=== PATIENT | female | born 1940 | race African-American/Black ===

== ENCOUNTER 2020-06-03 16:26 | Outpatient (REF) | payer MEDICARE, MEDICAID, SELFPAY ==
[2020-06-03 18:09] LABS: Free T4 (Free Thyroxine) 0.94 ng/dL (0.71-1.85); Thyroid Stimulating Hormone 3.35 mIU/mL (0.32-4.0)
== END 2020-06-03 16:27 | disposition home or self-care (01) ==
LOC: HO.LAB 16:26
DX: R53.83 Other fatigue (principal)
CPT/HCPCS: 36415; 84439; 84443

== ENCOUNTER 2020-09-12 13:44 | Outpatient (REF) | payer MEDICARE, MEDICAID, SELFPAY ==
--- NOTE | 2020-09-12 13:49 | MM_ITS ---
EXAMINATION: MM SCREENING DIGITAL BREAST TOMOSYNTHESIS, BILATERAL CLINICAL INFORMATION: Screening. Asymptomatic. The lifetime risk of breast cancer based on the Tyrer-Cuzick Model is 1%. COMPARISON: Mammography: 09/07/2019, 08/08/2018, 06/29/2017 TECHNIQUE: Digital breast tomosynthesis is performed in both the craniocaudal and mediolateral oblique views along with computer-aided detection (CAD). Synthesized 2D images are generated from the tomosynthesis. FINDINGS: There are scattered areas of fibroglandular density (ACR BI-RADS breast composition Category b). There are no significant masses, abnormal calcifications, or other abnormalities. Parenchymal pattern is similar to prior studies. There is a small smooth nodule again seen anterior lateral left breast and also at central 6:00 left breast. There is no developing density. The axilla and skin contours are unremarkable. MM/MM tomosynthesis screening BI IMPRESSION: No significant changes from prior exams. ASSESSMENT: BI-RADS 2: Benign RECOMMENDATION: Routine annual mammography screening. This patient's information was entered into a reminder system with a target due date for their next mammogram.
== END 2020-09-12 13:45 | disposition home or self-care (01) ==
LOC: HO.MAMMO 13:44
PROVIDERS: PCP Internal Medicine; Visit Provider Internal Medicine
DX: Z12.31 Encounter for screening mammogram for malignant neoplasm of breast (principal)
CPT/HCPCS: 77063; 77067

== ENCOUNTER 2020-11-15 08:44 | Outpatient (REF) | payer MEDICARE, MEDICAID, SELFPAY ==
[2020-11-15 11:58] LABS: Hematocrit 44.4 % (37-47); Hemoglobin 14.4 g/dl (12.0-16.0); Mean Corpuscular HGB Conc 32.4 g/dl (31.0-35.0); Mean Corpuscular Hemoglobin 29.8 pg (27.0-33.0); Mean Corpuscular Volume 91.9 fL (80-98); Mean Platelet Volume 10.6 fL (9.4-12.3); Platelet Count 266 X10*3/uL (160-400); Red Blood Count 4.83 X10*6/uL (4.20-5.50); Red Cell Distribution Width 12.7 % (11.0-16.0); White Blood Count 10.3 X10*3/uL (4.8-10.8)
[2020-11-15 12:05] LABS: Estimated Average Glucose 123 mg/dL; Hemoglobin A1C 152.0888 umol/L; Hemoglobin A1c % 5.9 %
[2020-11-15 12:21] LABS: Alanine Aminotransferase 10 U/L (0-31); Albumin Level 4.4 g/dL (3.5-5.0); Alkaline Phosphatase 69 U/L (39-117); Anion Gap 11 (12-20); Aspartate Amino Transferase 14 U/L (5-31); Bilirubin Total 0.8 mg/dL (0.0-1.0); Blood Urea Nitrogen 24 mg/dL (9-16); Calcium 9.9 mg/dL (8.4-10.2); Carbon Dioxide 35 mmol/L (22-29); Chloride 100 mmol/L (96-108); Cholesterol 291 mg/dL; Estimated Glomerular Filt Rate > 60; Glucose Fasting 108 mg/dL (60-99); HDL Cholesterol 94 mg/dL; LDL Cholesterol Calculated 181 mg/dl; Potassium 4.1 mmol/L (3.3-5.1); Sodium 142 mmol/L (135-145); Total Protein 7.6 g/dL (6.5-8.0); Triglycerides 83 mg/dL
== END 2020-11-15 08:45 | disposition home or self-care (01) ==
LOC: HO.HMGCLDS 08:44
PROVIDERS: PCP Internal Medicine; Visit Provider Internal Medicine
DX: E78.00 Pure hypercholesterolemia, unspecified (principal); I10 Essential (primary) hypertension
CPT/HCPCS: 36415; 80053; 80061; 83036; 85027

== ENCOUNTER 2021-04-22 09:03 | Outpatient (REF) | payer MEDICARE, MEDICAID, SELFPAY ==
--- NOTE | ~2021-04-22 | XR_ITS ---
EXAMINATION: CR X-RAY RIGHT FOOT AND ANKLE CLINICAL INFORMATION: Right ankle and foot pain. COMPARISON: None TECHNIQUE: 3 views each of the right foot and ankle were obtained. FINDINGS: Mild to moderate soft tissue swelling surrounds the ankle and dorsum of the foot. The ankle joint mortise are intact. There is no acute fracture or dislocation. The tarsal bones are normally aligned. There is a small plantar calcaneal spur. Mild to moderate dorsal spurring is seen at the level of the metatarsophalangeal joints. Mild first and second tarsometatarsal degenerative joint changes are seen. The metatarsals and phalanges are intact. XR/XR ankle RT min 3V IMPRESSION: Mild to moderate soft tissue swelling surrounding the ankle without acute underlying osseous abnormality. Degenerative spurring and degenerative joint changes as detailed above.
--- NOTE | ~2021-04-22 | XR_ITS ---
EXAMINATION: CR X-RAY RIGHT FOOT AND ANKLE CLINICAL INFORMATION: Right ankle and foot pain. COMPARISON: None TECHNIQUE: 3 views each of the right foot and ankle were obtained. FINDINGS: Mild to moderate soft tissue swelling surrounds the ankle and dorsum of the foot. The ankle joint mortise are intact. There is no acute fracture or dislocation. The tarsal bones are normally aligned. There is a small plantar calcaneal spur. Mild to moderate dorsal spurring is seen at the level of the metatarsophalangeal joints. Mild first and second tarsometatarsal degenerative joint changes are seen. The metatarsals and phalanges are intact. XR/XR foot RT min 3V IMPRESSION: Mild to moderate soft tissue swelling surrounding the ankle without acute underlying osseous abnormality. Degenerative spurring and degenerative joint changes as detailed above.
== END 2021-04-22 09:04 | disposition home or self-care (01) ==
LOC: HO.HMGCX 09:03
PROVIDERS: PCP Internal Medicine; Visit Provider Hospitalist
DX: M25.571 Pain in right ankle and joints of right foot (principal)
CPT/HCPCS: 73610; 73630

== ENCOUNTER 2021-05-01 13:17 | Outpatient (REF) | payer MEDICARE, MEDICAID, SELFPAY ==
--- NOTE | ~2021-05-01 | MM_ITS ---
EXAMINATION: BONE DENSITOMETRY CLINICAL INDICATION: Postmenopausal. COMPARISON: Baseline BD dated 01/26/2008. TECHNIQUE: Using a [employer] DXA System (software version: 13.1) manufactured by [employer], dual-energy x-ray absorptiometry was performed of the lumbar spine and left hip. The images are of good technical quality. Summary results are attached. FINDINGS: AP SPINE L1-L4: Current: BMD 1.612 g/cm2, Z-score 4.3, T-score 3.6, normal, 14.7% increase from baseline (<5% change is not significant). Baseline: BMD 1.406 g/cm2. LEFT FEMUR, NECK: Current: BMD 0.826 g/cm2, Z-score -0.7, T-score -1.5, osteopenia. Baseline: BMD 1.161 g/cm2. LEFT FEMUR, TOTAL: Current: BMD 1.057 g/cm2, Z-score 1.0, T-score 0.4, normal, 17.4% decrease from baseline (<5% change is not significant). Baseline: BMD 1.279 g/cm2. IDENTIFIED RISK FACTORS: Rheumatoid arthritis, osteoporosis. Early menopause, secondary osteoporosis, hysterectomy. HISTORY OF FRACTURE: None listed. MEDICATIONS: Calcium supplements or multivitamin, vitamin D. MM/XR DEXA axial skeleton IMPRESSION: 1. DIAGNOSIS: Osteopenia based on the lowest T-score value of -1.5 in the femoral neck applying World Health Organization criteria. 2. 10-YEAR FRACTURE RISK PREDICTION, FRAX: Major osteoporotic fracture (clinical spine, forearm, hip or shoulder) 7.4%. Hip fracture 1.8%. 3. Treatment Recommendations: NOF guidelines recommend consideration for treatment in postmenopausal women and men age 50 and older presenting with the following: -A hip or vertebral (clinical or morphometric) fracture. -T-score less than or equal to -2.5 at the femoral neck or spine after appropriate evaluation to exclude secondary causes. -Low bone mass at the hip or spine and a 10-year fracture probability by FRAX of greater than or equal to 3% for hip fracture or greater than or equal to 20% for major osteoporotic fracture based on the [place] adapted WHO algorithm. 4. Other Recommendations: All treatment decisions require clinical judgment and consideration of individual patient factors, including patient preferences, comorbidities, previous drug use, risk factors not captured in the FRAX model (e.g. frailty, falls, vitamin D deficiency, increased bone turnover, interval significant decline in bone density) and possible under or overestimation of fracture risk by FRAX. Additional medical evaluation for secondary cause of low bone mineral density may be appropriate. FUTURE SCAN RECOMMENDATION: People with diagnosed cases of osteoporosis or at high risk for fracture should have regular bone mineral density tests. For patients eligible for Medicare, routine testing is allowed once every 2 years. The testing frequency can be increased to one year for patients who have rapidly progressing disease, those who are receiving or discontinuing medical therapy to restore bone mass, or have additional risk factors.
== END 2021-05-01 13:18 | disposition home or self-care (01) ==
LOC: HO.MAMMO 13:17
PROVIDERS: PCP Internal Medicine; Visit Provider Advanced Practice Midwife
DX: Z12.31 Encounter for screening mammogram for malignant neoplasm of breast (principal); Z13.820 Encounter for screening for osteoporosis; M85.80 Other specified disorders of bone density and structure, unspecified site; M06.9 Rheumatoid arthritis, unspecified; M81.0 Age-related osteoporosis without current pathological fracture; Z78.0 Asymptomatic menopausal state; Z98.890 Other specified postprocedural states; Z79.899 Other long term (current) drug therapy
CPT/HCPCS: 77080

== ENCOUNTER 2021-05-16 07:01 | Outpatient (REF) | payer MEDICARE, MEDICAID, SELFPAY ==
[2021-05-16 08:03] LABS: Alanine Aminotransferase 15 U/L (0-31); Albumin Level 4.3 g/dL (3.5-5.0); Alkaline Phosphatase 70 U/L (39-117); Anion Gap 11 (12-20); Aspartate Amino Transferase 20 U/L (5-31); Bilirubin Total 0.8 mg/dL (0.0-1.0); Blood Urea Nitrogen 20 mg/dL (9-16); Calcium 9.6 mg/dL (8.4-10.2); Carbon Dioxide 29 mmol/L (22-29); Chloride 105 mmol/L (96-108); Cholesterol 264 mg/dL; Estimated Glomerular Filt Rate 54; Glucose Fasting 108 mg/dL (60-99); HDL Cholesterol 72 mg/dL; Iron 75 mcg/dL (30-160); LDL Cholesterol Calculated 177 mg/dl; Percent Iron Saturation 22 % (15-50); Sodium 141 mmol/L (135-145); Total Iron Binding Capacity 342 mcg/dL (228-428); Total Protein 6.8 g/dL (6.5-8.0); Triglycerides 78 mg/dL; Unsaturated Iron Binding 267 ug/dL
[2021-05-16 08:26] LABS: TSH reflex Free T4 3.03 uIU/mL (0.32-4.0)
== END 2021-05-16 07:02 | disposition home or self-care (01) ==
LOC: HO.LAB 07:01
PROVIDERS: PCP Internal Medicine; Visit Provider Internal Medicine
DX: I01.1 Acute rheumatic endocarditis (principal); E78.5 Hyperlipidemia, unspecified; I10 Essential (primary) hypertension
CPT/HCPCS: 36415; 80053; 80061; 83540; 84443

== ENCOUNTER 2021-09-16 07:42 | Outpatient (REF) | payer MEDICARE, MEDICAID, SELFPAY ==
--- NOTE | ~2021-09-16 | MM_ITS ---
EXAMINATION: MM SCREENING DIGITAL BREAST TOMOSYNTHESIS, BILATERAL CLINICAL INFORMATION: Screening. Asymptomatic. The lifetime risk of breast cancer based on the Tyrer-Cuzick Model is 2%. COMPARISON: Mammography: 09/12/2020, 09/07/2019, 08/08/2018 TECHNIQUE: Digital breast tomosynthesis is performed in both the craniocaudal and mediolateral oblique views along with computer-aided detection (CAD). Synthesized 2D images are generated from the tomosynthesis. FINDINGS: There are scattered areas of fibroglandular density (ACR BI-RADS breast composition Category b). There are no significant masses, abnormal calcifications, or other abnormalities. Fine fibronodular changes are similar to prior studies. No interval dominant nodularity or developing density. No architectural abnormality. The axilla and skin contours are unremarkable. MM/MM tomosynthesis screening BI IMPRESSION: No mammographic evidence of malignancy. ASSESSMENT: BI-RADS 2: Benign RECOMMENDATION: Routine annual mammography screening. This patient's information was entered into a reminder system with a target due date for their next mammogram.
== END 2021-09-16 07:43 | disposition home or self-care (01) ==
LOC: HO.MAMMO 07:42
PROVIDERS: PCP Internal Medicine; Visit Provider Internal Medicine
DX: Z12.31 Encounter for screening mammogram for malignant neoplasm of breast (principal)
CPT/HCPCS: 77063; 77067

== ENCOUNTER → 2021-09-23 09:14 | Outpatient (BNVA) | payer MEDICARE, MEDICAID, SELFPAY | PROVIDERS: PCP Internal Medicine; Referring Provider Internal Medicine; Visit Provider Internal Medicine | DX: R00.2 Palpitations (principal); R07.2 Precordial pain; I10 Essential (primary) hypertension | CPT/HCPCS: 93005; 99202 ==

== ENCOUNTER → 2021-09-25 07:36 | Outpatient (REF) | payer MEDICARE, MEDICAID, SELFPAY ==
--- NOTE | 2021-09-25 07:29 | HM_ITS ---
Conclusion: 1. Patient was monitor for 6 days and 23 hours 2. Baseline rhythm is normal sinus rhythm with average heart rate of 74 beats per minute 3. No significant bradycardia or pauses noted 4. One episode of SVT at 109 beats per minute lasting 16 beats 5. Total of 10,167 PVCs accounting for 1.43% of total burden accounting for frequent PVCs 6. Total of 826 PACs, suggestive occasional PACs with total burden of 0.12% 7. No patient reported events MTDD
== END ==
LOC: HO.CARD 07:36
PROVIDERS: PCP Internal Medicine; Visit Provider Internal Medicine
DX: R00.2 Palpitations (principal)
CPT/HCPCS: 93242

== ENCOUNTER 2021-10-09 09:14 | Outpatient (REF) | payer MEDICARE, MEDICAID, SELFPAY ==
--- NOTE | ~2021-10-09 | XR_ITS ---
EXAMINATION: XR CHEST CLINICAL INFORMATION: Hypertension COMPARISON: August 27, 2018 TECHNIQUE: 2 views of the chest were obtained. FINDINGS: No significant abnormality is noted involving the heart, lungs, mediastinum, bony thorax or soft tissues. XR/XR chest 2V IMPRESSION: No acute disease.
[2021-10-09 11:19] LABS: Hematocrit 41.7 % (37.0-47.0); Hemoglobin 13.7 g/dl (12.0-16.0); Mean Corpuscular HGB Conc 32.9 g/dl (31.0-35.0); Mean Corpuscular Hemoglobin 29.9 pg (27.0-33.0); Mean Platelet Volume 9.6 fL (9.4-12.3); Platelet Count 271 X10*3/uL (160-400); Red Blood Count 4.58 X10*6/uL (4.20-5.50); Red Cell Distribution Width 12.5 % (11.0-16.0); White Blood Count 5.4 X10*3/uL (4.8-10.8)
[2021-10-09 11:33] LABS: Alanine Aminotransferase 11 U/L (0-31); Albumin Level 4.5 g/dL (3.5-5.0); Alkaline Phosphatase 74 U/L (39-117); Anion Gap 11 (12-20); Aspartate Amino Transferase 15 U/L (5-31); Bilirubin Total 0.9 mg/dL (0.0-1.0); Blood Urea Nitrogen 22 mg/dL (9-16); Calcium 10.1 mg/dL (8.4-10.2); Carbon Dioxide 31 mmol/L (22-29); Chloride 102 mmol/L (96-108); Cholesterol 311 mg/dL; Estimated Glomerular Filt Rate 52; Glucose Fasting 104 mg/dL (60-99); HDL Cholesterol 82 mg/dL; LDL Cholesterol Calculated 215 mg/dl; Potassium 4.5 mmol/L (3.3-5.1); Sodium 139 mmol/L (135-145); Total Protein 7.6 g/dL (6.5-8.0); Triglycerides 74 mg/dL
[2021-10-09 11:48] LABS: B Type Natriuretic Peptide 30 pg/mL (<100)
[2021-10-09 11:58] LABS: Erythrocyte Sedimentation Rate 44 MM/HR (0-20)
== END 2021-10-09 09:15 | disposition home or self-care (01) ==
LOC: HO.HMGCLDS 09:14
PROVIDERS: Visit Provider Internal Medicine
DX: R00.2 Palpitations (principal); I10 Essential (primary) hypertension; E78.5 Hyperlipidemia, unspecified
CPT/HCPCS: 36415; 71046; 80053; 80061; 83880; 85027; 85652

== ENCOUNTER → 2021-11-03 07:18 | Outpatient (REF) | payer MEDICARE, MEDICAID, SELFPAY ==
--- NOTE | ~2021-11-03 | NM_ITS ---
Exercise Myocardial perfusion study Indication: Precordial pain to evaluate for myocardial ischemia Technique: The patient was brought in for an exercise perfusion study on 11/03/2021. Patient performed exercise as per Mohan protocol and was injected 25 mCi of sestamibi was given intravenously one target HR was achieved. Images were obtained using the SPECT gamma camera interlaced with the gating device. Images were obtained in supine position. Resting perfusion study was performed on 11/05/2021. Patient was administered 25 mCi of sestamibi intravenously at rest. Images were then obtained in supine position. Images obtained with and without CT attenuation. Total DLP 169 mGy-cm. Images were processed with the software and compared side to side in short axis, horizontal long axis and vertical long axis views. Findings: The stress perfusion study showed non attenuated images show normal uptake of radiotracer in all segments of LV myocardium. Attenuated images show minimal thinning in the distal septum of the LV myocardium.. The gated study shows normal LV systolic function with calculated LVEF of 60%. LV cavity is normal in size. The gated study shows normal systolic wall thickening and contraction of all segments. There is no transient ischemic dilation. Resting study shows no change in perfusion pattern compared to stress perfusion study. Gating at rest reveals normal systolic wall motion with ejection fraction at 57%. The findings are consistent with normal myocardial perfusion. NM/NM cardiolite stress test Impression: 1. Normal myocardial perfusion 2. Gated LVEF is 60% 3. Transient ischemic dilatation not present Stress EKG is negative for ischemia
--- NOTE | 2021-11-03 07:22 | CA_ITS ---
Acquisition Time: 2021-11-03 08:37:39 Total Exercise Time: 00:05:00 Test Indications: CP, PALPITATIONS Medications: SEE CHART Protocol: JEREL Max HR: 148 BPM 104% of Pred: 141 BPM Max BP: 178/080 mmHG Max Work Load: 4.6 METS Exercise stress test with exercise 5 min of Jerel protocol stage 1 ( stage held due to heart rate 98% at end of normal stage 1), achieing 104% MPHR, with mild sob, no chest discomfort, without arrythmia, with normotensive response to exercise, without EKG changes meeting criteria for ischemia. Nuclear images pending. Test reviewed with Dr Paulino. Referred By: Rashawn Clark Overread By: TOYA HOPKINS
--- NOTE | 2021-11-03 07:22 | CA_ITS ---
Transthoracic Echocardiogram Patient (Last, First, Middle): Jo Ann Morrow, Gender: Female Date of : 1940 Age: 81 Procedure Date: 11/03/2021 Procedure Type: Transthoracic Echocardiogram Location: OP Height: 160.02 cm Weight: 77.11 kg BSA: 1.80 m2 Heart Rate: bpm BP: 140 / 80 mmHg Vascular Surgeon: VH/TO Referring MD: Rashawn Clark MD Mems Integration Engineer: Elfego Paulino MD Symptoms: R00.2 - Palpitations Study Quality: Fair ECG Rhythm: Sinus Conclusions: - 1. Normal LV systolic function with grade I diastolic dysfunction 2. Normal cardiac valvular Doppler 3. Normal RVSp 4. No pericardial effusion Findings Left Ventricle Normal left ventricular size, thickness, and systolic function. Spectral Doppler is indicative of an impaired relaxation filling pattern. E/E prime ratio is <8, consistent with normal filling pressures. Right Ventricle Normal right ventricular cavity size and systolic function. Atria Both atria are normal in size. There is no evidence of interatrial shunt. Aortic Valve The aortic valve structure and function is likely normal. There is no aortic valve stenosis. There is no aortic valve regurgitation. Mitral Valve Normal mitral valve structure and function. There is trace mitral valve regurgitation. There is no mitral valve stenosis. Pulmonic Valve The pulmonic valve is likely normal. There is trace pulmonic valve regurgitation. Tricuspid Valve Normal tricuspid valve structure. There is trace tricuspid valve regurgitation. The right ventricular systolic pressure is normal. The right ventricular systolic pressure is 17 mmHg. There is no evidence of pulmonary hypertension. Great Vessels All visible segments of the aorta are normal in size. The pulmonary artery was not well visualized. Venous The inferior vena cava is normal in size and collapses greater than 50% with inspiration. Pericardium/Pleural There is no evidence of pericardial effusion. Measurements 2D Linear Measurements IVSd: 0.82 0.6-0.9/0.6-1.0 cm LVIDd: 4.37 3.9-5.3/4.2-5.9 cm LVIDd Index: 2.43 2.4-3.2/2.2-3.1 cm/m2 LVIDs: 2.78 2.0-3.6 cm LVPWd: 0.94 0.7-1.1 cm LA Diam: 2.80 2.7-3.8/3.0-4.0 cm LAIDs Index: 1.56 1.5-2.3 cm/m2 LV Mass: 153.24 67-162/88-224 g LV Mass Index: 85.13 43-95/49-115 g/m2 LVOT Diam: 2.00 3.0+(-)1.3 cm Mitral Valve MV Pk E: 0.51 MV PK A: 1.03 MV Decel Time: 155.00 E/A: 0.50 E'Lateral: 6.64 E'Medial: 5.11 E/E' Med: 10.10 E/E' Lat: 7.70 PHT: 45.00 MVA PHT: 4.89 Decel [place]: 3.31 Aortic Valve AoV Pk Jagdish: 1.32 AoV Mn Jagdish: 0.77 AoV VTI: 0.31 AoV Pk Grad: 7.00 Aov Mn Grad: 3.00 FLACO Cont.VTI: 1.78 LVOT LVOT Pk Jagdish: 0.98 LVOT Mn Jagdish: 0.60 LVOT VTI: 0.18 LVOT Pk Grad: 4.00 LVOT Mn Grad: 2.00 LVOT Diam: 2.00 LVOT Area: 3.14 Diastolic Function MV Pk E: 0.51 MV Pk A: 1.03 E/A: 0.50 E'Medial: 5.11 E/E' Med: 10.10 E' Laterial: 6.64 E/E' Lat: 7.70 Right Ventricle TAPSE (mm): 22.00 TVS' Jagdish: 12.00 Tricuspid Valve TR Pk Jagdish: 1.89 TR Pk Grad: 14.00 RA Press: 3.00 RVSP: 17.00 Great Vessels Aorta Ao Asc: 3.50 2.1-3.4 cm Pulmonary Valve PV Pk Jagdish: 0.94 Peak PV Grad: 4.00 Updated in Other Vendor System with Status of Final Elfego Paulino MD electronically signed on 11/03/2021 8:57:53 PM with status of Final
== END ==
LOC: HO.CARD 07:18
PROVIDERS: Visit Provider Internal Medicine
DX: R00.2 Palpitations (principal); R07.2 Precordial pain
CPT/HCPCS: 78452; 93017; 93306; A9500

== ENCOUNTER 2021-11-10 07:58 | Outpatient (REF) | payer MEDICARE, MEDICAID, SELFPAY ==
--- NOTE | 2021-11-10 14:46 | PFT_ITS ---
INDICATION: Cough. SPIROMETRY: The FEV1 to FVC 82% with an FEV1 of 1.57 L, which is 122% predicted and an FVC of 1.88 L, which is 113% predicted. No significant response to bronchodilators noted. Maximum voluntary ventilation 65% predicted. LUNG VOLUMES: Total lung capacity 86% predicted with a residual volume of 98% predicted, and an expiratory reserve volume of 15% predicted. DIFFUSION CAPACITY: DLCO 69% predicted. COMPARISONS: None available. INTERPRETATION: No obstructive nor restrictive ventilatory defects identified. No significant response to bronchodilators noted. The patient does have a mild decrease in maximum voluntary ventilation, which could be due to deconditioning. Lung volumes are within normal limits except for decrease in the expiratory reserve volume secondary to an elevated BMI. The patient does have a mild isolated diffusion impairment, which should be corrected for hemoglobin. Otherwise, consider pulmonary vascular conditions and/or occult interstitial lung conditions. Clinical correlation warranted. MD OMI Ureña/PIYUSH / [id number]
== END 2021-11-10 07:59 | disposition home or self-care (01) ==
LOC: HO.RESP 07:58
PROVIDERS: PCP Internal Medicine; Visit Provider Internal Medicine
DX: R05.9 Cough, unspecified (principal); R06.2 Wheezing
CPT/HCPCS: 94060; 94727; 94729

== ENCOUNTER 2021-11-17 10:44 | Outpatient (REF) | payer MEDICARE, MEDICAID, SELFPAY ==
[2021-11-17 12:37] LABS: Alanine Aminotransferase 16 U/L (0-31); Albumin Level 4.3 g/dL (3.5-5.0); Alkaline Phosphatase 72 U/L (39-117); Anion Gap 15 (12-20); Aspartate Amino Transferase 21 U/L (5-31); Bilirubin Total 0.8 mg/dL (0.0-1.0); Blood Urea Nitrogen 25 mg/dL (9-16); Calcium 10.1 mg/dL (8.4-10.2); Carbon Dioxide 27 mmol/L (22-29); Chloride 99 mmol/L (96-108); Cholesterol 235 mg/dL; Estimated Glomerular Filt Rate 44; Glucose Fasting 106 mg/dL (60-99); HDL Cholesterol 83 mg/dL; LDL Cholesterol Calculated 138 mg/dl; Potassium 4.1 mmol/L (3.3-5.1); Sodium 137 mmol/L (135-145); Total Protein 7.3 g/dL (6.5-8.0); Triglycerides 73 mg/dL
== END 2021-11-17 10:45 | disposition home or self-care (01) ==
LOC: HO.HMGCLDS 10:44
PROVIDERS: Visit Provider Internal Medicine
DX: E78.5 Hyperlipidemia, unspecified (principal); I10 Essential (primary) hypertension
CPT/HCPCS: 36415; 80048; 80053; 80061

== ENCOUNTER → 2021-11-18 13:20 | Outpatient (BNVA) | payer MEDICARE, MEDICAID, SELFPAY | PROVIDERS: PCP Internal Medicine; Referring Provider Internal Medicine; Visit Provider Nurse Practitioner Family | DX: R00.2 Palpitations (principal); R07.2 Precordial pain; I10 Essential (primary) hypertension; Z79.899 Other long term (current) drug therapy | CPT/HCPCS: 99212 ==

== ENCOUNTER 2022-02-19 09:01 | Outpatient (REF) | payer MEDICARE, MEDICAID, SELFPAY ==
--- NOTE | ~2022-02-19 | XR_ITS ---
EXAMINATION: XR LUMBOSACRAL SPINE CLINICAL INFORMATION: Lower back pain. COMPARISON: None. TECHNIQUE: Three views of the lumbosacral spine. FINDINGS: There is mild straightening of lumbar lordosis. The vertebral heights and alignment are normal. There is mild loss of L2-L3, L3-L4 and L4-L5 disc heights. There is mild ventral spondylosis. No visible acute fracture or dislocation seen. No lytic process seen. The SI joints are symmetrical and normal. XR/XR lumbar spine 2-3V IMPRESSION: Degenerative disc changes L2-L3, L3-L4 and L4-L5 disc level.
== END 2022-02-19 09:02 | disposition home or self-care (01) ==
LOC: HO.HMGCX 09:01
PROVIDERS: PCP Internal Medicine; Visit Provider Internal Medicine
DX: M54.50 Low back pain, unspecified (principal); I10 Essential (primary) hypertension; E78.5 Hyperlipidemia, unspecified
CPT/HCPCS: 72100

== ENCOUNTER 2022-03-21 07:55 | Outpatient (REF) | payer MEDICARE, MEDICAID, SELFPAY ==
[2022-03-21 08:47] LABS: MANUAL DIFF FLAG NO
[2022-03-21 09:36] LABS: Basophils Percent Auto 0.8 % (0-2); Eosinophils Absolute Auto 0.1 X10*3/uL (0.0-0.4); Eosinophils Percent Auto 2.5 % (0-4); Hematocrit 37.2 % (37.0-47.0); Hemoglobin 12.1 g/dl (12.0-16.0); Imm Gran Abs Auto 0.01 X10*3/uL (0.00-0.03); Imm Gran Pct Auto 0.3 % (0.0-0.4); Lymphocytes Absolute Auto 1.7 X10*3/uL (1.2-4.9); Lymphocytes Percent Auto 47.4 % (20-40); Mean Corpuscular HGB Conc 32.5 g/dl (31.0-35.0); Mean Corpuscular Hemoglobin 29.6 pg (27.0-33.0); Mean Platelet Volume 9.4 fL (9.4-12.3); Monocytes Absolute Auto 0.3 X10*3/uL (0.1-1.2); Monocytes Percent Auto 7.4 % (2-11); Neutrophils Absolute Auto 1.5 x10*3/uL (2.0-8.3); Neutrophils Percent Auto 41.6 % (45-73); Platelet Count 225 X10*3/uL (160-400); Red Blood Count 4.09 X10*6/uL (4.20-5.50); White Blood Count 3.6 X10*3/uL (4.8-10.8)
[2022-03-21 10:09] LABS: Alanine Aminotransferase 15 U/L (0-31); Albumin Level 4.2 g/dL (3.5-5.0); Alkaline Phosphatase 69 U/L (39-117); Anion Gap 11 (12-20); Aspartate Amino Transferase 19 U/L (5-31); Bilirubin Total 0.5 mg/dL (0.0-1.0); Blood Urea Nitrogen 17 mg/dL (9-16); Calcium 9.2 mg/dL (8.4-10.2); Carbon Dioxide 27 mmol/L (22-29); Chloride 106 mmol/L (96-108); Cholesterol 189 mg/dL; Estimated Glomerular Filt Rate > 60; Glucose Fasting 102 mg/dL (60-99); HDL Cholesterol 65 mg/dL; LDL Cholesterol Calculated 110 mg/dl; Potassium 4.3 mmol/L (3.3-5.1); Sodium 140 mmol/L (135-145); Total Protein 6.8 g/dL (6.5-8.0); Triglycerides 73 mg/dL
== END 2022-03-21 07:56 | disposition home or self-care (01) ==
LOC: HO.LAB 07:55
PROVIDERS: PCP Internal Medicine; Visit Provider Internal Medicine
DX: I01.1 Acute rheumatic endocarditis (principal); I10 Essential (primary) hypertension; E78.5 Hyperlipidemia, unspecified
CPT/HCPCS: 36415; 80053; 80061; 85025

== ENCOUNTER → 2022-07-01 13:33 | Outpatient (BNVA) | payer OTHER, MEDICAID, SELFPAY | PROVIDERS: PCP Internal Medicine; Referring Provider Internal Medicine; Visit Provider Nurse Practitioner Family | DX: R00.2 Palpitations (principal); R07.2 Precordial pain; I10 Essential (primary) hypertension | CPT/HCPCS: 93005; 99212 ==

== ENCOUNTER 2022-08-18 08:00 | Outpatient (RCR) | payer OTHER, MEDICAID, SELFPAY | END 2022-09-16 09:03 | disposition home or self-care (01) | LOC: HO.PT 08:00 | PROVIDERS: PCP Internal Medicine; Visit Provider Internal Medicine Rheumatology | DX: M54.50 Low back pain, unspecified (principal) | CPT/HCPCS: 97014; 97110; 97112; 97162 ==

== ENCOUNTER 2022-09-11 09:32 | Outpatient (REF) | payer MEDICARE, MEDICAID, SELFPAY ==
[2022-09-11 11:28] LABS: Appearance Urine Turbid; Color Urine Yellow; Glucose Urine UA Negative (Negative); Leukocyte Esterase Urine Negative (Negative); Nitrite Urine Negative (Negative); PH 5.5 (5.0-9.0); Specific Gravity - Urine >= 1.030 (1.005-1.025); UMIC TRIGGER UACC YES; Urine Blood Negative (Negative); Urine Ketones Negative (Negative); Urine Protein 30 (1+) mg/dL (Neg-Trace)
[2022-09-11 11:33] LABS: Bacteria Urine None Seen (None Seen); Hyaline Casts Urine 0-2 /LPF (0-2); RBC Urine 0-2 /HPF (0-2); WBC Urine 0-5 /HPF (0-5)
[2022-09-11 11:38] LABS: MANUAL DIFF FLAG NO
[2022-09-11 11:46] LABS: Hematocrit 40.5 % (37.0-47.0); Hemoglobin 13.4 g/dl (12.0-16.0); Imm Gran Abs Auto 0.02 X10*3/uL (0.00-0.03); Imm Gran Pct Auto 0.2 % (0.0-0.4); Lymphocytes Percent Auto 11.7 % (20-40); Mean Corpuscular HGB Conc 33.1 g/dl (31.0-35.0); Mean Corpuscular Hemoglobin 29.4 pg (27.0-33.0); Mean Corpuscular Volume 88.8 fL (80.0-98.0); Monocytes Absolute Auto 0.1 X10*3/uL (0.1-1.2); Monocytes Percent Auto 1.6 % (2-11); Neutrophils Absolute Auto 7.3 x10*3/uL (2.0-8.3); Neutrophils Percent Auto 86.5 % (45-73); Platelet Count 259 X10*3/uL (160-400); Red Blood Count 4.56 X10*6/uL (4.20-5.50); Red Cell Distribution Width 12.1 % (11.0-16.0); White Blood Count 8.5 X10*3/uL (4.8-10.8)
[2022-09-11 12:14] LABS: Alanine Aminotransferase 14 U/L (0-31); Albumin Level 4.5 g/dL (3.5-5.0); Alkaline Phosphatase 77 U/L (39-117); Anion Gap 17 (12-20); Aspartate Amino Transferase 19 U/L (5-31); Bilirubin Total 0.6 mg/dL (0.0-1.0); Blood Urea Nitrogen 24 mg/dL (9-16); Calcium 9.9 mg/dL (8.4-10.2); Carbon Dioxide 23 mmol/L (22-29); Chloride 106 mmol/L (96-108); Cholesterol 219 mg/dL; Estimated Glomerular Filt Rate > 60; Glucose Fasting 165 mg/dL (60-99); HDL Cholesterol 84 mg/dL; LDL Cholesterol Calculated 126 mg/dl; Sodium 142 mmol/L (135-145); Total Protein 7.5 g/dL (6.5-8.0); Triglycerides 49 mg/dL
== END 2022-09-11 09:33 | disposition home or self-care (01) ==
LOC: HO.HMGCLDS 09:32
PROVIDERS: PCP Internal Medicine; Visit Provider Internal Medicine
DX: E78.5 Hyperlipidemia, unspecified (principal); I10 Essential (primary) hypertension; R10.2 Pelvic and perineal pain
CPT/HCPCS: 36415; 80053; 80061; 81001; 84443; 85025

== ENCOUNTER 2022-09-18 10:05 | Outpatient (REF) | payer MEDICARE, MEDICAID, SELFPAY ==
--- NOTE | ~2022-09-18 | US_ITS ---
EXAMINATION: US ABDOMEN COMPLETE CLINICAL INFORMATION: Unspecified abdominal pain. Rule out nephrolithiasis. COMPARISON: Abdominal ultrasound 11/10/2013. TECHNIQUE: Real-time imaging of the abdominal viscera. Technically difficult study secondary to body habitus. FINDINGS: PANCREAS: Normal. ABDOMINAL AORTA: Visualized aorta is normal in caliber however portions are obscured by bowel gas. INFERIOR VENA CAVA: Visualized portions are normal. LIVER: Normal. The liver is normal in size. The liver contour is normal. Parenchymal echogenicity is normal. No focal hepatic lesion. There is no intrahepatic biliary duct dilatation seen. GALLBLADDER: Gallbladder is contracted given patient was not a fasting state which somewhat limits evaluation. No evidence of stones, sludge, polyps, wall thickening or pericholecystic fluid. COMMON BILE DUCT: Normal in caliber measuring 0.5 cm in diameter. RIGHT KIDNEY: Normal. No hydronephrosis. No renal calculi or focal parenchymal lesions. The kidney measures 8.7 cm in maximum dimension. LEFT KIDNEY: Normal. No hydronephrosis. No renal calculi or focal parenchymal lesions. The kidney measures 8.9 cm in maximum dimension. SPLEEN: Normal. The spleen measures 9.0 cm in maximum dimension. FREE FLUID: None. US/US abdomen complete IMPRESSION: No hydronephrosis or nephrolithiasis.
== END 2022-09-18 10:06 | disposition home or self-care (01) ==
LOC: HO.US 10:05
PROVIDERS: PCP Internal Medicine; Visit Provider Internal Medicine
DX: R10.9 Unspecified abdominal pain (principal)
CPT/HCPCS: 76700

== ENCOUNTER 2022-09-22 13:34 | Outpatient (REF) | payer MEDICARE, MEDICAID, SELFPAY ==
[2022-09-22 14:55] LABS: Influenza A PCR NEGATIVE (Negative); Influenza B PCR NEGATIVE (Negative); Resp Syncy Virus RNA Qual PCR NEGATIVE (Negative); SARS COV2 PCR INHOUSE NEGATIVE (Negative)
[2022-09-22 16:27] LABS: MANUAL DIFF FLAG NO
[2022-09-22 16:30] LABS: Basophils Percent Auto 0.3 % (0-2); Eosinophils Percent Auto 0.6 % (0-4); Hematocrit 41.3 % (37.0-47.0); Hemoglobin 13.7 g/dl (12.0-16.0); Imm Gran Abs Auto 0.02 X10*3/uL (0.00-0.03); Imm Gran Pct Auto 0.3 % (0.0-0.4); Lymphocytes Absolute Auto 1.7 X10*3/uL (1.2-4.9); Lymphocytes Percent Auto 26.3 % (20-40); Mean Corpuscular HGB Conc 33.2 g/dl (31.0-35.0); Mean Corpuscular Hemoglobin 30.2 pg (27.0-33.0); Mean Platelet Volume 9.9 fL (9.4-12.3); Monocytes Absolute Auto 0.4 X10*3/uL (0.1-1.2); Monocytes Percent Auto 5.9 % (2-11); Neutrophils Absolute Auto 4.3 x10*3/uL (2.0-8.3); Neutrophils Percent Auto 66.6 % (45-73); Platelet Count 240 X10*3/uL (160-400); Red Blood Count 4.54 X10*6/uL (4.20-5.50); Red Cell Distribution Width 12.5 % (11.0-16.0); White Blood Count 6.4 X10*3/uL (4.8-10.8)
[2022-09-22 16:52] LABS: Anion Gap 16 (12-20); Blood Urea Nitrogen 22 mg/dL (9-16); Calcium 9.6 mg/dL (8.4-10.2); Carbon Dioxide 26 mmol/L (22-29); Chloride 104 mmol/L (96-108); Estimated Glomerular Filt Rate 49; Glucose Random 110 mg/dL (60-115); Sodium 142 mmol/L (135-145)
[2022-09-22 17:00] LABS: Appearance Urine Clear; Color Urine Yellow; Glucose Urine UA Negative (Negative); Leukocyte Esterase Urine Negative (Negative); Nitrite Urine Negative (Negative); PH 5.5 (5.0-9.0); Urine Blood Negative (Negative); Urine Ketones Negative (Negative); Urine Protein Negative (Neg-Trace)
== END 2022-09-22 13:35 | disposition home or self-care (01) ==
LOC: HO.HMGCLDS 13:34
PROVIDERS: PCP Internal Medicine; Visit Provider Nurse Practitioner Family
DX: Z20.822 Contact with and (suspected) exposure to COVID-19 (principal); R00.2 Palpitations; R09.89 Other specified symptoms and signs involving the circulatory and respiratory systems
CPT/HCPCS: 0241U; 36415; 80048; 81003; 85025

== ENCOUNTER 2022-10-09 10:12 | Outpatient (REF) | payer MEDICARE, MEDICAID, SELFPAY ==
--- NOTE | ~2022-10-09 | MM_ITS ---
EXAMINATION: MM SCREENING DIGITAL BREAST TOMOSYNTHESIS, BILATERAL CLINICAL INFORMATION: Screening. Asymptomatic. The lifetime risk of breast cancer based on the Tyrer-Cuzick Model is 2%. COMPARISON: Mammography: 09/16/2021, 09/12/2020, 09/07/2019; targeted left breast ultrasound 09/15/2019 TECHNIQUE: Digital breast tomosynthesis is performed in both the craniocaudal and mediolateral oblique views along with computer-aided detection (CAD). Synthesized 2D images are generated from the tomosynthesis. FINDINGS: There are scattered areas of fibroglandular density (ACR BI-RADS breast composition Category b). There are no significant masses, abnormal calcifications, or other abnormalities. Scattered fine fibronodular pattern is similar to prior studies. Small cyst mid central left breast is decreased since 2019. There is no developing density or architectural abnormality. The axilla and skin contours are unremarkable. MM/MM tomosynthesis screening BI IMPRESSION: No mammographic evidence of malignancy. ASSESSMENT: BI-RADS 2: Benign RECOMMENDATION: Routine annual mammography screening. This patient's information was entered into a reminder system with a target due date for their next mammogram.
== END 2022-10-09 10:13 | disposition home or self-care (01) ==
LOC: HO.MAMMO 10:12
PROVIDERS: PCP Internal Medicine; Visit Provider Internal Medicine
DX: Z12.31 Encounter for screening mammogram for malignant neoplasm of breast (principal)
CPT/HCPCS: 77063; 77067

== ENCOUNTER 2023-01-19 09:28 | Outpatient (REF) | payer MEDICARE, MEDICAID, SELFPAY ==
[2023-01-19 11:15] LABS: MANUAL DIFF FLAG NO
[2023-01-19 11:36] LABS: Basophils Percent Auto 0.8 % (0-2); Eosinophils Absolute Auto 0.1 X10*3/uL (0.0-0.4); Eosinophils Percent Auto 1.6 % (0-4); Hematocrit 38.8 % (37.0-47.0); Hemoglobin 12.8 g/dl (12.0-16.0); Imm Gran Abs Auto 0.01 X10*3/uL (0.00-0.03); Imm Gran Pct Auto 0.3 % (0.0-0.4); Lymphocytes Absolute Auto 1.9 X10*3/uL (1.2-4.9); Lymphocytes Percent Auto 52.9 % (20-40); Mean Corpuscular Hemoglobin 30.3 pg (27.0-33.0); Mean Corpuscular Volume 91.7 fL (80.0-98.0); Mean Platelet Volume 9.7 fL (9.4-12.3); Monocytes Absolute Auto 0.3 X10*3/uL (0.1-1.2); Monocytes Percent Auto 7.1 % (2-11); Neutrophils Absolute Auto 1.4 x10*3/uL (2.0-8.3); Neutrophils Percent Auto 37.3 % (45-73); Platelet Count 227 X10*3/uL (160-400); Red Blood Count 4.23 X10*6/uL (4.20-5.50); Red Cell Distribution Width 12.4 % (11.0-16.0); White Blood Count 3.7 X10*3/uL (4.8-10.8)
[2023-01-19 11:55] LABS: Alanine Aminotransferase 28 U/L (0-31); Albumin Level 4.2 g/dL (3.5-5.0); Alkaline Phosphatase 70 U/L (39-117); Anion Gap 12 (12-20); Aspartate Amino Transferase 27 U/L (5-31); Bilirubin Total 0.8 mg/dL (0.0-1.0); Blood Urea Nitrogen 13 mg/dL (9-16); Calcium 9.5 mg/dL (8.4-10.2); Carbon Dioxide 29 mmol/L (22-29); Chloride 105 mmol/L (96-108); Estimated Glomerular Filt Rate 57; Glucose Fasting 100 mg/dL (60-99); Potassium 3.9 mmol/L (3.3-5.1); Sodium 142 mmol/L (135-145); Total Protein 6.9 g/dL (6.5-8.0)
[2023-01-19 12:16] LABS: Estimated Average Glucose 114 mg/dL; Hemoglobin A1c % 5.6 %
[2023-01-19 12:18] LABS: Vitamin D 25-OH Total 67.6 ng/mL (>30)
== END 2023-01-19 09:29 | disposition home or self-care (01) ==
LOC: HO.HMGCLDS 09:28
PROVIDERS: PCP Internal Medicine; Visit Provider Internal Medicine
DX: I10 Essential (primary) hypertension (principal); R73.9 Hyperglycemia, unspecified
CPT/HCPCS: 36415; 80053; 82306; 83036; 85025

== ENCOUNTER 2023-05-05 14:03 | Outpatient (AMB) | payer MEDICARE, MEDICAID, SELFPAY ==
--- NOTE | 2023-05-05 14:27 | MHC.OFFVIS ---
Intake Vital Signs 05/05/23 14:28 Height 5 ft 3 in Weight 166 lb 3.657 oz BMI 29.4 BP 142/68 H Blood Pressure Location Lt brachial Position Sitting Pulse 77 Intake Visit Reasons: increasing palpitations Intake Note: follow up w/ EKG Explosive Ordnance Specialist Required: No Accompanied by: Self / Same As Patient Allergies triamterene Adverse Reaction (Verified 05/05/23 14:28) Abdominal Pain hydrolazine Adverse Reaction (Intermediate, Uncoded 05/05/23 14:28) Palpitations Medication List - Last Reconciled 05/05/23 by Rashawn Clark MD albuterol sulfate 90 mcg/actuation (ProAir HFA) 2 puffs inhalation Q6H PRN cholecalciferol (vitamin D3) (Vitamin D3) 25 mcg PO DAILY dicyclomine 10 mg PO BID PRN diltiazem HCl (Cardizem CD) 240 mg PO DAILY hydroxychloroquine 200 mg PO BID pantoprazole 40 mg PO DAILY rosuvastatin 20 mg PO DAILY sertraline (Zoloft) 25 mg PO DAILY HPI HPI Comments History of Present Illness Details Sofia returns for follow-up. In the past, she has been seen regarding palpitations. Then detected to have PVCs. She has been on diltiazem, which might be for rather hypertension. Overall, she states she was doing okay but then recently retired and after that time and she is feeling more palpitations. She is not sure if it is because of the fact that she has more time to just think about herself and hence gets anxious and feels the palpitations more. No other symptoms like angina or shortness of breath or anything else of concern. She would like to get the palpitations reassessed. [facility] Medical History Annual physical exam Cough GERD (gastroesophageal reflux disease) Hyperlipidemia Mammogram normal Palpitations Rheumatoid aortitis Wheezing Surgical History H/O colonoscopy Hx of cataract surgery Hx of tonsillectomy S/P partial hysterectomy Family History Father No problems noted. Mother Diabetes Social History Household Members Other:: lives with daughter Housing: House Alcohol intake: current Alcohol intake frequency: holidays/special occasions only Patient Tobacco Use Status: Never used Tobacco e-Cigarette/Vaping Use: Never Used service: No Current occupational status: retired Cognitive needs: No Hearing needs: No Vision needs: No Review of Systems Const Denies weakness ENT Denies dizziness Card Denies chest pain, Denies chest pain with activity, Denies syncope, Denies rapid heart rate, Denies pedal edema, Denies edema, Denies leg edema, Denies lightheadedness, Denies palpitations, Denies dyspnea, Denies dyspnea on exertion and Denies orthopnea Resp Denies cough, Denies dyspnea and Denies dyspnea on exertion GI Denies hematochezia and Denies change in stool character Musc Denies abnormal gait, Denies muscle cramps, Denies muscle weakness, Denies numbness, Denies radiating pain into limb and Denies tingling Neuro Denies abnormal gait, Denies dizziness, Denies syncope, Denies numbness, Denies tingling and Denies weakness Endo Denies palpitations Physical Exam Vital Signs: Last Vital Signs Pulse 77 05/05/23 14:28 BP 142/68 H 05/05/23 14:28 BMI result Body Mass Index 29.4 Const General: comfortable and no acute distress Orientation/consciousness: patient oriented x3 HEENT Other: Unremarkable Head: Yes normal to inspection Neck Neck: Yes normal visual inspection Chest Chest palpation & inspection: normal inspection of the chest Resp Auscultation: clear to auscultation bilaterally Cardio Palpation: normal PMI Heart sounds: S1 normal heart sound present, S2 normal heart sound present, no gallops, no murmurs and no rubs GI Palpation (GI): Soft to palpation Back/Spine/Pelvis Other: unremarkable Skin General skin exam: no rashes or lesions noted Neuro General: patient oriented x3 Extrem General: Yes normal to inspection Psych Mental Status: mental status grossly normal Office Procedures EKG Details: EKG with sinus rhythm at 77/Min; occasional PVCs; cannot exclude old septal infarct; could also be from body habitus/lead placement; normal OH/[place]. [id number], Complete Assessment & Plan Assessment & Plan (1) PVC (premature ventricular contraction): Code(s): I49.3 - Ventricular premature depolarization Plan Cardiac studies reviewed. EKG as above shows sinus rhythm/PVC. Echocardiogram reportedly with normal LVEF and nothing otherwise of concern. In the stress test, she was able to do up to 5 minutes on Mohan protocol, reached target heart rate but no angina. No EKG evidence of ischemia. Perfusion imaging was unremarkable. In the Holter, underlying rhythm is sinus. Frequent PVCs with a burden of 1.4%. Rare PACs. Overall, symptoms of palpitations possibly related to PVCs. She may be feeling it more after care home simply because she is no longer as busy. We discussed about these today. She remains on diltiazem at this time which might be also for hypertension. We could add a small dose of beta-blockers and see if that helps. She is willing to try. May reassess burden of PVCs while on medications, with another Holter. Orders: Orders ECG 3 day holter monitor 2 Months I49.3 - Ventricular premature depolarization, R00.2 - Palpitations Medications: New metoprolol succinate ER (Toprol XL) 25 mg PO DAILY 90 tabs 3RF I49.3 - Ventricular premature depolarization Coding Level of Care Code Est Pt Level 3 (40936) Diagnoses PVC (premature ventricular contraction) I49.3 CPT Codes EKG - CPT: 03986-[id number], Complete ([id number])
[2023-05-05 14:28] VITALS: BP 142/68; PULSE 77; BMI 29.4
== END 2023-05-05 15:07 | disposition home or self-care (01) ==
PROVIDERS: PCP Internal Medicine; Visit Provider Internal Medicine
DX: I49.3 Ventricular premature depolarization (principal)
CPT/HCPCS: 93010; 99213

== ENCOUNTER → 2023-05-05 14:03 | Outpatient (BNVA) | payer MEDICARE, MEDICAID, SELFPAY | PROVIDERS: PCP Internal Medicine; Visit Provider Internal Medicine | DX: I49.3 Ventricular premature depolarization (principal) | CPT/HCPCS: 93005; 99212 ==

== ENCOUNTER 2023-05-20 08:05 | Outpatient (REF) | payer MEDICARE, MEDICAID, SELFPAY ==
[2023-05-22 16:28] LABS: TS Negative Control Passed; TS Panel A 6; TS Panel B 3; TS Positive Control Passed; TSpotTB Borderline (Negative)
== END 2023-05-20 08:06 | disposition home or self-care (01) ==
LOC: HO.HMGCLDS 08:05
PROVIDERS: PCP Internal Medicine; Visit Provider Internal Medicine
DX: Z11.1 Encounter for screening for respiratory tuberculosis (principal)
CPT/HCPCS: 36415; 86481

== ENCOUNTER → 2023-06-21 06:57 | Outpatient (REF) | payer MEDICARE, MEDICAID, SELFPAY ==
--- NOTE | 2023-06-21 06:59 | HM_ITS ---
Conclusion: 1. Patient was monitored for total period of 3 days 2. Baseline was normal sinus with average heart of 73 beats per minute 3. No significant pauses noted 4. Frequent PVCs noted mostly isolated with total burden of 2.2% 5. Patient marked the counter 1 time with reported symptoms of heart racing correlating with sinus rhythm MTDD
== END ==
LOC: HO.CARD 06:57
PROVIDERS: PCP Internal Medicine; Visit Provider Internal Medicine
DX: R00.2 Palpitations (principal); I49.3 Ventricular premature depolarization
CPT/HCPCS: 93242

== ENCOUNTER → 2023-06-21 06:59 | Outpatient (BNV) | payer MEDICARE, MEDICAID, SELFPAY | PROVIDERS: PCP Internal Medicine; Visit Provider Internal Medicine Cardiovascular Disease | DX: I49.3 Ventricular premature depolarization (principal) | CPT/HCPCS: 93244 ==

== ENCOUNTER 2023-07-07 13:13 | Outpatient (AMB) | payer MEDICARE, MEDICAID, SELFPAY ==
[2023-07-07 13:22] VITALS: BP 138/60; PULSE 62; BMI 29.8
--- NOTE | 2023-07-07 13:22 | A.OFFVIS_ITS ---
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 Accompanied by: Self / Same As Patient Allergies triamterene Adverse Reaction (Verified 07/07/23 13:24) Abdominal Pain hydrolazine Adverse Reaction (Intermediate, Uncoded 07/07/23 13:24) Palpitations Medication List - Last Reconciled 07/07/23 by Kaylie Grant NP albuterol sulfate 90 mcg/actuation (ProAir HFA) 2 puffs inhalation Q6H PRN cholecalciferol (vitamin D3) (Vitamin D3) 25 mcg PO DAILY dicyclomine 10 mg PO BID PRN diltiazem HCl (Cardizem CD) 240 mg PO DAILY metoprolol succinate ER (Toprol XL) 25 mg PO DAILY rosuvastatin 20 mg PO DAILY sertraline (Zoloft) 25 mg PO DAILY HPI HPI Comments History of Present Illness Details 82-year-old female presents for her one year follow-up. She reports she has been doing well since her last appointment. She still gets occasional PVCs but they have decreased since she started on the metoprolol succinate 25mg QD. She has returned to work for 20 hours a week to keep busy and has tolerated it well. She denies chest pain, shortness of breath, or swelling. [facility] Medical History Wheezing Cough Palpitations Annual physical exam Mammogram normal Rheumatoid aortitis Hyperlipidemia GERD (gastroesophageal reflux disease) Surgical History Hx of tonsillectomy S/P partial hysterectomy H/O colonoscopy Hx of cataract surgery Family History Father No problems noted. Mother Diabetes Social History Household Members Other:: lives with daughter Housing: House Alcohol intake: current Alcohol intake frequency: holidays/special occasions only Patient Tobacco Use Status: Never used Tobacco e-Cigarette/Vaping Use: Never Used service: No Current occupational status: retired Cognitive needs: No Hearing needs: No Vision needs: No Review of Systems Const Denies chills, Denies fatigue, Denies fever(s), Denies frequent falls, Denies weakness, Denies weight gain and Denies weight loss ENT Denies dizziness Card Denies chest pain, Denies chest pain with activity, Denies syncope, Denies rapid heart rate, Denies pedal edema, Denies irregular heart rhythm, Denies leg edema, Denies lightheadedness, Denies palpitations, Denies dyspnea, Denies dyspnea on exertion, Denies orthopnea and Denies other (LOC) Resp Denies cough, Denies dyspnea and Denies dyspnea on exertion GI Denies hematochezia and Denies change in bowel habits Musc Denies abnormal gait, Denies arthralgias, Denies muscle weakness, Denies numbness, Denies radiating pain into limb and Denies tingling Neuro Denies abnormal gait, Denies dizziness, Denies syncope, Denies frequent falls, Denies numbness, Denies tingling and Denies weakness Endo Denies fatigue and Denies palpitations Physical Exam Vital Signs: Last Vital Signs Pulse 62 07/07/23 13:22 BP 138/60 07/07/23 13:22 BMI result Body Mass Index 29.8 Const General: healthy appearing and no acute distress Orientation/consciousness: patient oriented x3 HEENT Head: Yes normal to inspection Eyes General: appearance normal, both eyes and all related structures Neck Neck: Yes normal visual inspection Chest Chest palpation & inspection: normal inspection of the chest Resp Effort & Inspection: normal respiratory effort Auscultation: clear to auscultation bilaterally Cardio Jugular venous distension: no JVD Palpation: normal PMI Rate: regular rate Rhythm: regular rhythm Heart sounds: S1 normal heart sound present, S2 normal heart sound present, no click, no gallops, no murmurs and no rubs GI Inspection: Yes normal to inspection Palpation (GI): Soft to palpation Skin General skin exam: no rashes or lesions noted Neuro General: patient oriented x3 Extrem General: Yes normal to inspection Psych Appearance: grossly normal Results Reviewed Results Reviewed: Holter- 1. Patient was monitored for total period of 3 days 2. Baseline was normal sinus with average heart of 73 beats per minute 3. No significant pauses noted 4. Frequent PVCs noted mostly isolated with total burden of 2.2% 5. Patient marked the counter 1 time with reported symptoms of heart racing correlating with sinus rhythm Assessment & Plan Assessment & Plan (1) PVC (premature ventricular contraction): Code(s): I49.3 - Ventricular premature depolarization (2) HTN (hypertension): Comment: Intolerant to hydralazine, Olmesartan and Dyzide Code(s): I10 - Essential (primary) hypertension Plan Discussed the importance of tight blood pressure control. Avoid added salt. Discussed triggers for PVCs - patient reports understanding that alcohol, lack of sleep, caffeine, and stress can be a trigger. Report any new or worsening symptoms. Return in one year to see Dr. Clark or sooner if needed. Medications: Refilled metoprolol succinate ER (Toprol XL) 25 mg PO DAILY 90 tabs 3RF I49.3 - Ventricular premature depolarization Coding Level of Care Code Est Pt Level 3 (53115) Diagnoses PVC (premature ventricular contraction) I49.3 HTN (hypertension) I10
== END 2023-07-07 13:46 | disposition home or self-care (01) ==
PROVIDERS: Visit Provider Nurse Practitioner
DX: I49.3 Ventricular premature depolarization (principal); I10 Essential (primary) hypertension
CPT/HCPCS: 99213

== ENCOUNTER → 2023-07-07 13:13 | Outpatient (BNVA) | payer MEDICARE, MEDICAID, SELFPAY | PROVIDERS: Visit Provider Nurse Practitioner | DX: I49.3 Ventricular premature depolarization (principal); I10 Essential (primary) hypertension | CPT/HCPCS: 99212 ==

== ENCOUNTER 2023-08-10 07:13 | Outpatient (REF) | payer MEDICARE, MEDICAID, SELFPAY ==
[2023-08-10 07:45] LABS: MANUAL DIFF FLAG NO
[2023-08-10 08:04] LABS: Appearance Urine Clear; Color Urine Yellow; Glucose Urine UA Negative (Negative); Leukocyte Esterase Urine Trace (Negative); Nitrite Urine Negative (Negative); Specific Gravity - Urine 1.015 (1.005-1.025); UMIC TRIGGER UACC YES; Urine Blood Negative (Negative); Urine Ketones Negative (Negative); Urine Protein Negative (Neg-Trace)
[2023-08-10 08:04] LABS: Basophils Percent Auto 0.4 % (0-2); Eosinophils Absolute Auto 0.1 X10*3/uL (0.0-0.4); Eosinophils Percent Auto 1.9 % (0-4); Hematocrit 39.4 % (37.0-47.0); Hemoglobin 12.9 g/dl (12.0-16.0); Lymphocytes Absolute Auto 2.5 X10*3/uL (1.2-4.9); Lymphocytes Percent Auto 53.3 % (20-40); Mean Corpuscular HGB Conc 32.7 g/dl (31.0-35.0); Mean Corpuscular Volume 91.6 fL (80.0-98.0); Mean Platelet Volume 9.4 fL (9.4-12.3); Monocytes Absolute Auto 0.4 X10*3/uL (0.1-1.2); Monocytes Percent Auto 7.6 % (2-11); Neutrophils Absolute Auto 1.8 x10*3/uL (2.0-8.3); Neutrophils Percent Auto 36.8 % (45-73); Platelet Count 226 X10*3/uL (160-400); Red Cell Distribution Width 12.4 % (11.0-16.0); White Blood Count 4.8 X10*3/uL (4.8-10.8)
[2023-08-10 08:09] LABS: Bacteria Urine None Seen (None Seen); Hyaline Casts Urine 0-2 /LPF (0-2); RBC Urine 0-2 /HPF (0-2); WBC Urine 0-5 /HPF (0-5)
[2023-08-10 08:11] LABS: Estimated Average Glucose 120 mg/dL; Hemoglobin A1c % 5.8 % (<6.0)
[2023-08-10 08:28] LABS: Alanine Aminotransferase 16 U/L (0-31); Albumin Level 4.2 g/dL (3.5-5.0); Alkaline Phosphatase 76 U/L (39-117); Anion Gap 14 (12-20); Aspartate Amino Transferase 23 U/L (5-31); Bilirubin Total 0.5 mg/dL (0.0-1.0); Blood Urea Nitrogen 14 mg/dL (9-16); Calcium 9.8 mg/dL (8.4-10.2); Carbon Dioxide 28 mmol/L (22-29); Chloride 106 mmol/L (96-108); Cholesterol 205 mg/dL (<200); Estimated Glomerular Filt Rate > 60; Glucose Fasting 104 mg/dL (60-99); HDL Cholesterol 72 mg/dL (>40); LDL Cholesterol Calculated 122 mg/dL (<100); Potassium 4.2 mmol/L (3.3-5.1); Sodium 144 mmol/L (135-145); Total Protein 7.4 g/dL (6.5-8.0); Triglycerides 58 mg/dL (<150)
[2023-08-10 08:45] LABS: TSH reflex Free T4 3.39 uIU/mL (0.32-4.0)
== END 2023-08-10 07:14 | disposition home or self-care (01) ==
LOC: HO.LAB 07:13
PROVIDERS: PCP Internal Medicine; Visit Provider Internal Medicine
DX: R73.9 Hyperglycemia, unspecified (principal); I10 Essential (primary) hypertension; E78.5 Hyperlipidemia, unspecified; F41.9 Anxiety disorder, unspecified
CPT/HCPCS: 36415; 80053; 80061; 81001; 81003; 83036; 84443; 85025

== ENCOUNTER 2023-08-13 13:45 | Outpatient (REF) | payer MEDICARE, MEDICAID, SELFPAY ==
--- NOTE | ~2023-08-13 | MM_ITS ---
EXAMINATION: BONE DENSITOMETRY CLINICAL INDICATION: Estrogen deficiency. COMPARISON: Previous BD dated 05/01/2021 and baseline BD dated 01/26/2008. TECHNIQUE: Using a [employer] DXA System (software version: 13.1) manufactured by [employer], dual-energy x-ray absorptiometry was performed of the lumbar spine and left hip. The images are of good technical quality. Summary results are attached. FINDINGS: LEFT FEMUR, NECK: Current: BMD 0.786 g/cm2, Z-score -0.7, T-score -1.8, osteopenia. Prior: BMD 0.826 g/cm2. Baseline: BMD 1.161 g/cm2. LEFT FEMUR, TOTAL: Current: BMD 0.904 g/cm2, Z-score 0.0, T-score -0.8, normal, 14.5% decrease from previous, 29.3% decrease from baseline (<5% change is not significant). Prior: BMD 1.057 g/cm2. Baseline: BMD 1.279 g/cm2. AP SPINE L1-L4: Current: BMD 1.654 g/cm2, Z-score 4.8, T-score 4.0, normal, 2.6% increase from previous, 17.6% increase from baseline (<5% change is not significant). Prior: BMD 1.612 g/cm2. Baseline: BMD 1.406 g/cm2. IDENTIFIED RISK FACTORS: Early menopause, secondary osteoporosis hysterectomy, osteoporosis, rheumatoid arthritis. HISTORY OF FRACTURE: None listed. MEDICATIONS: Calcium supplements or multivitamin, vitamin D. MM/XR DEXA axial skeleton IMPRESSION: 1. DIAGNOSIS: Osteopenia based on the lowest T-score value of -1.8 in the femoral neck applying World Health Organization criteria. 2. 10-YEAR FRACTURE RISK PREDICTION, FRAX: Major osteoporotic fracture (clinical spine, forearm, hip or shoulder) 8.8%. Hip fracture 2.5%. 3. Treatment Recommendations: NOF guidelines recommend consideration for treatment in postmenopausal women and men age 50 and older presenting with the following: -A hip or vertebral (clinical or morphometric) fracture. -T-score less than or equal to -2.5 at the femoral neck or spine after appropriate evaluation to exclude secondary causes. -Low bone mass at the hip or spine and a 10-year fracture probability by FRAX of greater than or equal to 3% for hip fracture or greater than or equal to 20% for major osteoporotic fracture based on the [place] adapted WHO algorithm. 4. Other Recommendations: All treatment decisions require clinical judgment and consideration of individual patient factors, including patient preferences, comorbidities, previous drug use, risk factors not captured in the FRAX model (e.g. frailty, falls, vitamin D deficiency, increased bone turnover, interval significant decline in bone density) and possible under or overestimation of fracture risk by FRAX. Additional medical evaluation for secondary cause of low bone mineral density may be appropriate. FUTURE SCAN RECOMMENDATION: People with diagnosed cases of osteoporosis or at high risk for fracture should have regular bone mineral density tests. For patients eligible for Medicare, routine testing is allowed once every 2 years. The testing frequency can be increased to one year for patients who have rapidly progressing disease, those who are receiving or discontinuing medical therapy to restore bone mass, or have additional risk factors.
== END 2023-08-13 13:46 | disposition home or self-care (01) ==
LOC: HO.MAMMO 13:45
PROVIDERS: PCP Internal Medicine; Visit Provider Nurse Practitioner Women's Health
DX: Z13.820 Encounter for screening for osteoporosis (principal); Z78.0 Asymptomatic menopausal state; E28.39 Other primary ovarian failure
CPT/HCPCS: 77080

== ENCOUNTER 2023-08-17 08:14 | Outpatient (AMB) | payer MEDICARE, MEDICAID, SELFPAY ==
--- NOTE | 2023-08-17 08:38 | MHC.PC.OV ---
Vital Signs 08/17/23 08:39 Height 5 ft 3 in Weight 162 lb BMI 28.7 BP 136/76 Blood Pressure Location Lt brachial Position Sitting Pulse 74 Pulse Source Pulse Oximeter Pulse Oximetry (%) 97 Oxygen Delivery Method Room Air Intake Visit Reasons: Annual PE Intake Note: Pt is here today for PE. Allergies triamterene Adverse Reaction (Verified 08/17/23 08:40) Abdominal Pain hydrolazine Adverse Reaction (Intermediate, Uncoded 08/17/23 08:40) Palpitations Medication List - Last Reconciled 08/17/23 by Barbara Sanchez MD albuterol sulfate 90 mcg/actuation (ProAir HFA) 2 puffs inhalation Q6H PRN cholecalciferol (vitamin D3) (Vitamin D3) 25 mcg PO DAILY dicyclomine 10 mg PO BID PRN diltiazem HCl (Cardizem CD) 240 mg PO DAILY metoprolol succinate ER 50 mg PO DAILY rosuvastatin 20 mg PO DAILY sertraline (Zoloft) 25 mg PO DAILY Tobacco use date assessed: 08/17/23 Fall risk assessment: No Falls in past year Last assessed Fall Risk: 08/17/23 HPI Annual PE HPI Details Pt presents for PE. Patient is going to [place] for her birthday in July. PFSH Medical History Wheezing Cough Palpitations Annual physical exam Mammogram normal Rheumatoid aortitis Hyperlipidemia GERD (gastroesophageal reflux disease) Surgical History Hx of tonsillectomy S/P partial hysterectomy H/O colonoscopy Hx of cataract surgery Family History Father No problems noted. Mother Diabetes Social History Household Members Other:: lives with daughter Housing: House Alcohol intake: current Alcohol intake frequency: holidays/special occasions only Patient Tobacco Use Status: Never used Tobacco e-Cigarette/Vaping Use: Never Used service: No Current occupational status: retired Cognitive needs: No Hearing needs: No Vision needs: No Questionnaire Thrive Questionnaire Date Thrive assessed: 09/11/22 KAYLEN-7 AMB Questionnaire KAYLEN-7 Date KAYLEN - 7 assessed: 09/11/22 Source: Developed by Drs. Luis Angel Gary, Isa Ramirez, Jamil Cooper and colleagues, with an educational jeremias from [employer]. Review of Systems Const All systems reviewed & are unremarkable except as noted in HPI and below Reports no additional complaints Eyes Reports no additional complaints ENT Reports no additional complaints Card Reports no additional complaints Resp Reports no additional complaints GI Reports no additional complaints Reports no additional complaints Physical exam (Primary Care) Vital Signs: Last Vital Signs Pulse 74 08/17/23 08:39 BP 136/76 08/17/23 08:39 Pulse Ox 97 08/17/23 08:39 Oxygen Delivery Method Room Air 08/17/23 08:39 BMI result Body Mass Index 28.7 Tobacco/Smoking Status: Tobacco use Status Tobacco use date assessed 08/17/23 08/17/23 08:42 Patient Tobacco Use Status Never used Tobacco 08/17/23 08:42 e-Cigarette/Vaping Use Never Used 08/17/23 08:42 Thrive Assessment: Date of Thrive Assessment Date Thrive assessed 09/11/22 08/17/23 08:42 Const General: no acute distress HENMT Head: Yes normal to inspection Ears: hearing grossly normal bilaterally General nose exam: Normal external nose present Mouth: Normal oral and palatal mucosa present Neck Neck: Yes no lymphadenopathy and Yes supple Resp Effort & Inspection: normal respiratory effort Auscultation: clear to auscultation bilaterally Cardio Rhythm: regular rhythm Heart sounds: S1 normal heart sound present and S2 normal heart sound present GI Inspection: Yes normal to inspection Palpation (GI): Soft to palpation Percussion: Yes normal to percussion Auscultation: normal bowel sounds Assessment and Plan Assessment & Plan (1) PVC (premature ventricular contraction): Code(s): I49.3 - Ventricular premature depolarization Plan: For symptomatic frequent PVCs pt will increase metoprolol to 50 mg a day and continue diltiazem. Follow-up in 2 months for blood pressure (2) Anxiety: Code(s): F41.9 - Anxiety disorder, unspecified Plan: Continue Zoloft, stress management discussed with the patient (3) Essential hypertension: Code(s): I10 - Essential (primary) hypertension Plan: Continue diltiazem and metoprolol (4) Annual physical exam: Code(s): Z00.00 - Encounter for general adult medical examination without abnormal findings Plan: Well-balanced diet regular physical activity discussed with the patient. 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
[2023-08-17 08:39] VITALS: BP 136/76; PULSE 74; O2SAT 97; BMI 28.7
== END 2023-08-17 10:01 | disposition home or self-care (01) ==
PROVIDERS: PCP Internal Medicine; Visit Provider Internal Medicine
DX: Z00.00 Encounter for general adult medical examination without abnormal findings (principal); I49.3 Ventricular premature depolarization; F41.9 Anxiety disorder, unspecified; I10 Essential (primary) hypertension; E78.5 Hyperlipidemia, unspecified
CPT/HCPCS: 99397

== ENCOUNTER 2023-09-17 09:26 | Outpatient (REF) | payer MEDICARE, MEDICAID, SELFPAY ==
[2023-09-20 21:24] LABS: TS Negative Control Passed; TS Panel A 1; TS Panel B 3; TS Positive Control Passed; TSpotTB Negative (Negative)
== END 2023-09-17 09:27 | disposition home or self-care (01) ==
LOC: HO.HMGCLDS 09:26
PROVIDERS: PCP Internal Medicine; Visit Provider Internal Medicine
DX: Z00.00 Encounter for general adult medical examination without abnormal findings (principal); Z11.1 Encounter for screening for respiratory tuberculosis
CPT/HCPCS: 36415; 86481

== ENCOUNTER 2023-10-22 09:50 | Outpatient (AMB) | payer MEDICARE, MEDICAID, SELFPAY ==
[2023-10-22 10:03] VITALS: BP 136/66; PULSE 73; O2SAT 95; BMI 28.3
--- NOTE | 2023-10-22 10:03 | MHC.PC.OV ---
Vital Signs 10/22/23 10:03 Height 5 ft 3 in Weight 160 lb BMI 28.3 BP 136/66 Blood Pressure Location Lt brachial Position Sitting Pulse 73 Pulse Source Pulse Oximeter Pulse Oximetry (%) 95 Oxygen Delivery Method Room Air Intake Visit Reasons: 2 month fu HTN, PALP Allergies triamterene Adverse Reaction (Verified 10/22/23 10:04) Abdominal Pain hydrolazine Adverse Reaction (Intermediate, Uncoded 10/22/23 10:04) Palpitations Medication List - Last Reconciled 10/22/23 by Barbara Sanchez MD albuterol sulfate 90 mcg/actuation (ProAir HFA) 2 puffs inhalation Q6H PRN cholecalciferol (vitamin D3) (Vitamin D3) 25 mcg PO DAILY dicyclomine 10 mg PO BID PRN diltiazem HCl (Cardizem CD) 240 mg PO DAILY metoprolol succinate ER 50 mg PO DAILY rosuvastatin 20 mg PO DAILY sertraline (Zoloft) 25 mg PO DAILY Tobacco use date assessed: 10/22/23 Fall risk assessment: No Falls in past year Last assessed Fall Risk: 10/22/23 Dental Screening Dental Screen Date: 10/22/23 Did you have a dental visit in the last 12 months?: Yes Did you have a dental problem in the last 6 months where you did not have access to dental care?: No Was dental information given to patient?: Patient has dentist HPI 2 month fu HTN, PALP HPI Details Patient presents for the follow-up of hypertension hyperlipidemia palpitations secondary to frequent PVC's chronic anxiety, improved on current medications. Patient complains of episodes of coughing after drinking or eating and occasionally feeling of fullness in her upper chest after eating solid foods. She denies of food regurgitation, odynophagia vomiting. [facility] Medical History Wheezing Cough Palpitations Annual physical exam Mammogram normal Rheumatoid aortitis Hyperlipidemia GERD (gastroesophageal reflux disease) Surgical History Hx of tonsillectomy S/P partial hysterectomy H/O colonoscopy Hx of cataract surgery Family History Father No problems noted. Mother Diabetes Social History Household Members Other:: lives with daughter Housing: House Alcohol intake: current Alcohol intake frequency: holidays/special occasions only Patient Tobacco Use Status: Never used Tobacco e-Cigarette/Vaping Use: Never Used service: No Current occupational status: retired Cognitive needs: No Hearing needs: No Vision needs: No Questionnaire PHQ-9 Over the last 2 weeks, how often have you been bothered by any of the following problems? 1. Little interest or pleasure in doing things: not at all 2. Feeling down, depressed, or hopeless: not at all 3. Trouble falling or staying asleep, or sleeping too much: not at all 4. Feeling tired or having little energy: not at all 5. Poor appetite or overeating: not at all 6. Feeling bad about yourself - or that you are a failure or have let yourself or your family down: not at all 7. Trouble concentrating on things, such as reading the newspaper or watching television: not at all 8. Moving or speaking so slowly that other people could have noticed. Or the opposite - being so fidgety or restless that you have been moving around a lot more than usual: not at all 9. Thoughts that you would be better off or of hurting yourself in some way: not at all Total score: 0 Depression Screening Interpretation: Negative Depression Screening Done: Yes Source: Developed by Drs. Luis Angel Gary, Isa Ramirez, Jamil Cooper and colleagues, with an educational jeremias from [employer]. Thrive Questionnaire Date Thrive assessed: 10/22/23 I am a: Patient What is your living situation today?: I have a steady place to live Within the past 12 months, did the food you bought not last and you didn't have the money to get more?: Never true Within the past 12 months, did you worry whether your food would run out before you got money to buy more?: Never true Do you have trouble paying for medicines?: No Do you have trouble getting transportation to medical appointments?: No Do you have trouble paying your heating and electricity bill?: No Do you have trouble taking care of your child, family member or friend?: No Do you have trouble with day-to-day activities such as bathing, preparing meals, shopping, managing finances, etc.?: No Are you currently unemployed and looking for a job?: No Are you interested in more education?: No Please select the resources that you would like help with: None Currently or been in a relationship where the following occur: no concerns reported THRIVE Score: 0 AUDIT C Alcohol Use Questionnaire (AUDIT-C) 1. How often do you have a drink containing alcohol?: Monthly or less 2. How many drinks containing alcohol do you have on a typical day when you are drinking?: 1 or 2 3. How often do you have six or more drinks on one occasion?: Never Total Score: 1 KAYLEN-7 AMB Questionnaire KAYLEN-7 Date KAYLEN - 7 assessed: 10/22/23 Feeling nervous, anxious, or on edge: 0 = Not at all Not being able to stop or control worryin = Not at all Worrying too much about different things: 0 = Not at all Trouble relaxin = Not at all Being so restless that it is hard to sit still: 0 = Not at all Becoming easily annoyed or irritable: 0 = Not at all Feeling afraid as if something awful might happen: 0 = Not at all Total KAYLEN-7 score (0-4 normal; 5-9 mild; 10-14 moderate; 15-21 severe): 0 Source: Developed by Drs. Luis Angel Gary, Isa Ramirez, Jamil Cooper and colleagues, with an educational jeremias from [employer]. Review of Systems Const All systems reviewed & are unremarkable except as noted in HPI and below Reports no additional complaints Eyes Reports no additional complaints ENT Reports no additional complaints Card Reports no additional complaints Resp Reports no additional complaints GI Reports no additional complaints Reports no additional complaints Physical exam (Primary Care) Vital Signs: Last Vital Signs Pulse 73 10/22/23 10:03 BP 136/66 10/22/23 10:03 Pulse Ox 95 10/22/23 10:03 Oxygen Delivery Method Room Air 10/22/23 10:03 BMI result Body Mass Index 28.3 Tobacco/Smoking Status: Tobacco use Status Tobacco use date assessed 10/22/23 10/22/23 10:11 Patient Tobacco Use Status Never used Tobacco 10/22/23 10:11 e-Cigarette/Vaping Use Never Used 10/22/23 10:03 Depression Screening Interpretation: Negative Thrive Assessment: Date of Thrive Assessment Date Thrive assessed 10/22/23 10/22/23 10:13 Currently or been in a relationship where the following occur: no concerns reported Const General: no acute distress HENMT Face and sinus: Yes normal facial exam Mouth: Normal oral and palatal mucosa present Neck Neck: Yes supple Resp Effort & Inspection: normal respiratory effort Auscultation: clear to auscultation bilaterally Cardio Rhythm: regular rhythm Heart sounds: S1 normal heart sound present and S2 normal heart sound present GI Inspection: Yes normal to inspection Palpation (GI): Soft to palpation Assessment and Plan Assessment & Plan (1) Dysphagia: Code(s): R13.10 - Dysphagia, unspecified Plan: For dysphagia obtain upper GI series with swallow evaluation to rule out aspiration or esophageal stricture, patient was advised to eats more meals and chew well (2) Hyperlipidemia: Code(s): E78.5 - Hyperlipidemia, unspecified Plan: Continue statin (3) Essential hypertension: Code(s): I10 - Essential (primary) hypertension Plan: Continue current medications (4) Palpitations: Code(s): R00.2 - Palpitations Plan: Better on increased dose of metoprolol Orders: Orders Lipid Panel 3 Months E78.5 - Hyperlipidemia, unspecified, I10 - Essential (primary) hypertension [place] upper GI w Ba Swallow Today R13.10 - Dysphagia, unspecified Comprehensive [place]. Panel Fast 3 Months E78.5 - Hyperlipidemia, unspecified, I10 - Essential (primary) hypertension Hemoglobin A1c 3 Months E78.5 - Hyperlipidemia, unspecified, I10 - Essential (primary) hypertension Complete Blood Count Auto Diff 3 Months E78.5 - Hyperlipidemia, unspecified, I10 - Essential (primary) hypertension Coding Level of Care Code Est Pt Level 4 (71757) Diagnoses Dysphagia R13.10 Hyperlipidemia E78.5 Essential hypertension I10 Palpitations R00.2
== END 2023-10-22 12:16 | disposition home or self-care (01) ==
PROVIDERS: PCP Internal Medicine; Visit Provider Internal Medicine
DX: R13.10 Dysphagia, unspecified (principal); E78.5 Hyperlipidemia, unspecified; I10 Essential (primary) hypertension; R00.2 Palpitations
CPT/HCPCS: 99214

== ENCOUNTER 2023-11-12 09:46 | Outpatient (REF) | payer MEDICARE, MEDICAID, SELFPAY ==
--- NOTE | ~2023-11-12 | MM_ITS ---
EXAMINATION: MM SCREENING DIGITAL BREAST TOMOSYNTHESIS, BILATERAL CLINICAL INFORMATION: Screening. Asymptomatic. COMPARISON: Mammography: This study is compared with prior exams dating back to 2018. TECHNIQUE: Digital breast tomosynthesis is performed in both the craniocaudal and mediolateral oblique views along with computer-aided detection (CAD). Synthesized 2D images are generated from the tomosynthesis. FINDINGS: There are scattered areas of fibroglandular density (ACR BI-RADS breast composition Category b). There are no significant masses, abnormal calcifications, or other abnormalities. There is a 3 mm, oval, coarsely calcified left breast mass in the upper outer quadrant at a middle depth. This represents a small involuting fibroadenoma. MM/MM tomosynthesis screening BI IMPRESSION: No mammographic evidence of malignancy. ASSESSMENT: BI-RADS BI-RADS 2 - Benign Findings RECOMMENDATION: Routine annual mammography screening. 1 year F/U This examination should not preclude the clinical evaluation of a suspicious palpable abnormality. This patient's information was entered into a reminder system with a target due date for their next mammogram.
== END 2023-11-12 09:47 | disposition home or self-care (01) ==
LOC: HO.MAMMO 09:46
PROVIDERS: PCP Internal Medicine; Visit Provider Internal Medicine
DX: Z12.31 Encounter for screening mammogram for malignant neoplasm of breast (principal)
CPT/HCPCS: 77063; 77067

== ENCOUNTER → 2023-11-12 10:00 | Outpatient (BNV) | payer MEDICARE, MEDICAID, SELFPAY | PROVIDERS: PCP Internal Medicine; Visit Provider Radiology Diagnostic Radiology | DX: Z12.31 Encounter for screening mammogram for malignant neoplasm of breast (principal) | CPT/HCPCS: 77063; 77067 ==

== ENCOUNTER 2023-12-01 09:10 | Outpatient (REF) | payer MEDICARE, MEDICAID, SELFPAY ==
--- NOTE | ~2023-12-01 | FL_ITS ---
EXAMINATION: XR FLUOROSCOPY UPPER GI WITH AIR CLINICAL INFORMATION: Dysphagia, reflux COMPARISON: None TECHNIQUE: Fluoroscopic air contrast upper GI examination was performed utilizing standard techniques with thin and thick barium and effervescent granules. Numerous spot images were obtained. FINDINGS: Lateral cine images of the oropharynx and hypopharynx demonstrate normal swallow mechanism with normal epiglottic inversion and soft palate elevation. No tracheal penetration, glottic or subglottic aspiration identified. No nasopharyngeal reflux present. Hypopharyngeal structures are without evidence of mass. There is posterior lateral structure that fills and empties with barium that may represent a pharyngeal pouch or lateral movements of the piriform sinus. There was no significant cricopharyngeal achalasia. Dual and single contrast images of the esophagus demonstrate normal caliber, contour, and mucosal pattern. No evidence of stricture, mass, or ulcerations identified. Esophageal peristalsis is mildly disorganized. A small type I hiatal hernia is present. Significant gastroesophageal reflux is seen up to the thoracic inlet. Dual contrast and single contrast images of the stomach demonstrated a normal contour. The gastric rugal folds have a thickened appearance. There are multiple foci of contrast pooling and filling defect in the fundus and body the stomach that may represent a combination of small superficial aphthous ulcers and gastric polyps. No masses are present. Contrast freely passed into the gastric antrum and duodenal bulb without delay. Single and air-contrast images of the duodenal bulb demonstrate no abnormality. The duodenal sweep has a normal appearance, course, and mucosal fold appearance. The imaged proximal jejunum has a normal fold pattern and caliber. FLUOROSCOPY TIME: 4 minutes 20 seconds Number of Spot Images: 18 Number of Cine: 12 DOSE AREA PRODUCT: 2623 uGy-m2 (microgray-meter squared) FL/FL upper GI w Ba Swallow IMPRESSION: 1. There is a posteriolateral structure in the hypopharynx that fills and empties with barium that may represents a pharyngeal pouch or lateral movement of the pyriform sinus. Recommend direct visualization. 2. Mildly disorganized esophageal peristalsis 3. Thickened gastric rugal folds. In addition, there are small areas of contrast pooling in filling defect in the fundus of the stomach. These findings are suggestive of erosive gastritis and the presence of gastric polyps. Recommend correlation with EGD. This procedure was performed by Luis Thomas PA-C, and supervised by Dr. Grant
== END 2023-12-01 09:11 | disposition home or self-care (01) ==
LOC: HO.XRAY 09:10
PROVIDERS: PCP Internal Medicine; Visit Provider Internal Medicine
DX: R13.10 Dysphagia, unspecified (principal)
CPT/HCPCS: 74240

== ENCOUNTER → 2023-12-01 09:15 | Outpatient (BNV) | payer MEDICARE, MEDICAID, SELFPAY | PROVIDERS: PCP Internal Medicine; Visit Provider Physician Assistant Surgical | DX: R13.10 Dysphagia, unspecified (principal); K21.9 Gastro-esophageal reflux disease without esophagitis | CPT/HCPCS: 74246 ==

== ENCOUNTER 2023-12-15 14:51 | Outpatient (AMB) | payer MEDICARE, MEDICAID, SELFPAY ==
--- NOTE | 2023-12-15 14:52 | A.OFFVIS_ITS ---
Vital Signs 12/15/23 14:57 Height 5 ft 3 in Weight 160 lb 14.999 oz BMI 28.5 BP 176/67 H Blood Pressure Location Lt brachial Position Sitting Pulse 74 Intake Visit Reasons: Stomach Polyps Intake Note: Jo Ann presents in the office as a new patient regarding stomach polyps. CC: She states that she only gets GERD in her chest but she never has stomach pains. She states that she feels fine for the most part but it was more so acid reflux she complained of. [employer]rolley [employer] Required: No Allergies triamterene Adverse Reaction (Verified 12/25/23 11:18) Abdominal Pain hydrolazine Adverse Reaction (Intermediate, Uncoded 12/25/23 10:31) Palpitations HPI Comments Details: 83 y.o F with PMH of hypertension, GERD, anxiety who is here for abnormal barium swallow. Pt reports around Aug 2023 she was experiencing coughing with liquids and feeling food stuck in upper chest which prompted her visit to PCP. A barium swallow and UGIS was ordered that showed 1. There is a posteriolateral structure in the hypopharynx that fills and empties with barium that may represents a pharyngeal pouch or lateral movement of the pyriform sinus. Recommend direct visualization. 2. Mildly disorganized esophageal peristalsis 3. Thickened gastric rugal folds. In addition, there are small areas of contrast pooling in filling defect in the fundus of the stomach. These findings are suggestive of erosive gastritis and the presence of gastric polyps. Recommend correlation with EGD. Patient herself only reports reflux symptoms of and no swallowing difficulty. Does not report any abdominal pain, nausea, vomiting, regurgitation. Has never had any upper endoscopy. [facility] Medical History Wheezing Cough Palpitations Annual physical exam Mammogram normal Rheumatoid aortitis Hyperlipidemia GERD (gastroesophageal reflux disease) Surgical History History of esophagogastroduodenoscopy (EGD) Hx of tonsillectomy S/P partial hysterectomy H/O colonoscopy Hx of cataract surgery Family History Father No problems noted. Mother Diabetes Social History Household Members Other:: lives with daughter Housing: House Alcohol intake: current Alcohol intake frequency: holidays/special occasions only Patient Tobacco Use Status: Never used Tobacco e-Cigarette/Vaping Use: Never Used Advance Directives: No Advance Directives Information Provided: No Do you have a plan to hurt others: No Plan service: No Current occupational status: retired Cognitive needs: No Hearing needs: No Vision needs: No Review of Systems Const All systems reviewed & are unremarkable except as noted in HPI and below Physical Exam Vital Signs: Last Vital Signs Pulse 74 12/15/23 14:57 BP 176/67 H 12/15/23 14:57 BMI result Body Mass Index 28.5 No acute distress Nonicteric No overt respiratory distress Abdomen soft, nontender No lower extremity edema Assessment & Plan Assessment & Plan (1) Gastric polyps: Comment: on barium swallow 12/21 Code(s): K31.7 - Polyp of stomach and duodenum Category: Medical (2) Diverticulum of esophagus, acquired: Code(s): K22.5 - Diverticulum of esophagus, acquired Category: Medical (3) GERD (gastroesophageal reflux disease): Code(s): K21.9 - Gastro-esophageal reflux disease without esophagitis Category: Medical Plan Reviewed with the patient, that if clinically, she is asymptomatic from the diverticulum, will likely not need any intervention. Will proceed with upper endoscopy for luminal evaluation - this will also evaluate for gastritis and gastric polyps noted on upper GI series. Plan: -EGD to be booked -omeprazole 20 mg once daily Follow-up after endoscopy Coding Level of Care Code New Pt Level 4 (03342) Diagnoses Gastric polyps K31.7 Diverticulum of esophagus, acquired K22.5 GERD (gastroesophageal reflux disease) K21.9
[2023-12-15 14:57] VITALS: BP 176/67; PULSE 74; BMI 28.5
== END 2023-12-15 16:09 | disposition home or self-care (01) ==
PROVIDERS: PCP Internal Medicine; Visit Provider Internal Medicine
DX: K31.7 Polyp of stomach and duodenum (principal); K22.5 Diverticulum of esophagus, acquired; K21.9 Gastro-esophageal reflux disease without esophagitis
CPT/HCPCS: 99204

== ENCOUNTER → 2023-12-15 14:51 | Outpatient (BNVA) | payer MEDICARE, MEDICAID, SELFPAY | PROVIDERS: PCP Internal Medicine; Visit Provider Internal Medicine | DX: K31.7 Polyp of stomach and duodenum (principal); K22.5 Diverticulum of esophagus, acquired; K21.9 Gastro-esophageal reflux disease without esophagitis | CPT/HCPCS: 99202 ==

== ENCOUNTER 2023-12-25 10:30 | Outpatient (AMB) | payer MEDICARE, MEDICAID, SELFPAY ==
[2023-12-25 10:30] VITALS: BP 162/70; PULSE 91; TEMP 36.7; O2SAT 96; BMI 28.5
--- NOTE | 2023-12-25 10:30 | AM.OFFWIN_ITS ---
Intake Vital Signs 12/25/23 10:30 12/25/23 11:03 Height 5 ft 3 in Weight 161 lb BMI 28.5 BP 162/70 H 164/76 H Blood Pressure Location Lt brachial Lt brachial Position Sitting Sitting Pulse 91 Pulse Source Pulse Oximeter Temp 98.0 F Temp Source Oral Pulse Oximetry (%) 96 Oxygen Delivery Method Room Air Intake Visit Reasons: EP Headache Intake Note: Pt is here today c/o headaches Patient Tobacco Use Status: Never used Tobacco Allergies triamterene Adverse Reaction (Verified 12/25/23 10:40) Abdominal Pain hydrolazine Adverse Reaction (Intermediate, Uncoded 12/25/23 10:31) Palpitations Medication List - Last Reconciled 12/25/23 by RACHNA Garrison albuterol sulfate 90 mcg/actuation (ProAir HFA) 2 puffs inhalation Q6H PRN cholecalciferol (vitamin D3) (Vitamin D3) 25 mcg PO DAILY dicyclomine 10 mg PO BID PRN diltiazem HCl CD (Cardizem CD) 240 mg PO DAILY metoprolol succinate ER 50 mg PO DAILY rosuvastatin 20 mg PO DAILY sertraline (Zoloft) 25 mg PO DAILY HPI HPI Comments History of Present Illness Details 83-year-old female here today with compl aints of a headache. Reports that she feels his crawling sensation in her forehead, a pulsatile headache, she can hear her heartbeat in her ears and a feeling of coldness that comes over her face. This started last week. She states that she went to the eye doctor on Wednesday and was told that there could be something wrong. That perhaps he saw signs of a TIA. Did note some retinal damage. This is per her reports they have no records from this. She did take aleve last night and had some mild relief. She is past medical history of hypertension hyperlipidemia and is taki ng her medications as directed. She denies any chest pain. She denies any loss of function. Does report that she feels like something is really wrong. Did entertain going to the emergency room but did not want to get her family worried so she came here 1st. She denies fever, chills, head trauma. [facility] Medical History (Updated 12/25/23 @ 11:01 by Blanka L O'Jamil, FRUIT HAR[employer]STER-BC) Wheezing Cough Palpitations Annual physical exam Mammogram normal Rheumatoid aortitis Hyperlipidemia GERD (gastroesophageal reflux disease) Surgical History History of esophagogastroduodenoscopy (EGD) Hx of tonsillectomy S/P partial hysterectomy H/O colonoscopy Hx of cataract surgery Family History Father No problems noted. Mother Diabetes Social History Household Members Other:: lives with daughter Housing: House Alcohol intake: current Alcohol intake frequency: holidays/special occasions only Patient Tobacco Use Status: Never used Tobacco e-Cigarette/Vaping Use: Never Used service: No Current occupational status: retired Cognitive needs: No Hearing needs: No Vision needs: No Review of Systems Const All systems reviewed & are unremarkable except as noted in HPI and below Physical Exam Vital Signs: Last Vital Signs Temp 98.0 F 12/25/23 10:30 Pulse 91 12/25/23 10:30 BP 162/70 H 12/25/23 10:30 Pulse Ox 96 12/25/23 10:30 Oxygen Delivery Method Room Air 12/25/23 10:30 BMI result Body Mass Index 28.5 Const Other: Awake alert oriented Head atraumatic PERRLA, EOMI TM intact and clear bilat 3/6 systolic murmur regular rate and rhythm Lung sounds clear to auscultation bilat No focal neuro deficits noted on exam Assessment & Plan Assessment & Plan (1) Headache: Code(s): R51.9 - Headache, unspecified Qualifiers: Headache type: unspecified Headache chronicity pattern: unspecified pattern Plan Given the new onset of headache at the age of 82 associated with a sensation that something is very wrong, the decision was made to send her to the emergency room for evaluation and treatment. Report was called to [facility]. Spoke to Danielle. Patient in route via private vehicle per her choice. I do feel that she is stable to go via private car. She should follow up with the primary care after evaluation and treatment. This note is constructed using voice recognition software. While every effort has been made to ensure accuracy in coach professional athletes, still errors may have been included Sometimes, these errors may affect the content or meaning of the given sentence . Total time spent caring for the patient today was 45 minutes. This includes time spent before the visit reviewing the chart, time spent during the visit, and time spent after the visit on documentation Coding Level of Care Code Est Pt Level 5 (91803) Diagnoses Headache R51.9 Headache type: unspecified Headache chronicity pattern: unspecified pattern
[2023-12-25 11:03] VITALS: BP 164/76
== END 2023-12-25 11:05 | disposition home or self-care (01) ==
PROVIDERS: PCP Internal Medicine; Visit Provider Nurse Practitioner Family
DX: R51.9 Headache, unspecified (principal)
CPT/HCPCS: 99215

== ENCOUNTER 2023-12-25 11:14 | Emergency (ER) | payer MEDICARE, MEDICAID, SELFPAY ==
[2023-12-25 11:16] VITALS: BP 182/83; PULSE 76; RESP 18; TEMP 36.6; O2SAT 98; BMI 29.0
--- NOTE | 2023-12-25 11:51 | ECG_ITS ---
Test Reason : HYPERTENSION Blood Pressure : / mmHG Vent. Rate : 083 BPM Atrial Rate : 083 BPM P-R Int : 180 ms QRS Dur : 082 ms QT Int : 400 ms P-R-T Axes : 062 -05 018 degrees QTc Int : 470 ms Normal sinus rhythm Septal infarct (cited on or before 27-AUG-2018) Abnormal ECG When compared with ECG of 27-AUG-2018 16:51, No significant change was found Referred By: Sofia Stockton Electronically Signed By:KIMBERLY HOUSE MD
[2023-12-25] MEDS: Acetaminophen 325 MG TABLET 975 MG PO (12:05)
[2023-12-25 12:14] LABS: MANUAL DIFF FLAG NO
--- NOTE | 2023-12-25 12:17 | ED_ITS ---
HPI - General Adult General Chief complaint: Headache Stated complaint: headache sent in by [facility] Time Seen by Provider: 12/25/23 11:59 Source: patient Mode of arrival: ambulatory History of Present Illness HPI narrative: 83-year-old female with history of hypertension as well as arthritis presents with headaches since August and that on her ophthalmologic visit on Wednesday for evaluation of retina secondary to arthritis medication the eye doctor informed her that she may have had a mini stroke to the left eye. He had no further instructions or thoughts according to the patient, she states that she is felt a coolness over her entire face but otherwise denies any history of loss of vision/double vision/dizziness/speech changes/facial asymmetry and denies any history of unilateral numbness/tingling/weakness. Related Data Home Medications ?Medication ?Instructions ?Recorded ?Confirmed cholecalciferol (vitamin D3) 25 25 mcg PO DAILY 09/23/21 10/22/23 mcg (1,000 unit) capsule (Vitamin D3) dicyclomine 10 mg capsule 10 mg PO BID PRN 11/20/22 10/22/23 Previous Rx's ?Medication ?Instructions ?Recorded albuterol sulfate 90 mcg/actuation 2 puff inhalation Q6H PRN 11/27/21 aerosol inhaler (ProAir HFA) shortness of breath or wheezing #8.5 grams sertraline 25 mg tablet (Zoloft) 25 mg PO DAILY #90 tabs 02/21/23 diltiazem HCl 240 mg 240 mg PO DAILY #90 caps 03/05/23 capsule,extended release 24 hr (Cardizem CD) rosuvastatin 20 mg tablet 20 mg PO DAILY #90 tabs 07/02/23 metoprolol succinate 50 mg 50 mg PO DAILY #90 tabs 08/17/23 tablet,extended release 24 hr Allergies Allergy/AdvReac Type Severity Reaction Status Date / Time triamterene AdvReac Abdominal Verified 12/25/23 11:18 Pain hydrolazine AdvReac Intermediate Palpitation Uncoded 12/25/23 10:31 s Review of Systems 2 Review of Systems: Pertinent positives and negatives as stated in HPI [facility] Past Medical History Source: nursing notes reviewed Medical History Wheezing Cough Palpitations Annual physical exam Mammogram normal Rheumatoid aortitis Hyperlipidemia GERD (gastroesophageal reflux disease) Surgical History History of esophagogastroduodenoscopy (EGD) Hx of tonsillectomy S/P partial hysterectomy H/O colonoscopy Hx of cataract surgery Family History Family History Father No problems noted. Mother Diabetes Social History Social History Household Members Other:: lives with daughter Housing: House Alcohol intake: current Alcohol intake frequency: holidays/special occasions only Patient Tobacco Use Status: Never used Tobacco e-Cigarette/Vaping Use: Never Used Advance Directives: No Advance Directives Information Provided: No Do you have a plan to hurt others: No Plan service: No Current occupational status: retired Cognitive needs: No Hearing needs: No Vision needs: No Physical Exam ED Vital Signs: Vital Signs - 24 hr 12/25/23 11:16 Temperature 97.8 F Pulse Rate 76 Respiratory Rate 18 Blood Pressure 182/83 H Pulse Oximetry 98 Oxygen Delivery Method Room Air BMI result Body Mass Index 29.0 VITAL SIGNS: Reviewed. GENERAL: Well developed, well nourished, in no acute distress. HEAD: Normocephalic/atraumatic EYES: PERRLA, EOMI EARS: Ext canals without abnormality NOSE: Nares patent bilateral OROPHARYNX: no oral lesions noted, posterior pharynx clear NECK: Supple, no adenopathy LUNGS: Normal breath sounds. No adventitious sounds or accessory muscle use. SpO2<98> CARDIOVASCULAR: Regular rate and rhythm without noted murmurs, no JVD or lower extremity edema. ABDOMEN: Soft, non-tender, non-distended with bowel sounds. MUSCULOSKELETAL: No tenderness, deformities, or effusions noted on gross inspection. EXTREMITIES: No cyanosis, clubbing or edema. SKIN: Inspection of the skin reveals no rashes NEUROLOGIC: Alert and oriented x 4. Strength and sensation to light touch were grossly intact x 4, no facial asymmetry, no pronator drift, cranial nerves 2-12 are grossly intact. Medications Administered Discontinued Medications Generic Name Dose Route Start Last Admin Trade Name Freq PRN Reason Stop Dose Admin Acetaminophen 975 mg 12/25/23 11:51 12/25/23 12:05 Acetaminophen 325 Mg Tablet PO 12/25/23 11:52 975 mg ONCE ONE Administration Medical Decision Making Medical Decision Making [facility] Narrative: 83-year-old female with history and clinical presentation, DDX: Generalized headache, no concern for migraine or intracranial bleed, patient is otherwise noted be nonfocal. I reviewed all investigations and hematologic indices are negative for leukocytosis/left shift/anemia/thrombocytopenia. Chemistry indices negative for ROSARIO/electrolyte or liver enzyme derangements. Urinalysis negative for UTI or hematuria. I discussed all results and findings with the patient at bedside, she has no headache at this time denies any dizziness and I did make recommendation for her to initiate a daily baby aspirin and 2 follow-up with your primary care doctor. Differential Diagnosis Differential Diagnoses: The differential diagnosis associated with the presentation includes Please see the discussion above Admission/Observation Consideration of admission/observation: Escalation of care including admission/observation considered Please see the discussion above Lab Data [facility] Lab Attestation statement: I reviewed the patient's lab results. Please see the discussion above 12/25/23 12:08 12/25/23 12:08 Labs: Lab Results 12/25/23 12/25/23 Range/Units 12:08 12:16 WBC 4.0 L (4.8-10.8) X10*3/uL RBC 4.33 (4.20-5.50) X10*6/uL Hgb 13.1 (12.0-16.0) g/dl Hct 39.0 (37.0-47.0) % MCV 90.1 (80.0-98.0) fL MCH 30.3 (27.0-33.0) pg MCHC 33.6 (31.0-35.0) g/dl RDW 12.6 (11.0-16.0) % Plt Count 211 (160-400) X10*3/uL MPV 8.9 L (9.4-12.3) fL Immature Gran % (Auto) 0.3 (0.0-0.4) % Neut % (Auto) 51.8 (45-73) % Lymph % (Auto) 38.6 (20-40) % [place] % (Auto) 7.8 (2-11) % Eos % (Auto) 1.0 (0-4) % Baso % (Auto) 0.5 (0-2) % Lymph # (Auto) 1.5 (1.2-4.9) X10*3/uL [place] # (Auto) 0.3 (0.1-1.2) X10*3/uL Eos # (Auto) 0.0 (0.0-0.4) X10*3/uL Baso # (Auto) 0.0 (0.0-0.2) X10*3/uL Abs Immat Gran (auto) 0.01 (0.00-0.03) X10*3/uL Absolute Neuts (auto) 2.1 (2.0-8.3) x10*3/uL Absolute Nucleated RBC 0.000 (0.0-0.012) X10*3/uL Nucleated RBC % (auto) 0.0 (0.0-0.2) /100WBC Sodium 143 (135-145) mmol/L Potassium 4.2 (3.3-5.1) mmol/L Chloride 106 (96-108) mmol/L Carbon Dioxide 28 (22-29) mmol/L Anion Gap 13 (12-20) BUN 17 H (9-16) mg/dL Creatinine 0.85 (0.5-1.4) mg/dL Estim Creat Clear Calc 50.1 Estimated GFR > 60 Random Glucose 106 (60-115) mg/dL Calcium 9.6 (8.4-10.2) mg/dL Total Bilirubin 0.6 (0.0-1.0) mg/dL AST 20 (5-31) U/L ALT 15 (0-31) U/L Alkaline Phosphatase 74 (39-117) U/L Total Protein 7.5 (6.5-8.0) g/dL Albumin 4.2 (3.5-5.0) g/dL Urine Color Yellow Urine Appearance Clear Urine pH 6.5 (5.0-9.0) Ur Specific [place] 1.010 (1.005-1.025) Urine Protein Negative (Neg-Trace) mg/dL Urine Glucose (UA) Negative (Negative) mg/dL Urine Ketones Negative (Negative) mg/dL Urine Blood Negative (Negative) Urine Nitrite Negative (Negative) Ur Leukocyte Esterase Negative (Negative) Independent Interpretation I performed an independent interpretation of an: EKG Interpretation: Normal sinus rhythm, HR-83, no STEMI, OR/QRS/QTC is within normal limits. External Record Review External record reviewed: Outpatient record, Prior outpatient labs and Prior outpatient radiology Critical Care Time Critical Care Time Critical Care Time: Yes Total Critical Care Time: 45 Attestation: I personally attest to this time spent taking care of the patient. Discharge Plan Discharge Clinical Impression: Hypertension, Facial paresthesia Patient Disposition: Home, Self-Care Instructions: Paresthesia (ED), Hypertension (ED) Additional Instructions: 1. Resume all home medications as prescribed. 2. I recommend starting a daily baby aspirin (enteric coated 81 mg). 3. Follow-up with your primary care doctor at your earliest convenience. Do not hesitate to return should you experience any visual changes/dizziness/speech changes. Prescriptions: No Action albuterol sulfate [ProAir HFA] 90 mcg/actuation HFA aerosol inhaler 2 puff inhalation Q6H PRN (Reason: shortness of breath or wheezing) Qty: 8.5 1RF sertraline [Zoloft] 25 mg tablet 25 mg PO DAILY Qty: 90 3RF diltiazem HCl [Cardizem CD] 240 mg capsule,extended release 24hr 240 mg PO DAILY Qty: 90 3RF rosuvastatin 20 mg tablet 20 mg PO DAILY Qty: 90 3RF dicyclomine 10 mg capsule 10 mg PO BID PRN metoprolol succinate 50 mg tablet extended release 24 hr 50 mg PO DAILY Qty: 90 1RF cholecalciferol (vitamin D3) [Vitamin D3] 25 mcg (1,000 unit) capsule 25 mcg PO DAILY Referrals: Barbara Sanchez MD [Primary Care Provider] - Print Language: [place] Citizen
[2023-12-25 12:18] LABS: Basophils Percent Auto 0.5 % (0-2); Hemoglobin 13.1 g/dl (12.0-16.0); Imm Gran Abs Auto 0.01 X10*3/uL (0.00-0.03); Imm Gran Pct Auto 0.3 % (0.0-0.4); Lymphocytes Absolute Auto 1.5 X10*3/uL (1.2-4.9); Lymphocytes Percent Auto 38.6 % (20-40); Mean Corpuscular HGB Conc 33.6 g/dl (31.0-35.0); Mean Corpuscular Hemoglobin 30.3 pg (27.0-33.0); Mean Corpuscular Volume 90.1 fL (80.0-98.0); Mean Platelet Volume 8.9 fL (9.4-12.3); Monocytes Absolute Auto 0.3 X10*3/uL (0.1-1.2); Monocytes Percent Auto 7.8 % (2-11); Neutrophils Absolute Auto 2.1 x10*3/uL (2.0-8.3); Neutrophils Percent Auto 51.8 % (45-73); Platelet Count 211 X10*3/uL (160-400); Red Blood Count 4.33 X10*6/uL (4.20-5.50); Red Cell Distribution Width 12.6 % (11.0-16.0)
[2023-12-25 12:21] LABS: Appearance Urine Clear; Color Urine Yellow; Glucose Urine UA Negative (Negative); Leukocyte Esterase Urine Negative (Negative); Nitrite Urine Negative (Negative); PH 6.5 (5.0-9.0); Urine Blood Negative (Negative); Urine Ketones Negative (Negative); Urine Protein Negative (Neg-Trace)
[2023-12-25 12:31] LABS: Alanine Aminotransferase 15 U/L (0-31); Albumin Level 4.2 g/dL (3.5-5.0); Alkaline Phosphatase 74 U/L (39-117); Anion Gap 13 (12-20); Aspartate Amino Transferase 20 U/L (5-31); Bilirubin Total 0.6 mg/dL (0.0-1.0); Blood Urea Nitrogen 17 mg/dL (9-16); Calcium 9.6 mg/dL (8.4-10.2); Carbon Dioxide 28 mmol/L (22-29); Chloride 106 mmol/L (96-108); Creatinine Clr Calc Pharmacy 50.1; Estimated Glomerular Filt Rate > 60; Glucose Random 106 mg/dL (60-115); Potassium 4.2 mmol/L (3.3-5.1); Sodium 143 mmol/L (135-145); Total Protein 7.5 g/dL (6.5-8.0)
--- NOTE | 2023-12-25 13:39 | PC.NURSE ---
patient medicted per [facility] for pain, patient reassessment done, patient states her pain is a 0
[2023-12-25 14:02] VITALS: BP 164/75; PULSE 70; RESP 18; TEMP 36.8; O2SAT 97
== END 2023-12-25 14:08 | disposition home or self-care (01) ==
PROVIDERS: Emergency Provider Student in an Organized Health Care Education/Training Program; PCP Internal Medicine
DX: I10 Essential (primary) hypertension (principal); R20.2 Paresthesia of skin
CPT/HCPCS: 36415; 80053; 81003; 85025; 93005; 99283; 99284

== ENCOUNTER → 2023-12-25 11:51 | Outpatient (BNV) | payer MEDICARE, MEDICAID, SELFPAY | PROVIDERS: Emergency Provider Student in an Organized Health Care Education/Training Program; PCP Internal Medicine; Visit Provider Internal Medicine Cardiovascular Disease | DX: R94.31 Abnormal electrocardiogram [ECG] [EKG] (principal) | CPT/HCPCS: 93010 ==

== ENCOUNTER 2024-01-05 15:24 | Inpatient (IN) | payer MEDICARE, MEDICAID, SELFPAY ==
--- NOTE | ~2024-01-05 | CT_ITS ---
EXAMINATION: CT ABDOMEN AND PELVIS WITH CONTRAST CLINICAL INFORMATION: Diarrhea and hematochezia COMPARISON: Ultrasound abdomen 09/18/2022 TECHNIQUE: Multidetector volumetric images were obtained from the superior aspect of the liver through the pubic symphysis following administration 85 mL of Omnipaque 350 intravenous contrast. Sagittal and coronal reformatted images were obtained on the technologist's workstation. Oral contrast: No This CT examination was performed using dose optimization techniques as appropriate, variously including the following: *Automated exposure control *Adjustment of mA and/or kV according to patient size (this includes techniques or standardized protocols for targeted exams where dose is matched to indication/reason for exam; i.e. extremities or head) *Use of iterative reconstruction technique DLP: 624 mGy-cm FINDINGS: LUNG BASES: Some mild traction bronchiectasis present at the lung bases. LIVER, GALLBLADDER, AND BILIARY TREE: The liver is normal in size, shape, and attenuation. No focal hepatic lesion or biliary ductal dilatation is present. The gallbladder is unremarkable with no evidence of radiopaque gallstones, gallbladder wall thickening, or obvious pericholecystic inflammatory changes. PANCREAS: Unremarkable. SPLEEN: Unremarkable. ADRENAL GLANDS: Unremarkable. KIDNEYS AND URETERS: The kidneys are normal in size, shape, and attenuation. No hydronephrosis, hydroureter, or calculi seen. No perinephric stranding. BLADDER: Unremarkable. GASTROINTESTINAL TRACT: There is extensive colonic diverticulosis without diverticulitis. The small and large bowel are unremarkable. The appendix is not seen but there is no evidence of appendicitis evidence of appendicitis. ABDOMINAL WALL: No significant hernia is appreciated. LYMPH NODES: Normal. VASCULAR: Calcific atherosclerotic changes are present in the aorta and iliofemoral vessels. There is no evidence of an abdominal aortic aneurysm. PELVIC VISCERA: The uterus is not seen. An abnormal adnexal mass is not detected. No free intraperitoneal fluid is present. OSSEOUS STRUCTURES: Degenerative changes are seen in the spine most marked at L3-L4. No bony destructive lesions CT/CT abdomen pelvis w IV con IMPRESSION: Cause for the patient's diarrhea and hematochezia has not been found. Incidental note made of colonic diverticulosis without diverticulitis and other findings described above. Fleischner guidelines were followed.
--- NOTE | ~2024-01-05 | CT_ITS ---
EXAMINATION: CT ANGIOGRAM ABDOMEN AND PELVIS CLINICAL INFORMATION: Lower GI bleeding COMPARISON: CT abdomen pelvis on 01/05/2024 TECHNIQUE: Multiple axial images were obtained through the abdomen and pelvis before and following the administration of 80 mL of Omnipaque 350 intravenous contrast. Images were reviewed on a dedicated 3-D workstation. This CT examination was performed using dose optimization techniques as appropriate, variously including the following: *Automated exposure control *Adjustment of mA and/or kV according to patient size (this includes techniques or standardized protocols for targeted exams where dose is matched to indication/reason for exam; i.e. extremities or head) *Use of iterative reconstruction technique DLP: 1252 mGy-cm FINDINGS: VASCULAR: ABDOMINAL AORTA: Normal in caliber. Moderate mixed calcific and noncalcific atherosclerotic disease.. RIGHT ILIAC ARTERY: Atherosclerotic disease, mild stenosis of the common iliac artery. Moderate atherosclerotic disease of the internal iliac artery. The external iliac artery and common femoral arteries are patent. LEFT ILIAC ARTERY: Atherosclerotic disease, mild stenosis of the common iliac artery. Moderate atherosclerotic disease of the internal iliac artery. The external iliac artery and common femoral arteries are patent. CELIOMESENTERIC ARTERIES: The celiac artery, SMA, and MARIN are patent.. RENAL ARTERIES: Single bilateral renal arteries are patent.. NONVASCULAR: Lung Bases: The visualized lung bases are unremarkable. Liver, Gallbladder and Biliary Tree: The liver is normal in size, shape, and attenuation. No focal hepatic lesion or biliary ductal dilatation is present. The gallbladder is unremarkable with no evidence of radiopaque gallstones, gallbladder wall thickening, or obvious pericholecystic inflammatory changes. Pancreas: Unremarkable. Spleen: Unremarkable. Adrenal Glands: Unremarkable. Kidneys and Ureters: The kidneys are normal in size, shape, and attenuation. No hydronephrosis, hydroureter, or calculi seen. No perinephric stranding. Bladder: Unremarkable. Gastrointestinal Tract: The small and large bowel are normal in caliber without bowel wall thickening. Numerous diverticula throughout the colon. No evidence of contrast extravasation. Abdominal Wall: No significant hernia is appreciated. Lymph Nodes: Normal. Pelvic Viscera: Prior hysterectomy. Osseous Structures: Degenerative disease of lumbar spine. CT/CT angio abdomen pelvis IMPRESSION: 1. No evidence of contrast extravasation to suggest active GI bleed. 2. Significant colonic diverticulosis without evidence of diverticulitis. Fleischner guidelines were followed.
[2024-01-05 15:49] VITALS: BP 187/77; PULSE 83; RESP 18; TEMP 36.6; O2SAT 98; BMI 27.5
--- NOTE | 2024-01-05 15:51 | ED_ITS ---
HPI - General Adult General Chief complaint: GI Bleed Stated complaint: diarrhea and bloody stool Time Seen by Provider: 01/05/24 19:56 Source: patient Mode of arrival: ambulatory Limitations: no limitations History of Present Illness HPI narrative: Patient is an 83-year-old female who presents emergency department for evaluation. She reports 4 episodes today of diarrhea described as loose but not watery stools. She has noticed bright red blood from her rectum with each bowel movement. She denies straining to have bowel movements. She denies any prior history of rectal bleeding. She does admit to diffuse lower abdominal cramping since this morning that has been occurring intermittently. She denies the use of anticoagulants or known coagulation disorders. She denies any hematuria, or unexplained bruising. Related Data Home Medications ?Medication ?Instructions ?Recorded ?Confirmed cholecalciferol (vitamin D3) 25 25 mcg PO DAILY 09/23/21 10/22/23 mcg (1,000 unit) capsule (Vitamin D3) dicyclomine 10 mg capsule 10 mg PO BID PRN 11/20/22 10/22/23 Previous Rx's ?Medication ?Instructions ?Recorded albuterol sulfate 90 mcg/actuation 2 puff inhalation Q6H PRN 11/27/21 aerosol inhaler (ProAir HFA) shortness of breath or wheezing #8.5 grams sertraline 25 mg tablet (Zoloft) 25 mg PO DAILY #90 tabs 02/21/23 diltiazem HCl 240 mg 240 mg PO DAILY #90 caps 03/05/23 capsule,extended release 24 hr (Cardizem CD) rosuvastatin 20 mg tablet 20 mg PO DAILY #90 tabs 07/02/23 metoprolol succinate 50 mg 50 mg PO DAILY #90 tabs 08/17/23 tablet,extended release 24 hr omeprazole 20 mg capsule,delayed 20 mg PO DAILY #90 caps 01/04/24 release pantoprazole 40 mg tablet,delayed 40 mg PO DAILY #90 tabs 01/05/24 release Allergies Allergy/AdvReac Type Severity Reaction Status Date / Time triamterene AdvReac Abdominal Verified 01/05/24 15:52 Pain hydrolazine AdvReac Intermediate Palpitation Uncoded 12/25/23 10:31 s Review of Systems 2 Review of Systems: Yes all other systems are reviewed and are negative PMFSH Past Medical History Attestation statement: The following information was validated with the patient. Source: old records reviewed Medical History Wheezing Cough Palpitations Annual physical exam Mammogram normal Rheumatoid aortitis Hyperlipidemia GERD (gastroesophageal reflux disease) Surgical History History of esophagogastroduodenoscopy (EGD) Hx of tonsillectomy S/P partial hysterectomy H/O colonoscopy Hx of cataract surgery Family History Family History Father No problems noted. Mother Diabetes Social History Social History Household Members Other:: lives with daughter Housing: House Alcohol intake: current Alcohol intake frequency: holidays/special occasions only Patient Tobacco Use Status: Never used Tobacco Smoked in Last 30 Days: No e-Cigarette/Vaping Use: Never Used Use of substances other than those prescribed or required for medical reasons: No Advance Directives: No Advance Directives Information Provided: No Do you have a plan to hurt others: No Plan Nutrition Risks: No Nutritional Risk service: No Current occupational status: retired Cognitive needs: No Hearing needs: No Vision needs: No Physical Exam ED Vital Signs: Vital Signs - 24 hr 01/05/24 15:49 01/05/24 20:10 01/05/24 21:42 Temperature 98 F 98.0 F 97.8 F Pulse Rate 83 82 71 Respiratory Rate 18 18 18 Blood Pressure 187/77 H 155/80 H 168/72 H Pulse Oximetry 98 97 97 Oxygen Delivery Method Room Air Room Air Room Air BMI result Body Mass Index 27.5 Appearance: Alert.?Oriented to person, place and time. No acute distress.?Normal affect. Eyes: Pupils equal, round and reactive to light.? ENT: Pharynx normal.?? Neck: Normal inspection.? Neck supple.?? CVS: Heart sounds normal. Normal heart rate and rhythm.? Pulses normal.?? Respiratory: No respiratory distress.? Lung sounds clear to auscultation bilaterally?? Abdomen: Soft and non-tender. Normoactive bowel sounds. Rectal: Performed with solaris administrator, ED warehouse technician Chaya. No evidence of external hemorrhoids or fissures, small amount of active bright red blood noted at the rectum Skin: Skin warm and dry.? Normal skin color.? ? Extremities: No lower extremity edema.? Neuro: Moves all extremities spontaneously. Sensation intact bilaterally. Ambulates with normal steady gait. Course Course Course Narrative: This is a Rapid Medical Examination (RME) performed by Allison Craig PA-C in triage. Full HPI, ROS, assessment and treatment plan per primary provider in the Main ED. 83 yo female here for eval of multiple episodes of bloody diarrrhea which began this morning. admits to seeing blood in the toilet bowel mixed with stool. endorses minimal abdominal cramping prior to onset of diarrhea that has since resolved. no recent red foods recently. Not on AC. no recent abx. abd soft, ND/NT. well appearing. Plan: labs ordered. will need rectal exam Reevaluation(s) Reevaluation #1: CT reveals no acute pathology to suggest cause for diarrhea/hematochezia. Given her age, concerned about sending home with current bleeding. Discussed case with hospitalist Dr. Tavarez. Admission to medicine service Medications Administered Generic Name Dose Route Start Last Admin Trade Name Freq PRN Reason Stop Dose Admin Sodium Chloride 3 ml 01/06/24 00:00 01/05/24 23:38 0.9 % Sodium Chloride Flush 3 Ml Syringe IVFLUSH 3 ml QSHIFT LUCRECIA Administration Discontinued Medications Generic Name Dose Route Start Last Admin Trade Name Freq PRN Reason Stop Dose Admin Sodium Chloride 1,000 mls @ 999 mls/hr 01/05/24 20:15 01/05/24 23:20 Ns IV 01/05/24 21:15 Infused .Q1H1M LUCRECIA Infusion Iohexol 100 ml 01/05/24 20:41 01/05/24 20:41 Iohexol 350 Mg/Ml 100 Ml Infus..Btl IV 01/05/24 20:42 85 ml ONCE ONE Administration Medical Decision Making Medical Decision Making [facility] Narrative: Patient is an 83-year-old female with past medical history of rheumatoid arthritis, hyperlipidemia, GERD, prior colonoscopy in 2019 presented to emergency department for evaluation of loose stools with bright red blood per rectum as per HPI. At the time my examination she appears overall well, nontoxic, afebrile. She is without tachycardia tachypnea or hypoxia. Will obtain CBC to evaluate for leukocytosis/ anemia, CMP and lipase to evaluate for abnormal electrolytes /abnormal renal function/ abnormal hepatic/biliary function, CT of the abdomen and pelvis and Urinalysis. Differential Diagnosis Differential Diagnoses: The differential diagnosis associated with the presentation includes (Lower GI be, hemorrhoids, fissure, diverticulitis, colitis) Admission/Observation Consideration of admission/observation: Escalation of care including admission/observation considered (See narrative above and course narrative for further detail) Consult Healthcare Provider Management of the patient was discussed with: Hospitalist Lab Data MDM Lab Attestation statement: I reviewed the patient's lab results. CBC is without leukocytosis, normocytic anemia that does not meet transfusion criteria although hemoglobin has dropped when compared to labs 12 days ago with hemoglobin 13.1 and hematocrit 39, no thrombocytopenia. No electrolyte derangement. No ROSARIO. LFTs within normal range. Urinalysis with microscopic hematuria no evidence of infection. Occult stool positive. 01/05/24 16:34 01/05/24 16:34 Labs: Lab Results 01/05/24 01/05/24 01/05/24 Range/Units 16:34 20:16 20:51 WBC 5.7 (4.8-10.8) X10*3/uL RBC 3.72 L (4.20-5.50) X10*6/uL Hgb 11.5 L (12.0-16.0) g/dl Hct 33.0 L (37.0-47.0) % MCV 88.7 (80.0-98.0) fL MCH 30.9 (27.0-33.0) pg MCHC 34.8 (31.0-35.0) g/dl RDW 12.6 (11.0-16.0) % Plt Count 203 (160-400) X10*3/uL MPV 8.9 L (9.4-12.3) fL Immature Gran % (Auto) 0.2 (0.0-0.4) % Neut % (Auto) 57.7 (45-73) % Lymph % (Auto) 34.3 (20-40) % [place] % (Auto) 6.7 (2-11) % Eos % (Auto) 0.7 (0-4) % Baso % (Auto) 0.4 (0-2) % Lymph # (Auto) 2.0 (1.2-4.9) X10*3/uL [place] # (Auto) 0.4 (0.1-1.2) X10*3/uL Eos # (Auto) 0.0 (0.0-0.4) X10*3/uL Baso # (Auto) 0.0 (0.0-0.2) X10*3/uL Abs Immat Gran (auto) 0.01 (0.00-0.03) X10*3/uL Absolute Neuts (auto) 3.3 (2.0-8.3) x10*3/uL Absolute Nucleated RBC 0.000 (0.0-0.012) X10*3/uL Nucleated RBC % (auto) 0.0 (0.0-0.2) /100WBC Sodium 143 (135-145) mmol/L Potassium 3.9 (3.3-5.1) mmol/L Chloride 108 (96-108) mmol/L Carbon Dioxide 23 (22-29) mmol/L Anion Gap 16 (12-20) BUN 20 H (9-16) mg/dL Creatinine 0.76 (0.5-1.4) mg/dL Estim Creat Clear Calc 56.6 Estimated GFR > 60 Random Glucose 93 (60-115) mg/dL Calcium 9.8 (8.4-10.2) mg/dL Magnesium 1.9 (1.6-2.6) mg/dL Total Bilirubin 0.6 (0.0-1.0) mg/dL AST 20 (5-31) U/L ALT 14 (0-31) U/L Alkaline Phosphatase 66 (39-117) U/L Total Protein 7.1 (6.5-8.0) g/dL Albumin 4.0 (3.5-5.0) g/dL Urine Color Yellow Urine Appearance Clear Urine pH 6.5 (5.0-9.0) Ur Specific [place] 1.020 (1.005-1.025) Urine Protein Negative (Neg-Trace) mg/dL Urine Glucose (UA) Negative (Negative) mg/dL Urine Ketones Trace (Negative) mg/dL Urine Blood Large (3+) H (Negative) Urine Nitrite Negative (Negative) Ur Leukocyte Esterase Trace H (Negative) Urine RBC 0-2 (0-2) /HPF Urine WBC 0-5 (0-5) /HPF Ur Squamous Epith Cells 0-2 (0-2) /HPF Urine Bacteria None Seen (None Seen) Hyaline Casts 0-2 (0-2) /LPF Stool Occult Blood POSITIVE (NEGATIVE) Radiology Impression Discussion of test interpretation with radiology: I have reviewed the radiologist's reading. Radiologist Impression: CT/CT abdomen pelvis w IV con IMPRESSION: Cause for the patient's diarrhea and hematochezia has not been found. Incidental note made of colonic diverticulosis without diverticulitis and other findings described above. Independent Historian Clinical information obtained from an independent historian. History obtained from or confirmed by: Other (Daughter present who confirms history) External Record Review External record reviewed: Outpatient record Discharge Plan Discharge Clinical Impression: Hematochezia Patient Disposition: Admitted As Inpatient
[2024-01-05 16:41] LABS: Basophils Percent Auto 0.4 % (0-2); Eosinophils Percent Auto 0.7 % (0-4); Hemoglobin 11.5 g/dl (12.0-16.0); Imm Gran Abs Auto 0.01 X10*3/uL (0.00-0.03); Imm Gran Pct Auto 0.2 % (0.0-0.4); Lymphocytes Percent Auto 34.3 % (20-40); MANUAL DIFF FLAG NO; Mean Corpuscular HGB Conc 34.8 g/dl (31.0-35.0); Mean Corpuscular Hemoglobin 30.9 pg (27.0-33.0); Mean Corpuscular Volume 88.7 fL (80.0-98.0); Mean Platelet Volume 8.9 fL (9.4-12.3); Monocytes Absolute Auto 0.4 X10*3/uL (0.1-1.2); Monocytes Percent Auto 6.7 % (2-11); Neutrophils Absolute Auto 3.3 x10*3/uL (2.0-8.3); Neutrophils Percent Auto 57.7 % (45-73); Platelet Count 203 X10*3/uL (160-400); Red Blood Count 3.72 X10*6/uL (4.20-5.50); Red Cell Distribution Width 12.6 % (11.0-16.0); White Blood Count 5.7 X10*3/uL (4.8-10.8)
[2024-01-05 17:02] LABS: Alanine Aminotransferase 14 U/L (0-31); Alkaline Phosphatase 66 U/L (39-117); Anion Gap 16 (12-20); Aspartate Amino Transferase 20 U/L (5-31); Bilirubin Total 0.6 mg/dL (0.0-1.0); Blood Urea Nitrogen 20 mg/dL (9-16); Calcium 9.8 mg/dL (8.4-10.2); Carbon Dioxide 23 mmol/L (22-29); Chloride 108 mmol/L (96-108); Creatinine Clr Calc Pharmacy 56.6; Estimated Glomerular Filt Rate > 60; Glucose Random 93 mg/dL (60-115); Magnesium 1.9 mg/dL (1.6-2.6); Potassium 3.9 mmol/L (3.3-5.1); Sodium 143 mmol/L (135-145); Total Protein 7.1 g/dL (6.5-8.0)
[2024-01-05 20:10] VITALS: BP 155/80; PULSE 82; RESP 18; TEMP 36.7; O2SAT 97
[2024-01-05 20:22] LABS: OBS Int Ctl Valid YES; OBS1 POSITIVE (NEGATIVE)
[2024-01-05] MEDS: iohexoL 350 MG/ML 100 ML INFUS..BTL IV (20:41)
[2024-01-05] MEDS: 0.9 % Sodium Chloride 1,000 ML 999 ML IV (20:50)
[2024-01-05 20:59] LABS: Appearance Urine Clear; Color Urine Yellow; Glucose Urine UA Negative (Negative); Leukocyte Esterase Urine Trace (Negative); Nitrite Urine Negative (Negative); PH 6.5 (5.0-9.0); UMIC TRIGGER UACC YES; Urine Blood Large (3+) (Negative); Urine Ketones Trace mg/dL (Negative); Urine Protein Negative (Neg-Trace)
[2024-01-05 21:06] LABS: Bacteria Urine None Seen (None Seen); Hyaline Casts Urine 0-2 /LPF (0-2); RBC Urine 0-2 /HPF (0-2); Squamous Epithelial Cell Urine 0-2 /HPF (0-2); WBC Urine 0-5 /HPF (0-5)
[2024-01-05 21:42] VITALS: BP 168/72; PULSE 71; RESP 18; TEMP 36.6; O2SAT 97
--- NOTE | 2024-01-05 21:43 | MHC.EDTECH ---
Hourly rounds and vitals completed,call justice in reach
[2024-01-05 23:28] VITALS: BP 140/67; PULSE 73; RESP 18; TEMP 36.5; O2SAT 98
--- NOTE | 2024-01-05 23:28 | PM.IMHP ---
History of Present Illness Date of Service: 01/05/24 Chief Complaint: Bright red blood per rectum This is a 83-year-old female with pertinent history of hypertension, gastroesophageal reflux disease, hyperlipidemia, mood disorder who presents to the emergency department for evaluation of bright red blood per rectum. Patient states she had 4 episodes of painless bright red blood per rectum on the day of presentation. No abdominal discomfort. No nausea, vomiting. This has never happened before. Patient denies use of [id number] pain medications. Is not on blood thinner. States had a colonoscopy in 2019, unclear results. No fever, chills, chest discomfort, palpitations, shortness of breath, changes in urinary habits. In the emergency department, stool occult blood noted to be positive. Review of Systems Constitutional: Constitutional: Reports no additional constitutional complaints Cardiovascular: Cardiovascular: Reports no additional cardiovascular complaints Respiratory: Respiratory: Reports no additional respiratory complaints Gastrointestinal: Gastrointestinal: Reports hematochezia Genitourinary: Genitourinary: Reports no additional female genitourinary complaints [facility] Medical History Wheezing Cough Palpitations Annual physical exam Mammogram normal Rheumatoid aortitis Hyperlipidemia GERD (gastroesophageal reflux disease) Family History Father No problems noted. Mother Diabetes Surgical History History of esophagogastroduodenoscopy (EGD) Hx of tonsillectomy S/P partial hysterectomy H/O colonoscopy Hx of cataract surgery Social History Household Members Other:: lives with daughter Housing: House Alcohol intake: current Alcohol intake frequency: holidays/special occasions only Patient Tobacco Use Status: Never used Tobacco e-Cigarette/Vaping Use: Never Used Advance Directives: No Advance Directives Information Provided: No Do you have a plan to hurt others: No Plan service: No Current occupational status: retired Cognitive needs: No Hearing needs: No Vision needs: No Meds Allergies Allergy/AdvReac Type Severity Reaction Status Date / Time triamterene AdvReac Abdominal Verified 01/05/24 15:52 Pain hydrolazine AdvReac Intermediate Palpitation Uncoded 12/25/23 10:31 s Home Medications ?Medication ?Instructions ?Recorded ?Confirmed ?Last Taken ?Type cholecalciferol (vitamin D3) 25 25 mcg PO DAILY 09/23/21 10/22/23 Unknown History mcg (1,000 unit) capsule (Vitamin D3) dicyclomine 10 mg capsule 10 mg PO BID PRN 11/20/22 10/22/23 Unknown History Physical Exam Vital Signs and Narrative: Vital Signs: Last Vital Signs Temp 97.8 F 01/05/24 21:42 Pulse 71 01/05/24 21:42 Resp 18 01/05/24 21:42 BP 168/72 H 01/05/24 21:42 Pulse Ox 97 01/05/24 21:42 O2 Del Method Room Air 01/05/24 21:42 BMI result Body Mass Index 27.5 Elderly female lying in bed in no distress Neck supple, no JVD Regular rate and rhythm, S1-S2 heard Regular breath sounds bilaterally, no wheezing or crackles appreciated Abdomen soft nontender, no guarding, no rigidity Patient is awake, alert and oriented to self, place, time and person ; no focal motor deficit Psych: Normal mood No pedal edema Results Labs 01/05/24 16:34 01/05/24 16:34 Labs: Laboratory Results - last 24 hr 01/05/24 01/05/24 01/05/24 16:34 20:16 20:51 MCV 88.7 MCH 30.9 MCHC 34.8 RDW 12.6 Plt Count 203 MPV 8.9 L Immature Gran % (Auto) 0.2 Neut % (Auto) 57.7 Lymph % (Auto) 34.3 [place] % (Auto) 6.7 Eos % (Auto) 0.7 Baso % (Auto) 0.4 Lymph # (Auto) 2.0 [place] # (Auto) 0.4 Eos # (Auto) 0.0 Baso # (Auto) 0.0 Abs Immat Gran (auto) 0.01 Absolute Neuts (auto) 3.3 Absolute Nucleated RBC 0.000 Nucleated RBC % (auto) 0.0 Anion Gap 16 Estim Creat Clear Calc 56.6 Estimated GFR > 60 Random Glucose 93 Calcium 9.8 Magnesium 1.9 Total Bilirubin 0.6 AST 20 ALT 14 Alkaline Phosphatase 66 Total Protein 7.1 Albumin 4.0 Urine Color Yellow Urine Appearance Clear Urine pH 6.5 Ur Specific [place] 1.020 Urine Protein Negative Urine Glucose (UA) Negative Urine Ketones Trace Urine Blood Large (3+) H Urine Nitrite Negative Ur Leukocyte Esterase Trace H Urine RBC 0-2 Urine WBC 0-5 Ur Squamous Epith Cells 0-2 Urine Bacteria None Seen Hyaline Casts 0-2 Stool Occult Blood POSITIVE Imaging Radiologist's Impressions: Impressions Abdomen/Pelvis CT 01/05/24 20:46 IMPRESSION: Cause for the patient's diarrhea and hematochezia has not been found. Incidental note made of colonic diverticulosis without diverticulitis and other findings described above. Fleischner guidelines were followed. Assessment and Plan (1) Hematochezia: Status: Acute Plan This is a 83-year-old female with pertinent history of hypertension, gastroesophageal reflux disease, hyperlipidemia, mood disorder who presents to the emergency department for evaluation of bright red blood per rectum. #. Painless bright red blood per rectum: Noted drop in hemoglobin. Will admit patient with cardiac monitoring. Closely monitor H&H. Consulting Gastroenterology. Resuscitated with IV crystalloids #. Hypertension: Continue home antihypertensives #. Gastroesophageal reflux disease: On PPI #. Mixed hyperlipidemia: On statin #. Mood disorder: Continue home mood stabilizers Med rec pending DVT prophylaxis: Mechanical Full code Admit as inpatient and will require two night minimum hospital stay for hemodynamic monitoring, monitoring of H&H (as above), which is not possible in a lesser acute setting. Specialist consult pending Quality Stroke Does the patient have a stroke diagnosis?: No VTE Prior VTE?: No VTE Risk Level:: Medical - moderate - high VTE Device Contraindication: N/A - Device Ordered VTE Drug Contraindication: Treatment Not Indicated
[2024-01-05] MEDS: 0.9 % Sodium Chloride Flush 3 ML SYRINGE IVFLUSH (23:38)
--- NOTE | 2024-01-05 23:52 | MHC.EDTECH ---
Hourly rounds and vitals completed,patient placed on the cardiac rehabilitation specialist per order and belongings list completed and copy placed in chart.
[2024-01-06] VITALS (8 sets, daily range): BP systolic 118–148; BP diastolic 56–73; PULSE 64–88; RESP 13–20; TEMP 36.1–36.7; O2SAT 96–98
--- NOTE | 2024-01-06 01:38 | MHC.EDTECH ---
Hourly rounds and vitals completed,patient is resting at this time call justice in reach
--- NOTE | 2024-01-06 04:05 | MHC.EDTECH ---
Hourly rounds and vitals completed,warm blanket given and call justice in reach
[2024-01-06 05:42] LABS: MANUAL DIFF FLAG NO
[2024-01-06 05:46] LABS: Basophils Percent Auto 0.5 % (0-2); Eosinophils Absolute Auto 0.1 X10*3/uL (0.0-0.4); Eosinophils Percent Auto 1.2 % (0-4); Hematocrit 29.3 % (37.0-47.0); Hemoglobin 9.8 g/dl (12.0-16.0); Imm Gran Abs Auto 0.01 X10*3/uL (0.00-0.03); Imm Gran Pct Auto 0.2 % (0.0-0.4); Lymphocytes Absolute Auto 1.1 X10*3/uL (1.2-4.9); Lymphocytes Percent Auto 27.2 % (20-40); Mean Corpuscular HGB Conc 33.4 g/dl (31.0-35.0); Mean Corpuscular Hemoglobin 30.5 pg (27.0-33.0); Mean Corpuscular Volume 91.3 fL (80.0-98.0); Mean Platelet Volume 9.8 fL (9.4-12.3); Monocytes Absolute Auto 0.3 X10*3/uL (0.1-1.2); Monocytes Percent Auto 8.5 % (2-11); Neutrophils Absolute Auto 2.5 x10*3/uL (2.0-8.3); Neutrophils Percent Auto 62.4 % (45-73); Platelet Count 178 X10*3/uL (160-400); Red Blood Count 3.21 X10*6/uL (4.20-5.50); Red Cell Distribution Width 12.7 % (11.0-16.0)
--- NOTE | 2024-01-06 06:01 | MHC.EDTECH ---
Hourly rounds and vitals completed,Patient stated she got up during the night and had 3 loose bowel movements stated they were bloody but not as bad. RN aware
[2024-01-06 06:07] LABS: Anion Gap 15 (12-20); Blood Urea Nitrogen 19 mg/dL (9-16); Carbon Dioxide 23 mmol/L (22-29); Chloride 110 mmol/L (96-108); Creatinine Clr Calc Pharmacy 56.6; Estimated Glomerular Filt Rate > 60; Glucose Random 92 mg/dL (60-115); Potassium 3.9 mmol/L (3.3-5.1); Sodium 144 mmol/L (135-145)
[2024-01-06] MEDS: 0.9 % Sodium Chloride Flush 3 ML SYRINGE IVFLUSH ×2 (08:18→15:27)
--- NOTE | 2024-01-06 08:19 | PHA.MEDREC ---
Pharmacy Consult ? Medication Reconciliation Pharmacy has completed the medication reconciliation. Spoke with patient. Patient stated she picked up her metoprolol but never started taking it. She also states she only takes her hydroxychloroquine once daily instead of the prescribed twice daily. Patient prefers to take everything together in the morning and be done with it , hence why she prefers daily dosing as opposed to the twice daily dosing.
--- NOTE | 2024-01-06 08:38 | PC.NURSE ---
pt a&ox4, vss, resting quietly in bed - family at bedside, pt denies any pain at this time. pt pending GI consult/bed assignment. no new orders at this time.
--- NOTE | 2024-01-06 08:45 | MHC.CM.PN ---
CM met with Patient and her Sister and Daughter at bedside, in the ED and addressed IMM with Patient (original given to Patient and a copy will be placed on the chart). Patient lives in a house with her Daughter and she is still working at 83. Home/self care is the goal and CM has initiated and will follow for dc planning.PCP is Dr. Barbara Sanchez and Patient's 2 Sons (Raheem & Lance) are the HCP.
--- NOTE | 2024-01-06 09:47 | HO.PM.IMPN ---
Subjective Subjective Date of Service: 01/06/24 Interval History: f/u on hematochezia still reporting mild blood in his stool there is moderate drop in hemoglobin Physical Exam Vital Signs: Vital Signs: Last Vital Signs Temp 98.1 F 01/06/24 06:01 Pulse 88 01/06/24 08:19 Resp 13 01/06/24 08:19 BP 143/73 H 01/06/24 08:19 Pulse Ox 97 01/06/24 08:19 O2 Del Method Room Air 01/06/24 08:19 BMI result Body Mass Index 27.5 General: AO X 3, no acute distress Resp: CTA bilateral CVS: S1,S2,RRR GI: +BS, NT, no distention, rectal exam defered Skin: No rash Neuro: motor grossly intact Psych: appropriate affect Objective Data Active Medications Acetaminophen (Acetaminophen 325 Mg Tablet) 650 mg PO Q6H PRN PRN Reason: Pain, Mild (Pain Scale 1-3) Diltiazem HCl (Diltiazem Hcl Cd 240 Mg Cap.Er.Deg) 240 mg PO DAILY [facility]; Protocol Hydroxychloroquine Sulfate (Hydroxychloroquine Sulfate 200 Mg Tablet) 200 mg PO DAILY [facility] Melatonin (Melatonin 3 Mg Tablet) 6 mg PO BEDTIME PRN PRN Reason: Insomnia Non-Formulary Medication (Rosuvastatin) 20 mg PO DAILY [facility] Omeprazole (Omeprazole 20 Mg Capsule.Dr) 20 mg PO DAILY [facility] Ondansetron HCl (Ondansetron Hcl 4 Mg/2 Ml Vial) 4 mg IVPUSH Q8H PRN PRN Reason: Nausea and Vomiting Sodium Chloride (0.9 % Sodium Chloride Flush 3 Ml Syringe) 3 ml IVFLUSH QSHIFT [facility] Last Admin: 01/06/24 08:18 Dose: 3 ml Documented By: SARY Vitamin D (Cholecalciferol (Vitamin D3) 25 Mcg Tablet) 25 mcg PO DAILY [facility] Labs 01/06/24 04:39 01/06/24 04:39 Labs: Laboratory Results - last 24 hr 01/05/24 01/05/24 01/05/24 16:34 20:16 20:51 MCV 88.7 MCH 30.9 MCHC 34.8 RDW 12.6 Plt Count 203 MPV 8.9 L Immature Gran % (Auto) 0.2 Neut % (Auto) 57.7 Lymph % (Auto) 34.3 [place] % (Auto) 6.7 Eos % (Auto) 0.7 Baso % (Auto) 0.4 Lymph # (Auto) 2.0 [place] # (Auto) 0.4 Eos # (Auto) 0.0 Baso # (Auto) 0.0 Abs Immat Gran (auto) 0.01 Absolute Neuts (auto) 3.3 Absolute Nucleated RBC 0.000 Nucleated RBC % (auto) 0.0 Anion Gap 16 Estim Creat Clear Calc 56.6 Estimated GFR > 60 Random Glucose 93 Calcium 9.8 Magnesium 1.9 Total Bilirubin 0.6 AST 20 ALT 14 Alkaline Phosphatase 66 Total Protein 7.1 Albumin 4.0 Urine Color Yellow Urine Appearance Clear Urine pH 6.5 Ur Specific [place] 1.020 Urine Protein Negative Urine Glucose (UA) Negative Urine Ketones Trace Urine Blood Large (3+) H Urine Nitrite Negative Ur Leukocyte Esterase Trace H Urine RBC 0-2 Urine WBC 0-5 Ur Squamous Epith Cells 0-2 Urine Bacteria None Seen Hyaline Casts 0-2 Stool Occult Blood POSITIVE 01/06/24 04:39 MCV 91.3 MCH 30.5 MCHC 33.4 RDW 12.7 Plt Count 178 MPV 9.8 Immature Gran % (Auto) 0.2 Neut % (Auto) 62.4 Lymph % (Auto) 27.2 [place] % (Auto) 8.5 Eos % (Auto) 1.2 Baso % (Auto) 0.5 Lymph # (Auto) 1.1 L [place] # (Auto) 0.3 Eos # (Auto) 0.1 Baso # (Auto) 0.0 Abs Immat Gran (auto) 0.01 Absolute Neuts (auto) 2.5 Absolute Nucleated RBC 0.000 Nucleated RBC % (auto) 0.0 Anion Gap 15 Estim Creat Clear Calc 56.6 Estimated GFR > 60 Random Glucose 92 Calcium 9.0 D Magnesium Total Bilirubin AST ALT Alkaline Phosphatase Total Protein Albumin Urine Color Urine Appearance Urine pH Ur Specific [place] Urine Protein Urine Glucose (UA) Urine Ketones Urine Blood Urine Nitrite Ur Leukocyte Esterase Urine RBC Urine WBC Ur Squamous Epith Cells Urine Bacteria Hyaline Casts Stool Occult Blood Assessment and Plan (1) Hematochezia: Status: Acute (2) Hematochezia: Status: Acute Plan 83-year-old female with pertinent history of hypertension, gastroesophageal reflux disease, hyperlipidemia, mood disorder who presents to the emergency department for evaluation of bright red blood per rectum. Painless bright red blood per rectum with acute blood loss anemia, has history of polyps, and diverticulosis on last colnoscopy of 2020 -follow h/h, for EGD/colonoscopy tomorrow, no ASA or heparin Hypertension: Continue Diltiazem Gastroesophageal reflux disease PPI Mixed hyperlipidemia: On statin Mood disorder: Continue home mood stabilizers DVT prophylaxis: Mechanical d/t gib, out of bed, ambulate Full code inpt: gi bleed work up for egd and colonoscopy tomorrow Quality Stroke Does the patient have a stroke diagnosis?: No VTE Prior VTE?: No VTE Risk Level:: Medical - moderate - high VTE Device Contraindication: N/A - Device Ordered VTE Drug Contraindication: Treatment Not Indicated
[2024-01-06] MEDS: Hydroxychloroquine Sulfate 200 MG TABLET PO (10:40)
[2024-01-06] MEDS: Omeprazole 20 MG CAPSULE.DR PO (10:40)
[2024-01-06] MEDS: dilTIAZem HCL CD 240 MG CAP.ER.DEG PO (10:40)
[2024-01-06] MEDS: Atorvastatin Calcium 80 MG TABLET PO (10:40)
[2024-01-06] MEDS: Cholecalciferol (Vitamin D3) 25 MCG TABLET PO (10:40)
--- NOTE | 2024-01-06 12:00 | PC.NURSE ---
assumed care of pt at 1100, pt is a&o x4, repositioned pt in bed offloaded left hip for comfort. pt advanced to clear liquid diet, provided pt with gingerale. plan is to be NPO at midnight for colonoscopy/endoscopy in the morning. pt verbalizes understanding, all questions were answered, call justice within reach, safety maintained.
--- NOTE | 2024-01-06 12:29 | PM.GICN ---
History of Present Illness Data of Consult Service Date: 01/06/24 Requesting physician: Fer Russell Primary Care Provider: Barbara Sanchez MD HPI Reason for consult: Lower GI bleeding. This is an 83-year-old female with no significant past medical history who presented to the hospital for multiple episodes of frankly bloody diarrhea. Patient reports that her symptoms started yesterday morning when she was on her way to work. She noticed her first large bloody bowel movement. She then proceeded to have 2 more the same day. When she presented to the emergency room, she was noted to be vitally stable. Labs were significant for hemoglobin of 11.5 which had dropped from previous hemoglobin of 13 and then further dropped to 9.8 this morning. Chem 7 with normal renal function. She underwent a CT abdomen pelvis with contrast that shows diverticulosis of the colon. At bedside assessment today, she reports that abdominal cramping has resolved. Bloody bowel movements appear to be clearing up. Otherwise feels well, no lightheadedness, chest pain, abdominal pain. Review of Systems Review of Systems: Yes all other systems are reviewed and are negative [facility] Past Medical History Medical History Wheezing Cough Palpitations Annual physical exam Mammogram normal Rheumatoid aortitis Hyperlipidemia GERD (gastroesophageal reflux disease) Family History Family History Father No problems noted. Mother Diabetes Surgical History Surgical History History of esophagogastroduodenoscopy (EGD) Hx of tonsillectomy S/P partial hysterectomy H/O colonoscopy Hx of cataract surgery Social History Social History Household Members Other:: lives with daughter Housing: House Alcohol intake: current Alcohol intake frequency: holidays/special occasions only Patient Tobacco Use Status: Never used Tobacco Smoked in Last 30 Days: No e-Cigarette/Vaping Use: Never Used Use of substances other than those prescribed or required for medical reasons: No Advance Directives: No Advance Directives Information Provided: No Do you have a plan to hurt others: No Plan Nutrition Risks: No Nutritional Risk service: No Current occupational status: retired Cognitive needs: No Hearing needs: No Vision needs: No Meds Allergies Allergy/AdvReac Type Severity Reaction Status Date / Time triamterene AdvReac Abdominal Verified 01/05/24 15:52 Pain hydrolazine AdvReac Intermediate Palpitation Uncoded 12/25/23 10:31 s Active Medications: Current Medications Acetaminophen (Acetaminophen 325 Mg Tablet) 650 mg PO Q6H PRN PRN Reason: Pain, Mild (Pain Scale 1-3) Atorvastatin Calcium (Atorvastatin Calcium 80 Mg Tablet) 80 mg PO DAILY [facility] Last Admin: 01/06/24 10:40 Dose: 80 mg Diltiazem HCl (Diltiazem Hcl Cd 240 Mg Cap.Er.Deg) 240 mg PO DAILY [facility]; Protocol Last Admin: 01/06/24 10:40 Dose: 240 mg Hydroxychloroquine Sulfate (Hydroxychloroquine Sulfate 200 Mg Tablet) 200 mg PO DAILY [facility] Last Admin: 01/06/24 10:40 Dose: 200 mg Melatonin (Melatonin 3 Mg Tablet) 6 mg PO BEDTIME PRN PRN Reason: Insomnia Omeprazole (Omeprazole 20 Mg Capsule.Dr) 20 mg PO DAILY@0630 [facility] Last Admin: 01/06/24 10:40 Dose: 20 mg Ondansetron HCl (Ondansetron Hcl 4 Mg/2 Ml Vial) 4 mg IVPUSH Q8H PRN PRN Reason: Nausea and Vomiting Sodium Chloride (0.9 % Sodium Chloride Flush 3 Ml Syringe) 3 ml IVFLUSH QSHIFT [facility] Last Admin: 01/06/24 08:18 Dose: 3 ml Vitamin D (Cholecalciferol (Vitamin D3) 25 Mcg Tablet) 25 mcg PO DAILY [facility] Last Admin: 01/06/24 10:40 Dose: 25 mcg Home Medications ?Medication ?Instructions ?Recorded ?Confirmed ?Last Taken ?Type cholecalciferol (vitamin D3) 25 25 mcg PO DAILY 09/23/21 01/06/24 01/05/24 History mcg (1,000 unit) capsule (Vitamin D3) hydroxychloroquine 200 mg tablet 200 mg PO DAILY 01/06/24 01/06/24 01/05/24 History Physical Exam Vital Signs: Vital Signs: Last Vital Signs Temp 98.1 F 01/06/24 06:01 Pulse 87 01/06/24 10:40 Resp 13 01/06/24 08:19 BP 143/73 H 01/06/24 10:40 Pulse Ox 97 01/06/24 08:19 O2 Del Method Room Air 01/06/24 08:19 BMI result Body Mass Index 27.5 Healthy-appearing 83-year-old No icterus Chest clear to auscultation Abdomen soft nontender No lower extremity edema Results Labs 01/06/24 04:39 01/06/24 04:39 Labs: Short CBC 01/05/24 01/06/24 Range/Units 16:34 04:39 WBC 5.7 4.0 L (4.8-10.8) X10*3/uL Hgb 11.5 L 9.8 L (12.0-16.0) g/dl Hct 33.0 L 29.3 L (37.0-47.0) % Plt Count 203 178 (160-400) X10*3/uL BMP 01/05/24 01/06/24 16:34 04:39 Sodium 143 144 Potassium 3.9 3.9 Chloride 108 110 H Carbon Dioxide 23 23 BUN 20 H 19 H Creatinine 0.76 0.76 Calcium 9.8 9.0 D Liver Function 01/05/24 Range/Units 16:34 Total Bilirubin 0.6 (0.0-1.0) mg/dL AST 20 (5-31) U/L ALT 14 (0-31) U/L Alkaline Phosphatase 66 (39-117) U/L Albumin 4.0 (3.5-5.0) g/dL Urine 01/05/24 Range/Units 20:51 Urine Color Yellow Urine Appearance Clear Urine pH 6.5 (5.0-9.0) Ur Specific [place] 1.020 (1.005-1.025) Urine Protein Negative (Neg-Trace) mg/dL Urine Glucose (UA) Negative (Negative) mg/dL Assessment and Plan (1) Lower GI bleeding: Status: Acute (2) Diverticulosis: Status: Acute (3) Acute blood loss anemia: Status: Acute Plan Presented with acute onset of lower GI bleeding that appears to have self-resolved by this morning. Overall most consistent with diverticular bleeding. Other differentials for large volume painless hematochezia include hemorrhoidal bleeding, large friable polyp, malignancy. Plan: -maintain at least 2 peripheral IV access at all time -monitor CBC twice a day -transfuse PRBC for hemoglobin less than 7 -will schedule her for a diagnostic colonoscopy to rule out other etiology -PEG prep ordered. Please keep her on clear liquids today, NPO after midnight. -since patient was already scheduled for an outpatient upper endoscopy to evaluate for gastric polyps and esophageal diverticulum, we will do this at the same time as the colonoscopy Thank you for allowing me to participate in her care. Please do not hesitate to reach out for any questions or concerns. Procedures Date of Service Date of Service: 01/06/24
[2024-01-06] MEDS: Acetaminophen 325 MG TABLET 650 MG PO (13:32)
[2024-01-06] MEDS: PEG 3350/Na Sulf,Bicarb,Cl/KCL 4,000 ML SOLN.RECON 4000 ML PO (15:27)
[2024-01-07] VITALS (11 sets, daily range): BP systolic 107–142; BP diastolic 47–66; PULSE 73–89; RESP 12–18; TEMP 36.1–36.8; O2SAT 96–98
[2024-01-07 07:09] LABS: Hematocrit 24.4 % (37.0-47.0); Hemoglobin 8.4 g/dl (12.0-16.0); Mean Corpuscular HGB Conc 34.4 g/dl (31.0-35.0); Mean Platelet Volume 9.5 fL (9.4-12.3); Platelet Count 181 X10*3/uL (160-400); Red Blood Count 2.71 X10*6/uL (4.20-5.50); Red Cell Distribution Width 12.9 % (11.0-16.0); White Blood Count 5.8 X10*3/uL (4.8-10.8)
--- NOTE | 2024-01-07 08:55 | HO.PM.IMPN ---
Subjective Subjective Date of Service: 01/07/24 Interval History: f/u on hematochezia Still with blood bowel movement as of this morning, and H/H trending down, she reports no abdominal pain and feels fine otherwise Physical Exam Vital Signs: Vital Signs: Last Vital Signs Temp 98.3 F 01/07/24 07:25 Pulse 73 01/07/24 07:25 Resp 18 01/07/24 07:25 BP 142/65 H 01/07/24 07:25 Pulse Ox 98 01/07/24 07:25 O2 Del Method Room Air 01/07/24 07:25 BMI result Body Mass Index 27.5 General: AO X 3, no acute distress Resp: CTA bilateral CVS: S1,S2,RRR GI: +BS, NT, no distention Skin: No rash Neuro: motor grossly intact Psych: appropriate affect Objective Data Active Medications Acetaminophen (Acetaminophen 325 Mg Tablet) 650 mg PO Q6H PRN PRN Reason: Pain, Mild (Pain Scale 1-3) Last Admin: 01/06/24 13:32 Dose: 650 mg Documented By: AVIVA Atorvastatin Calcium (Atorvastatin Calcium 80 Mg Tablet) 80 mg PO DAILY [facility] Last Admin: 01/06/24 10:40 Dose: 80 mg Documented By: SARY Diltiazem HCl (Diltiazem Hcl Cd 240 Mg Cap.Er.Deg) 240 mg PO DAILY [facility]; Protocol Last Admin: 01/06/24 10:40 Dose: 240 mg Documented By: SARY Hydroxychloroquine Sulfate (Hydroxychloroquine Sulfate 200 Mg Tablet) 200 mg PO DAILY [facility] Last Admin: 01/06/24 10:40 Dose: 200 mg Documented By: SARY Melatonin (Melatonin 3 Mg Tablet) 6 mg PO BEDTIME PRN PRN Reason: Insomnia Omeprazole (Omeprazole 20 Mg Capsule.Dr) 20 mg PO DAILY@0630 [facility] Last Admin: 01/06/24 10:40 Dose: 20 mg Documented By: SARY Ondansetron HCl (Ondansetron Hcl 4 Mg/2 Ml Vial) 4 mg IVPUSH Q8H PRN PRN Reason: Nausea and Vomiting Sodium Chloride (0.9 % Sodium Chloride Flush 3 Ml Syringe) 3 ml IVFLUSH QSHIFT [facility] Last Admin: 01/07/24 01:04 Dose: Not Given Documented By: ZEYAD Non-Admin Reason: Patient Asleep Vitamin D (Cholecalciferol (Vitamin D3) 25 Mcg Tablet) 25 mcg PO DAILY [facility] Last Admin: 01/06/24 10:40 Dose: 25 mcg Documented By: SARY Labs 01/07/24 06:52 01/06/24 04:39 Labs: Laboratory Results - last 24 hr 01/07/24 06:52 MCV 90.0 MCH 31.0 MCHC 34.4 RDW 12.9 Plt Count 181 MPV 9.5 Absolute Nucleated RBC 0.000 Nucleated RBC % (auto) 0.0 Assessment and Plan (1) Hematochezia: Status: Acute (2) Hematochezia: Status: Acute Plan 83-year-old female with pertinent history of hypertension, gastroesophageal reflux disease, hyperlipidemia, mood disorder who presents to the emergency department for evaluation of bright red blood per rectum. Painless bright red blood per rectum with acute blood loss anemia, has history of polyps, and diverticulosis on last colnoscopy of 2020 at [facility], H/H trending down -follow h/h, for EGD/colonoscopy today, no ASA or heparin. hold transfusion at this time Hypertension: Continue Diltiazem Gastroesophageal reflux disease PPI Mixed hyperlipidemia: On statin Mood disorder: Continue home mood stabilizers DVT prophylaxis: Mechanical d/t gib, out of bed, ambulate Full code inpt: gi bleed work up for egd and colonoscopy today daughter and sister at bedside and updated Quality Stroke Does the patient have a stroke diagnosis?: No VTE Prior VTE?: No VTE Risk Level:: Medical - moderate - high VTE Device Contraindication: N/A - Device Ordered VTE Drug Contraindication: Treatment Not Indicated
[2024-01-07] MEDS: Hydroxychloroquine Sulfate 200 MG TABLET PO (09:46)
[2024-01-07] MEDS: Omeprazole 20 MG CAPSULE.DR PO (09:47)
[2024-01-07] MEDS: Cholecalciferol (Vitamin D3) 25 MCG TABLET PO (09:47)
[2024-01-07] MEDS: dilTIAZem HCL CD 240 MG CAP.ER.DEG PO (09:48)
[2024-01-07] MEDS: Atorvastatin Calcium 80 MG TABLET PO (09:48)
[2024-01-07] MEDS: 0.9 % Sodium Chloride Flush 3 ML SYRINGE IVFLUSH ×3 (09:49→21:23)
--- NOTE | 2024-01-07 14:05 | HO.ANESPROP2 ---
HPI - Anesthesia Eval Consult details Narrative: for endo and colon for bleed [facility] Active Problems Active Problems: All Active Problems Acute blood loss anemia (Acute) Diverticulosis (Acute) Lower GI bleeding (Acute) Hematochezia (Acute) Hematochezia (Acute) Gastritis (Acute) Headache (Acute) GERD (gastroesophageal reflux disease) (Acute) Diverticulum of esophagus, acquired (Acute) Gastric polyps (Acute) Dysphagia (Acute) PVC (premature ventricular contraction) (Acute) Anxiety (Acute) Hyperglycemia (Acute) DJD (degenerative joint disease), lumbar (Acute) HTN (hypertension) (Acute) Flank pain (Acute) Pelvic pain (Acute) Annual physical exam (Acute) Sciatica (Acute) Wheezing (Acute) Cough (Acute) Essential hypertension (Acute) Precordial chest pain (Acute) Palpitations (Acute) Annual physical exam (Acute) Pain in right ankle and joints of right foot (Acute) Otitis media (Acute) Mammogram normal (Acute) Rheumatoid aortitis (Acute) Hyperlipidemia (Acute) Somatic dysfunction of left sacroiliac joint (Acute) Past Medical History Medical History Wheezing Cough Palpitations Annual physical exam Mammogram normal Rheumatoid aortitis Hyperlipidemia GERD (gastroesophageal reflux disease) Family History Family History Father No problems noted. Mother Diabetes Family history of problems with anesthesia: No Surgical History Surgical History History of esophagogastroduodenoscopy (EGD) Hx of tonsillectomy S/P partial hysterectomy H/O colonoscopy Hx of cataract surgery History of Problems with Anesthesia: No Social History Social History Household Members: Children Household Members Other:: lives with daughter Housing: House Do you presently have visiting nurse or other home services: No Alcohol intake: current Alcohol intake frequency: a few times a week Patient Tobacco Use Status: Never used Tobacco e-Cigarette/Vaping Use: Never Used service: No Current occupational status: retired Cognitive needs: No Hearing needs: No Vision needs: No Meds Allergies Allergy/AdvReac Type Severity Reaction Status Date / [facility] Adv[facility] Abdominal Verified 01/05/24 15:52 Pain hydrolazine AdvReac Intermediate Palpitation Uncoded 12/25/23 10:31 s Active Medications: Current Medications Acetaminophen (Acetaminophen 325 Mg Tablet) 650 mg PO Q6H PRN PRN Reason: Pain, Mild (Pain Scale 1-3) Last Admin: 01/06/24 13:32 Dose: 650 mg Atorvastatin Calcium (Atorvastatin Calcium 80 Mg Tablet) 80 mg PO DAILY [facility] Last Admin: 01/07/24 09:48 Dose: 80 mg Diltiazem HCl (Diltiazem Hcl Cd 240 Mg Cap.Er.Deg) 240 mg PO DAILY [facility]; Protocol Last Admin: 01/07/24 09:48 Dose: 240 mg Hydroxychloroquine Sulfate (Hydroxychloroquine Sulfate 200 Mg Tablet) 200 mg PO DAILY [facility] Last Admin: 01/07/24 09:46 Dose: 200 mg Melatonin (Melatonin 3 Mg Tablet) 6 mg PO BEDTIME PRN PRN Reason: Insomnia Omeprazole (Omeprazole 20 Mg Capsule.Dr) 20 mg PO DAILY@0630 [facility] Last Admin: 01/07/24 09:47 Dose: 20 mg Ondansetron HCl (Ondansetron Hcl 4 Mg/2 Ml Vial) 4 mg IVPUSH Q8H PRN PRN Reason: Nausea and Vomiting Sodium Chloride (0.9 % Sodium Chloride Flush 3 Ml Syringe) 3 ml IVFLUSH QSHIFT [facility] Last Admin: 01/07/24 09:49 Dose: 3 ml Vitamin D (Cholecalciferol (Vitamin D3) 25 Mcg Tablet) 25 mcg PO DAILY [facility] Last Admin: 01/07/24 09:47 Dose: 25 mcg Home Medications ?Medication ?Instructions ?Recorded ?Confirmed ?Last Taken ?Type cholecalciferol (vitamin D3) 25 25 mcg PO DAILY 09/23/21 01/06/24 01/05/24 History mcg (1,000 unit) capsule (Vitamin D3) hydroxychloroquine 200 mg tablet 200 mg PO DAILY 01/06/24 01/06/24 01/05/24 History Exam Height,Weight and Vital Signs: Height 5 ft 4 in Weight 72.575 kg Last Vital Signs Temp 98.2 F 01/07/24 13:01 Pulse 89 01/07/24 13:01 Resp 18 01/07/24 13:01 BP 124/66 01/07/24 13:01 Pulse Ox 96 01/07/24 13:01 O2 Del Method Room Air 01/07/24 13:01 Pertinent Lab Results Pertinent Lab Results: Laboratory Tests 01/05/24 01/05/24 01/05/24 16:34 20:16 20:51 WBC 5.7 RBC 3.72 L Hgb 11.5 L Hct 33.0 L MCV 88.7 MCH 30.9 MCHC 34.8 RDW 12.6 Plt Count 203 MPV 8.9 L Immature Gran % (Auto) 0.2 Neut % (Auto) 57.7 Lymph % (Auto) 34.3 [place] % (Auto) 6.7 Eos % (Auto) 0.7 Baso % (Auto) 0.4 Lymph # (Auto) 2.0 [place] # (Auto) 0.4 Eos # (Auto) 0.0 Baso # (Auto) 0.0 Abs Immat Gran (auto) 0.01 Absolute Neuts (auto) 3.3 Absolute Nucleated RBC 0.000 Nucleated RBC % (auto) 0.0 Sodium 143 Potassium 3.9 Chloride 108 Carbon Dioxide 23 Anion Gap 16 BUN 20 H Creatinine 0.76 Estim Creat Clear Calc 56.6 Estimated GFR > 60 Random Glucose 93 Calcium 9.8 Magnesium 1.9 Total Bilirubin 0.6 AST 20 ALT 14 Alkaline Phosphatase 66 Total Protein 7.1 Albumin 4.0 Urine Color Yellow Urine Appearance Clear Urine pH 6.5 Ur Specific [place] 1.020 Urine Protein Negative Urine Glucose (UA) Negative Urine Ketones Trace Urine Blood Large (3+) H Urine Nitrite Negative Ur Leukocyte Esterase Trace H Urine RBC 0-2 Urine WBC 0-5 Ur Squamous Epith Cells 0-2 Urine Bacteria None Seen Hyaline Casts 0-2 Stool Occult Blood POSITIVE 01/06/24 01/07/24 04:39 06:52 WBC 4.0 L 5.8 RBC 3.21 L 2.71 L Hgb 9.8 L 8.4 L Hct 29.3 L 24.4 L MCV 91.3 90.0 MCH 30.5 31.0 MCHC 33.4 34.4 RDW 12.7 12.9 Plt Count 178 181 MPV 9.8 9.5 Immature Gran % (Auto) 0.2 Neut % (Auto) 62.4 Lymph % (Auto) 27.2 [place] % (Auto) 8.5 Eos % (Auto) 1.2 Baso % (Auto) 0.5 Lymph # (Auto) 1.1 L [place] # (Auto) 0.3 Eos # (Auto) 0.1 Baso # (Auto) 0.0 Abs Immat Gran (auto) 0.01 Absolute Neuts (auto) 2.5 Absolute Nucleated RBC 0.000 0.000 Nucleated RBC % (auto) 0.0 0.0 Sodium 144 Potassium 3.9 Chloride 110 H Carbon Dioxide 23 Anion Gap 15 BUN 19 H Creatinine 0.76 Estim Creat Clear Calc 56.6 Estimated GFR > 60 Random Glucose 92 Calcium 9.0 D Magnesium Total Bilirubin AST ALT Alkaline Phosphatase Total Protein Albumin Urine Color Urine Appearance Urine pH Ur Specific [place] Urine Protein Urine Glucose (UA) Urine Ketones Urine Blood Urine Nitrite Ur Leukocyte Esterase Urine RBC Urine WBC Ur Squamous Epith Cells Urine Bacteria Hyaline Casts Stool Occult Blood Airway Mallampati Class: II TM Dist: >3cm Neck ROM: Full Heart: rrr Lungs: cta Assessment and Plan Assessment Anesthesia Assessment: Anesthesia Plan Discussed and Chart Reviewed Final Anesthetic Review Family History of Problems with Anesthesia: No History of Problems with Anesthesia: No NPO: Yes ASA Class: III Final Preanesthetic Review: No Changes in Pt Med Stat, Meds/Allgs Chart Reviewed, Consent Obtained/Reviewed and Anes Risks/Benef Reviewed Patient Risk: Intermediate Procedure Risk: Low Anesthetic Plan Anesthetic Plan: MAC: Disposition: Standard PACU
--- NOTE | 2024-01-07 14:09 | MHC.SHP ---
Pre-Procedural Eval Section A - 24 Hr Update-Section A only Date of Service: 01/07/24 The patient is an INPATIENT: Yes The patient has been examined within 24 hours of the surgical procedure. The History & Physical has been completed within 30 days and I have reviewed it.: Yes Section B - Complete if H&P > 30 days Chief Complaint: Blood in stool Allergies: Allergies Allergy/AdvReac Type Severity Reaction Status Date / Time triamterene AdvReac Abdominal Verified 01/05/24 15:52 Pain hydrolazine AdvReac Intermediate Palpitation Uncoded 12/25/23 10:31 s Plan Diagnosis/Plan: Unchanged I have reviewed the history and physical and performed a pertinent physical examination on my patient. No changes have occurred unless specified. Time Spent With Patient Time: Total time managing care of this patient today ____ minutes.
--- NOTE | 2024-01-07 14:11 | P.OPN-COLO_ITS ---
Colonoscopy Operative Note Operative Note Date of Service: 01/07/24 Narrative: Procedure: Upper endoscopy and colonoscopy Indication: LGIB Endoscopist: Елена Olson MD Anesthesia Provider: Alexis Murphy CRNA Anesthesia type: MAC Instrument: [id number]-H190, [id number]-[id number], [id number] EGD Procedure:?? The procedure, indications, preparation and potential complications were reviewed with the patient, who indicated understanding and gave written informed consent to proceed. Physical exam was performed. The endoscope was introduced through the mouth, and advanced to the 2nd part of the duodenum. The mucosa was carefully examined on slow withdrawal of the endoscope. The patient tolerated the procedure well. There were no immediate complications.? EGD Findings:? * Esophagus:? Normal esophageal mucosa was noted. No obvious diverticulum was noted. The Z-line was at 35 cm. There was a moderate size hiatal hernia with the diaphragmatic pinch at 38 cm. * Stomach:? Multiple large polyps were noted in cardia and fundus. Retroflexion was performed in the cardia that showed Hill grade III hiatal hernia. Cold forceps biopsies were taken from some of the large polyps. * Duodenum:? Normal duodenal mucosa to the extent examined. Colonoscopy Procedure:? The patient was then turned for the colonoscopy. A digital rectal exam was performed which was normal.? A distal attachment cap was affixed to the tip of the scope and the colonoscope was then inserted through the anus and advanced through the colon and advanced to the cecum at 75 cm and terminal ileum.? Appendiceal orifice and ileocecal valve were identified. Mucosa was carefully examined under high definition white light as the instrument was slowly withdrawn in a retrograde panoramic fashion. Retroflexion was performed in rectum. The procedure was not difficult. The quality of the prep was BBPS: 2+2+2 = adequate Withdrawal time 22 minutes Limitations: No limitations Findings: Mucosa: Blood and clots filled in colon which was extensively flushed and suc tioned out. Underlying mucosa was normal. No blood in TI. Protruding lesions: * Medium internal hemorrhoids without stigmata of recent bleeding. Excavated lesions: * Severe diverticulosis of the whole colon, L>R. No actively bleeding diverticulum was noted despite relooking anal verge to cecum x 2. Impression: 1. Normal esophageal mucosa 2. Hiatal hernia 3. Gastric polyps (biopsy) 4. Normal duodenal mucosa 5. Normal colon and terminal ileum mucosa 6. Severe diverticulosis without active bleeding 7. Internal hemorrhoids Recommendations:?? * Check CBC BID and transfuse PRBC for Hb<7 * Venofer 200mg IV x 1 * Please keep on clears for now * If has recurrence of bleeding, recommend stat CTA bleed protocol and IR consult for embolization * If no rebleeding x 48h pt may be discharged
--- NOTE | 2024-01-07 15:25 | MHC.CM.PN ---
EMR reviewed and per MD rounds, pt is not medically cleared for discharge today due to workup for GI bleed, pt getting an EDG and colonoscopy today.
[2024-01-08] VITALS (10 sets, daily range): BP systolic 109–157; BP diastolic 54–64; PULSE 59–75; RESP 16–20; TEMP 36.1–36.8; O2SAT 94–97
[2024-01-08] MEDS: Omeprazole 20 MG CAPSULE.DR PO (06:13)
[2024-01-08 06:40] LABS: Mean Corpuscular HGB Conc 34.2 g/dl (31.0-35.0); Mean Corpuscular Hemoglobin 31.1 pg (27.0-33.0); Mean Corpuscular Volume 90.9 fL (80.0-98.0); Platelet Count 151 X10*3/uL (160-400); Red Blood Count 2.19 X10*6/uL (4.20-5.50); Red Cell Distribution Width 12.8 % (11.0-16.0); White Blood Count 5.1 X10*3/uL (4.8-10.8)
[2024-01-08 07:14] LABS: Hematocrit 19.9 % (37.0-47.0); Hemoglobin 6.8 g/dl (12.0-16.0)
--- NOTE | 2024-01-08 09:17 | HO.POSTANES ---
Post Anesthesia Evaluation Post Anesthesia Evaluation Date of Service: 01/08/24 Vital Signs: Vital Signs Temp Pulse Resp BP Pulse Ox O2 Del Method 01/08/24 07:49 96.9 F 73 17 134/60 97 Room Air 01/08/24 04:00 98.3 F 75 20 109/54 L 97 Room Air 01/07/24 23:54 98.2 F 76 18 137/58 L 97 Room Air Anesthesia: TIVA Mental Status: Awake Pain Control: Satisfactory Nausea/Vomiting: None Hydration: Adequate Anesthesia-Related Issues: No Anes. Related Issues
[2024-01-08] MEDS: Hydroxychloroquine Sulfate 200 MG TABLET PO (10:07)
[2024-01-08] MEDS: dilTIAZem HCL CD 240 MG CAP.ER.DEG PO (10:07)
[2024-01-08] MEDS: Cholecalciferol (Vitamin D3) 25 MCG TABLET PO (10:07)
[2024-01-08] MEDS: Atorvastatin Calcium 80 MG TABLET PO (10:07)
[2024-01-08] MEDS: 0.9 % Sodium Chloride Flush 3 ML SYRINGE IVFLUSH ×3 (10:08→19:40)
--- NOTE | 2024-01-08 11:24 | P.PNIM_ITS ---
Subjective Subjective Date of Service: 01/08/24 Interval History: f/u on hematochezia she has not had any further blood in stool since yesterday morning, H/H is lower and is being transfused, she is hemodynamicall stable Physical Exam 2 Vital Signs: Vital Signs: Last Vital Signs Temp 98.3 F 01/08/24 10:54 Pulse 75 01/08/24 10:54 Resp 16 01/08/24 10:54 BP 127/54 L 01/08/24 10:54 Pulse Ox 97 01/08/24 07:49 O2 Del Method Room Air 01/08/24 07:49 O2 Flow Rate 4 01/07/24 15:05 BMI result Body Mass Index 27.5 General: AO X 3, no acute distress Resp: CTA bilateral CVS: S1,S2,RRR GI: +BS, NT, no distention Skin: No rash Neuro: motor grossly intact Psych: appropriate affect Objective Data Active Medications Acetaminophen (Acetaminophen 325 Mg Tablet) 650 mg PO Q6H PRN PRN Reason: Pain, Mild (Pain Scale 1-3) Last Admin: 01/06/24 13:32 Dose: 650 mg Documented By: AVIVA Atorvastatin Calcium (Atorvastatin Calcium 80 Mg Tablet) 80 mg PO DAILY [facility] Last Admin: 01/08/24 10:07 Dose: 80 mg Documented By: WILTON Diltiazem HCl (Diltiazem Hcl Cd 240 Mg Cap.Er.Deg) 240 mg PO DAILY [facility]; Protocol Last Admin: 01/08/24 10:07 Dose: 240 mg Documented By: WILTON Hydroxychloroquine Sulfate (Hydroxychloroquine Sulfate 200 Mg Tablet) 200 mg PO DAILY [facility] Last Admin: 01/08/24 10:07 Dose: 200 mg Documented By: WILTON Melatonin (Melatonin 3 Mg Tablet) 6 mg PO BEDTIME PRN PRN Reason: Insomnia Omeprazole (Omeprazole 20 Mg Capsule.) 20 mg PO DAILY@0630 [facility] Last Admin: 01/08/24 06:13 Dose: 20 mg Documented By: SALOME Ondansetron HCl (Ondansetron Hcl 4 Mg/2 Ml Vial) 4 mg IVPUSH Q8H PRN PRN Reason: Nausea and Vomiting Sodium Chloride (0.9 % Sodium Chloride Flush 3 Ml Syringe) 3 ml IVFLUSH QSHIFT [facility] Last Admin: 01/08/24 10:08 Dose: 3 ml Documented By: WILTON Vitamin D (Cholecalciferol (Vitamin D3) 25 Mcg Tablet) 25 mcg PO DAILY [facility] Last Admin: 01/08/24 10:07 Dose: 25 mcg Documented By: WILTON Labs 01/08/24 06:21 01/06/24 04:39 Labs: Laboratory Results - last 24 hr 01/08/24 01/08/24 06:21 08:07 MCV 90.9 MCH 31.1 MCHC 34.2 RDW 12.8 Plt Count 151 L MPV 9.0 L Absolute Nucleated RBC 0.000 Nucleated RBC % (auto) 0.0 Blood Type O Positive Antibody Screen NEGATIVE Crossmatch See Detail Assessment and Plan (1) Hematochezia: Status: Acute (2) Hematochezia: Status: Acute Plan 83-year-old female with pertinent history of hypertension, gastroesophageal reflux disease, hyperlipidemia, mood disorder who presents to the emergency department for evaluation of bright red blood per rectum. Painless bright red blood per rectum with acute blood loss anemia, has history of polyps, and diverticulosis on last colnoscopy of 2020 at [facility], H/H trending down -EGD/Colonoscoy on 01/[address] Olson with the following remarks 1. Normal esophageal mucosa 2. Hiatal hernia 3. Gastric polyps (biopsy) 4. Normal duodenal mucosa 5. Normal colon and terminal ileum mucosa 6. Severe diverticulosis without active bleeding 7. Internal hemorrhoids Recommendations:?? * Check CBC BID and transfuse PRBC for Hb<7 * Venofer 200mg IV x 1 * Please keep on clears for now * If has recurrence of bleeding, recommend stat CTA bleed protocol and IR consult for embolization * If no rebleeding x 48h pt may be discharged Transfusion for Hgb of 6.8 if active bleed will request CTA keep on clear today repeat CBC post transfusion Hypertension: Continue Diltiazem Gastroesophageal reflux disease PPI Mixed hyperlipidemia: On statin Mood disorder: Continue home mood stabilizers DVT prophylaxis: Mechanical d/t gib, out of bed, ambulate Full code inpt: been monitored for gib bleed, acute blood loss anemia, need for transfusion and concern for recurrent bleeding daughter and sister at bedside and updated Quality Stroke Does the patient have a stroke diagnosis?: No VTE Prior VTE?: No VTE Risk Level:: Medical - moderate - high VTE Device Contraindication: N/A - Device Ordered VTE Drug Contraindication: Treatment Not Indicated
[2024-01-08] MEDS: Iron Sucrose Complex 200 MG in 0.9 % Sodium Chloride 100 ML 440 MG IV (15:24)
[2024-01-08] MEDS: Acetaminophen 325 MG TABLET 650 MG PO (15:24)
[2024-01-08 17:23] LABS: Hematocrit 24.6 % (37.0-47.0); Hemoglobin 8.6 g/dl (12.0-16.0); Mean Corpuscular Hemoglobin 31.3 pg (27.0-33.0); Mean Corpuscular Volume 89.5 fL (80.0-98.0); Mean Platelet Volume 9.1 fL (9.4-12.3); Platelet Count 158 X10*3/uL (160-400); Red Blood Count 2.75 X10*6/uL (4.20-5.50); White Blood Count 6.1 X10*3/uL (4.8-10.8)
[2024-01-09] VITALS (11 sets, daily range): BP systolic 133–166; BP diastolic 59–73; PULSE 61–73; RESP 16–20; TEMP 36.1–36.9; O2SAT 96–99
[2024-01-09] MEDS: Omeprazole 20 MG CAPSULE.DR PO (05:46)
[2024-01-09 06:42] LABS: Hematocrit 22.6 % (37.0-47.0); Hemoglobin 7.8 g/dl (12.0-16.0); Mean Corpuscular HGB Conc 34.5 g/dl (31.0-35.0); Mean Corpuscular Hemoglobin 31.1 pg (27.0-33.0); Mean Platelet Volume 9.7 fL (9.4-12.3); Platelet Count 151 X10*3/uL (160-400); Red Blood Count 2.51 X10*6/uL (4.20-5.50); Red Cell Distribution Width 13.2 % (11.0-16.0); White Blood Count 4.7 X10*3/uL (4.8-10.8)
[2024-01-09] MEDS: dilTIAZem HCL CD 240 MG CAP.ER.DEG PO (09:12)
[2024-01-09] MEDS: Atorvastatin Calcium 80 MG TABLET PO (09:13)
[2024-01-09] MEDS: Cholecalciferol (Vitamin D3) 25 MCG TABLET PO (09:13)
[2024-01-09] MEDS: Hydroxychloroquine Sulfate 200 MG TABLET PO (09:13)
[2024-01-09] MEDS: 0.9 % Sodium Chloride Flush 3 ML SYRINGE IVFLUSH ×3 (09:13→20:20)
--- NOTE | 2024-01-09 12:57 | HO.PM.IMPN ---
Subjective Subjective Date of Service: 01/09/24 Interval History: f/u on hematochezia she feels good but had small blood inthe stool today h/h is slightly lower following 1 rbc transfusion yesterday, Physical Exam Vital Signs: Vital Signs: Last Vital Signs Temp 98.0 F 01/09/24 12:00 Pulse 70 01/09/24 12:00 Resp 18 01/09/24 12:00 BP 146/67 H 01/09/24 12:00 Pulse Ox 96 01/09/24 11:07 O2 Del Method Room Air 01/09/24 11:07 O2 Flow Rate 4 01/07/24 15:05 BMI result Body Mass Index 27.5 Const: Other: General: AO X 3, no acute distress Resp: CTA bilateral CVS: S1,S2,RRR GI: +BS, NT, no distention Skin: No rash Neuro: motor grossly intact Psych: appropriate affect Objective Data Active Medications Acetaminophen (Acetaminophen 325 Mg Tablet) 650 mg PO Q6H PRN PRN Reason: Pain, Mild (Pain Scale 1-3) Last Admin: 01/08/24 15:24 Dose: 650 mg Documented By: WILTON Atorvastatin Calcium (Atorvastatin Calcium 80 Mg Tablet) 80 mg PO DAILY [facility] Last Admin: 01/09/24 09:13 Dose: 80 mg Documented By: WILTON Diltiazem HCl (Diltiazem Hcl Cd 240 Mg Cap.Er.Deg) 240 mg PO DAILY [facility]; Protocol Last Admin: 01/09/24 09:12 Dose: 240 mg Documented By: WILTON Hydroxychloroquine Sulfate (Hydroxychloroquine Sulfate 200 Mg Tablet) 200 mg PO DAILY [facility] Last Admin: 01/09/24 09:13 Dose: 200 mg Documented By: WILTON Melatonin (Melatonin 3 Mg Tablet) 6 mg PO BEDTIME PRN PRN Reason: Insomnia Omeprazole (Omeprazole 20 Mg Capsule.Dr) 20 mg PO DAILY@0630 [facility] Last Admin: 01/09/24 05:46 Dose: 20 mg Documented By: SALOME Ondansetron HCl (Ondansetron Hcl 4 Mg/2 Ml Vial) 4 mg IVPUSH Q8H PRN PRN Reason: Nausea and Vomiting Sodium Chloride (0.9 % Sodium Chloride Flush 3 Ml Syringe) 3 ml IVFLUSH QSHIFT [facility] Last Admin: 01/09/24 09:13 Dose: 3 ml Documented By: WILTON Vitamin D (Cholecalciferol (Vitamin D3) 25 Mcg Tablet) 25 mcg PO DAILY [facility] Last Admin: 01/09/24 09:13 Dose: 25 mcg Documented By: WILTON Labs 01/09/24 05:39 01/06/24 04:39 Labs: Laboratory Results - last 24 hr 01/08/24 01/08/24 01/09/24 08:07 17:07 05:39 MCV 89.5 90.0 MCH 31.3 31.1 MCHC 35.0 34.5 RDW 13.0 13.2 Plt Count 158 L 151 L MPV 9.1 L 9.7 Absolute Nucleated RBC 0.000 0.000 Nucleated RBC % (auto) 0.0 0.0 Blood Type O Positive Antibody Screen NEGATIVE Crossmatch See Detail Assessment and Plan (1) Hematochezia: Status: Acute (2) Hematochezia: Status: Acute Plan 83-year-old female with pertinent history of hypertension, gastroesophageal reflux disease, hyperlipidemia, mood disorder who presents to the emergency department for evaluation of bright red blood per rectum. Painless bright red blood per rectum with acute blood loss anemia, has history of polyps, and diverticulosis on last colnoscopy of 2020 at [facility], H/H trending down -EGD/Colonoscoy on 01/[address] Olson with the following remarks 1. Normal esophageal mucosa 2. Hiatal hernia 3. Gastric polyps (biopsy) 4. Normal duodenal mucosa 5. Normal colon and terminal ileum mucosa 6. Severe diverticulosis without active bleeding 7. Internal hemorrhoids Recommendations:?? Check CBC BID and transfuse PRBC for Hb<7 Venofer 200mg IV x 1 Please keep on clears for now If has recurrence of bleeding, recommend stat CTA bleed protocol and IR consult for embolization If no rebleeding x 48h pt may be discharged Transfuse 1 more unit CTA of abdomen and pelvis today keep on liquid today repeat CBC post transfusion Hypertension: Continue Diltiazem Gastroesophageal reflux disease PPI Mixed hyperlipidemia: On statin Mood disorder: Continue home mood stabilizers DVT prophylaxis: Mechanical d/t gib, out of bed, ambulate Full code inpt: been monitored for gib bleed, acute blood loss anemia, need for transfusion and concern for recurrent bleeding daughter and sister at bedside and updated Quality Stroke Does the patient have a stroke diagnosis?: No VTE Prior VTE?: No VTE Risk Level:: Medical - moderate - high VTE Device Contraindication: N/A - Device Ordered VTE Drug Contraindication: Treatment Not Indicated
[2024-01-09] MEDS: iohexoL 350 MG/ML 100 ML INFUS..BTL IV (18:07)
[2024-01-09 20:25] LABS: Hematocrit 27.9 % (37.0-47.0); Hemoglobin 9.8 g/dl (12.0-16.0); Mean Corpuscular HGB Conc 35.1 g/dl (31.0-35.0); Mean Corpuscular Hemoglobin 31.6 pg (27.0-33.0); Mean Platelet Volume 8.8 fL (9.4-12.3); Platelet Count 155 X10*3/uL (160-400); Red Cell Distribution Width 13.3 % (11.0-16.0); White Blood Count 8.8 X10*3/uL (4.8-10.8)
[2024-01-10] VITALS: BP 140/55; PULSE 59; RESP 15; TEMP 36.5; O2SAT 99
[2024-01-10 03:42] VITALS: BP 150/62; PULSE 76; RESP 16; TEMP 36.3; O2SAT 97
[2024-01-10] MEDS: Omeprazole 20 MG CAPSULE.DR PO (05:35)
[2024-01-10 07:11] LABS: Hematocrit 27.6 % (37.0-47.0); Hemoglobin 9.5 g/dl (12.0-16.0); Mean Corpuscular HGB Conc 34.4 g/dl (31.0-35.0); Mean Corpuscular Volume 90.2 fL (80.0-98.0); Mean Platelet Volume 9.4 fL (9.4-12.3); Platelet Count 163 X10*3/uL (160-400); Red Blood Count 3.06 X10*6/uL (4.20-5.50); Red Cell Distribution Width 13.5 % (11.0-16.0); White Blood Count 6.3 X10*3/uL (4.8-10.8)
[2024-01-10 07:36] VITALS: BP 147/69; PULSE 69; RESP 20; TEMP 36.2; O2SAT 97
--- NOTE | 2024-01-10 08:22 | HO.POSTANES ---
Post Anesthesia Evaluation Post Anesthesia Evaluation Date of Service: 01/10/24 Vital Signs: Vital Signs Temp Pulse Resp BP Pulse Ox O2 Del Method 01/10/24 07:36 97.1 F 69 20 147/69 H 97 Room Air 01/10/24 03:42 97.3 F 76 16 150/62 H 97 Room Air 01/10/24 00:00 97.7 F 59 15 140/55 H 99 Room Air Anesthesia: TIVA Mental Status: Awake Pain Control: Satisfactory Nausea/Vomiting: None Hydration: Adequate Anesthesia-Related Issues: No Anes. Related Issues
[2024-01-10 08:36] VITALS: BP 147/69; PULSE 69
[2024-01-10] MEDS: dilTIAZem HCL CD 240 MG CAP.ER.DEG PO (08:36)
[2024-01-10] MEDS: 0.9 % Sodium Chloride Flush 3 ML SYRINGE IVFLUSH (08:37)
[2024-01-10] MEDS: Hydroxychloroquine Sulfate 200 MG TABLET PO (08:37)
[2024-01-10] MEDS: Cholecalciferol (Vitamin D3) 25 MCG TABLET PO (08:37)
[2024-01-10] MEDS: Atorvastatin Calcium 80 MG TABLET PO (08:37)
[2024-01-10 10:58] VITALS: BP 147/66; PULSE 74; RESP 20; TEMP 36.1; O2SAT 98
--- NOTE | 2024-01-10 12:57 | P.DS_ITS ---
DS: Providers Provider Date of Service: 01/10/24 Date of admission: 01/05/24 23:28 Primary care physician: Barbara Sanchez MD Consults: 01/06/24 00:27 Consult to Gastroenterology Routine Consulting Provider: Canelo Lyons Reason for consultation: hematochezia DS: Diagnosis Discharge Diagnosis (1) Hematochezia: Status: Acute DS: Summary Hospital Course Hospital Course: Chief Complaint: Bright red blood per rectum This is a 83-year-old female with pertinent history of hypertension, gastroesophageal reflux disease, hyperlipidemia, mood disorder who presents to the emergency department for evaluation of bright red blood per rectum. Patient states she had 4 episodes of painless bright red blood per rectum on the day of presentation. No abdominal discomfort. No nausea, vomiting. This has never happened before. Patient denies use of [id number] pain medications. Is not on blood thinner. States had a colonoscopy in 2019, unclear results. No fever, chills, chest discomfort, palpitations, shortness of breath, changes in urinary habits. In the emergency department, stool occult blood noted to be positive. Hospital course: Patient presented with painless bright red blood per rectum with acute blood loss anemia; she has history of polyps, and diverticulosis on last colnoscopy of 2020 at [facility]. Her initial hemoglobin was 11.5 on 01/06, and dropped to 9.8 and 8.4 the next 2 days. She did have bloody bowel movment in the hospital as well She had EGD/Colonoscoy on 01/[address] Olson with the following remarks 1. Normal esophageal mucosa 2. Hiatal hernia 3. Gastric polyps (biopsy) 4. Normal duodenal mucosa 5. Normal colon and terminal ileum mucosa 6. Severe diverticulosis without active bleeding 7. Internal hemorrhoids Recommendations:?? * Check CBC BID and transfuse PRBC for Hb<7 * Venofer 200mg IV x 1--given on 01/07 * Please keep on clears for now * If has recurrence of bleeding, recommend stat CTA bleed protocol and IR consult for embolization * If no rebleeding x 48h pt may be discharged On 01/07 hemoglobin dropped further to 6.8 and she was transfused 1 units and it went up to 8.6 the same day but by the nex morning on 01/08 dropped 7.8 and she was transfused 1 more units and post transufusion hemoglobin went up to 9.8 and 9.5 the next day 01/09. She had a CTA of abdomen and pelvis on 01/08 and revealed no active bleed. She has not had any further bleed. Her diet has been advanced to regluar diet which she's tolerating and she will be discharged home. She instruction to eat high fiber diet, avoid aspirin and Motrin and continue all other prior medications. Time Attestation Total time managing care of this patient today: 40 mintues. Discharge Coordination Time (in mins): 40 Quality: Safe Use of Opioids Does Pt have an Active Cancer Diagnosis on the Problem List?: No Quality: Stroke Does the patient have a stroke diagnosis?: No Physical Exam Vital Signs: Vital Signs: Last Vital Signs Temp 96.9 F 01/10/24 10:58 Pulse 74 01/10/24 10:58 Resp 20 01/10/24 10:58 BP 147/66 H 01/10/24 10:58 Pulse Ox 98 01/10/24 10:58 O2 Del Method Room Air 01/10/24 10:58 O2 Flow Rate 4 01/07/24 15:05 BMI result Body Mass Index 27.5 General: AO X 3, no acute distress Resp: CTA bilateral CVS: S1,S2,RRR GI: +BS, NT, no distention Skin: No rash Neuro: motor grossly intact Psych: appropriate affect DS: Data Data Completed and Pending Pending studies at discharge: Pending at discharge 01/07/24 14:22 Surgical [PTH] Routine Labs on day of discharge: Laboratory Results - last 24 hr 01/08/24 01/09/24 01/10/24 08:07 20:18 06:42 WBC 8.8 6.3 RBC 3.10 L D 3.06 L Hgb 9.8 L D 9.5 L Hct 27.9 L D 27.6 L MCV 90.0 90.2 MCH 31.6 31.0 MCHC 35.1 H 34.4 RDW 13.3 13.5 Plt Count 155 L 163 MPV 8.8 L 9.4 Absolute Nucleated RBC 0.000 0.000 Nucleated RBC % (auto) 0.0 0.0 Crossmatch See Detail Discharge Plan Discharge Anticipated Discharge Date/Time: 01/10/24 13:16 Patient Disposition: Home, Self-Care Discharge Diagnosis: Lower gi bleeding, acute blood loss anemia Referrals: Barbara Sanchez MD [Primary Care Provider] - 1 Week Discharge Medications: Continued diltiazem HCl [Cardizem CD] 240 mg capsule,extended release 24hr 240 mg PO DAILY Qty: 90 3RF rosuvastatin 20 mg tablet 20 mg PO DAILY Qty: 90 3RF hydroxychloroquine 200 mg tablet 200 mg PO DAILY cholecalciferol (vitamin D3) [Vitamin D3] 25 mcg (1,000 unit) capsule 25 mcg PO DAILY omeprazole 20 mg capsule,delayed release(DR/EC) 20 mg PO DAILY Qty: 90 0RF Discharge Orders: Discharge Order (Routine); Ordered 01/10/24 Ordered By: Fer Russell Diet: Advance to usual diet Activity on Discharge: As tolerated Stand Alone Forms: Patient Portal Discharge page Print Language: Canadian Care Plan Goals: To stablize bleeding, localize source of bleed, control anemia and prevent complications of anemia Health Concerns: acute blood loss anemia, diverticulosis Plan of Treatment: avoid aspirin and motrin and over the counter medications called NSAID, check with your pharmacist, if you experience any more significant bleeding come to emergency or call 911 Follow up with your primary care doctor, call for a follow up appointment Assessment: see above Discharge Date/Time: 01/10/24 16:15
--- NOTE | 2024-01-10 15:25 | MHC.CM.PN ---
Pt was discharged home self-care, with self arranged transportation home. Pt discharged prior to this CM giving second IMM, copy placed in pts chart.
== END 2024-01-10 16:15 | disposition home or self-care (01) | DRG 378 ==
LOC: HO.ED 22:03 → HO.EDOVER 23:34 → HO.IMC 01-06 11:45
PROVIDERS: Internal Medicine; Nurse Practitioner Family; Physician Assistant Medical; Admitting Provider Student in an Organized Health Care Education/Training Program; Emergency Provider Emergency Medicine; PCP Internal Medicine; Visit Provider Internal Medicine
PROC: 0DB78ZX Excision of Stomach, Pylorus, Via Natural or Artificial Opening Endoscopic, Diagnostic (ICD-10-PCS; principal; 2024-01-07 13:50)
DX: K57.31 Diverticulosis of large intestine without perforation or abscess with bleeding (principal); D62 Acute posthemorrhagic anemia; K31.7 Polyp of stomach and duodenum; K44.9 Diaphragmatic hernia without obstruction or gangrene; K64.8 Other hemorrhoids; M06.9 Rheumatoid arthritis, unspecified; E78.2 Mixed hyperlipidemia; I10 Essential (primary) hypertension; K21.9 Gastro-esophageal reflux disease without esophagitis; F39 Unspecified mood [affective] disorder; Z79.899 Other long term (current) drug therapy
CPT/HCPCS: 36415; 74174; 74177; 80048; 80053; 81001; 81003; 82272; 83735; 85025; 85027; 86850; 86900; 86901; 86920; 88305; 88313; 88342; 99285; J1756; J2704; P9016; Q9967

== ENCOUNTER → 2024-01-05 23:28 | Outpatient (BNV) | payer MEDICARE, SELFPAY | PROVIDERS: Admitting Provider Student in an Organized Health Care Education/Training Program; Emergency Provider Emergency Medicine; PCP Internal Medicine; Visit Provider Student in an Organized Health Care Education/Training Program | DX: K62.5 Hemorrhage of anus and rectum (principal) | CPT/HCPCS: 99222; 99232; 99239 ==

== ENCOUNTER → 2024-01-05 23:28 | Outpatient (BNV) | payer MEDICARE, SELFPAY | PROVIDERS: Admitting Provider Student in an Organized Health Care Education/Training Program; Emergency Provider Emergency Medicine; PCP Internal Medicine; Visit Provider Internal Medicine | DX: K92.2 Gastrointestinal hemorrhage, unspecified (principal); K31.7 Polyp of stomach and duodenum; K64.8 Other hemorrhoids; K57.30 Diverticulosis of large intestine without perforation or abscess without bleeding | CPT/HCPCS: 43239; 45378; 99223 ==

== ENCOUNTER 2024-01-17 10:47 | Outpatient (AMB) | payer MEDICARE, SELFPAY ==
[2024-01-17 10:51] VITALS: BP 135/66; PULSE 81; O2SAT 98; BMI 27.5
--- NOTE | 2024-01-17 10:51 | MHC.PC.OV ---
Vital Signs 01/17/24 10:51 Height 5 ft 4 in Weight 160 lb BMI 27.5 BP 135/66 Blood Pressure Location Lt brachial Position Sitting Pulse 81 Pulse Source Pulse Oximeter Pulse Oximetry (%) 98 Oxygen Delivery Method Room Air Intake Visit Reasons: 1 week hospital follow up Intake Note: Pt is here today for Hospital follow up visit. Allergies triamterene Adverse Reaction (Verified 01/17/24 10:52) Abdominal Pain hydrolazine Adverse Reaction (Intermediate, Uncoded 01/17/24 10:59) Palpitations Medication List - Last Reconciled 01/17/24 by Barbara Sanchez MD cholecalciferol (vitamin D3) (Vitamin D3) 25 mcg PO DAILY diltiazem HCl CD (Cardizem CD) 240 mg PO DAILY hydroxychloroquine 200 mg PO DAILY omeprazole 20 mg PO DAILY rosuvastatin 20 mg PO DAILY Tobacco use date assessed: 01/17/24 Dental Screening Dental Screen Date: 10/22/23 HPI 1 week hospital follow up HPI Details Patient presents for the follow-up of hospitalization for acute lower GI bleed with unknown source. Patient had negative endoscopy, colonoscopy, abdominal CT angiogram and was transfused 2 units of PRBC's. Patient denies any recurrent hematochezia since discharged home. Hypertension hyperlipidemia are controlled on current medications. [facility] Medical History Wheezing Cough Palpitations Annual physical exam Mammogram normal Rheumatoid aortitis Hyperlipidemia GERD (gastroesophageal reflux disease) Surgical History History of esophagogastroduodenoscopy (EGD) Hx of tonsillectomy S/P partial hysterectomy H/O colonoscopy Hx of cataract surgery Family History Father No problems noted. Mother Diabetes Social History Household Members: Children Household Members Other:: lives with daughter Housing: House Do you presently have visiting nurse or other home services: No Alcohol intake: current Alcohol intake frequency: a few times a week Patient Tobacco Use Status: Never used Tobacco e-Cigarette/Vaping Use: Never Used service: No Current occupational status: retired Cognitive needs: No Hearing needs: No Vision needs: No Questionnaire Thrive Questionnaire Date Thrive assessed: 01/06/24 KAYLEN-7 AMB Questionnaire KAYLEN-7 Date KAYLEN - 7 assessed: 10/22/23 Source: Developed by Drs. Luis Angel Gary, Isa Ramirez, Jamil Cooper and colleagues, with an educational jeremias from [employer] Review of Systems Const All systems reviewed & are unremarkable except as noted in HPI and below Reports no additional complaints Eyes Reports no additional complaints ENT Reports no additional complaints Card Reports no additional complaints Resp Reports no additional complaints GI Reports no additional complaints Reports no additional complaints Physical exam (Primary Care) Vital Signs: Last Vital Signs Pulse 81 01/17/24 10:51 BP 140/66 H 01/17/24 10:51 Pulse Ox 98 01/17/24 10:51 Oxygen Delivery Method Room Air 01/17/24 10:51 BMI result Body Mass Index 27.5 Tobacco/Smoking Status: Tobacco use Status Tobacco use date assessed 01/17/24 01/17/24 10:53 Patient Tobacco Use Status Never used Tobacco 01/17/24 10:53 e-Cigarette/Vaping Use Never Used 01/17/24 10:51 Thrive Assessment: Date of Thrive Assessment Date Thrive assessed 01/06/24 01/17/24 10:51 Const General: no acute distress HENMT Head: Yes normal to inspection Face and sinus: Yes normal facial exam Eyes General: appearance normal, both eyes and all related structures Neck Neck: Yes supple Cardio Rhythm: regular rhythm Heart sounds: S1 normal heart sound present GI Inspection: Yes normal to inspection Palpation (GI): Soft to palpation Percussion: Yes normal to percussion Auscultation: normal bowel sounds Assessment and Plan Assessment & Plan (1) Acute blood loss anemia: Comment: 12/2023, hospitalized at [facility], NEGATIVE EGD COLONOSCOPY AND ABDOMINAL CT ANGIOGRAM Code(s): D62 - Acute posthemorrhagic anemia Plan: Check CBC and iron count. 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 Panel 2 Months D62 - Acute posthemorrhagic anemia, E78.5 - Hyperlipidemia, unspecified, I10 - Essential (primary) hypertension IRON PROFILE Today D62 - Acute posthemorrhagic anemia Comprehensive Met. Panel Today D62 - Acute posthemorrhagic anemia Lipid Panel 2 Months D62 - Acute posthemorrhagic anemia, E78.5 - Hyperlipidemia, unspecified, I10 - Essential (primary) hypertension TSH reflex Free T4 2 Months D62 - Acute posthemorrhagic anemia, E78.5 - Hyperlipidemia, unspecified, I10 - Essential (primary) hypertension IRON PROFILE 2 Months D62 - Acute posthemorrhagic anemia, E78.5 - Hyperlipidemia, unspecified, I10 - Essential (primary) hypertension Coding Level of Care Code Est Pt Level 4 (54785) Diagnoses Acute blood loss anemia D62 HTN (hypertension) I10 Hyperlipidemia E78.5 Rheumatoid aortitis I01.1
== END 2024-01-17 11:33 | disposition home or self-care (01) ==
PROVIDERS: PCP Internal Medicine; Visit Provider Internal Medicine
DX: D62 Acute posthemorrhagic anemia (principal); I10 Essential (primary) hypertension; E78.5 Hyperlipidemia, unspecified; I01.1 Acute rheumatic endocarditis
CPT/HCPCS: 99214

== ENCOUNTER 2024-01-17 11:34 | Outpatient (REF) | payer MEDICARE, SELFPAY ==
[2024-01-17 13:19] LABS: MANUAL DIFF FLAG NO
[2024-01-17 13:38] LABS: Basophils Percent Auto 0.2 % (0-2); Eosinophils Absolute Auto 0.1 X10*3/uL (0.0-0.4); Eosinophils Percent Auto 1.1 % (0-4); Hematocrit 30.4 % (37.0-47.0); Hemoglobin 9.9 g/dl (12.0-16.0); Imm Gran Abs Auto 0.01 X10*3/uL (0.00-0.03); Imm Gran Pct Auto 0.2 % (0.0-0.4); Lymphocytes Absolute Auto 1.6 X10*3/uL (1.2-4.9); Lymphocytes Percent Auto 28.3 % (20-40); Mean Corpuscular HGB Conc 32.6 g/dl (31.0-35.0); Mean Corpuscular Hemoglobin 31.3 pg (27.0-33.0); Mean Corpuscular Volume 96.2 fL (80.0-98.0); Mean Platelet Volume 9.2 fL (9.4-12.3); Monocytes Absolute Auto 0.3 X10*3/uL (0.1-1.2); Monocytes Percent Auto 5.8 % (2-11); Neutrophils Absolute Auto 3.7 x10*3/uL (2.0-8.3); Neutrophils Percent Auto 64.4 % (45-73); Platelet Count 277 X10*3/uL (160-400); Red Blood Count 3.16 X10*6/uL (4.20-5.50); Red Cell Distribution Width 14.1 % (11.0-16.0); White Blood Count 5.7 X10*3/uL (4.8-10.8)
[2024-01-17 14:34] LABS: Alanine Aminotransferase 21 U/L (0-31); Albumin Level 3.9 g/dL (3.5-5.0); Alkaline Phosphatase 67 U/L (39-117); Anion Gap 14 (12-20); Aspartate Amino Transferase 21 U/L (5-31); Bilirubin Total 0.5 mg/dL (0.0-1.0); Blood Urea Nitrogen 19 mg/dL (9-16); Calcium 9.4 mg/dL (8.4-10.2); Carbon Dioxide 24 mmol/L (22-29); Chloride 106 mmol/L (96-108); Estimated Glomerular Filt Rate 56; Glucose Random 94 mg/dL (60-115); Iron 58 mcg/dL (30-160); Percent Iron Saturation 20 % (15-50); Potassium 3.8 mmol/L (3.3-5.1); Sodium 140 mmol/L (135-145); Total Iron Binding Capacity 294 mcg/dL (228-428); Total Protein 6.8 g/dL (6.5-8.0); Unsaturated Iron Binding 236 ug/dL
== END 2024-01-17 11:35 | disposition home or self-care (01) ==
LOC: HO.HMGCLDS 11:34
PROVIDERS: PCP Internal Medicine; Visit Provider Internal Medicine
DX: D62 Acute posthemorrhagic anemia (principal)
CPT/HCPCS: 36415; 80053; 83540; 85025

== ENCOUNTER 2024-03-10 11:38 | Outpatient (AMB) | payer MEDICARE, SELFPAY ==
[2024-03-10 11:52] VITALS: BP 120/76; PULSE 71; O2SAT 97; BMI 27.3
--- NOTE | 2024-03-10 11:52 | A.OFFPC_ITS ---
Vital Signs 03/10/24 11:52 Height 5 ft 4 in Weight 159 lb BMI 27.3 BP 120/76 Blood Pressure Location Rt brachial Position Sitting Pulse 71 Pulse Source Pulse Oximeter Pulse Oximetry (%) 97 Oxygen Delivery Method Room Air Intake Visit Reasons: Follow up Allergies triamterene Adverse Reaction (Verified 03/10/24 11:57) Abdominal Pain hydrolazine Adverse Reaction (Intermediate, Uncoded 03/10/24 11:57) Palpitations Medication List - Last Reconciled 03/10/24 by Barbara Sanchez MD cholecalciferol (vitamin D3) (Vitamin D3) 25 mcg PO DAILY diltiazem HCl CD (Cardizem CD) 240 mg PO DAILY hydroxychloroquine 200 mg PO DAILY omeprazole 20 mg PO DAILY rosuvastatin 20 mg PO DAILY Tobacco use date assessed: 01/17/24 Dental Screening Dental Screen Date: 10/22/23 HPI Follow up HPI Details Patient presents for the follow-up on hypertension hyperlipidemia, stable on current medications. [facility] Medical History Diverticulosis Wheezing Cough Palpitations Annual physical exam Mammogram normal Rheumatoid aortitis Hyperlipidemia GERD (gastroesophageal reflux disease) Surgical History History of esophagogastroduodenoscopy (EGD) Hx of tonsillectomy S/P partial hysterectomy H/O colonoscopy Hx of cataract surgery Family History Father No problems noted. Mother Diabetes Social History Household Members: Children Household Members Other:: lives with daughter Housing: House Do you presently have visiting nurse or other home services: No Alcohol intake: current Alcohol intake frequency: a few times a week Patient Tobacco Use Status: Never used Tobacco e-Cigarette/Vaping Use: Never Used service: No Current occupational status: retired Cognitive needs: No Hearing needs: No Vision needs: No Questionnaire Thrive Questionnaire Date Thrive assessed: 01/06/24 KAYLEN-7 AMB Questionnaire KAYLEN-7 Date KAYLEN - 7 assessed: 10/22/23 Source: Developed by Drs. Luis Angel Gary, Isa B.W. Jamil Ramirez and colleagues, with an educational jeremias from [employer]. Review of Systems Const All systems reviewed & are unremarkable except as noted in HPI and below Eyes Reports no additional complaints ENT Reports no additional complaints Card Reports no additional complaints Resp Reports no additional complaints GI Reports no additional complaints Reports no additional complaints Physical exam (Primary Care) Vital Signs: Last Vital Signs Pulse 71 03/10/24 11:52 BP 120/76 03/10/24 11:52 Pulse Ox 97 03/10/24 11:52 Oxygen Delivery Method Room Air 03/10/24 11:52 BMI result Body Mass Index 27.3 Tobacco/Smoking Status: Tobacco use Status Tobacco use date assessed 01/17/24 03/10/24 11:52 Patient Tobacco Use Status Never used Tobacco 03/10/24 11:52 e-Cigarette/Vaping Use Never Used 03/10/24 11:52 Thrive Assessment: Date of Thrive Assessment Date Thrive assessed 01/06/24 03/10/24 11:52 Const General: no acute distress HENMT Head: Yes normal to inspection Eyes General: appearance normal, both eyes and all related structures Neck Neck: Yes supple Resp Effort & Inspection: normal respiratory effort Auscultation: clear to auscultation bilaterally Cardio Rhythm: regular rhythm Heart sounds: S1 normal heart sound present and S2 normal heart sound present GI Inspection: Yes normal to inspection Palpation (GI): Soft to palpation Percussion: Yes normal to percussion Assessment and Plan Assessment & Plan (1) Essential hypertension: Code(s): I10 - Essential (primary) hypertension Plan: Continue diltiazem (2) Rheumatoid aortitis: Comment: F/U Code(s): I01.1 - Acute rheumatic endocarditis Plan: Follow-up with rheumatology continue Plaquenil (3) Acute blood loss anemia: Comment: 12/2023, hospitalized at [facility] [place] NEGATIVE EGD COLONOSCOPY AND ABDOMINAL CT ANGIOGRAM Code(s): D62 - Acute posthemorrhagic anemia Plan: Check CBC and iron studies today follow-up with GI (4) Hyperlipidemia: Code(s): E78.5 - Hyperlipidemia, unspecified Plan: Continue statin return in 6 months (5) Annual physical exam: Code(s): Z00.00 - Encounter for general adult medical examination without abnormal findings Orders: Orders Complete Blood Count Auto Diff 6 Months D62 - Acute posthemorrhagic anemia, E78.5 - Hyperlipidemia, unspecified, Z00.00 - Encounter for general adult medical examination without abnormal findings Lipid Panel 6 Months D62 - Acute posthemorrhagic anemia, E78.5 - Hyperlipidemia, unspecified, Z00.00 - Encounter for general adult medical examination without abnormal findings IRON PROFILE 6 Months D62 - Acute posthemorrhagic anemia, E78.5 - Hyperlipidemia, unspecified, Z00.00 - Encounter for general adult medical examination without abnormal findings TSH reflex Free T4 6 Months D62 - Acute posthemorrhagic anemia, E78.5 - Hyperlipidemia, unspecified, Z00.00 - Encounter for general adult medical examination without abnormal findings Complete Blood Count Auto Diff Today D62 - Acute posthemorrhagic anemia, I10 - Essential (primary) hypertension IRON PROFILE Today D62 - Acute posthemorrhagic anemia, I10 - Essential (p rimary) hypertension Comprehensive Met. Panel Today D62 - Acute posthemorrhagic anemia, I10 - Essential (primary) hypertension Comprehensive Jackson. Panel Fast 6 Months D62 - Acute posthemorrhagic anemia, E78.5 - Hyperlipidemia, unspecified, Z00.00 - Encounter for general adult medical examination without abnormal findings Coding Level of Care Code Est Pt Level 4 (88236) Diagnoses Essential hypertension I10 Rheumatoid aortitis I01.1 Acute blood loss anemia D62 Hyperlipidemia E78.5 Annual physical exam Z00.00
== END 2024-03-10 12:20 | disposition home or self-care (01) ==
PROVIDERS: PCP Internal Medicine; Visit Provider Internal Medicine
DX: I10 Essential (primary) hypertension (principal); I01.1 Acute rheumatic endocarditis; D62 Acute posthemorrhagic anemia; E78.5 Hyperlipidemia, unspecified; Z00.00 Encounter for general adult medical examination without abnormal findings
CPT/HCPCS: 99214

== ENCOUNTER 2024-03-11 08:03 | Outpatient (REF) | payer MEDICARE, SELFPAY ==
[2024-03-11 11:10] LABS: MANUAL DIFF FLAG NO
[2024-03-11 11:13] LABS: Basophils Percent Auto 0.7 % (0-2); Eosinophils Absolute Auto 0.1 X10*3/uL (0.0-0.4); Eosinophils Percent Auto 2.2 % (0-4); Hematocrit 37.7 % (37.0-47.0); Hemoglobin 12.3 g/dl (12.0-16.0); Lymphocytes Percent Auto 44.1 % (20-40); Mean Corpuscular HGB Conc 32.6 g/dl (31.0-35.0); Mean Corpuscular Hemoglobin 30.5 pg (27.0-33.0); Mean Corpuscular Volume 93.5 fL (80.0-98.0); Mean Platelet Volume 9.6 fL (9.4-12.3); Monocytes Absolute Auto 0.3 X10*3/uL (0.1-1.2); Monocytes Percent Auto 6.9 % (2-11); Neutrophils Absolute Auto 2.1 x10*3/uL (2.0-8.3); Neutrophils Percent Auto 46.1 % (45-73); Platelet Count 211 X10*3/uL (160-400); Red Blood Count 4.03 X10*6/uL (4.20-5.50); Red Cell Distribution Width 12.2 % (11.0-16.0); White Blood Count 4.5 X10*3/uL (4.8-10.8)
[2024-03-11 11:27] LABS: Alanine Aminotransferase 12 U/L (0-31); Albumin Level 4.1 g/dL (3.5-5.0); Alkaline Phosphatase 68 U/L (39-117); Anion Gap 12 (12-20); Aspartate Amino Transferase 17 U/L (5-31); Bilirubin Total 0.4 mg/dL (0.0-1.0); Blood Urea Nitrogen 19 mg/dL (9-16); Calcium 9.6 mg/dL (8.4-10.2); Carbon Dioxide 27 mmol/L (22-29); Chloride 107 mmol/L (96-108); Estimated Glomerular Filt Rate > 60; Glucose Random 99 mg/dL (60-115); Iron 59 mcg/dL (30-160); Percent Iron Saturation 19 % (15-50); Sodium 142 mmol/L (135-145); Total Iron Binding Capacity 309 mcg/dL (228-428); Unsaturated Iron Binding 250 ug/dL
== END 2024-03-11 08:04 | disposition home or self-care (01) ==
LOC: HO.HMGCLDS 08:03
PROVIDERS: PCP Internal Medicine; Visit Provider Internal Medicine
DX: D62 Acute posthemorrhagic anemia (principal); I10 Essential (primary) hypertension
CPT/HCPCS: 36415; 80053; 83540; 85025

== ENCOUNTER 2024-05-12 15:59 | Outpatient (AMB) | payer MEDICARE, SELFPAY ==
--- NOTE | 2024-05-12 16:03 | MHC.OFFVIS ---
Vital Signs 05/12/24 16:04 Height 5 ft 4 in Weight 160 lb 14.999 oz BMI 27.6 BP 170/70 H Blood Pressure Location Lt brachial Position Sitting Pulse 84 Intake Visit Reasons: f/u egd Intake Note: Jo Ann presents in the office as a follow up EGD. CC: she states that everything so far has been good and no concerns. Automobile Designer Required: No Allergies hydralazine Allergy (Intermediate, Verified 05/12/24 16:04) Palpitations triamterene Adverse Reaction (Verified 05/12/24 16:04) Abdominal Pain HPI Comments Details: 83 y.o F who is following up from her hospitalization earlier this year for diverticular bleeding. Reports feeling well. No recurrence since then. H/H reviewed and back to baseline. Pt does not report any gastrointestinal complaints to include abd pain, N,V. PFSH Medical History (Updated 05/13/24 @ 09:27 by Елена Olson MD) Diverticulosis Wheezing Cough Palpitations Annual physical exam Mammogram normal Rheumatoid aortitis Hyperlipidemia GERD (gastroesophageal reflux disease) Surgical History History of esophagogastroduodenoscopy (EGD) Hx of tonsillectomy S/P partial hysterectomy H/O colonoscopy Hx of cataract surgery Family History Father No problems noted. Mother Diabetes Social History Household Members: Children Household Members Other:: lives with daughter Housing: House Do you presently have visiting nurse or other home services: No Alcohol intake: current Alcohol intake frequency: a few times a week Patient Tobacco Use Status: Never used Tobacco e-Cigarette/Vaping Use: Never Used service: No Current occupational status: retired Cognitive needs: No Hearing needs: No Vision needs: No Review of Systems Const All systems reviewed & are unremarkable except as noted in HPI and below Physical Exam Vital Signs: Last Vital Signs Pulse 84 05/12/24 16:04 BP 170/70 H 05/12/24 16:04 BMI result Body Mass Index 27.6 No apparent distress Nonicteric Abdomen soft, nondistended Alert and oriented x3, normal gait Assessment & Plan Assessment & Plan (1) Acute blood loss anemia: Code(s): D62 - Acute posthemorrhagic anemia Category: Medical (2) Diverticulosis: Code(s): K57.90 - Diverticulosis of intestine, part unspecified, without perforation or abscess without bleeding Category: Medical Plan Hospitalised December 2023 for diverticular bleeding leading to acute blood loss anemia. Now recovered. No recurrence of diverticular or other GI bleeding since then. Anemia resolved. Pt educated that pts who have had an index diverticular bleeding then carry a small risk of recurrence but unable to predict timing and if will truly happen. Pt aware of s/sx to seek medical attention. Follow up PRN. Coding Level of Care Code Est Pt Level 3 (12673) Diagnoses Acute blood loss anemia D62 Diverticulosis K57.90
[2024-05-12 16:04] VITALS: BP 170/70; PULSE 84; BMI 27.6
== END 2024-05-12 16:33 | disposition home or self-care (01) ==
PROVIDERS: PCP Internal Medicine; Visit Provider Internal Medicine
DX: D62 Acute posthemorrhagic anemia (principal); K57.90 Diverticulosis of intestine, part unspecified, without perforation or abscess without bleeding
CPT/HCPCS: 99213

== ENCOUNTER → 2024-05-12 15:59 | Outpatient (BNVA) | payer MEDICARE, SELFPAY | PROVIDERS: PCP Internal Medicine; Visit Provider Internal Medicine | DX: D62 Acute posthemorrhagic anemia (principal); K57.90 Diverticulosis of intestine, part unspecified, without perforation or abscess without bleeding | CPT/HCPCS: 99212 ==

== ENCOUNTER 2024-06-07 08:54 | Outpatient (AMB) | payer MEDICARE, SELFPAY ==
[2024-06-07 08:57] VITALS: BP 156/60; PULSE 70; BMI 27.9
--- NOTE | 2024-06-07 08:57 | MHC.OFFVIS ---
Vital Signs 06/07/24 08:57 Height 5 ft 4 in Weight 162 lb 11.218 oz BMI 27.9 BP 156/60 H Blood Pressure Location Lt brachial Position Sitting Pulse 70 Pulse Source Pulse Oximeter Intake Visit Reasons: Follow up-Concerns w/ EKG Six Sigma Black Belt Engineer Required: No Accompanied by: Self / Same As Patient Allergies hydralazine Allergy (Intermediate, Verified 05/12/24 16:04) Palpitations triamterene Adverse Reaction (Verified 05/12/24 16:04) Abdominal Pain Medication List - Last Reconciled 06/07/24 by Rashawn Clark MD cholecalciferol (vitamin D3) (Vitamin D3) 25 mcg PO DAILY diltiazem HCl CD (Cardizem CD) 240 mg PO DAILY hydroxychloroquine 200 mg PO DAILY pantoprazole 40 mg PO DAILY rosuvastatin 20 mg PO DAILY HPI Comments Details: Sofia returns for follow-up. In the past, she has been seen regarding palpitations. Then detected to have PVCs. She has been on Diltiazem, which might be for rather hypertension. She had stated that after she retired last year she felt more palpitations. After some time it come down but she states that it is again bothering her. Hence she is concerned. Blood pressure is on the higher side but she is not doing much of home blood pressures. No other complaints like angina. [facility] Medical History (Updated 05/13/24 @ 09:27 by Елена Olson MD) Diverticulosis Wheezing Cough Palpitations Annual physical exam Mammogram normal Rheumatoid aortitis Hyperlipidemia GERD (gastroesophageal reflux disease) Surgical History History of esophagogastroduodenoscopy (EGD) Hx of tonsillectomy S/P partial hysterectomy H/O colonoscopy Hx of cataract surgery Family History Father No problems noted. Mother Diabetes Social History Household Members: Children Household Members Other:: lives with daughter Housing: House Do you presently have visiting nurse or other home services: No Alcohol intake: current Alcohol intake frequency: a few times a week Patient Tobacco Use Status: Never used Tobacco e-Cigarette/Vaping Use: Never Used service: No Current occupational status: retired Cognitive needs: No Hearing needs: No Vision needs: No Review of Systems Const Denies chills, Denies fatigue, Denies fever(s), Denies weight gain and Denies weight loss ENT Denies dizziness Card Denies chest pain, Denies leg edema, Denies lightheadedness, Reports palpitations, Denies dyspnea on exertion, Denies orthopnea and Denies other Resp Denies cough and Denies dyspnea on exertion GI Denies hematochezia and Denies change in stool character Musc Denies abnormal gait, Denies muscle weakness, Denies numbness, Denies radiating pain into limb and Denies tingling Neuro Denies abnormal gait, Denies dizziness, Denies numbness and Denies tingling Endo Denies fatigue and Reports palpitations Physical Exam Vital Signs: Last Vital Signs Pulse 70 06/07/24 08:57 BP 156/60 H 06/07/24 08:57 BMI result Body Mass Index 27.9 Const General: comfortable and no acute distress Orientation/consciousness: patient oriented x3 HEENT Other: Unremarkable Head: Yes normal to inspection Neck Neck: Yes normal visual inspection Chest Chest palpation & inspection: normal inspection of the chest Resp Auscultation: clear to auscultation bilaterally Cardio Palpation: normal PMI Heart sounds: S1 normal heart sound present, S2 normal heart sound present, no gallops, Murmur heart sound present systolic I/ and at the right sternal border and no rubs GI Palpation (GI): Soft to palpation Back/Spine/Pelvis Other: unremarkable Skin General skin exam: no rashes or lesions noted Neuro General: patient oriented x3 Extrem General: Yes normal to inspection Psych Mental Status: mental status grossly normal Assessment & Plan Assessment & Plan (1) PVC (premature ventricular contraction): Code(s): I49.3 - Ventricular premature depolarization Category: Medical (2) Essential hypertension: Code(s): I10 - Essential (primary) hypertension Category: Medical Plan Prior cardiac studies reviewed. In the most recent EKG, underlying rhythm is sinus at 83/Min; cannot exclude old septal infarct versus related to body habitus. EKG as above shows sinus rhythm/PVC. Echocardiogram 2021 with normal LVEF and nothing otherwise of concern. In the stress test from 2021, she was able to do up to 5 minutes on Mohan protocol, reached target heart rate but no angina. No EKG evidence of ischemia. Perfusion imaging was unremarkable. In the Holter 2022, underlying rhythm is sinus. Frequent PVCs with a burden of 2.2%. Overall, history of PVCs and more frequent palpitations. We will repeat her echocardiogram and get another Holter monitor. With regard to blood pressure, seems to be on the higher side and not clear if she is feeling this has palpitations that she also feels pulsations in the head. Hence we can started on losartan 50 mg and check labs in a week or so. We discussed about this today and she agrees. Also do home blood pressures. Total time spent including review of data, counseling, documentation, coordination of care-32 minutes. Orders: Orders ECG 7 day holter monitor Today I49.3 - Ventricular premature depolarization, R00.2 - Palpitations Basic Metabolic Panel Today I10 - Essential (primary) hypertension CA echo transthoracic complete Today I49.3 - Ventricular premature depolarization, R00.2 - Palpitations Medications: New losartan 50 mg PO DAILY 90 tabs 1RF R00.2 - Palpitations Coding Level of Care Code Est Pt Level 4 (14454) Diagnoses PVC (premature ventricular contraction) I49.3 Essential hypertension I10
== END 2024-06-07 09:18 | disposition home or self-care (01) ==
PROVIDERS: PCP Internal Medicine; Visit Provider Internal Medicine
DX: I49.3 Ventricular premature depolarization (principal); I10 Essential (primary) hypertension
CPT/HCPCS: 99214

== ENCOUNTER → 2024-06-07 08:54 | Outpatient (BNVA) | payer MEDICARE, SELFPAY | PROVIDERS: PCP Internal Medicine; Visit Provider Internal Medicine | DX: I49.3 Ventricular premature depolarization (principal); R00.2 Palpitations; I10 Essential (primary) hypertension | CPT/HCPCS: 99212 ==

== ENCOUNTER 2024-06-19 14:31 | Outpatient (REF) | payer MEDICARE, SELFPAY ==
[2024-06-19 15:52] LABS: Anion Gap 13 (12-20); Blood Urea Nitrogen 21 mg/dL (9-16); Calcium 10.3 mg/dL (8.4-10.2); Carbon Dioxide 27 mmol/L (22-29); Chloride 103 mmol/L (96-108); Estimated Glomerular Filt Rate > 60; Glucose Random 107 mg/dL (60-115); Potassium 3.9 mmol/L (3.3-5.1); Sodium 139 mmol/L (135-145)
== END 2024-06-19 14:32 | disposition home or self-care (01) ==
LOC: HO.LAB 14:31
PROVIDERS: PCP Internal Medicine; Visit Provider Internal Medicine
DX: I10 Essential (primary) hypertension (principal)
CPT/HCPCS: 36415; 80048

== ENCOUNTER 2024-06-20 14:48 | Outpatient (AMB) | payer MEDICARE, SELFPAY ==
--- NOTE | 2024-06-20 14:57 | AM.OFFWIN_ITS ---
Intake Vital Signs 06/20/24 14:59 Height 5 ft 4 in Weight 161 lb BMI 27.6 BP 150/90 H Blood Pressure Location Lt brachial Position Sitting Pulse 88 Pulse Source Pulse Oximeter Pulse Oximetry (%) 98 Oxygen Delivery Method Room Air Intake Visit Reasons: EP-rt ear ache Intake Note: Patient here for right ear pain that has been present for about 4 days. Patient Tobacco Use Status: Never used Tobacco Allergies hydralazine Allergy (Intermediate, Verified 06/20/24 14:59) Palpitations triamterene Adverse Reaction (Verified 06/20/24 14:59) Abdominal Pain Do you need a note to return to daycare/school/sports/work: No HPI HPI Comments History of Present Illness Details This is an 83-year-old female presenting for evaluation of a sharp and intermittent pain in her right ear that has been ongoing for the past 5 days. Patient has been taking ibuprofen and Tylenol intermittently for her discomfort. Patient denies having any fevers, chills, sore throat, dental pain or left ear pain. Additionally, patient denies any overt hearing loss. [facility] Medical History (Updated 06/20/24 @ 15:23 by Ana Rosa Carlos PA-C) Diverticulosis Wheezing Cough Palpitations Annual physical exam Mammogram normal Rheumatoid aortitis Hyperlipidemia GERD (gastroesophageal reflux disease) Surgical History History of esophagogastroduodenoscopy (EGD) Hx of tonsillectomy S/P partial hysterectomy H/O colonoscopy Hx of cataract surgery Family History Father No problems noted. Mother Diabetes Social History Household Members: Children Household Members Other:: lives with daughter Housing: House Do you presently have visiting nurse or other home services: No Alcohol intake: current Alcohol intake frequency: a few times a week Patient Tobacco Use Status: Never used Tobacco e-Cigarette/Vaping Use: Never Used service: No Current occupational status: retired Cognitive needs: No Hearing needs: No Vision needs: No Review of Systems Const Denies chills and Denies fever(s) Eyes Reports no additional complaints ENT Denies dental pain, Reports otalgia (right ear pain, intermittent) and Denies sore throat Card Reports no additional complaints Resp Reports no additional complaints GI Reports no additional complaints Reports no additional complaints Musc Reports no additional complaints Skin/Breast Reports system reviewed and no additional complaints, except as documented Neuro Reports no additional complaints Psych Reports no additional complaints Endo Reports no additional complaints Physical Exam Vital Signs: Last Vital Signs Pulse 88 06/20/24 14:59 BP 150/90 H 06/20/24 14:59 Pulse Ox 98 06/20/24 14:59 Oxygen Delivery Method Room Air 06/20/24 14:59 BMI result Body Mass Index 27.6 Const General: cooperative, healthy appearing, comfortable, no acute distress, alert and awake Nutritional Appearance: average body habitus Orientation/consciousness: patient oriented x3 Limitations: no limitations HEENT Head: Yes normal to inspection Ears: hearing grossly normal bilaterally, external ears normal, TM's normal bilaterally, EAC's not normal (right canal with papules, pustules that are tender to examination) and other (no right ear canal stenosis) General nose exam: Normal external nose present Mouth: Normal oral and palatal mucosa present and moist mucous membranes Throat: Yes posterior oropharynx normal Eyes General: appearance normal, both eyes and all related structures Visual Flores: normal visual flores by confrontation Alignment and Position: alignment normal Periorbital: periorbital findings normal Eyelids: Yes eyelids normal Conjunctivae: conjunctivae normal Sclerae: sclerae normal Corneas: corneas normal EOM: EOMs intact bilaterally Neck Lymphatic: no lymphadenopathy noted Neuro General: patient oriented x3 Psych Appearance: grossly normal Mental Status: mental status grossly normal Insight: Good insight present (Psych) Judgement: Good judgement present (Psych) Assessment & Plan Assessment & Plan (1) Right otitis externa: Comment: There is no evidence of an otitis media or external cellulitis. Patient will be discharged home with antibiotic otic drops. Code(s): H60.91 - Unspecified otitis externa, right ear Qualifiers: Otitis externa type: unspecified type Chronicity: acute Qualified Code(s): H60.501 - Unspecified acute noninfective otitis externa, right ear Plan: Cortisporin drops t.i.d. x7 days. Patient will continue to use ibuprofen or Tylenol as needed for discomfort. Medications: New hfhqjmur-ibsvouckm-MR 3.5-10,000-1 mg/mL-unit/mL-% 4 drps otic (ear) right TID 10 mL 0RF Coding Level of Care Code Est Pt Level 3 (78043) Diagnoses Acute otitis externa of right ear, unspecified type H60.501 Otitis externa type: unspecified type Chronicity: acute Time Spent (min) 20
[2024-06-20 14:59] VITALS: BP 150/90; PULSE 88; O2SAT 98; BMI 27.6
== END 2024-06-20 15:40 | disposition home or self-care (01) ==
PROVIDERS: PCP Internal Medicine; Visit Provider Physician Assistant
DX: H60.501 Unspecified acute noninfective otitis externa, right ear (principal)

== ENCOUNTER → 2024-06-20 14:48 | Outpatient (BNVA) | payer MEDICARE, SELFPAY | PROVIDERS: PCP Internal Medicine; Visit Provider Physician Assistant | DX: H60.501 Unspecified acute noninfective otitis externa, right ear (principal) | CPT/HCPCS: 99212 ==

== ENCOUNTER 2024-06-26 09:55 | Outpatient (AMB) | payer MEDICARE, SELFPAY ==
--- NOTE | 2024-06-26 10:41 | AM.OFFWIN_ITS ---
Intake Vital Signs 06/26/24 10:45 Height 5 ft 4 in Weight 164 lb BMI 28.1 BP 120/78 Blood Pressure Location Rt brachial Position Sitting Pulse 75 Pulse Source Pulse Oximeter Pulse Oximetry (%) 98 Oxygen Delivery Method Room Air Intake Visit Reasons: EP Low back pain, difficulty walking Intake Note: Patient here for left sided back/hip pain, difficulty walking that has been present for about 1 week. Patient Tobacco Use Status: Never used Tobacco Allergies hydralazine Allergy (Intermediate, Verified 06/26/24 10:46) Palpitations triamterene Adverse Reaction (Verified 06/26/24 10:46) Abdominal Pain Do you need a note to return to daycare/school/sports/work: No HPI EP Low back pain, difficulty walking HPI Details This note is constructed using voice recognition software. While every effort has been made to ensure accuracy, engineering supervisor errors may have been included. The patient is a 83 year old female who presents to the clinic today with left lower back pain radiating into buttocks for the past week. She has been taking Tylenol with little to no effect . She notes that she has not had any falls, or other injuries. She has had sciatica in the same side in the past that it does feel similar. She denies loss of control of her bladder or bowel or saddle anesthesia. She has been unable to take any NSAIDs as they create GI upset. [facility] Medical History (Updated 06/20/24 @ 15:23 by Ana Rosa Carlos PA-C) Diverticulosis Wheezing Cough Palpitations Annual physical exam Mammogram normal Rheumatoid aortitis Hyperlipidemia GERD (gastroesophageal reflux disease) Surgical History History of esophagogastroduodenoscopy (EGD) Hx of tonsillectomy S/P partial hysterectomy H/O colonoscopy Hx of cataract surgery Family History Father No problems noted. Mother Diabetes Social History Household Members: Children Household Members Other:: lives with daughter Housing: House Do you presently have visiting nurse or other home services: No Alcohol intake: current Alcohol intake frequency: a few times a week Patient Tobacco Use Status: Never used Tobacco e-Cigarette/Vaping Use: Never Used service: No Current occupational status: retired Cognitive needs: No Hearing needs: No Vision needs: No Review of Systems Const All systems reviewed & are unremarkable except as noted in HPI and below Physical Exam Vital Signs: Last Vital Signs Pulse 75 06/26/24 10:45 BP 120/78 06/26/24 10:45 Pulse Ox 98 06/26/24 10:45 Oxygen Delivery Method Room Air 06/26/24 10:45 BMI result Body Mass Index 28.1 Const General: cooperative, healthy appearing, comfortable, no acute distress and well developed Orientation/consciousness: patient oriented x3 Limitations: no limitations Resp Effort & Inspection: normal respiratory effort and able to speak in complete sentences Auscultation: clear to auscultation bilaterally Cardio Rate: regular rate Rhythm: regular rhythm Heart sounds: normal S1 and S2 Back/Spine/Pelvis Other: left sciatic notch tenderness with +SLR, Negative Wells SLR. Spine with normal lateral rotation, flexion and extension. Left hip full range of motion. Skin General skin exam: no rashes or lesions noted Neuro General: patient oriented x3 Extrem General: Yes normal to inspection Assessment & Plan Assessment & Plan (1) Piriformis syndrome of left side: Code(s): G57.02 - Lesion of sciatic nerve, left lower limb Plan: History and physical examination consistent with piriformis syndrome on the left side. Discussed potential treatment plan, and elected to try a prednisone burst for symptomatic management and anti-inflammatory effects. Patient may continue with Tylenol and heat versus ice. Advised follow up with worsening or failure to resolve. Plan See above for full details and plan. Medications: New prednisone 40 mg (2 x 20 mg) PO DAILY 3 days 6 tabs 0RF Coding Level of Care Code Est Pt Level 3 (37938) Diagnoses Piriformis syndrome of left side G57.02
[2024-06-26 10:45] VITALS: BP 120/78; PULSE 75; O2SAT 98; BMI 28.1
== END 2024-06-26 11:04 | disposition home or self-care (01) ==
PROVIDERS: PCP Internal Medicine; Visit Provider Registered Nurse
DX: G57.02 Lesion of sciatic nerve, left lower limb (principal)

== ENCOUNTER → 2024-06-26 09:55 | Outpatient (BNVA) | payer MEDICARE, SELFPAY | PROVIDERS: PCP Internal Medicine; Visit Provider Registered Nurse | DX: G57.02 Lesion of sciatic nerve, left lower limb (principal) | CPT/HCPCS: 99212 ==

== ENCOUNTER → 2024-07-05 08:46 | Outpatient (REF) | payer MEDICARE, SELFPAY ==
--- NOTE | 2024-07-05 08:53 | HM_ITS ---
Conclusion: 1. Patient was monitored for total period of 6 days and 20 hours 2. Baseline was normal sinus rhythm with average heart of 71 beats per minute 3. No significant pauses or arrhythmias noted 4. Patient did not report any events MTDD
--- NOTE | 2024-07-05 08:53 | CA_ITS ---
Transthoracic Echocardiogram Patient (Last, First, Middle): Jo Ann Morrow, Gender: Female Date of : 1940 Age: 83 Procedure Date: 07/05/2024 Procedure Type: Transthoracic Echocardiogram Location: OP Height: 162.56 cm Weight: 74.39 kg BSA: 1.80 m2 Heart Rate: 79 bpm BP: 122 / 74 mmHg Senior It Specialist: ROXY Referring MD: Rashawn Clark MD Tow Mate: Elfego Paulino MD Symptoms: R00.2 - Palpitations Study Quality: Adequate ECG Rhythm: Sinus Conclusions: - 1. Normal LV ejection fraction with impaired relaxation filling pattern 2. Normal cardiac valvular Doppler 3. Normal RV systolic pressure 4. No gross pericardial effusion Findings Left Ventricle Normal left ventricular size, thickness, and systolic function. The visually estimated ejection fraction is between 60-65%. Spectral Doppler is indicative of an impaired relaxation filling pattern. E/E prime ratio is between 8 and 15 consistent with indeterminate filling pressures. Right Ventricle Normal right ventricular cavity size and systolic function. Atria Both atria are normal in size. There is no evidence of interatrial shunt. Aortic Valve The aortic valve structure and function is likely normal. There is no aortic valve stenosis. There is no aortic valve regurgitation. Mitral Valve Normal mitral valve structure and function. There is trace mitral valve regurgitation. There is no mitral valve stenosis. Pulmonic Valve The pulmonic valve is likely normal. Tricuspid Valve Normal tricuspid valve structure. There is trace tricuspid valve regurgitation. The right ventricular systolic pressure is normal. The right ventricular systolic pressure is 23 mmHg. Normal right atrial pressure. There is no evidence of pulmonary hypertension. Great Vessels All visible segments of the aorta are normal in size. The pulmonary artery was not well visualized. There is no dilatation of the ascending aorta measuring 3.40 cm. Venous The inferior vena cava is normal in size and collapses greater than 50% with inspiration. Pericardium/Pleural There is no evidence of pericardial effusion. Prior Study Comparison No significant change compared to prior study dated: 11/03/2021. Measurements 2D Linear Measurements IVSd: 0.82 0.6-0.9/0.6-1.0 cm LVIDd: 4.86 3.9-5.3/4.2-5.9 cm LVIDd Index: 2.70 2.4-3.2/2.2-3.1 cm/m2 LVIDs: 3.23 2.0-3.6 cm LVPWd: 0.82 0.7-1.1 cm LA Diam: 2.80 2.7-3.8/3.0-4.0 cm LAIDs Index: 1.56 1.5-2.3 cm/m2 LV Mass: 166.75 67-162/88-224 g LV Mass Index: 92.64 43-95/49-115 g/m2 LVOT Diam: 1.90 3.0+(-)1.3 cm 2D Systolic Function EF 4C: 65.70 >55% EF 2C: 67.30 >55% EF BiP: 65.40 >55% Mitral Valve MV Pk E: 0.88 MV PK A: 1.05 MV Decel Time: 199.00 E/A: 0.80 E'Lateral: 7.07 E'Medial: 6.85 E/E' Med: 12.80 E/E' Lat: 12.40 PHT: 58.00 MVA PHT: 3.79 Decel [place]: 4.41 Aortic Valve AoV Pk Jagdish: 1.20 AoV Pk Grad: 6.00 FLACO: 2.59 LVOT LVOT Pk Jagdish: 1.06 LVOT Mn Jagdish: 0.79 LVOT VTI: 0.23 LVOT Pk Grad: 4.00 LVOT Mn Grad: 3.00 LVOT Diam: 1.90 LVOT Area: 2.84 Diastolic Function MV Pk E: 0.88 MV Pk A: 1.05 E/A: 0.80 E'Medial: 6.85 E/E' Med: 12.80 E' Laterial: 7.07 E/E' Lat: 12.40 Right Ventricle TAPSE (mm): 26.90 TVS' Jagdish: 13.10 Tricuspid Valve TR Pk Jagdish: 2.25 TR Pk Grad: 20.00 RA Press: 3.00 RVSP: 23.00 Great Vessels Aorta Sinus of Valsalva: 2.70 2.0-3.5 cm Ao Asc: 3.40 2.1-3.4 cm Pulmonary Veins Pulm Vein S/D 1.50 Pulmonary Valve PV Pk Jagdish: 1.01 Peak PV Grad: 4.00 Updated in Other Vendor System with Status of Final Elfego Paulino MD electronically signed on 07/06/2024 12:47:38 PM with status of Final
== END ==
LOC: HO.CARD 08:46
PROVIDERS: PCP Internal Medicine; Visit Provider Internal Medicine
DX: R00.2 Palpitations (principal); I49.3 Ventricular premature depolarization
CPT/HCPCS: 93242; 93306

== ENCOUNTER → 2024-07-05 08:53 | Outpatient (BNV) | payer MEDICARE, SELFPAY | PROVIDERS: PCP Internal Medicine; Visit Provider Internal Medicine Cardiovascular Disease | DX: R00.1 Bradycardia, unspecified (principal) | CPT/HCPCS: 93244; 93306 ==

== ENCOUNTER 2024-07-13 09:04 | Outpatient (AMB) | payer MEDICARE, SELFPAY ==
--- NOTE | 2024-07-13 09:10 | AM.OFFWIN_ITS ---
Intake Vital Signs 07/13/24 09:11 Height 5 ft 4 in Weight 164 lb BMI 28.1 BP 138/62 Blood Pressure Location Rt brachial Position Sitting Pulse 76 Pulse Source Pulse Oximeter Temp 97.9 F Temp Source Oral Pulse Oximetry (%) 97 Intake Visit Reasons: EP pain on left hip Intake Note: pt is here for left hip, denies injury. Patient Tobacco Use Status: Never used Tobacco Allergies hydralazine Allergy (Intermediate, Verified 07/13/24 09:10) Palpitations triamterene Adverse Reaction (Verified 07/13/24 09:10) Abdominal Pain Do you need a note to return to daycare/school/sports/work: No HPI HPI Comments History of Present Illness Details Patient is an 83-year-old female complaining of left hip pain that starts in her low back radiates through her buttocks and down her left leg. She states she was here on June 26 for a similar problem and given a 3 day burst of prednisone which helped for a day or 2 and then did not seem to help anymore. She denies any loss of control of her bladder or bowels or saddle anesthesias. She denies any injury. [facility] Medical History (Updated 07/13/24 @ 09:49 by Zahida Carrillo PA-C) Diverticulosis Wheezing Cough Palpitations Annual physical exam Mammogram normal Rheumatoid aortitis Hyperlipidemia GERD (gastroesophageal reflux disease) Surgical History History of esophagogastroduodenoscopy (EGD) Hx of tonsillectomy S/P partial hysterectomy H/O colonoscopy Hx of cataract surgery Family History Father No problems noted. Mother Diabetes Social History Household Members: Children Household Members Other:: lives with daughter Housing: House Do you presently have visiting nurse or other home services: No Alcohol intake: current Alcohol intake frequency: a few times a week Patient Tobacco Use Status: Never used Tobacco e-Cigarette/Vaping Use: Never Used service: No Current occupational status: retired Cognitive needs: No Hearing needs: No Vision needs: No Review of Systems Const All systems reviewed & are unremarkable except as noted in HPI and below Physical Exam Vital Signs: Last Vital Signs Temp 97.9 F 07/13/24 09:11 Pulse 76 07/13/24 09:11 BP 138/62 07/13/24 09:11 Pulse Ox 97 07/13/24 09:11 BMI result Body Mass Index 28.1 Const General: cooperative, healthy appearing and comfortable Orientation/consciousness: patient oriented x3 HEENT Head: Yes normal to inspection and Yes normocephalic General nose exam: Normal external nose present Face and sinus: Yes normal facial exam Eyes General: appearance normal, both eyes and all related structures Resp Effort & Inspection: normal respiratory effort and able to speak in complete sentences Back/Spine/Pelvis Cervical Spine: cervical ROM normal and No Cervical spine tenderness Thoracic/Lumbar Spine: thoracic and lumbar spine normal to inspection, No thor acic spinal tenderness and No lumbar spinal tenderness Pelvis: no pain with lateral compression Neuro General: patient oriented x3 Extrem Other: Straight leg raise test positive on right; Straight leg raise test negative on left; motor strength normal bilaterally Assessment & Plan Assessment & Plan (1) Sciatica, left side: Code(s): M54.32 - Sciatica, left side Plan: Patient was treated with what is likely too short of a course of prednisone so her symptoms came back, we will give her a 5 day burst of 40 mg and recommended she also use Aleve around the clock for the next 5 days as well as ice and rest. Advised if she had any loss of control of her bladder or bowels that she should go to the emergency department immediately. Plan See above Medications: New prednisone 40 mg (2 x 20 mg) PO DAILY 10 tabs 0RF Coding Level of Care Code Est Pt Level 3 (55243) Diagnoses Sciatica, left side M54.32
[2024-07-13 09:11] VITALS: BP 138/62; PULSE 76; TEMP 36.6; O2SAT 97; BMI 28.1
== END 2024-07-13 11:38 | disposition home or self-care (01) ==
PROVIDERS: PCP Internal Medicine; Visit Provider Physician Assistant
DX: M54.32 Sciatica, left side (principal)

== ENCOUNTER → 2024-07-13 09:04 | Outpatient (BNVA) | payer MEDICARE, SELFPAY | PROVIDERS: PCP Internal Medicine; Visit Provider Physician Assistant | DX: M54.32 Sciatica, left side (principal) | CPT/HCPCS: 99212 ==

== ENCOUNTER 2024-07-30 21:47 | Emergency (ER) | payer MEDICARE, SELFPAY ==
--- NOTE | ~2024-07-30 | XR_ITS ---
EXAMINATION: XR LUMBOSACRAL SPINE CLINICAL INFORMATION: ? Compression fracture COMPARISON: February 19, 2022 TECHNIQUE: Three views of the lumbosacral spine. FINDINGS: There is mild curvature of the lumbar spine convex to the right on the AP image. The sagittal alignment is normal. There is moderate to severe L3-4 disc degenerative change and mild to moderate degenerative changes throughout the remaining thoracolumbar spine with loss of disc space, endplate change and osteophyte formation. There is also mild to moderate thoracolumbar facet degenerative change most pronounced in the lower lumbar spine. The bone mineralization is within normal limits. The vertebral body heights are maintained. The soft tissues are unremarkable. There is atherosclerotic plaque of the abdominal aorta and iliac vessels. The soft tissues are grossly unremarkable. XR/XR lumbar spine 2-3V IMPRESSION: 1. No compression fracture. 2. Moderate degenerative changes of the lumbar spine. 3. Atherosclerosis. Electronically signed by: Michael Woods MD 07/31/2024 01:41 AM JEREMI
[2024-07-30 21:54] VITALS: BP 187/87; PULSE 77; RESP 18; TEMP 36.8; O2SAT 98; BMI 29.9
[2024-07-31 00:31] LABS: Appearance Urine Clear; Color Urine Yellow; Glucose Urine UA Negative (Negative); Leukocyte Esterase Urine Trace (Negative); Nitrite Urine Negative (Negative); PH 5.5 (5.0-9.0); Specific Gravity - Urine 1.025 (1.005-1.025); UMIC TRIGGER UACC YES; Urine Blood Negative (Negative); Urine Ketones Trace mg/dL (Negative); Urine Protein Trace mg/dL (Neg-Trace)
[2024-07-31 00:36] LABS: Bacteria Urine None Seen (None Seen); Hyaline Casts Urine 0-2 /LPF (0-2); RBC Urine 0-2 /HPF (0-2); Squamous Epithelial Cell Urine 0-2 /HPF (0-2); WBC Urine 0-5 /HPF (0-5)
--- NOTE | 2024-07-31 01:11 | ED_ITS ---
HPI - Back Pain/Injury General Chief Complaint: Back Pain/Injury Stated Complaint: low back pain Time Seen by Provider: 07/31/24 00:58 Source: patient Mode of arrival: ambulatory Limitations: no limitations History of Present Illness ED Provider: HPI Narrative: Patient's history of chronic back pain noticed increased pain in the left sciatic area for last several weeks getting worse radiating to the left leg no recent fall patient has been to PCP 3 times was given prednisone without much relief no paresthesia no bladder or bowel involvement Related Data Home Medications ?Medication ?Instructions ?Recorded ?Confirmed cholecalciferol (vitamin D3) 25 25 mcg PO DAILY 09/23/21 06/07/24 mcg (1,000 unit) capsule (Vitamin D3) hydroxychloroquine 200 mg tablet 200 mg PO DAILY 01/06/24 06/07/24 Previous Rx's ?Medication ?Instructions ?Recorded diltiazem HCl 240 mg 240 mg PO DAILY #90 caps 03/08/24 capsule,extended release 24 hr (Cardizem CD) losartan 50 mg tablet 50 mg PO DAILY #90 tabs 06/07/24 prednisone 20 mg tablet 40 mg (2 x 20 mg) PO DAILY #10 tabs 07/13/24 pantoprazole 40 mg tablet,delayed 40 mg PO DAILY #90 tabs 07/26/24 release rosuvastatin 20 mg tablet 20 mg PO DAILY #90 tabs 07/26/24 cyclobenzaprine 5 mg tablet 5 mg PO BEDTIME PRN muscle spasm 07/31/24 #10 tabs lidocaine 4 % topical patch 1 patch topical DAILY PRN pain #30 07/31/24 (Salonpas (lidocaine)) ea tramadol 50 mg tablet 50 mg PO Q8-10H PRN pain #20 tabs 07/31/24 Allergies Allergy/AdvReac Type Severity Reaction Status Date / Time hydralazine Allergy Intermediate Palpitation Verified 07/30/24 21:58 s triamterene AdvReac Abdominal Verified 07/30/24 21:58 Pain Review of Systems Review of Systems: Yes all other systems are reviewed and are negative PMFSH Past Medical History Medical History Diverticulosis Wheezing Cough Palpitations Annual physical exam Mammogram normal Rheumatoid aortitis Hyperlipidemia GERD (gastroesophageal reflux disease) Surgical History History of esophagogastroduodenoscopy (EGD) Hx of tonsillectomy S/P partial hysterectomy H/O colonoscopy Hx of cataract surgery Family History Family History Father No problems noted. Mother Diabetes Social History Social History Household Members: Children Household Members Other:: lives with daughter Housing: House Do you presently have visiting nurse or other home services: No Alcohol intake: current Alcohol intake frequency: a few times a week Patient Tobacco Use Status: Never used Tobacco e-Cigarette/Vaping Use: Never Used Advance Directives: No Advance Directives Information Provided: Yes service: No Current occupational status: retired Cognitive needs: No Hearing needs: No Vision needs: No Physical Exam Vital Signs: Vital Signs: Last Vital Signs Temp 98.2 F 07/30/24 21:54 Pulse 77 07/30/24 21:54 Resp 18 07/30/24 21:54 BP 187/87 H 07/30/24 21:54 Pulse Ox 98 07/30/24 21:54 O2 Del Method Room Air 07/30/24 21:54 BMI result Body Mass Index 29.9 Appearance: Alert. Oriented X3. No acute distress. Eyes: PERRLA, No Nystagmus ENT: Pharynx normal. Oral Mucosa moist Neck: Normal inspection. Neck supple. CVS: Normal heart rate and rhythm. Pulses normal. Respiratory: No respiratory distress. Equal air entry bilateral, no wheezing/rales/rhonchi Abdomen: Soft and nontender. Bowel sounds are present, no mass palpable, no CVA tenderness Skin: Skin warm and dry. Normal skin color. Normal skin turgor. Extremities: No lower extremity edema. No calf tenderness tenderness left sciatic notch area SLR negative bilateral Neuro: Oriented X 3. No motor deficit. No sensory deficit.No cerebellar signs , cranial nerves II-XII intact Medications Administered Discontinued Medications Generic Name Dose Route Start Last Admin Trade Name Freq PRN Reason Stop Dose Admin Cyclobenzaprine HCl 5 mg 07/31/24 01:04 07/31/24 01:26 Cyclobenzaprine Hcl 5 Mg Tablet PO 07/31/24 01:05 5 mg ONCE ONE Administration Lidocaine 1 patch 07/31/24 01:04 07/31/24 01:26 Lidocaine 4 % Patch Adh..Patch TRANSDERMA 07/31/24 01:05 1 patch ONCE ONE Administration Protocol Tramadol HCl 50 mg 07/31/24 01:04 07/31/24 01:26 Tramadol Hcl 50 Mg Tablet PO 07/31/24 01:05 50 mg ONCE ONE Administration Medical Decision Making Medical Decision Making [facility] Narrative: Patient with chronic arthritis with left sciatic pain likely piriformis muscle syndrome pace sign positive patient is ambulatory in his steady gait no signs of spinal cord involvement discharge patient home x-ray negative for compression fracture Differential Diagnosis Differential Diagnoses: The differential diagnosis associated with the presentation includes Lumbar stenosis/sciatica/piriformis syndrome Lab Data [facility] Lab Attestation statement: I reviewed the patient's lab results. Labs: Lab Results 07/31/24 Range/Units 00:25 Urine Color Yellow Urine Appearance Clear Urine pH 5.5 (5.0-9.0) Ur Specific [place] 1.025 (1.005-1.025) Urine Protein Trace (Neg-Trace) mg/dL Urine Glucose (UA) Negative (Negative) mg/dL Urine Ketones Trace (Negative) mg/dL Urine Blood Negative (Negative) Urine Nitrite Negative (Negative) Ur Leukocyte Esterase Trace H (Negative) Urine RBC 0-2 (0-2) /HPF Urine WBC 0-5 (0-5) /HPF Ur Squamous Epith Cells 0-2 (0-2) /HPF Urine Bacteria None Seen (None Seen) Hyaline Casts 0-2 (0-2) /LPF Discharge Plan Discharge Clinical Impression: Piriformis syndrome of left side, Sciatica of left side Patient Disposition: Home, Self-Care Instructions: Piriformis Syndrome (ED), Lower Back Exercises (ED) Additional Instructions: Rest at home Take pain medication muscle relaxant as prescribed Apply Lidoderm patch daily for the pain Do piriformis exercises as advised Prescriptions: New tramadol 50 mg tablet 50 mg PO Q8-10H PRN (Reason: pain) Qty: 20 0RF cyclobenzaprine 5 mg tablet 5 mg PO BEDTIME PRN (Reason: muscle spasm) Qty: 10 0RF lidocaine [Salonpas (lidocaine)] 4 % adhesive patch,medicated 1 patch topical DAILY PRN (Reason: pain) Qty: 30 0RF No Action diltiazem HCl [Cardizem CD] 240 mg capsule,extended release 24hr 240 mg PO DAILY Qty: 90 3RF rosuvastatin 20 mg tablet 20 mg PO DAILY Qty: 90 3RF pantoprazole 40 mg tablet,delayed release (DR/EC) 40 mg PO DAILY Qty: 90 3RF hydroxychloroquine 200 mg tablet 200 mg PO DAILY cholecalciferol (vitamin D3) [Vitamin D3] 25 mcg (1,000 unit) capsule 25 mcg PO DAILY losartan 50 mg tablet 50 mg PO DAILY Qty: 90 1RF prednisone 20 mg tablet 40 mg PO DAILY Qty: 10 0RF Print Language: [place]
[2024-07-31] MEDS: Cyclobenzaprine HCl 5 MG TABLET PO (01:26)
[2024-07-31] MEDS: traMADoL HCL 50 MG TABLET PO (01:26)
[2024-07-31] MEDS: Lidocaine 4 % Patch ADH..PATCH 1 PATCH TRANSDERMA (01:26)
[2024-07-31 01:39] VITALS: BP 167/72; PULSE 69; RESP 18; TEMP 36.8; O2SAT 98
== END 2024-07-31 01:40 | disposition home or self-care (01) ==
PROVIDERS: Emergency Provider Internal Medicine; PCP Internal Medicine
DX: G57.02 Lesion of sciatic nerve, left lower limb (principal); M54.42 Lumbago with sciatica, left side
CPT/HCPCS: 72100; 81001; 99283

== ENCOUNTER 2024-09-26 10:08 | Outpatient (AMB) | payer MEDICARE, SELFPAY ==
--- NOTE | 2024-09-26 10:31 | MHC.PC.OV ---
Vital Signs 09/26/24 10:52 Height 5 ft 3 in Weight 166 lb BMI 29.4 BP 128/66 Blood Pressure Location Rt brachial Position Sitting Pulse 71 Pulse Source Pulse Oximeter Temp 98.1 F Temp Source Oral Pulse Oximetry (%) 95 Oxygen Delivery Method Room Air Intake Visit Reasons: Annual PE Intake Note: PT is here today for PE. Allergies hydralazine Allergy (Intermediate, Verified 09/26/24 10:32) Palpitations triamterene Adverse Reaction (Verified 09/26/24 10:32) Abdominal Pain Medication List - Last Reconciled 09/26/24 by Barbara Sanchez MD cholecalciferol (vitamin D3) (Vitamin D3) 25 mcg PO DAILY diltiazem HCl CD (Cardizem CD) 240 mg PO DAILY hydroxychloroquine 200 mg PO DAILY lidocaine 4% (Salonpas (lidocaine)) 1 patch topical DAILY PRN losartan 50 mg PO DAILY pantoprazole 40 mg PO DAILY rosuvastatin 20 mg PO DAILY Tobacco use date assessed: 09/26/24 Fall risk assessment: No Falls in past year Last assessed Fall Risk: 09/26/24 Dental Screening Dental Screen Date: 09/26/24 Did you have a dental visit in the last 12 months?: Yes Did you have a dental problem in the last 6 months where you did not have access to dental care?: No Was dental information given to patient?: Patient has dentist HPI Annual PE HPI Details Pt presents for PE. Patient complains of daily headaches getting worse occasionally waking up with a headache. Patient denies weakness or numbness in extremities , change in balance or vision, nausea vomiting. Patient complains of chronic sciatica and had physical therapy in the past with good improvement. [facility] Medical History (Updated 09/26/24 @ 11:42 by Barbara Sanchez MD) Diverticulosis Wheezing Cough Palpitations Mammogram normal Rheumatoid aortitis Hyperlipidemia GERD (gastroesophageal reflux disease) Surgical History History of esophagogastroduodenoscopy (EGD) Hx of tonsillectomy S/P partial hysterectomy H/O colonoscopy Hx of cataract surgery Family History Father No problems noted. Mother Diabetes Social History Household Members: Children Household Members Other:: lives with daughter Housing: House Do you presently have visiting nurse or other home services: No Alcohol intake: current Alcohol intake frequency: a few times a week Patient Tobacco Use Status: Never used Tobacco e-Cigarette/Vaping Use: Never Used service: No Current occupational status: retired Cognitive needs: No Hearing needs: No Vision needs: No Questionnaire PHQ-9 Over the last 2 weeks, how often have you been bothered by any of the following problems? 1. Little interest or pleasure in doing things: not at all 2. Feeling down, depressed, or hopeless: not at all 3. Trouble falling or staying asleep, or sleeping too much: not at all 4. Feeling tired or having little energy: not at all 5. Poor appetite or overeating: not at all 6. Feeling bad about yourself - or that you are a failure or have let yourself or your family down: not at all 7. Trouble concentrating on things, such as reading the newspaper or watching television: not at all 8. Moving or speaking so slowly that other people could have noticed. Or the opposite - being so fidgety or restless that you have been moving around a lot more than usual: not at all 9. Thoughts that you would be better off or of hurting yourself in some way: not at all Total score: 0 Depression Screening Interpretation: Negative Depression Screening Done: Yes 70521 - PHQ-9 Billing: Yes Source: Developed by Drs. Luis Angel Gary, Isa Ramirez, Jaiml Cooper and colleagues, with an educational jeremias from [employer]. Thrive Questionnaire Date Thrive assessed: 09/26/24 I am a: Patient What is your living situation today?: I have a steady place to live Within the past 12 months, did the food you bought not last and you didn't have the money to get more?: Often true Within the past 12 months, did you worry whether your food would run out before you got money to buy more?: I choose not to answer this question Do you have trouble paying for medicines?: No Do you have trouble getting transportation to medical appointments?: No Do you have trouble paying your heating and electricity bill?: No Do you have trouble taking care of your child, family member or friend?: No Do you have trouble with day-to-day activities such as bathing, preparing meals, shopping, managing finances, etc.?: No Are you currently unemployed and looking for a job?: Yes Are you interested in more education?: No Please select the resources that you would like help with: Paying for medicine Currently or been in a relationship where the following occur: No concerns reported THRIVE Score: 1 AUDIT C Alcohol Use Questionnaire (AUDIT-C) 1. How often do you have a drink containing alcohol?: Monthly or less 2. How many drinks containing alcohol do you have on a typical day when you are drinking?: 1 or 2 3. How often do you have six or more drinks on one occasion?: Monthly Total Score: 3 KAYLEN-7 AMB Questionnaire KAYLEN-7 Date KAYLEN - 7 assessed: 09/26/24 Feeling nervous, anxious, or on edge: 0 = Not at all Not being able to stop or control worryin = Not at all Worrying too much about different things: 0 = Not at all Trouble relaxin = Not at all Being so restless that it is hard to sit still: 0 = Not at all Becoming easily annoyed or irritable: 0 = Not at all Feeling afraid as if something awful might happen: 0 = Not at all Total KAYLEN-7 score (0-4 normal; 5-9 mild; 10-14 moderate; 15-21 severe): 0 Source: Developed by Drs. Luis Angel Gary, Isa Ramirez, Jamil Cooper and colleagues, with an educational jeremias from [employer]. KAYLEN-7 Assessment Billing KAYLEN-7 Assessment Tool: KAYLEN-7 Assessment 38913 Review of Systems Const All systems reviewed & are unremarkable except as noted in HPI and below Reports no additional complaints Eyes Reports no additional complaints ENT Reports no additional complaints Card Reports no additional complaints Resp Reports no additional complaints GI Reports no additional complaints Reports no additional complaints Physical exam (Primary Care) Vital Signs: Last Vital Signs Temp 98.1 F 09/26/24 10:52 Pulse 71 09/26/24 10:52 BP 128/66 09/26/24 10:52 Pulse Ox 95 09/26/24 10:52 Oxygen Delivery Method Room Air 09/26/24 10:52 BMI result Body Mass Index 29.4 Tobacco/Smoking Status: Tobacco use Status Tobacco use date assessed 09/26/24 09/26/24 10:33 Patient Tobacco Use Status Never used Tobacco 09/26/24 10:33 e-Cigarette/Vaping Use Never Used 09/26/24 10:33 PHQ-9: PHQ-9 Score PHQ-9: Total score 0 09/26/24 10:33 Depression Screening Interpretation: Negative Thrive Assessment: Date of Thrive Assessment Date Thrive assessed 09/26/24 09/26/24 10:33 Currently or been in a relationship where the following occur: No concerns reported Const General: no acute distress HENMT Head: Yes normal to inspection Ears: hearing grossly normal bilaterally Face and sinus: Yes normal facial exam Eyes General: appearance normal, both eyes and all related structures Neck Neck: Yes no lymphadenopathy and Yes supple Resp Effort & Inspection: normal respiratory effort Auscultation: clear to auscultation bilaterally Cardio Rhythm: regular rhythm Heart sounds: S1 normal heart sound present and S2 normal heart sound present GI Inspection: Yes normal to inspection Palpation (GI): Soft to palpation Percussion: Yes normal to percussion Auscultation: normal bowel sounds Neuro General: gait normal Cranial nerves: Yes CN's II-XII intact bilaterally Motor exam (neuro): 5/5 motor strength present throughout Coordination: [id number] test normal Romberg Test: Negative Coding Level of Care Code Est Pt Prev Care >65y(46557) Diagnoses Hyperlipidemia E78.5 Sciatica, left side M54.32 Sleep apnea G47.30 Annual physical exam Z00.00 New onset headache R51.9 Acute blood loss anemia D62 Additional Codes KAYLEN-7 Assessment Billing - KAYLEN-7 Assessment Tool: KAYLEN-7 Assessment 66203 ([id number]) PHQ-9 - 34514 - PHQ-9 Billing: Yes ([id number]) Assessment & Plan Assessment & Plan (1) Hyperlipidemia: Code(s): E78.5 - Hyperlipidemia, unspecified Category: Medical Plan: We will continue statin return for fasting blood work (2) Sciatica, left side: Code(s): M54.32 - Sciatica, left side Category: Medical Plan: Referred to physical therapy (3) Sleep apnea: Code(s): G47.30 - Sleep apnea, unspecified Category: Medical Plan: Obtain sleep study (4) Annual physical exam: Code(s): Z00.00 - Encounter for general adult medical examination without abnormal findings Category: Medical Plan: Well-balanced diet regular physical activity discussed with the patient (5) New onset headache: Code(s): R51.9 - Headache, unspecified Category: Medical Plan: Obtain CT of the brain and check CRP (6) Acute blood loss anemia: Comment: Monitor CBC and iron Code(s): D62 - Acute posthemorrhagic anemia Category: Medical Plan: Monitor CBC Orders: Orders RT home sleep study Today G47.30 - Sleep apnea, unspecified Lipid Panel Today Z00.00 - Encounter for general adult medical examination without abnormal findings IRON PROFILE Today Z00.00 - Encounter for general adult medical examination without abnormal findings C Reactive Protein Today R51.9 - Headache, unspecified PT Evaluation and Treatment Today M54.32 - Sciatica, left side Complete Blood Count Auto Diff Today Z00.00 - Encounter for general adult medical examination without abnormal findings Comprehensive [place]. Panel Fast Today Z00.00 - Encounter for general adult medical examination without abnormal findings Vitamin B12 and Folate Today Z00.00 - Encounter for general adult medical examination without abnormal findings CT head/brain wo IV con Today R51.9 - Headache, unspecified Medications: Refilled rosuvastatin 20 mg PO DAILY 90 tabs 3RF losartan 50 mg PO DAILY 90 tabs 4RF R00.2 - Palpitations diltiazem HCl CD (Cardizem CD) 240 mg PO DAILY 90 caps 3RF
[2024-09-26 10:52] VITALS: BP 128/66; PULSE 71; TEMP 36.7; O2SAT 95; BMI 29.4
== END 2024-09-26 11:36 | disposition home or self-care (01) ==
PROVIDERS: PCP Internal Medicine; Visit Provider Internal Medicine
DX: E78.5 Hyperlipidemia, unspecified (principal); M54.32 Sciatica, left side; G47.30 Sleep apnea, unspecified; Z00.00 Encounter for general adult medical examination without abnormal findings; R51.9 Headache, unspecified; D62 Acute posthemorrhagic anemia

== ENCOUNTER → 2024-09-26 10:08 | Outpatient (BNVA) | payer MEDICARE, SELFPAY | PROVIDERS: PCP Internal Medicine; Visit Provider Internal Medicine | DX: Z00.00 Encounter for general adult medical examination without abnormal findings (principal); E78.5 Hyperlipidemia, unspecified; M54.32 Sciatica, left side; G47.30 Sleep apnea, unspecified; R51.9 Headache, unspecified; D62 Acute posthemorrhagic anemia | CPT/HCPCS: 96127; 99397 ==

== ENCOUNTER 2024-09-29 07:05 | Outpatient (REF) | payer MEDICARE, SELFPAY ==
[2024-09-29 07:18] LABS: MANUAL DIFF FLAG NO
[2024-09-29 07:49] LABS: Basophils Percent Auto 0.7 % (0-2); Eosinophils Absolute Auto 0.1 X10*3/uL (0.0-0.4); Eosinophils Percent Auto 1.7 % (0-4); Hematocrit 39.3 % (37.0-47.0); Hemoglobin 13.1 g/dl (12.0-16.0); Imm Gran Abs Auto 0.01 X10*3/uL (0.00-0.03); Imm Gran Pct Auto 0.2 % (0.0-0.4); Lymphocytes Absolute Auto 2.3 X10*3/uL (1.2-4.9); Lymphocytes Percent Auto 57.4 % (20-40); Mean Corpuscular HGB Conc 33.3 g/dl (31.0-35.0); Mean Corpuscular Hemoglobin 30.4 pg (27.0-33.0); Mean Corpuscular Volume 91.2 fL (80.0-98.0); Monocytes Absolute Auto 0.3 X10*3/uL (0.1-1.2); Monocytes Percent Auto 7.4 % (2-11); Neutrophils Absolute Auto 1.3 x10*3/uL (2.0-8.3); Neutrophils Percent Auto 32.6 % (45-73); Platelet Count 208 X10*3/uL (160-400); Red Blood Count 4.31 X10*6/uL (4.20-5.50)
[2024-09-29 08:16] LABS: Alanine Aminotransferase 17 U/L (0-31); Albumin Level 4.2 g/dL (3.5-5.0); Alkaline Phosphatase 73 U/L (39-117); Anion Gap 12 (12-20); Aspartate Amino Transferase 26 U/L (5-31); Bilirubin Total 0.6 mg/dL (0.0-1.0); Blood Urea Nitrogen 17 mg/dL (9-16); C Reactive Protein 0.17 mg/dL (< or = 0.50); Calcium 10.2 mg/dL (8.4-10.2); Carbon Dioxide 28 mmol/L (22-29); Chloride 107 mmol/L (96-108); Cholesterol 186 mg/dL (<200); Estimated Glomerular Filt Rate > 60; Glucose Fasting 100 mg/dL (60-99); HDL Cholesterol 76 mg/dL (>40); Iron 71 mcg/dL (30-160); LDL Cholesterol Calculated 98 mg/dL (<100); Percent Iron Saturation 22 % (15-50); Potassium 3.9 mmol/L (3.3-5.1); Sodium 143 mmol/L (135-145); Total Iron Binding Capacity 317 mcg/dL (228-428); Total Protein 7.5 g/dL (6.5-8.0); Triglycerides 60 mg/dL (<150); Unsaturated Iron Binding 246 ug/dL
[2024-09-29 08:31] LABS: Ferritin 55 ng/mL (10-250)
[2024-09-29 08:34] LABS: TSH reflex Free T4 2.63 uIU/mL (0.32-4.0)
[2024-09-29 08:47] LABS: Folate 15.6 ng/mL (> or = 4.0); Vitamin B12 1212 pg/mL (200-900)
== END 2024-09-29 07:06 | disposition home or self-care (01) ==
LOC: HO.LAB 07:05
PROVIDERS: Internal Medicine; PCP Internal Medicine; Visit Provider Internal Medicine
DX: Z00.00 Encounter for general adult medical examination without abnormal findings (principal); R51.9 Headache, unspecified; E78.5 Hyperlipidemia, unspecified; D62 Acute posthemorrhagic anemia
CPT/HCPCS: 36415; 80053; 80061; 82607; 82728; 82746; 83540; 84443; 85025; 86140

== ENCOUNTER 2024-10-18 14:38 | Outpatient (AMB) | payer MEDICARE, SELFPAY ==
--- NOTE | 2024-10-18 15:27 | MHC.OFFWIV ---
Intake Vital Signs 10/18/24 15:28 Weight 169 lb BP 150/90 H Blood Pressure Location Rt brachial Position Sitting Pulse 85 Pulse Source Pulse Oximeter Temp 98.1 F Temp Source Oral Pulse Oximetry (%) 98 Oxygen Delivery Method Room Air Intake Visit Reasons: EP Ear ache in rt ear Intake Note: Patient here for right ear pain that has been present since Wednesday. Patient Tobacco Use Status: Never used Tobacco Allergies hydralazine Allergy (Intermediate, Verified 10/18/24 15:31) Palpitations triamterene Adverse Reaction (Verified 10/18/24 15:31) Abdominal Pain Do you need a note to return to daycare/school/sports/work: No HPI HPI Comments History of Present Illness Details History of Present Illness - The patient is an 84-year-old female presenting with right ear pain and potential infection. - Symptoms initiated three days ago and are localized to the right ear, with a previous instance of otitis externa. - Prior treatment involved topical abx drops from May OE , insufficient in current relief, prompting reuse with minor benefit. - Ear discomfort extends to the head and throat - The condition lacked cough or cold symptoms, with minimal prior medication response. Physical Exam General: Cooperative, healthy appearing, comfortable, no acute distress and well developed Orientation: Patient oriented x3 Limitations: No limitations Head: Normal to inspection Ears: External ears normal, left TM normal, right TM with erythema, purulence and fluid, loss of bony landmarks Nose: Normal external nose present Face and sinus: Normal facial exam Eyes: Appearance normal, both eyes and all related structures Neck: Normal visual inspection and Yes full ROM, tenderness on the right side Respiratory: Normal respiratory effort and able to speak in complete sentences. Skin: No rashes or lesions noted Neuro: Patient oriented x3 Extremities: Normal to inspection [facility] Medical History (Updated 10/18/24 @ 15:45 by Zahida Carrillo PA-C) Diverticulosis Wheezing Cough Palpitations Mammogram normal Rheumatoid aortitis Hyperlipidemia GERD (gastroesophageal reflux disease) Surgical History History of esophagogastroduodenoscopy (EGD) Hx of tonsillectomy S/P partial hysterectomy H/O colonoscopy Hx of cataract surgery Family History Father No problems noted. Mother Diabetes Social History Household Members: Children Household Members Other:: lives with daughter Housing: House Do you presently have visiting nurse or other home services: No Alcohol intake: current Alcohol intake frequency: a few times a week Patient Tobacco Use Status: Never used Tobacco e-Cigarette/Vaping Use: Never Used service: No Current occupational status: retired Cognitive needs: No Hearing needs: No Vision needs: No Review of Systems Const All systems reviewed & are unremarkable except as noted in HPI and below Physical Exam Vital Signs: Last Vital Signs Temp 98.1 F 10/18/24 15:28 Pulse 85 10/18/24 15:28 BP 150/90 H 10/18/24 15:28 Pulse Ox 98 10/18/24 15:28 Oxygen Delivery Method Room Air 10/18/24 15:28 Assessment & Plan Assessment & Plan (1) Otitis media of right ear: Code(s): H66.91 - Otitis media, unspecified, right ear Qualifiers: Otitis media type: suppurative Chronicity: acute Recurrence: non-recurrent Spontaneous tympanic membrane rupture: without spontaneous rupture Qualified Code(s): H66.001 - Acute suppurative otitis media without spontaneous rupture of ear drum, right ear Plan: The patient is experiencing an acute episode of otitis externa with potential secondary otitis media. After insufficient response to previous topical therapy, oral Amoxicillin therapy has been initiated. The chosen regimen is Amoxicillin 875 mg twice daily for five days, considering the suspected infection's progression into the middle ear. She was advised of potential gastrointestinal side effects, instructed to take the antibiotic with food, and informed that the prescription will be accessible at her designated pharmacy. Patient was informed and verbally consented to the use of an ambient scribe for clinic note documentation during this visit. Medications: New amoxicillin 875 mg PO Q12H 10 tabs 0RF Coding Level of Care Code Est Pt Level 3 (94528) Diagnoses Non-recurrent acute suppurative otitis media of right ear without spontaneous rupture of tympanic membrane H66.001 Otitis media type: suppurative Chronicity: acute Recurrence: non-recurrent Spontaneous tympanic membrane rupture: without spontaneous rupture
[2024-10-18 15:28] VITALS: BP 150/90; PULSE 85; TEMP 36.7; O2SAT 98
== END 2024-10-18 15:48 | disposition home or self-care (01) ==
PROVIDERS: PCP Internal Medicine; Visit Provider Physician Assistant
DX: H66.001 Acute suppurative otitis media without spontaneous rupture of ear drum, right ear (principal)

== ENCOUNTER → 2024-10-18 14:38 | Outpatient (BNVA) | payer MEDICARE, SELFPAY | PROVIDERS: PCP Internal Medicine | DX: H66.001 Acute suppurative otitis media without spontaneous rupture of ear drum, right ear (principal) | CPT/HCPCS: 99212 ==

== ENCOUNTER 2024-11-17 09:30 | Outpatient (REF) | payer MEDICARE, SELFPAY | END 2024-11-17 09:31 | disposition home or self-care (01) | LOC: HO.MAMMO 09:30 | PROVIDERS: PCP Internal Medicine; Visit Provider Internal Medicine | DX: Z12.31 Encounter for screening mammogram for malignant neoplasm of breast (principal) | CPT/HCPCS: 77063; 77067 ==

== ENCOUNTER → 2024-11-17 09:45 | Outpatient (BNV) | payer MEDICARE, SELFPAY | PROVIDERS: PCP Internal Medicine; Visit Provider Internal Medicine | DX: Z12.31 Encounter for screening mammogram for malignant neoplasm of breast (principal) | CPT/HCPCS: 77063; 77067 ==

== ENCOUNTER → 2024-11-20 08:35 | Outpatient (REF) | payer MEDICARE, SELFPAY | LOC: HO.SL 08:35 | PROVIDERS: PCP Internal Medicine; Visit Provider Internal Medicine | DX: G47.30 Sleep apnea, unspecified (principal) | CPT/HCPCS: 95806 ==

== ENCOUNTER → 2024-11-21 09:07 | Outpatient (BNV) | payer MEDICARE, SELFPAY | PROVIDERS: PCP Internal Medicine; Visit Provider Internal Medicine | DX: G47.33 Obstructive sleep apnea (adult) (pediatric) (principal) | CPT/HCPCS: 95806 ==

== ENCOUNTER 2024-11-21 09:29 | Outpatient (REF) | payer MEDICARE, SELFPAY ==
--- NOTE | ~2024-11-21 | CT_ITS ---
EXAMINATION: CT HEAD WITHOUT IV CONTRAST HISTORY: R51.9 - Headache, unspecified. TECHNIQUE: Unenhanced helical CT of the head was performed per standard departmental protocol. Coronal and sagittal reformats of the head were also evaluated. One or more of the following techniques was used for dose reduction: Automated exposure control, adjustment of the mA and/or kV according to patient size, use of iterative reconstruction technique. DLP: 751 mGy-cm COMPARISON: There are no prior studies for comparison. FINDINGS: BRAIN: The brain parenchyma is unremarkable. There is normal mendez/white differentiation. The ventricular system is normal in size and configuration. There is no mass effect or midline shift. No intra- or extra-axial fluid collections are identified. SINUSES: The visualized paranasal sinuses are clear. The mastoid air cells and middle ear cavities are well pneumatized. ORBITS: The visualized orbits are unremarkable. BONES/SOFT TISSUES: The extracranial soft tissues are unremarkable. The calvarium is intact. No suspicious lytic or sclerotic lesions. CT/CT head/brain wo IV con IMPRESSION: Unremarkable unenhanced head CT. Electronically signed by: Luis Angel Woodson MD 11/21/2024 12:01 PM EDT
== END 2024-11-21 09:30 | disposition home or self-care (01) ==
LOC: HO.CT 09:29
PROVIDERS: PCP Internal Medicine; Visit Provider Internal Medicine
DX: R51.9 Headache, unspecified (principal)
CPT/HCPCS: 70450

== ENCOUNTER → 2024-11-21 09:30 | Outpatient (BNV) | payer MEDICARE, SELFPAY | PROVIDERS: PCP Internal Medicine; Visit Provider Radiology Diagnostic Radiology | DX: R51.9 Headache, unspecified (principal) | CPT/HCPCS: 70450 ==

== ENCOUNTER 2024-11-22 08:49 | Outpatient (AMB) | payer MEDICARE, SELFPAY ==
[2024-11-22 09:05] VITALS: BP 152/58; PULSE 74; BMI 29.6
--- NOTE | 2024-11-22 09:05 | MHC.OFFVIS ---
Vital Signs 11/22/24 09:05 Height 5 ft 3 in Weight 167 lb 1.766 oz BMI 29.6 BP 152/58 H Blood Pressure Location Lt brachial Position Sitting Pulse 74 Intake Visit Reasons: r/s 10/09/24 4 mos s/p labs/echo/holter Ammonia Box Tender Required: No Accompanied by: Self / Same As Patient Allergies hydralazine Allergy (Intermediate, Verified 10/18/24 15:31) Palpitations triamterene Adverse Reaction (Verified 10/18/24 15:31) Abdominal Pain Medication List - Last Reconciled 11/22/24 by Rashawn Clark MD cholecalciferol (vitamin D3) (Vitamin D3) 25 mcg PO DAILY diltiazem HCl CD (Cardizem CD) 240 mg PO DAILY hydroxychloroquine 200 mg PO DAILY lidocaine 4% (Salonpas (lidocaine)) 1 patch topical DAILY PRN losartan 50 mg PO DAILY pantoprazole 40 mg PO DAILY rosuvastatin 20 mg PO DAILY HPI Comments Details: Sofia returns for follow-up. In the past, she has been seen regarding palpitations. Then detected to have PVCs. She has been on Diltiazem, which might be for rather hypertension. She had stated that after she retired, she felt more palpitations. She feels palpitations more so on some days but not on the others. Blood pressure is on the higher side. We did start losartan last time when she is taking it. However, she states her diet is very poor and she does eat a lot of salty and unhealthy foods. Also she states that she is under lot of stress because some of family members have been hospitalized for medical issues. [facility] Medical History (Updated 10/18/24 @ 15:45 by Zahida Carrillo PA-C) Diverticulosis Wheezing Cough Palpitations Mammogram normal Rheumatoid aortitis Hyperlipidemia GERD (gastroesophageal reflux disease) Surgical History History of esophagogastroduodenoscopy (EGD) Hx of tonsillectomy S/P partial hysterectomy H/O colonoscopy Hx of cataract surgery Family History Father No problems noted. Mother Diabetes Social History Household Members: Children Household Members Other:: lives with daughter Housing: House Do you presently have visiting nurse or other home services: No Alcohol intake: current Alcohol intake frequency: a few times a week Patient Tobacco Use Status: Never used Tobacco e-Cigarette/Vaping Use: Never Used service: No Current occupational status: retired Cognitive needs: No Hearing needs: No Vision needs: No Review of Systems Const Denies chills, Denies fatigue, Denies fever(s), Denies weight gain and Denies weight loss ENT Denies dizziness Card Denies chest pain, Reports irregular heart rhythm, Denies leg edema, Denies lightheadedness, Denies palpitations, Denies dyspnea on exertion, Denies orthopnea and Denies other Resp Denies cough and Denies dyspnea on exertion GI Denies hematochezia and Denies change in stool character Musc Denies abnormal gait, Denies muscle weakness, Denies numbness, Denies radiating pain into limb and Denies tingling Neuro Denies abnormal gait, Denies dizziness, Denies numbness and Denies tingling Endo Denies fatigue and Denies palpitations Physical Exam Vital Signs: Last Vital Signs Pulse 74 11/22/24 09:05 BP 152/58 H 11/22/24 09:05 BMI result Body Mass Index 29.6 Const General: comfortable and no acute distress Orientation/consciousness: patient oriented x3 HEENT Other: Unremarkable Head: Yes normal to inspection Neck Neck: Yes normal visual inspection Chest Chest palpation & inspection: normal inspection of the chest Resp Auscultation: clear to auscultation bilaterally Cardio Palpation: normal PMI Heart sounds: S1 normal heart sound present, S2 normal heart sound present, no gallops, no murmurs and no rubs GI Palpation (GI): Soft to palpation Back/Spine/Pelvis Other: unremarkable Skin General skin exam: no rashes or lesions noted Neuro General: patient oriented x3 Extrem General: Yes normal to inspection Psych Mental Status: mental status grossly normal Assessment & Plan Assessment & Plan (1) PVC (premature ventricular contraction): Code(s): I49.3 - Ventricular premature depolarization Category: Medical (2) Essential hypertension: Code(s): I10 - Essential (primary) hypertension Category: Medical Plan Prior cardiac studies reviewed. Echocardiogram 2021 with normal LVEF and nothing otherwise of concern. In the stress test from 2021, she was able to do up to 5 minutes on Mohan protocol, reached target heart rate but no angina. No EKG evidence of ischemia. Perfusion imaging was unremarkable. In the Holter 2022, underlying rhythm is sinus. Frequent PVCs with a burden of 2.2%. With regard to PVCs, no specific management. Overall burden is relatively low and hence no clear implications at this time. If indeed they are more frequent, then consider increasing the diltiazem dose or add beta-blockers. For hypertension, she states this is because of dietary indiscretion as well as stress. If it stays this way, may need to increase Losartan dose but she would like to leave it unchanged for now. Total time spent including review of data, counseling, documentation, coordination of care-31 minutes. Coding Level of Care Code Est Pt Level 4 (59346) Diagnoses PVC (premature ventricular contraction) I49.3 Essential hypertension I10
== END 2024-11-22 09:28 | disposition home or self-care (01) ==
PROVIDERS: PCP Internal Medicine; Visit Provider Internal Medicine
DX: I49.3 Ventricular premature depolarization (principal); I10 Essential (primary) hypertension
CPT/HCPCS: 93010; 99214

== ENCOUNTER → 2024-11-22 08:49 | Outpatient (BNVA) | payer SELFPAY | PROVIDERS: PCP Internal Medicine; Visit Provider Internal Medicine | DX: R00.2 Palpitations (principal); I10 Essential (primary) hypertension; I49.3 Ventricular premature depolarization | CPT/HCPCS: 93005; 99212 ==

== ENCOUNTER 2024-12-12 11:41 | Outpatient (AMB) | payer MEDICARE, SELFPAY ==
--- NOTE | 2024-12-12 11:42 | AM.OFFWIN_ITS ---
Intake Vital Signs 12/12/24 11:46 Weight 169 lb BP 126/68 Blood Pressure Location Rt brachial Position Sitting Pulse 94 Pulse Source Pulse Oximeter Pulse Oximetry (%) 96 Oxygen Delivery Method Room Air Intake Visit Reasons: EP RT knee swelling/leg & toe pain Intake Note: Patient here for right knee pain that started about 1 week ago but now it radiates down the leg. Patient Tobacco Use Status: Never used Tobacco Allergies hydralazine Allergy (Intermediate, Verified 12/12/24 11:47) Palpitations triamterene Adverse Reaction (Verified 12/12/24 11:47) Abdominal Pain Do you need a note to return to daycare/school/sports/work: No HPI HPI Comments History of Present Illness Details This is an 84-year-old female with a past medical history of arthritis and hypertension presenting for evaluation of right knee pain that she first experienced 3 weeks ago and over the past 2 weeks she has pain in her right medial thigh and right calf. Patient states that her pain is worse when sitting. Patient has taken Tylenol only without relief of her symptoms. Patient denies any chest pain, cough, dyspnea. [facility] Medical History (Updated 12/12/24 @ 12:14 by Ana Rosa Carlos PA-C) Diverticulosis Wheezing Cough Palpitations Mammogram normal Rheumatoid aortitis Hyperlipidemia GERD (gastroesophageal reflux disease) Surgical History History of esophagogastroduodenoscopy (EGD) Hx of tonsillectomy S/P partial hysterectomy H/O colonoscopy Hx of cataract surgery Family History Father No problems noted. Mother Diabetes Social History Household Members: Children Household Members Other:: lives with daughter Housing: House Do you presently have visiting nurse or other home services: No Alcohol intake: current Alcohol intake frequency: a few times a week Patient Tobacco Use Status: Never used Tobacco e-Cigarette/Vaping Use: Never Used service: No Current occupational status: retired Cognitive needs: No Hearing needs: No Vision needs: No Review of Systems Const All systems reviewed & are unremarkable except as noted in HPI and below Eyes Reports no additional complaints ENT Reports no additional complaints Resp Reports no additional complaints GI Reports no additional complaints Reports no additional complaints Musc Reports arthralgias (right knee) and Reports muscle cramps (right calf, right medial thigh) Skin/Breast Reports system reviewed and no additional complaints, except as documented Neuro Reports no additional complaints Endo Reports no additional complaints Mack/Lymph Reports no additional complaints Aller/Immun Reports no additional complaints Physical Exam Vital Signs: Last Vital Signs Pulse 94 12/12/24 11:46 BP 126/68 12/12/24 11:46 Pulse Ox 96 12/12/24 11:46 Oxygen Delivery Method Room Air 12/12/24 11:46 Const General: cooperative, healthy appearing, comfortable, no acute distress, well developed, alert, awake and Physically active Nutritional Appearance: well nourished Orientation/consciousness: patient oriented x3 Limitations: no limitations Skin Other: no warmth to touch upon examination of the right knee or RLE; no edema, erythema or ecchymosis noted RLE. General skin exam: no rashes or lesions noted Neuro General: patient oriented x3 Extrem General: Yes normal to inspection, Yes full ROM (right knee), No no calf tenderness (+right calf tenderness) and No edema Right lower extremity: normal to inspection, full ROM, no joint enlargement and hip/thigh (Tenderness to palp R medial thigh, no lesions palpated; + right calf pain); no edema Psych Appearance: grossly normal Mental Status: mental status grossly normal Insight: Good insight present (Psych) Judgement: Good judgement present (Psych) Assessment & Plan Assessment & Plan (1) Right leg pain: Comment: Doppler ultrasound scheduled at 1:30 p.m. today to rule out acute DVT. Code(s): M79.604 - Pain in right leg Plan: Doppler ultrasound right lower extremity. We will follow up with the patient regarding results of this study if available later today. Copy of results will be sent to PCP. Plan There were no acute findings noted on ultrasound imaging of the right lower extremity. Patient will be instructed to take Naprosyn twice daily for the next 7-10 days and follow up with her primary care provider as an outpatient. Orders: Orders US venous duplex LE RT Today M79.661 - Pain in right lower leg Medications: New naproxen (Naprosyn) 500 mg PO BID 20 tabs 0RF Coding Level of Care Code Est Pt Level 4 (86011) Diagnoses Right leg pain M79.604 Time Spent (min) 30
[2024-12-12 11:46] VITALS: BP 126/68; PULSE 94; O2SAT 96
== END 2024-12-12 13:51 | disposition home or self-care (01) ==
PROVIDERS: PCP Internal Medicine; Visit Provider Physician Assistant
DX: M79.604 Pain in right leg (principal)

== ENCOUNTER → 2024-12-12 11:41 | Outpatient (BNVA) | payer MEDICARE, SELFPAY | PROVIDERS: PCP Internal Medicine; Visit Provider Physician Assistant | DX: Z13.89 Encounter for screening for other disorder (principal) ==

== ENCOUNTER 2024-12-12 12:24 | Outpatient (REF) | payer MEDICARE, SELFPAY ==
--- NOTE | ~2024-12-12 | US_ITS ---
EXAMINATION: US TRIPLEX LOWER EXTREMITY, RIGHT CLINICAL INFORMATION: Pain, right lower extremity. COMPARISON: None available. TECHNIQUE: Color-flow triplex imaging with spectral analysis and compression Doppler were performed on the right lower extremity. FINDINGS: Respiratory variation, normal compression and augmented flow are noted throughout the interrogated common femoral vein, superficial femoral vein, profunda femoral vein, popliteal vein and midcalf peroneal and posterior tibial venous segments . There is no Soto's cyst. US/US venous duplex LE RT IMPRESSION: No acute deep venous thrombosis involving the right lower extremity. Negative for DVT. Electronically signed by: Bon Kelsey MD 12/12/2024 12:54 PM EDT
== END 2024-12-12 12:25 | disposition home or self-care (01) ==
LOC: HO.HMGCX 12:24
PROVIDERS: PCP Internal Medicine; Visit Provider Physician Assistant
DX: M79.661 Pain in right lower leg (principal)
CPT/HCPCS: 93971; 99212

== ENCOUNTER → 2024-12-12 12:27 | Outpatient (BNV) | payer MEDICARE, SELFPAY | PROVIDERS: PCP Internal Medicine; Visit Provider Radiology Diagnostic Radiology | DX: M79.661 Pain in right lower leg (principal) | CPT/HCPCS: 93971 ==

== ENCOUNTER 2024-12-18 08:42 | Observation (INO) | payer MEDICARE, SELFPAY ==
[2024-12-18] VITALS (9 sets, daily range): BP systolic 158–185; BP diastolic 70–96; PULSE 68–89; RESP 16–20; TEMP 36.1–37.1; O2SAT 95–98; BMI 29.6; BMI 29.4
--- NOTE | ~2024-12-18 | CT_ITS ---
CLINICAL HISTORY: gi bleeding CT angiography abdomen and pelvis with contrast. 3-D post processing. Comparison: 01/09/2024 Findings: Vascular: There is moderate and moderately severe atherosclerotic disease of the aorta and branch vessels. The renal arteries are patent. The mesenteric arteries are patent. No evidence of active arterial extravasation. Delayed imaging demonstrates no pooling of contrast within bowel to suggest active GI bleed by CT. No retroperitoneal or intraperitoneal hematoma. Nonvascular: Lung bases are clear. The liver, gallbladder, spleen, adrenal glands and pancreas are unremarkable. Small hiatal hernia. Extensive diverticulosis. Questionable very faint stranding about the distal descending colon. No pneumatosis, free air, free fluid, abscess or adenopathy. No acute osseous finding. Moderately severe degenerative changes within the spine. Impression: No evidence of active GI bleed by CT angiogram. Mild diverticulitis suggested. Several chronic and/or incidental findings. This document has been electronically signed by: Eric Winston MD on 12/18/2024 11:34:17
[2024-12-18 08:59] LABS: MANUAL DIFF FLAG NO
[2024-12-18 09:02] LABS: Basophils Percent Auto 0.5 % (0-2); Eosinophils Percent Auto 0.1 % (0-4); Hematocrit 37.1 % (37.0-47.0); Hemoglobin 12.5 g/dl (12.0-16.0); Imm Gran Abs Auto 0.01 X10*3/uL (0.00-0.03); Imm Gran Pct Auto 0.1 % (0.0-0.4); Lymphocytes Absolute Auto 3.9 X10*3/uL (1.2-4.9); Lymphocytes Percent Auto 50.7 % (20-40); Mean Corpuscular HGB Conc 33.7 g/dl (31.0-35.0); Mean Corpuscular Hemoglobin 30.6 pg (27.0-33.0); Mean Corpuscular Volume 90.7 fL (80.0-98.0); Monocytes Absolute Auto 0.6 X10*3/uL (0.1-1.2); Neutrophils Absolute Auto 3.1 x10*3/uL (2.0-8.3); Neutrophils Percent Auto 40.6 % (45-73); Platelet Count 231 X10*3/uL (160-400); Red Blood Count 4.09 X10*6/uL (4.20-5.50); Red Cell Distribution Width 12.2 % (11.0-16.0); White Blood Count 7.6 X10*3/uL (4.8-10.8)
[2024-12-18 09:14] LABS: Alanine Aminotransferase 14 U/L (0-31); Albumin Level 4.1 g/dL (3.5-5.0); Alkaline Phosphatase 68 U/L (39-117); Anion Gap 13 (12-20); Aspartate Amino Transferase 18 U/L (5-31); Bilirubin Total 0.4 mg/dL (0.0-1.0); Blood Urea Nitrogen 28 mg/dL (9-16); Calcium 9.5 mg/dL (8.4-10.2); Carbon Dioxide 27 mmol/L (22-29); Chloride 108 mmol/L (96-108); Creatinine Clr Calc Pharmacy 44.9; Estimated Glomerular Filt Rate 57; Glucose Random 94 mg/dL (60-115); Potassium 3.8 mmol/L (3.3-5.1); Sodium 144 mmol/L (135-145); Total Protein 7.1 g/dL (6.5-8.0)
--- NOTE | 2024-12-18 09:22 | ED_ITS ---
HPI - GI Bleed General Chief complaint: GI Bleed Stated complaint: breathing issues Time Seen by Provider: 12/18/24 09:16 Source: patient Mode of arrival: ambulatory Limitations: no limitations History of Present Illness HPI Narrative: This is 84 years old female patient presented to the emergency department complaining of rectal bleeding bleeding started this morning. She has a history of GI bleeding in in the past she was told that she had the diverticular bleeding. MD complaint: blood streaked stool and gross hematochezia Onset (ago): hour(s) (4) Pain Consistency: constant Severity: moderate Relieving factors: none Exacerbating factors: none Context: history of GI bleed Associated symptoms: denies other symptoms Related Data Home Medications ?Medication ?Instructions ?Recorded ?Confirmed cholecalciferol (vitamin D3) 25 25 mcg PO DAILY 09/23/21 12/18/24 mcg (1,000 unit) capsule (Vitamin D3) hydroxychloroquine 200 mg tablet 200 mg PO BID 01/06/24 12/18/24 pantoprazole 40 mg tablet,delayed 40 mg PO DAILY@0630 12/18/24 12/18/24 release Previous Rx's ?Medication ?Instructions ?Recorded diltiazem HCl 240 mg 240 mg PO DAILY #90 caps 09/26/24 capsule,extended release 24 hr (Cardizem CD) rosuvastatin 20 mg tablet 20 mg PO DAILY #90 tabs 09/26/24 Allergies Allergy/AdvReac Type Severity Reaction Status Date / Time hydralazine Allergy Intermediate Palpitation Verified 12/18/24 08:48 s triamterene AdvReac Abdominal Verified 12/18/24 08:48 Pain Review of Systems 2 Constitutional: Constitutional: Reports no additional constitutional complaints ENT: Reports system reviewed and no additional complaints, except as documented Gastrointestinal: Gastrointestinal: Reports hematochezia [facility] Past Medical History [facility] Narrative: Diverticulosis Medical History Diverticulosis Wheezing Cough Palpitations Mammogram normal Rheumatoid aortitis Hyperlipidemia GERD (gastroesophageal reflux disease) Surgical History History of esophagogastroduodenoscopy (EGD) Hx of tonsillectomy S/P partial hysterectomy H/O colonoscopy Hx of cataract surgery Family History Family History Father No problems noted. Mother Diabetes Social History Social History Household Members: Children Household Members Other:: lives with daughter Housing: House Do you presently have visiting nurse or other home services: No Alcohol intake: current Alcohol intake frequency: a few times a week Patient Tobacco Use Status: Never used Tobacco Smoked in Last 30 Days: No e-Cigarette/Vaping Use: Never Used Use of substances other than those prescribed or required for medical reasons: No Advance Directives: No Advance Directives Information Provided: Yes Nutrition Risks: No Nutritional Risk service: No Current occupational status: retired Cognitive needs: No Hearing needs: No Vision needs: No Physical Exam 2 Vital Signs: Vital Signs: Last Vital Signs Temp 97.8 F 12/18/24 15:39 Pulse 73 12/18/24 15:39 Resp 16 12/18/24 15:39 BP 173/78 H 12/18/24 15:39 Pulse Ox 97 12/18/24 15:39 O2 Del Method Room Air 12/18/24 15:39 BMI result Body Mass Index 29.6 No acute distress Const: General: cooperative Nutritional Appearance: average body habitus Orientation/consciousness: patient oriented x3 HEENT: Head: Yes normal to inspection General nose exam: Normal external nose present Face and sinus: Yes normal facial exam Mouth: Normal oral and palatal mucosa present Throat: Yes posterior oropharynx normal Neck: Neck: Yes normal visual inspection Chest: Chest palpation & inspection: normal inspection of the chest Resp: Effort & Inspection: normal respiratory effort Auscultation: clear to auscultation bilaterally Cardio: Jugular venous distension: no JVD Rate: regular rate Rhythm: r egular rhythm GI: Inspection: Yes normal to inspection Palpation (GI): Soft to palpation, not firm and nontender Rectal Exam - Female: other (Rectal performed by ar bloody stool noted) Neuro: General: patient oriented x3 Course Reevaluation(s) Reevaluation #1: Case was discussed with GI Dr. Lyons he recommend admission Medications Administered Generic Name Dose Route Start Last Admin Trade Name Freq PRN Reason Stop Dose Admin Ceftriaxone Sodium 1 gm 12/18/24 13:00 12/18/24 13:06 Ceftriaxone Sodium 1 Gm Vial IVPUSH 1 gm Q24H LUCRECIA Administration Metronidazole 500 mg in 100 mls @ 100 mls/hr 12/18/24 14:00 12/18/24 15:34 Flagyl IV Infused Q8H LUCRECIA Infusion Discontinued Medications Generic Name Dose Route Start Last Admin Trade Name Freq PRN Reason Stop Dose Admin Iohexol 100 ml 12/18/24 10:59 12/18/24 10:59 Iohexol 350 Mg/Ml 100 Ml Infus..Btl IV 12/18/24 11:00 85 ml ONCE ONE Administration Medical Decision Making Medical Decision Making [facility] Narrative: Patient presented with rectal bleeding we will obtain CBC Differential Diagnosis Differential Diagnoses: The differential diagnosis associated with the presentation includes Diverticular bleeding, internal hemorrhoids Admission/Observation Consideration of admission/observation: Escalation of care including admission/observation considered Consult Healthcare Provider Management of the patient was discussed with: Publication Manager Dr Lyons Lab Data MDM Lab Attestation statement: I reviewed the patient's lab results. 12/18/24 08:53 12/18/24 08:53 Labs: Lab Results 12/18/24 12/18/24 Range/Units 08:53 09:25 WBC 7.6 (4.8-10.8) X10*3/uL RBC 4.09 L (4.20-5.50) X10*6/uL Hgb 12.5 (12.0-16.0) g/dl Hct 37.1 (37.0-47.0) % MCV 90.7 (80.0-98.0) fL MCH 30.6 (27.0-33.0) pg MCHC 33.7 (31.0-35.0) g/dl RDW 12.2 (11.0-16.0) % Plt Count 231 (160-400) X10*3/uL MPV 9.0 L (9.4-12.3) fL Immature Gran % (Auto) 0.1 (0.0-0.4) % Neut % (Auto) 40.6 L (45-73) % Lymph % (Auto) 50.7 H (20-40) % [place] % (Auto) 8.0 (2-11) % Eos % (Auto) 0.1 (0-4) % Baso % (Auto) 0.5 (0-2) % Lymph # (Auto) 3.9 (1.2-4.9) X10*3/uL [place] # (Auto) 0.6 (0.1-1.2) X10*3/uL Eos # (Auto) 0.0 (0.0-0.4) X10*3/uL Baso # (Auto) 0.0 (0.0-0.2) X10*3/uL Abs Immat Gran (auto) 0.01 (0.00-0.03) X10*3/uL Absolute Neuts (auto) 3.1 (2.0-8.3) x10*3/uL Absolute Nucleated RBC 0.000 (0.0-0.012) X10*3/uL Nucleated RBC % (auto) 0.0 (0.0-0.2) /100WBC Sodium 144 (135-145) mmol/L Potassium 3.8 (3.3-5.1) mmol/L Chloride 108 (96-108) mmol/L Carbon Dioxide 27 (22-29) mmol/L Anion Gap 13 (12-20) BUN 28 H (9-16) mg/dL Creatinine 0.94 (0.5-1.4) mg/dL Estim Creat Clear Calc 44.9 Estimated GFR 57 Random Glucose 94 (60-115) mg/dL Calcium 9.5 D (8.4-10.2) mg/dL Total Bilirubin 0.4 (0.0-1.0) mg/dL AST 18 (5-31) U/L ALT 14 (0-31) U/L Alkaline Phosphatase 68 (39-117) U/L Total Protein 7.1 (6.5-8.0) g/dL Albumin 4.1 (3.5-5.0) g/dL Stool Occult Blood POSITIVE (NEGATIVE) Discharge Plan Discharge Clinical Impression: Rectal bleeding Patient Disposition: Admitted As Inpatient
[2024-12-18 09:32] LABS: OBS1 POSITIVE (NEGATIVE)
[2024-12-18 09:33] LABS: OBS Int Ctl Valid YES
[2024-12-18] MEDS: iohexoL 350 MG/ML 100 ML INFUS..BTL IV (10:59)
--- NOTE | 2024-12-18 12:20 | P.HPHOSP_ITS ---
History of Present Illness Date of Service: 12/18/24 Attending physician on admission: [facility] Chief Complaint: rectal bleeding 84-year-old female with pertinent history of hypertension, gastroesophageal reflux disease, hyperlipidemia, mood disorder and hx diverticular bleed presented to the ED earlier todau for evaluation of a rectal bleed that occurred this morning. Reports an episode of stool with blood on the stool as well as in the toilet and when she wiped. No pain or straining with BM. Last normal BM yesterday. Is taking both naproxen and prednisone. No fevers, chills, n/v, urinary symptoms, constipation, diarrhea, melena. No bad foods. No one at home with similar symptoms. She is not on any blood thinners. Last colonoscopy 01/07/2024 which was negative for malignancy but did show fundic gland polyps with background mild inactive inflammation, negative H pylori. There was also severe diverticulosis and hemorrhoids. No active bleeding. Patient hemodynamically stable. H/H 12.5 7.1%. Renal function electrolyte levels normal. Stool occult blood positive. CTA of the abdomen/pelvis negative for active GI bleed though mild diverticulitis is suggested. There also severe chronic findings. Review of Systems 2 Review of Systems: Yes all other systems are reviewed and are negative [facility] Medical History Diverticulosis Wheezing Cough Palpitations Mammogram normal Rheumatoid aortitis Hyperlipidemia GERD (gastroesophageal reflux disease) Family History Father No problems noted. Mother Diabetes Surgical History History of esophagogastroduodenoscopy (EGD) Hx of tonsillectomy S/P partial hysterectomy H/O colonoscopy Hx of cataract surgery Social History Household Members: Children Household Members Other:: lives with daughter Housing: House Do you presently have visiting nurse or other home services: No Alcohol intake: current Alcohol intake frequency: a few times a week Patient Tobacco Use Status: Never used Tobacco Smoked in Last 30 Days: No e-Cigarette/Vaping Use: Never Used Use of substances other than those prescribed or required for medical reasons: No Currently Displaying Signs/Symptoms of Drug Intoxication Withdrawal: No Advance Directives: No Advance Directives Information Provided: Yes Nutrition Risks: No Nutritional Risk service: No Current occupational status: retired Cognitive needs: No Hearing needs: No Vision needs: No Meds Allergies Allergy/AdvReac Type Severity Reaction Status Date / Time hydralazine Allergy Intermediate Palpitation Verified 12/18/24 08:48 s triamterene AdvReac Abdominal Verified 12/18/24 08:48 Pain Active Medications: Current Medications Acetaminophen (Acetaminophen 325 Mg Tablet) 650 mg PO Q6H PRN PRN Reason: Pain, Mild 1-3,fever,headache Calcium Carbonate (Calcium Carbonate 750 Mg Tab.Chew) 750 mg PO Q4H PRN PRN Reason: Heartburn Melatonin (Melatonin 3 Mg Tablet) 6 mg PO BEDTIME PRN PRN Reason: Insomnia Sodium Chloride (0.9 % Sodium Chloride Flush 3 Ml Syringe) 3 ml IVFLUSH QSHIFT [facility] Home Medications ?Medication ?Instructions ?Recorded ?Confirmed ?Last Taken ?Type cholecalciferol (vitamin D3) 25 25 mcg PO DAILY 09/23/21 12/18/24 12/17/24 History mcg (1,000 unit) capsule (Vitamin D3) hydroxychloroquine 200 mg tablet 200 mg PO BID 01/06/24 12/18/24 12/17/24 History pantoprazole 40 mg tablet,delayed 40 mg PO DAILY@0630 12/18/24 12/18/24 12/17/24 History release Physical Exam 2 Vital Signs and Narrative: Vital Signs: Last Vital Signs Temp 98.2 F 12/18/24 09:10 Pulse 80 12/18/24 09:10 Resp 16 12/18/24 09:10 BP 159/78 H 12/18/24 09:10 Pulse Ox 97 12/18/24 09:10 O2 Del Method Room Air 12/18/24 09:10 BMI result Body Mass Index 29.6 Constitutional - Awake and Alert, No apparent distress Eyes - PERRLA, EOMI Cardiovascular - S1S2, RRR, No edema Respiratory - Normal lung expansion, Normal respiratory effort, No respiratory distress, CTA bilaterally Gastrointestinal - NT / ND; +BS; No rebound or guarding Extremities - no calf tenderness bilaterally, no swelling Skin - Warm/Dry Neurological - Alert & oriented x3 Psychological - Appropriate affect Results Labs 12/19/24 05:54 12/19/24 08:45 Labs: Laboratory Results - last 24 hr 12/18/24 12/18/24 08:53 09:25 MCV 90.7 MCH 30.6 MCHC 33.7 RDW 12.2 Plt Count 231 MPV 9.0 L Immature Gran % (Auto) 0.1 Neut % (Auto) 40.6 L Lymph % (Auto) 50.7 H [place] % (Auto) 8.0 Eos % (Auto) 0.1 Baso % (Auto) 0.5 Lymph # (Auto) 3.9 [place] # (Auto) 0.6 Eos # (Auto) 0.0 Baso # (Auto) 0.0 Abs Immat Gran (auto) 0.01 Absolute Neuts (auto) 3.1 Absolute Nucleated RBC 0.000 Nucleated RBC % (auto) 0.0 Anion Gap 13 Estim Creat Clear Calc 44.9 Estimated GFR 57 Random Glucose 94 Calcium 9.5 D Total Bilirubin 0.4 AST 18 ALT 14 Alkaline Phosphatase 68 Total Protein 7.1 Albumin 4.1 Stool Occult Blood POSITIVE Assessment and Plan (1) Rectal bleeding: Status: Acute Plan 84-year-old female with pertinent history of hypertension, gastroesophageal reflux disease, hyperlipidemia, RA, mood disorder and hx diverticular bleed to be observed for gi bleed Acute lower GI bleed No anemia. H/H 12.5/37.1%. Stool occult blood positive Last colonoscopy 01/20- fundic olyps no malignancy, severe diverticulosis, hemorrhoids CTA abd/pelvis wiht mild diverticulitis, no bleeding Hold prednisone, naproxen GI consult Regular diet for now Monitor on telemetry Acute mild diverticulitis No sepsis. Uncomplicated IV ctx, flagyl (12/18) HTN continue losartan, diltiazem RA Continue hydroxychloroquine GERD PPI Hyperlipidemia Statin DVT prophylaxis- SCPs Full code Quality Stroke Does the patient have a stroke diagnosis?: No VTE Prior VTE?: No VTE Risk Level:: Medical - moderate - high VTE Device Contraindication: N/A - Device Ordered VTE Drug Contraindication: Treatment Not Indicated
[2024-12-18] MEDS: cefTRIAXone sodium 1 GM VIAL IVPUSH (13:06)
--- NOTE | 2024-12-18 13:55 | PHA.MEDREC ---
Pharmacy Consult ? Medication Reconciliation Pharmacy has completed the medication reconciliation. Spoke to patient at bedside, she was able to confirm medication when read off a list to her. She did state that she no longer takes losartan, does not use a lidocaine patch, and was unfamiliar with the naproxen RX so I left it off her list. When asked about her prednisone taper she noted she started it Wednesday but thinks that is part of the reason she was here so asked me not to have it continued.
[2024-12-18] MEDS: metroNIDAZOLE/NS 500 MG/100 ML PIGGYBACK 100 MG IV ×2 (14:21→21:27)
--- NOTE | 2024-12-18 14:50 | CONS_ITS ---
DATE OF SERVICE: 12/18/2024 REFERRING PHYSICIAN: Dr. Gonzales REASON FOR CONSULTATION: GI bleeding. HISTORY OF PRESENT ILLNESS: Patient is a pleasant 84-year-old woman who presented to the emergency room complaining of bright red blood and clots, which began this morning. She has a history of diverticular bleeding and was hospitalized in December of last year with a diverticular bleed, requiring blood transfusion, 2 units. She subsequently underwent colonoscopy on January 06 and had upper endoscopy at the same time. Those records are reviewed. She had severe diverticulosis with no active bleeding. In the emergency department, she was evaluated with laboratory studies showing a hematocrit of 37.7 rectal examination disclosed red blood. Abdomen and pelvis imaging showed no evidence of active GI bleeding by CT angiography. PAST MEDICAL HISTORY: 1. GI bleeding as above. 2. Sciatica for which she has been taking prednisone recently. 3. Hypertension. 4. Gastroesophageal reflux disease. 5. Hyperlipidemia. 6. Mood disorder. 7. Arthritis. CURRENT MEDICATIONS: Her current medication list is reviewed in the chart. ALLERGIES: HYDRALAZINE AND TRIAMTERENE. FAMILY HISTORY: This is negative for GI malignancy. SOCIAL HISTORY: She does occasionally drink alcohol. There is no substance abuse. REVIEW OF SYSTEMS: SKIN: No pruritus. HEENT: Negative. CARDIOPULMONARY: No shortness of breath or chest pain. GASTROINTESTINAL: As above. GENITOURINARY: Negative. NEUROPSYCHIATRIC: Negative. PHYSICAL EXAMINATION: GENERAL: Shows a pleasant female, lying comfortably in bed. VITAL SIGNS: Reviewed in the electronic medical record and are stable. SKIN: Anicteric. HEENT: Shows no scleral icterus. NECK: Without lymphadenopathy or thyromegaly. LUNGS: Clear. HEART: Shows a regular rate and rhythm. S1, S2. No murmur. ABDOMEN: Soft without focal masses or tenderness. Bowel sounds are present. No organomegaly is noted. EXTREMITIES: Without edema. LABORATORY DATA AND IMAGING STUDIES: Reviewed. IMPRESSION: Gastrointestinal bleeding. The differential diagnosis for this includes diverticular bleeding, hemorrhoids, arteriovenous malformations, and mass lesions, which seem very unlikely given her previous evaluation. Because of her prior history of requiring 2 units of packed red blood cells, I would recommend observation in the hospital overnight and monitoring of her hematocrit. I discussed this with her. She can follow up with Dr. Olson as an outpatient. Thanks for asking me to see her. I will follow her in the hospital with you. MD MARK Johns/PIYUSH / [phone]
[2024-12-18] MEDS: amLODIPine Besylate 5 MG TABLET PO ×2 (16:48→21:48)
[2024-12-18] MEDS: 0.9 % Sodium Chloride Flush 3 ML SYRINGE IVFLUSH ×2 (16:49→21:27)
[2024-12-18] MEDS: Hydroxychloroquine Sulfate 200 MG TABLET PO (21:26)
[2024-12-19 03:15] VITALS: BP 141/63; PULSE 70; RESP 20; TEMP 36.4; O2SAT 98
[2024-12-19] MEDS: Omeprazole 20 MG CAPSULE.DR PO (05:22)
[2024-12-19] MEDS: metroNIDAZOLE/NS 500 MG/100 ML PIGGYBACK 100 MG IV (05:22)
[2024-12-19 06:36] LABS: MANUAL DIFF FLAG NO
[2024-12-19 06:48] LABS: Basophils Percent Auto 0.5 % (0-2); Eosinophils Absolute Auto 0.1 X10*3/uL (0.0-0.4); Eosinophils Percent Auto 1.8 % (0-4); Hematocrit 37.3 % (37.0-47.0); Hemoglobin 12.2 g/dl (12.0-16.0); Imm Gran Abs Auto 0.02 X10*3/uL (0.00-0.03); Imm Gran Pct Auto 0.3 % (0.0-0.4); Lymphocytes Absolute Auto 2.7 X10*3/uL (1.2-4.9); Lymphocytes Percent Auto 45.2 % (20-40); Mean Corpuscular HGB Conc 32.7 g/dl (31.0-35.0); Mean Corpuscular Volume 91.6 fL (80.0-98.0); Mean Platelet Volume 9.4 fL (9.4-12.3); Monocytes Absolute Auto 0.5 X10*3/uL (0.1-1.2); Monocytes Percent Auto 8.2 % (2-11); Neutrophils Absolute Auto 2.6 x10*3/uL (2.0-8.3); Platelet Count 215 X10*3/uL (160-400); Red Blood Count 4.07 X10*6/uL (4.20-5.50); Red Cell Distribution Width 12.3 % (11.0-16.0)
[2024-12-19 07:34] VITALS: BP 156/84; PULSE 76; RESP 18; TEMP 36.1; O2SAT 98
[2024-12-19] MEDS: Hydroxychloroquine Sulfate 200 MG TABLET PO (09:00)
[2024-12-19] MEDS: Atorvastatin Calcium 80 MG TABLET PO (09:00)
[2024-12-19] MEDS: Cholecalciferol (Vitamin D3) 25 MCG TABLET PO (09:00)
[2024-12-19] MEDS: dilTIAZem HCL CD 240 MG CAP.ER.DEG PO (09:00)
[2024-12-19] MEDS: 0.9 % Sodium Chloride Flush 3 ML SYRINGE IVFLUSH (09:03)
--- NOTE | 2024-12-19 09:19 | MHC.CM.PN ---
CM met with Patient, her Daughter, and her Sister at bedside and addressed PEREZ with her; original was given to Patient and a copy has been placed on the chart. Patient lives with her Daughter/Maria Elena on the second floor of a 2 family house and her other Daughter lives in the same 2 family, on the first floor. Patient is independent and still working. Home/self care is Patient's goal and CM has initiated and will follow for dc planning. PCP is Dr. Barbara Sanchez and Patient's Daughter will transport to home at dc.
[2024-12-19 09:36] LABS: Anion Gap 15 (12-20); Blood Urea Nitrogen 21 mg/dL (9-16); Calcium 9.3 mg/dL (8.4-10.2); Carbon Dioxide 24 mmol/L (22-29); Chloride 104 mmol/L (96-108); Estimated Glomerular Filt Rate > 60; Glucose Random 98 mg/dL (60-115); Potassium 3.9 mmol/L (3.3-5.1); Sodium 139 mmol/L (135-145)
--- NOTE | 2024-12-19 10:16 | P.DS_ITS ---
DS: Providers Provider Date of Service: 12/19/24 Date of admission: 12/18/24 12:14 Date of discharge: 12/19/24 Primary care physician: Barbara Sanchez MD DS: Diagnosis Discharge Diagnosis (1) Rectal bleeding: Status: Acute DS: Summary Hospital Course Hospital Course: admission hpi 84-year-old female with pertinent history of hypertension, gastroesophageal reflux disease, hyperlipidemia, mood disorder and hx diverticular bleed presented to the ED earlier todau for evaluation of a rectal bleed that occurred this morning. Reports an episode of stool with blood on the stool as well as in the toilet and when she wiped. No pain or straining with BM. Last normal BM yesterday. Is taking both naproxen and prednisone. No fevers, chills, n/v, urinary symptoms, constipation, diarrhea, melena. No bad foods. No one at home with similar symptoms. She is not on any blood thinners. Last colonoscopy 01/07/2024 which was negative for malignancy but did show fundic gland polyps with background mild inactive inflammation, negative H pylori. There was also severe diverticulosis and hemorrhoids. No active bleeding. Patient hemodynamically stable. H/H 12.5/30 7.1%. Renal function electrolyte levels normal. Stool occult blood positive. CTA of the abdomen/pelvis negative for active GI bleed though mild diverticulitis is suggested. There also severe chronic findings. hospital course: The patient was admitted overnight with no further evidence of bleeding. A repeat hemoglobin/hematocrit showed stable values, with hemoglobin at 12.2. She was evaluated by GI, who found no indication for endoscopic intervention at this time. A CT of the abdomen and pelvis suggested possible mild diverticulitis. She was started on Ceftriaxone and Metronidazole and will be treated for 5 days. Given the mild presentation?no fever, no leukocytosis, and no abdominal pain?no further interventions are planned at this time. Time Attestation Discharge Coordination Time (in mins): 45 Quality: Safe Use of Opioids Does Pt have an Active Cancer Diagnosis on the Problem List?: No Quality: Stroke Does the patient have a stroke diagnosis?: No Physical Exam Vital Signs: Vital Signs: Last Vital Signs Temp 97.0 F 12/19/24 07:34 Pulse 76 12/19/24 07:34 Resp 18 12/19/24 07:34 BP 156/84 H 12/19/24 07:34 Pulse Ox 98 12/19/24 07:34 O2 Del Method Room Air 12/19/24 07:34 BMI result Body Mass Index 29.4 DS: Data Data Completed and Pending Completed studies during hospitalization [Text1]: Procedures Excision of Stomach, Pylorus, Via Natural or Artificial Opening Endoscopic, Diagnostic (01/05/24) Inspection of Lower Intestinal Tract, Via Natural or Artificial Opening Endoscopic (01/05/24) Transfusion of Nonautologous Red Blood Cells into Peripheral Vein, Percutaneous Approach (01/05/24) Labs on day of discharge: Laboratory Results - last 24 hr 12/19/24 12/19/24 05:54 08:45 WBC 6.0 RBC 4.07 L Hgb 12.2 Hct 37.3 MCV 91.6 MCH 30.0 MCHC 32.7 RDW 12.3 Plt Count 215 MPV 9.4 Immature Gran % (Auto) 0.3 Neut % (Auto) 44.0 L Lymph % (Auto) 45.2 H Rutherford % (Auto) 8.2 Eos % (Auto) 1.8 Baso % (Auto) 0.5 Lymph # (Auto) 2.7 Rutherford # (Auto) 0.5 Eos # (Auto) 0.1 Baso # (Auto) 0.0 Abs Immat Gran (auto) 0.02 Absolute Neuts (auto) 2.6 Absolute Nucleated RBC 0.000 Nucleated RBC % (auto) 0.0 Sodium 139 Potassium 3.9 Chloride 104 Carbon Dioxide 24 Anion Gap 15 BUN 21 H Creatinine 0.78 Estim Creat Clear Calc 54.0 Estimated GFR > 60 Random Glucose 98 Calcium 9.3 Discharge Plan Discharge Anticipated Discharge Date/Time: 12/19/24 10:27 Patient Disposition: Home, Self-Care Discharge Diagnosis: Gi bleeding, acute diverticulitis Referrals: Barbara Sanchez MD [Primary Care Provider] - 1 Week Discharge Medications: New metronidazole 500 mg tablet 500 mg PO BID Qty: 12 0RF cefuroxime axetil 500 mg tablet 500 mg PO BID 4 Days Qty: 8 0RF Continued pantoprazole 40 mg tablet,delayed release (DR/EC) 40 mg PO DAILY@0630 hydroxychloroquine 200 mg tablet 200 mg PO BID cholecalciferol (vitamin D3) [Vitamin D3] 25 mcg (1,000 unit) capsule 25 mcg PO DAILY rosuvastatin 20 mg tablet 20 mg PO DAILY Qty: 90 3RF diltiazem HCl [Cardizem CD] 240 mg capsule,extended release 24hr 240 mg PO DAILY Qty: 90 3RF Discharge Orders: Discharge Order (Routine); Ordered 12/19/24 Ordered By: Fer Russell Diet: Advance to usual diet Activity on Discharge: As tolerated Stand Alone Forms: Patient Portal Discharge page Print Language: Serbian Care Plan Goals: Monitor for recurrent bleeding, treat mild diverticulitis with antibiotics, m aintain stable hemoglobin, and prevent complications. Health Concerns: Recent gastrointestinal bleeding (now resolved), possible mild diverticulitis, risk of recurrence or infection progression, and need for monitoring of hemoglobin stabilit Plan of Treatment: Finish your 5-day course of antibiotics as prescribed. Eat a low-fiber diet while your gut heals. Watch for fever, worsening belly pain, or bleeding?go to the ER if these occur. Follow up with your doctor in a week, call for appointment Assessment: see above
--- NOTE | 2024-12-19 10:57 | MHC.CM.PN ---
Patient has been medically cleared for dc to home today, self care.
[2024-12-19 11:11] VITALS: BP 140/70; PULSE 83; RESP 16; TEMP 36.3; O2SAT 95
== END 2024-12-19 12:29 | disposition home or self-care (01) ==
LOC: HO.ED 12:05 → HO.EDOVER 12:25 → HO.IMC 16:12
PROVIDERS: Admitting Provider Physician Assistant; Emergency Provider Emergency Medicine; PCP Internal Medicine; Visit Provider Internal Medicine
DX: K57.91 Diverticulosis of intestine, part unspecified, without perforation or abscess with bleeding (principal); K62.5 Hemorrhage of anus and rectum; I10 Essential (primary) hypertension; K21.9 Gastro-esophageal reflux disease without esophagitis; E78.5 Hyperlipidemia, unspecified; F39 Unspecified mood [affective] disorder; M06.9 Rheumatoid arthritis, unspecified; Z79.899 Other long term (current) drug therapy
CPT/HCPCS: 36415; 74174; 80048; 80053; 82272; 85025; 96365; 96366; 96375; 99222; 99285; J0696; J1836; Q9967

== ENCOUNTER → 2024-12-18 09:57 | Outpatient (BNV) | payer MEDICARE, SELFPAY | PROVIDERS: Emergency Provider Emergency Medicine; PCP Internal Medicine; Visit Provider Radiology Vascular & Interventional Radiology | DX: K92.2 Gastrointestinal hemorrhage, unspecified (principal) | CPT/HCPCS: 74174 ==

== ENCOUNTER → 2024-12-18 12:14 | Outpatient (BNV) | payer MEDICARE, SELFPAY | PROVIDERS: Admitting Provider Physician Assistant; Emergency Provider Emergency Medicine; PCP Internal Medicine; Visit Provider Physician Assistant | DX: K62.5 Hemorrhage of anus and rectum (principal) | CPT/HCPCS: 99223 ==

== ENCOUNTER 2024-12-22 14:58 | Outpatient (AMB) | payer MEDICARE, SELFPAY ==
--- NOTE | 2024-12-22 14:59 | MHC.OFFVIS ---
Vital Signs 12/22/24 15:04 Height 5 ft 2 in Weight 160 lb BMI 29.3 BP 154/70 H Blood Pressure Location Lt brachial Position Sitting Pulse 90 Pulse Source Pulse Oximeter Pulse Oximetry (%) 99 Oxygen Delivery Method Room Air Intake Visit Reasons: Sciatica, Unspecified Site Intake Note: Pain today 02/06 [employer] Manager Required: No Accompanied by: Self / Same As Patient Allergies hydralazine Allergy (Intermediate, Verified 12/22/24 15:05) Palpitations triamterene Adverse Reaction (Verified 12/22/24 15:05) Abdominal Pain HPI Comments Details: The patient is an 84-year-old female presenting with pain radiating from the lower back down the right leg. She has suffered with this pain for around 15 years, with worsening pain on sitting, increasing age, and job changes. Pain exacerbates while sitting but improves with movement. She has osteoarthritis managed with hydroxychloroquine and recently suffered gastrointestinal bleeding after NSAID use. The patient is currently not using effective pain relief consistently and emphasizes her desire to remain active and working despite her symptoms. Endorses burning, numbness, tingling and electrical/zapping pain shooting down the right leg to the toes, intermittently. Denies recent injury, fall, trauma Multiple visits over last several months to pcp/walk-in/ER for this pain. Completed several courses of NSAIDS and prednisone but pain persists. Denies red flag symptoms including new loss of bowel, bladder or saddle anesthesia - Onset: Approximately 15 years ago; worsening recently. - Quality: Electric, shooting pain down the right leg. - Primary location: Lower back with pain radiating down the right leg to toes. - Exacerbating factors: Prolonged sitting, inactivity. - Relieving factors: Movement, walking, and heat application. - Interference: Limits mobility, especially after sitting; impacts work capability. - Affect: No significant mood issues; keen on staying active. - Analgesia: Primarily uses heat packs and Tylenol; prefers avoiding prednisone and NSAIDs due to past bleeding episodes. - Adverse Effects: Prior gastrointestinal bleeding from NSAID use. - Activities of Daily Living: Pain impacts her ability to sit and stand easily, but not significantly affecting walking. - Aberrant Drug Related Behaviors: None reported. [facility] Medical History Diverticulosis Wheezing Cough Palpitations Mammogram normal Rheumatoid aortitis Hyperlipidemia GERD (gastroesophageal reflux disease) Surgical History History of esophagogastroduodenoscopy (EGD) Hx of tonsillectomy S/P partial hysterectomy H/O colonoscopy Hx of cataract surgery Family History Father No problems noted. Mother Diabetes Social History Household Members: Children Household Members Other:: lives with daughter Housing: House Do you presently have visiting nurse or other home services: No Alcohol intake: current Alcohol intake frequency: a few times a week Patient Tobacco Use Status: Never used Tobacco e-Cigarette/Vaping Use: Never Used service: No Current occupational status: retired Cognitive needs: No Hearing needs: No Vision needs: No Review of Systems Const Details: - Musculoskeletal: Reports pain in lower back and right leg; denies pain in the left leg. - Neurological: Reports electric, shooting sensation down the right leg. - Gastrointestinal: Reports past gastrointestinal bleeding. - General: Denies lethargy or fatigue. - Integumentary: Denies rashes or lesions. Physical Exam Vital Signs: Last Vital Signs Pulse 90 12/22/24 15:04 BP 154/70 H 12/22/24 15:04 Pulse Ox 99 12/22/24 15:04 Oxygen Delivery Method Room Air 12/22/24 15:04 BMI result Body Mass Index 29.3 General: awake, alert, oriented. Answers questions appropriately. Fully engaged in examination. Skin: warm, dry, intact HEENT: Normocephalic. Hearing intact. Cardiac: External chest normal in appearance. Respiratory: No cough, audible wheezing or stridor. Abdomen: without gross distension. MS: No obvious swelling or deformities. Able to stand on bilateral tiptoes and bilateral heels.? Able to transition from sit to stand unassisted. Ambulates with bilaterally normal heel strike and toe off Bilateral lower extremity strength 5/5 Full lumbar range of motion SLR positive on the right Nontender over bilateral PSIS Tenderness over midline lumbar vertebrae and lumbar paraspinal muscles Neurological: Oriented to person, place, time and situation. Thought process intact. No gait abnormalities appreciated. Psychiatric: Appropriate mood and affect. Good judgment and insight. Results Reviewed Results Reviewed: 07/31/24 XR LUMBOSACRAL SPINE TECHNIQUE: Three views of the lumbosacral spine. FINDINGS: There is mild curvature of the lumbar spine convex to the right on the AP image. The sagittal alignment is normal. There is moderate to severe L3-4 disc degenerative change and mild to moderate degenerative changes throughout the remaining thoracolumbar spine with loss of disc space, endplate change and osteophyte formation. There is also mild to moderate thoracolumbar facet degenerative change most pronounced in the lower lumbar spine. The bone mineralization is within normal limits. The vertebral body heights are maintained. The soft tissues are unremarkable. There is atherosclerotic plaque of the abdominal aorta and iliac vessels. The soft tissues are grossly unremarkable. XR/XR lumbar spine 2-3V IMPRESSION: 1. No compression fracture. 2. Moderate degenerative changes of the lumbar spine. 3. Atherosclerosis. Assessment & Plan Assessment & Plan (1) Lumbar radiculopathy: Code(s): M54.16 - Radiculopathy, lumbar region Category: Medical (2) Chronic back pain: Code(s): M54.9 - Dorsalgia, unspecified; G89.29 - Other chronic pain Category: Medical (3) Lumbar spondylosis: Code(s): M47.816 - Spondylosis without myelopathy or radiculopathy, lumbar region Category: Medical Plan The plan involves obtaining an MRI to evaluate potential nerve compression. The patient will attempt lidocaine patches for local pain management and consider physical therapy based on insurance approval to maintain mobility. Further interventions like nerve block injections will be considered depending on MRI results. Education on activity modification and ongoing osteoarthritis management will be emphasized to support long-term pain management plans. I explained the need for an MRI to clarify the source of her pain, suspecting nerve impingement as a contributor to the radicular pain. We discussed avoiding NSAIDs due to her history of gastrointestinal bleeding and considered alternative methods such as lidocaine patches for local pain control. I recommended starting physical therapy if financially viable to aid mobility and enhance her activity levels. I outlined potential future interventions, including nerve block injections if indicated by further diagnostic results. The patient acknowledges the need for continued working to remain active and engaged. Patient was informed and verbally consented to the use of an ambient scribe for clinic note documentation during this visit. Orders: Orders MR lumbar spine wo con Today G89.29 - Other chronic pain, M47.816 - Spondylosis without myelopathy or radiculopathy, lumbar region, M54.16 - Radiculopathy, lumbar region, M54.9 - Dorsalgia, unspecified PT Evaluation and Treatment Today G89.29 - Other chronic pain, M47.816 - Spondylosis without myelopathy or radiculopathy, lumbar region, M54.16 - Radiculopathy, lumbar region, M54.9 - Dorsalgia, unspecified Medications: New lidocaine 5% leave on most painful area for up to 12 hrs 1 patch topical DAILY 30 ea 3RF Patient Instructions: - Arrange MRI as soon as possible. - Use lidocaine patch for local pain relief once available. - Explore physical therapy depending on insurance coverage. - Avoid NSAIDs due to risk of gastrointestinal bleeding. - Engage in regular, moderate activity to maintain mobility and reduce pain. - Follow up with medical provider for further management based on MRI results. - Report any new symptoms or worsening pain immediately. Coding Level of Care Code New Pt Level 4 (69266) Complex EM visit Add On G2211 Diagnoses Lumbar radiculopathy M54.16 Chronic back pain M54.9; G89.29 Lumbar spondylosis M47.816
[2024-12-22 15:04] VITALS: BP 154/70; PULSE 90; O2SAT 99; BMI 29.3
== END 2024-12-22 15:27 | disposition home or self-care (01) ==
LOC: HO.PMC 14:58
PROVIDERS: PCP Internal Medicine; Referring Provider Internal Medicine; Visit Provider Registered Nurse Emergency
DX: M54.16 Radiculopathy, lumbar region (principal); M54.9 Dorsalgia, unspecified; G89.29 Other chronic pain; M47.816 Spondylosis without myelopathy or radiculopathy, lumbar region
CPT/HCPCS: 99204; G2211

== ENCOUNTER → 2024-12-22 14:58 | Outpatient (BNVA) | payer MEDICARE, SELFPAY | PROVIDERS: PCP Internal Medicine; Referring Provider Internal Medicine; Visit Provider Registered Nurse Emergency | DX: M54.16 Radiculopathy, lumbar region (principal); M54.9 Dorsalgia, unspecified; M47.816 Spondylosis without myelopathy or radiculopathy, lumbar region; G89.29 Other chronic pain | CPT/HCPCS: 99202 ==

== ENCOUNTER → 2024-12-28 07:53 | Outpatient (BNV) | payer MEDICARE, SELFPAY | PROVIDERS: PCP Internal Medicine; Referring Provider Internal Medicine; Visit Provider Radiology Diagnostic Radiology | DX: M47.895 Other spondylosis, thoracolumbar region (principal); M48.00 Spinal stenosis, site unspecified; M99.53 Intervertebral disc stenosis of neural canal of lumbar region; G96.191 Perineural cyst; M25.461 Effusion, right knee; M76.51 Patellar tendinitis, right knee | CPT/HCPCS: 72148; 73560 ==

== ENCOUNTER 2024-12-28 07:54 | Outpatient (REF) | payer MEDICARE, SELFPAY ==
--- NOTE | ~2024-12-28 | MR_ITS ---
EXAMINATION: MR LUMBAR SPINE WITHOUT CONTRAST CLINICAL INFORMATION: Radiculopathy, lumbar region. COMPARISON: None available. TECHNIQUE: MRI of the lumbar spine was obtained using routine sequences without contrast. FINDINGS: Last rib-bearing vertebra labeled T12. Bone marrow STIR signal within the endplates of L2-3, L3-4 and to a lesser extent T12-L1 and T9-10. Bone marrow inhomogeneity. Multilevel marginal osteophyte formation and disc desiccation from T11-10 to L5-S1. Grade 1 retrolisthesis, T12-L1, L1 to and L3-4 levels. S-shaped curvature of the lumbar spine which could be positional. Small bilateral perineural cysts at T12-L1 and T10-11 and larger perineural cysts at S1 to. 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 T10-11: No disc herniation. No neuroforamina stenosis. T11-12: Facet joint and ligamentum flavum hypertrophy. Bilateral neuroforamina narrowing on a degenerative basis. T12-L1: Bilateral facet joint and ligamentum flavum hypertrophy. Broad-based disc bulging. Bilateral neuroforamina stenosis. Reduced AP diameter of the thecal sac. L1-2: Broad-based disc bulging. Facet joint and ligamentum flavum hypertrophy. Reduced AP diameter of the thecal sac and neuroforamina. L2-3: Broad-based disc bulging. Facet joint and ligamentum flavum hypertrophy. Reduced AP diameter of the thecal sac and the left neural foramen. L3-4: Broad-based disc bulging. Facet joint and ligamentum flavum hypertrophy. Reduced AP diameter of the thecal sac and the neural foramina encroaching the neural elements. L4-5: Facet joint and ligamentum flavum hypertrophy. Broad-based disc bulging. Central spinal canal and bilateral neuroforamina stenosis encroaching the neural elements. L5-S1: Bilateral perineural cysts, left greater than the right side. Broad-based disc bulging. Facet joint and ligamentum flavum hypertrophy. Central spinal canal and bilateral neuroforamina stenosis encroaching the neural elements. No prevertebral compartment hematoma, mass or fluid collection. Volume loss of the right psoas muscle. Fatty atrophy of the lower lumbar muscles. MR/MR lumbar spine wo con IMPRESSION: Multilevel thoracolumbar spondylosis resulting in central spinal canal and bilateral neuroforamina stenosis from L2-3 to L5-S1. Multilevel bilateral perineural cysts. Electronically signed by: Bon Kelsey MD 12/28/2024 03:28 PM EDT
--- NOTE | ~2024-12-28 | XR_ITS ---
EXAMINATION: XR KNEE, RIGHT CLINICAL INFORMATION: M25.561 - Pain in right knee COMPARISON: November 19, 2012 is not available on PACS system. TECHNIQUE: Two views of the right knee. FINDINGS: Space narrowing involving the lateral and to a lesser extent medial compartment. Exostosis in the anterior superior patella and to a lesser extent anterior inferior patella. Suprapatellar bursa joint effusion, moderate to large volume. No acute cortical disruption or malalignment. Calcifications likely vascular. No lytic or blastic lesions. XR/XR knee RT 2V IMPRESSION: Mild bicompartmental osteoarthrosis. Suprapatellar bursa joint effusion, moderate to large volume. Enthesopathy, quadriceps tendon and patellar tendon. Electronically signed by: Bon Kelsey MD 12/28/2024 03:30 PM EDT
== END 2024-12-28 07:55 | disposition home or self-care (01) ==
LOC: HO.MRI 07:54
PROVIDERS: PCP Internal Medicine; Referring Provider Internal Medicine; Visit Provider Registered Nurse Emergency
DX: M54.16 Radiculopathy, lumbar region (principal); M54.9 Dorsalgia, unspecified; G89.29 Other chronic pain; M47.816 Spondylosis without myelopathy or radiculopathy, lumbar region; M25.561 Pain in right knee; K57.92 Diverticulitis of intestine, part unspecified, without perforation or abscess without bleeding; I10 Essential (primary) hypertension
CPT/HCPCS: 72148; 73560; 96127; 99212

== ENCOUNTER 2024-12-28 12:48 | Outpatient (AMB) | payer MEDICARE, SELFPAY ==
[2024-12-28 13:05] VITALS: BP 122/68; PULSE 70; RESP 18; TEMP 36.8; O2SAT 97
--- NOTE | 2024-12-28 13:05 | A.OFFPC_ITS ---
Vital Signs 12/28/24 13:05 Height 5 ft 2 in Weight 164 lb BMI 30.0 BP 122/68 Blood Pressure Location Lt brachial Position Sitting Respiration 18 Pulse 70 Pulse Source Pulse Oximeter Temp 98.3 F Temp Source Oral Pulse Oximetry (%) 97 Oxygen Delivery Method Room Air Intake Visit Reasons: Hospital follow up Intake Note: Pt is here today for Hospital follow up visit. Allergies hydralazine Allergy (Intermediate, Verified 12/28/24 13:06) Palpitations triamterene Adverse Reaction (Verified 12/28/24 13:06) Abdominal Pain Tobacco use date assessed: 12/28/24 Fall risk assessment: No Falls in past year Last assessed Fall Risk: 12/28/24 Dental Screening Dental Screen Date: 09/26/24 [facility] Hospital follow up HPI Details Patient presents for the follow-up of [facility] admission for self-limited rectal bleed. Patient had a CT of the abdomen consistent with mild diverticulitis she was treated with cefuroxime and metronidazole. Patient is a H/H was stable and he denies any recurrent bleeding. Patient had a colonoscopy in December 2023 consistent with severe diverticular disease and hemorrhoids. Patient denies diarrhea constipation fever chills nausea vomiting. She complains of chronic right knee pain and swelling worse when walking. [facility] Medical History (Updated 12/28/24 @ 13:52 by Barbara Sanchez MD) Knee pain, right Diverticulitis Diverticulosis Wheezing Cough Palpitations Mammogram normal Rheumatoid aortitis Hyperlipidemia GERD (gastroesophageal reflux disease) Surgical History History of esophagogastroduodenoscopy (EGD) Hx of tonsillectomy S/P partial hysterectomy H/O colonoscopy (~01/14/23) Hx of cataract surgery Family History Father No problems noted. Mother Diabetes Social History Household Members: Children Household Members Other:: lives with daughter Housing: House Do you presently have visiting nurse or other home services: No Alcohol intake: current Alcohol intake frequency: a few times a week Patient Tobacco Use Status: Never used Tobacco e-Cigarette/Vaping Use: Never Used service: No Current occupational status: retired Cognitive needs: No Hearing needs: No Vision needs: No Questionnaire PHQ-9 Over the last 2 weeks, how often have you been bothered by any of the following problems? 1. Little interest or pleasure in doing things: nearly every day 2. Feeling down, depressed, or hopeless: not at all 3. Trouble falling or staying asleep, or sleeping too much: not at all 4. Feeling tired or having little energy: not at all 5. Poor appetite or overeating: not at all 6. Feeling bad about yourself - or that you are a failure or have let yourself or your family down: not at all 7. Trouble concentrating on things, such as reading the newspaper or watching television: not at all 8. Moving or speaking so slowly that other people could have noticed. Or the opposite - being so fidgety or restless that you have been moving around a lot more than usual: not at all 9. Thoughts that you would be better off or of hurting yourself in some way: not at all Total score: 3 Depression Screening Interpretation: Negative Depression Screening Done: Yes [id number] - PHQ-9 Billing: Yes Source: Developed by Drs. Luis Angel Gary, Isa Ramirez, Jamil Cooper and colleagues, with an educational jeremias from [employer]. Thrive Questionnaire Date Thrive assessed: 09/26/24 I am a: Patient What is your living situation today?: I have a steady place to live Within the past 12 months, did the food you bought not last and you didn't have the money to get more?: Often true Within the past 12 months, did you worry whether your food would run out before you got money to buy more?: I choose not to answer this question Do you have trouble paying for medicines?: No Do you have trouble getting transportation to medical appointments?: No Do you have trouble paying your heating and electricity bill?: No Do you have trouble taking care of your child, family member or friend?: No Do you have trouble with day-to-day activities such as bathing, preparing meals, shopping, managing finances, etc.?: No Are you currently unemployed and looking for a job?: Yes Are you interested in more education?: No Please select the resources that you would like help with: Paying for medicine Currently or been in a relationship where the following occur: No concerns reported THRIVE Score: 1 KAYLEN-7 AMB Questionnaire KAYLEN-7 Date KAYLEN - 7 assessed: 09/26/24 Source: Developed by Drs. Luis Angel Gary, Isa Ramirez, Jamil Cooper and colleagues, with an educational jeremias from [employer]. Review of Systems Const All systems reviewed & are unremarkable except as noted in HPI and below Eyes Reports no additional complaints ENT Reports no additional complaints Card Reports no additional complaints Resp Reports no additional complaints GI Reports no additional complaints Reports no additional complaints Physical exam (Primary Care) Vital Signs: Last Vital Signs Temp 98.3 F 12/28/24 13:05 Pulse 70 12/28/24 13:05 Resp 18 12/28/24 13:05 BP 122/68 12/28/24 13:05 Pulse Ox 97 12/28/24 13:05 Oxygen Delivery Method Room Air 12/28/24 13:05 BMI result Body Mass Index 30.0 Tobacco/Smoking Status: Tobacco use Status Tobacco use date assessed 12/28/24 12/28/24 13:10 Patient Tobacco Use Status Never used Tobacco 12/28/24 13:10 e-Cigarette/Vaping Use Never Used 12/28/24 13:10 PHQ-9: PHQ-9 Score PHQ-9: Total score 3 12/28/24 13:10 Depression Screening Interpretation: Negative Thrive Assessment: Date of Thrive Assessment Date Thrive assessed 09/26/24 12/28/24 13:10 Currently or been in a relationship where the following occur: No concerns reported Const General: no acute distress HENMT Mouth: Normal oral and palatal mucosa present Resp Effort & Inspection: normal respiratory effort Auscultation: clear to auscultation bilaterally Cardio Rhythm: regular rhythm Heart sounds: S1 normal heart sound present and S2 normal heart sound present GI Inspection: Yes normal to inspection Palpation (GI): Soft to palpation Percussion: Yes normal to percussion Auscultation: normal bowel sounds Extrem Other: There is decreased range of motion and crepitus in soft tissue swelling but no erythema or warmth of the right knee Coding Level of Care Code Est Pt Level 4 (46849) Diagnoses Knee pain, right M25.561 Diverticulitis K57.92 HTN (hypertension) I10 Additional Codes PHQ-9 - 76000 - PHQ-9 Billing: Yes ([id number]) Assessment & Plan Assessment & Plan (1) Knee pain, right: Code(s): M25.561 - Pain in right knee Category: Medical Plan: Obtain knee x-ray referred to ortho depending on the results (2) Diverticulitis: Comment: Colonoscopy consistent with severe diverticulosis and hemorrhoids December 2023 Code(s): K57.92 - Diverticulitis of intestine, part unspecified, without perforation or abscess without bleeding Category: Medical Plan: Resolved after a course of antibiotics. High-fiber diet discussed with the patient (3) HTN (hypertension): Comment: Intolerant to hydralazine, Olmesartan and Dyzide Code(s): I10 - Essential (primary) hypertension Category: Medical Plan: Continue diltiazem Orders: Orders XR knee RT 2V Today M25.561 - Pain in right knee
== END 2024-12-28 13:54 | disposition home or self-care (01) ==
LOC: HO.HMCC 12:49
PROVIDERS: PCP Internal Medicine; Visit Provider Internal Medicine
DX: M25.561 Pain in right knee (principal); K57.92 Diverticulitis of intestine, part unspecified, without perforation or abscess without bleeding; I10 Essential (primary) hypertension

== ENCOUNTER 2025-01-10 13:50 | Outpatient (AMB) | payer MEDICARE, SELFPAY ==
--- NOTE | 2025-01-10 14:00 | A.OFFVIS_ITS ---
Vital Signs 01/10/25 14:01 Height 5 ft 2 in Weight 166 lb BMI 30.4 BP 174/82 H Blood Pressure Location Lt brachial Position Sitting Pulse 82 Pulse Oximetry (%) 96 Intake Visit Reasons: MRI FOLLOW UP Allergies hydralazine Allergy (Intermediate, Verified 12/28/24 13:06) Palpitations triamterene Adverse Reaction (Verified 12/28/24 13:06) Abdominal Pain Medication List - Last Reconciled 01/10/25 by Carrol Maldonado LPN cefuroxime axetil 500 mg PO BID 4 days cholecalciferol (vitamin D3) (Vitamin D3) 25 mcg PO DAILY diltiazem HCl CD (Cardizem CD) 240 mg PO DAILY hydroxychloroquine 200 mg PO BID lidocaine 5% 1 patch topical DAILY metronidazole 500 mg PO BID naproxen 500 mg PO BID pantoprazole 40 mg PO DAILY@0630 rosuvastatin 20 mg PO DAILY HPI Comments Details: The patient is an 84-year-old female presenting with chronic low back pain with right lower limb radiculopathy. Recent MRI findings also indicate narrowing at L4-5 and L5-S1 levels, with pressure on the nerves, potentially leading to the described symptoms. The pain reportedly begins in the lower back, radiating down her right side to the foot, accompanied by swelling in the right knee. The patient's pain experience dates back years, but has worsened, predominantly affecting her right side. She describes the exacerbation of symptoms with prolonged sitting and notes her current limitation due to pain, affecting her ability to engage in previous levels of activity. Despite prescription medications, she experiences inadequate relief and expresses readiness for alternative interventions, such as steroid injections, to manage inflammation and nerve irritation. - Onset: Chronic, with worsening over the past few years - Quality: Described as severe pain in the lower back, radiating down the right leg to the foot - Location: Lower back, primarily affecting the right side - Radiation: Pain extends from the lower back to the right foot - Exacerbating factors: Prolonged sitting - Interference with activity: Limits ability to engage in daily activities, prefers to avoid sitting due to pain - Affect: Frustration over the impact on daily life and limited activity due to pain - Analgesia: Prior medications have provided limited relief - Adverse Effects: Not explicitly stated, but dissatisfaction with current medication effectiveness - Activities of Daily Living: Significant restriction due to pain intensity and location; ongoing challenges with basic mobility - Aberrant Drug Related Behaviors: None reported Prior: The patient is an 84-year-old female presenting with pain radiating from the lower back down the right leg. She has suffered with this pain for around 15 years, with worsening pain on sitting, increasing age, and job changes. Pain exacerbates while sitting but improves with movement. She has osteoarthritis managed with hydroxychloroquine and recently suffered gastrointestinal bleeding after NSAID use. The patient is currently not using effective pain relief consistently and emphasizes her desire to remain active and working despite her symptoms. Endorses burning, numbness, tingling and electrical/zapping pain shooting down the right leg to the toes, intermittently. Denies recent injury, fall, trauma Multiple visits over last several months to pcp/walk-in/ER for this pain. Completed several courses of NSAIDS and prednisone but pain persists. Denies red flag symptoms including new loss of bowel, bladder or saddle anesthesia - Onset: Approximately 15 years ago; worsening recently. - Quality: Electric, shooting pain down the right leg. - Primary location: Lower back with pain radiating down the right leg to toes. - Exacerbating factors: Prolonged sitting, inactivity. - Relieving factors: Movement, walking, and heat application. - Interference: Limits mobility, especially after sitting; impacts work capability. - Affect: No significant mood issues; keen on staying active. - Analgesia: Primarily uses heat packs and Tylenol; prefers avoiding prednisone and NSAIDs due to past bleeding episodes. - Adverse Effects: Prior gastrointestinal bleeding from NSAID use. - Activities of Daily Living: Pain impacts her ability to sit and stand easily, but not significantly affecting walking. - Aberrant Drug Related Behaviors: None reported. [facility] Medical History (Updated 12/29/24 @ 08:22 by Barbara Sanchez MD) Knee pain, right Diverticulitis Diverticulosis Wheezing Cough Palpitations Mammogram normal Rheumatoid aortitis Hyperlipidemia GERD (gastroesophageal reflux disease) Surgical History History of esophagogastroduodenoscopy (EGD) Hx of tonsillectomy S/P partial hysterectomy H/O colonoscopy (~01/14/23) Hx of cataract surgery Family History Father No problems noted. Mother Diabetes Social History Household Members: Children Household Members Other:: lives with daughter Housing: House Do you presently have visiting nurse or other home services: No Alcohol intake: current Alcohol intake frequency: a few times a week Patient Tobacco Use Status: Never used Tobacco e-Cigarette/Vaping Use: Never Used service: No Current occupational status: retired Cognitive needs: No Hearing needs: No Vision needs: No Review of Systems Const Details: - Musculoskeletal: Reports chronic low back pain, right knee swelling - Neurological: Denies bladder or bowel incontinence - General: Reports difficulty with pain management, impacting daily function Physical Exam Vital Signs: Last Vital Signs Pulse 82 01/10/25 14:01 BP 174/82 H 01/10/25 14:01 Pulse Ox 96 01/10/25 14:01 BMI result Body Mass Index 30.4 Results Reviewed Results Reviewed: 12/28/24 MR LS FINDINGS: Last rib-bearing vertebra labeled T12. Bone marrow STIR signal within the endplates of L2-3, L3-4 and to a lesser extent T12-L1 and T9-10. Bone marrow inhomogeneity. Multilevel marginal osteophyte formation and disc desiccation from T11-10 to L5-S1. Grade 1 retrolisthesis, T12-L1, L1 to and L3-4 levels. S-shaped curvature of the lumbar spine which could be positional. Small bilateral perineural cysts at T12-L1 and T10-11 and larger perineural cysts at S1 to. 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 T10-11: No disc herniation. No neuroforamina stenosis. T11-12: Facet joint and ligamentum flavum hypertrophy. Bilateral neuroforamina narrowing on a degenerative basis. T12-L1: Bilateral facet joint and ligamentum flavum hypertrophy. Broad-based disc bulging. Bilateral neuroforamina stenosis. Reduced AP diameter of the thecal sac. L1-2: Broad-based disc bulging. Facet joint and ligamentum flavum hypertrophy. Reduced AP diameter of the thecal sac and neuroforamina. L2-3: Broad-based disc bulging. Facet joint and ligamentum flavum hypertrophy. Reduced AP diameter of the thecal sac and the left neural foramen. L3-4: Broad-based disc bulging. Facet joint and ligamentum flavum hypertrophy. Reduced AP diameter of the thecal sac and the neural foramina encroaching the neural elements. L4-5: Facet joint and ligamentum flavum hypertrophy. Broad-based disc bulging. Central spinal canal and bilateral neuroforamina stenosis encroaching the neural elements. L5-S1: Bilateral perineural cysts, left greater than the right side. Broad-based disc bulging. Facet joint and ligamentum flavum hypertrophy. Central spinal canal and bilateral neuroforamina stenosis encroaching the neural elements. No prevertebral compartment hematoma, mass or fluid collection. Volume loss of the right psoas muscle. Fatty atrophy of the lower lumbar muscles. IMPRESSION: Multilevel thoracolumbar spondylosis resulting in central spinal canal and bilateral neuroforamina stenosis from L2-3 to L5-S1. Multilevel bilateral perineural cysts. 07/31/24 XR LUMBOSACRAL SPINE TECHNIQUE: Three views of the lumbosacral spine. FINDINGS: There is mild curvature of the lumbar spine convex to the right on the AP image. The sagittal alignment is normal. There is moderate to severe L3-4 disc degenerative change and mild to moderate degenerative changes throughout the remaining thoracolumbar spine with loss of disc space, endplate change and osteophyte formation. There is also mild to moderate thoracolumbar facet degenerative change most pronounced in the lower lumbar spine. The bone mineralization is within normal limits. The vertebral body heights are maintained. The soft tissues are unremarkable. There is atherosclerotic plaque of the abdominal aorta and iliac vessels. The soft tissues are grossly unremarkable. XR/XR lumbar spine 2-3V IMPRESSION: 1. No compression fracture. 2. Moderate degenerative changes of the lumbar spine. 3. Atherosclerosis. Assessment & Plan Assessment & Plan (1) Lumbar radiculopathy: Code(s): M54.16 - Radiculopathy, lumbar region Category: Medical (2) Chronic back pain: Code(s): M54.9 - Dorsalgia, unspecified; G89.29 - Other chronic pain Category: Medical (3) Lumbar spondylosis: Code(s): M47.816 - Spondylosis without myelopathy or radiculopathy, lumbar region Category: Medical Plan I plan to submit a request to the insurance for steroid injections targeting L4- 5 and L5-S1 levels to address the patient's lumbar foraminal stenosis and associated radiculopathy. The patient has been advised about the potential benefits and risks of this intervention, seeking relief from pain and improvement in daily activity limitations. Current medication patches were discussed regarding their cost and effectiveness, guiding the decision towards injections as a more fruitful option. The exploration of further management strategies will be undertaken post-response evaluation to injections. During the consultation, I discussed the patient's diagnosis of lumbar spinal stenosis, lumbar spondylosis, scoliosis, foraminal stenosis and the implications for her ongoing pain management. We considered the use of steroid injections at the L4-5 and L5-S1 levels on the right, outlining the potential benefits for nerve irritation relief. We also evaluated the current treatment regimen and its adequacy, highlighting the economic burden posed by medication patches. The benefits of the proposed intervention, including potentially enhanced mobility and reduced pain, were deliberated upon, emphasizing informed consent. Follow-up arrangements to assess intervention success and likelihood of further treatment were made. Will schedule for fluoroscopy guided right L4-5, L5-S1 transforaminal epidural steroid injection with local anesthetic. Patient was informed and verbally consented to the use of an ambient scribe for clinic note documentation during this visit. Patient Instructions: - Await insurance approval for steroid injections and proceed with scheduling upon confirmation - Monitor pain levels and alert if symptoms worsen or new symptoms arise - Engage in activities as tolerated, avoiding prolonged sitting when possible - Discuss any medication changes with your healthcare provider - Return to care promptly if experiencing bladder or bowel changes Coding Level of Care Code Est Pt Level 3 (25335) Complex EM visit Add On G2211 Diagnoses Lumbar radiculopathy M54.16 Chronic back pain M54.9; G89.29 Lumbar spondylosis M47.816
[2025-01-10 14:01] VITALS: BP 174/82; PULSE 82; O2SAT 96; BMI 30.4
== END 2025-01-10 14:25 | disposition home or self-care (01) ==
LOC: HO.PMC 13:51
PROVIDERS: PCP Internal Medicine; Visit Provider Registered Nurse Emergency
DX: M54.16 Radiculopathy, lumbar region (principal); M54.9 Dorsalgia, unspecified; G89.29 Other chronic pain; M47.816 Spondylosis without myelopathy or radiculopathy, lumbar region
CPT/HCPCS: 99213; G2211

== ENCOUNTER → 2025-01-10 13:50 | Outpatient (BNVA) | payer MEDICARE, SELFPAY | PROVIDERS: PCP Internal Medicine; Visit Provider Registered Nurse Emergency | DX: M54.16 Radiculopathy, lumbar region (principal); M54.9 Dorsalgia, unspecified; M47.816 Spondylosis without myelopathy or radiculopathy, lumbar region; G89.29 Other chronic pain | CPT/HCPCS: 99212 ==

== ENCOUNTER 2025-02-03 09:13 | Outpatient (AMB) | payer MEDICARE, SELFPAY ==
[2025-02-03 09:38] VITALS: BP 138/70; PULSE 74; RESP 16; TEMP 36.7; O2SAT 95; BMI 30.4
--- NOTE | 2025-02-03 09:38 | AM.OFFWIN_ITS ---
Intake Vital Signs 02/03/25 09:38 Height 5 ft 2 in Weight 166 lb BMI 30.4 BP 138/70 Blood Pressure Location Lt brachial Position Sitting Respiration 16 Pulse 74 Pulse Source Pulse Oximeter Temp 98.0 F Temp Source Oral Pulse Oximetry (%) 95 Oxygen Delivery Method Room Air Intake Visit Reasons: EP-Rt leg pain & swollen Intake Note: Pt is here today c/o Rt leg pain and swollen x1week Patient Tobacco Use Status: Never used Tobacco Allergies hydralazine Allergy (Intermediate, Verified 02/20/25 10:34) Palpitations triamterene Adverse Reaction (Verified 02/20/25 10:34) Abdominal Pain HPI EP-Rt leg pain & swollen HPI Details Patient is an 84-year-old female comes to the walk-in clinic complaining of a week of right leg pain and swelling. Symptoms have been ongoing for more than 2 months now, however have acutely worsened over the last week. She had a duplex venous ultrasound to rule out DVT almost 2 months ago, which was negative. No fever or chills, myalgias malaise, nausea vomiting or diarrhea, weakness or dizziness, or other infectious symptoms. No rash, other joint swelling, or acute or chronic injury noted. [facility] Medical History Hyperglycemia Knee pain, right Diverticulitis Diverticulosis Wheezing Cough Palpitations Mammogram normal Rheumatoid aortitis Hyperlipidemia GERD (gastroesophageal reflux disease) Surgical History History of esophagogastroduodenoscopy (EGD) Hx of tonsillectomy S/P partial hysterectomy H/O colonoscopy (~01/14/23) Hx of cataract surgery Family History Father No problems noted. Mother Diabetes Social History Household Members: Children Household Members Other:: lives with daughter Housing: House Do you presently have visiting nurse or other home services: No Alcohol intake: current Alcohol intake frequency: a few times a week Patient Tobacco Use Status: Never used Tobacco e-Cigarette/Vaping Use: Never Used service: No Current occupational status: retired Cognitive needs: No Hearing needs: No Vision needs: No Review of Systems Const All systems reviewed & are unremarkable except as noted in HPI and below Physical Exam Vital Signs: Last Vital Signs Temp 98.0 F 02/03/25 09:38 Pulse 74 02/03/25 09:38 Resp 16 02/03/25 09:38 BP 138/70 02/03/25 09:38 Pulse Ox 95 02/03/25 09:38 Oxygen Delivery Method Room Air 02/03/25 09:38 BMI result Body Mass Index 30.4 Extrem Other: Her right leg does have in more apparent edema than the left, with no pitting however. There is no cyanosis or clubbing to the foot. Skin is good color, warm and dry. No lesions, no weeping or hyperpigmentation. There is no area of erythema edema or warmth. Her knee range of motion is limited due to the pain and likely stiffness, but she is able to bear weight and ambulate. She does have an antalgic gait however. There is no apparent laxity, and negative anterior and posterior drawer tests. She is tender pretty diffusely throughout the lower quads, knee and upper calf and purcell areas. Full range of motion and strength to the ankle and neurovascularly intact distally. Assessment & Plan Assessment & Plan (1) Right leg pain: Code(s): M79.604 - Pain in right leg Plan: Patient is an 84-year-old female with advanced arthritis to the right knee, who has a scheduled cortisone injection coming up soon. However her chronic knee pain and leg edema which has been especially symptomatic for her over the last 2 months, seems to have worsened over the last few days. She relates that her edema is more obvious, and the pain is to a point where she wanted to come to the walk-in to see if there was anything else she could do. She had duplex venous ultrasound to rule out a clot when symptoms had started, and that was negative. Her x-ray shows bicompartmental osteoarthritis along with the supra patellar bursa joint effusion, moderate to large and enthesopathy to the quads tendon as well as the patellar tendon. I told her how she did have a large amount of edema to the knee area due to bursitis, and this is likely gotten worse for her. There was no warmth, erythema or fever or chills or other in fection symptoms suggestive of a septic joint, however I did discuss this with her as possibly occurring. She does not have a palpable cord, and rather complains of pain diffusely throughout the thigh and knee and calf area however. I do think that her pain is likely due to bursitis of the knee, and probably caused by arthritis, however we also discussed that it is possible that she does have a clot, which could be worsening, and now visible on imaging. As it is Wednesday and I am not able to order an ultrasound at the walk-in, I told her that the safest option was the emergency department. As she does not want to go to the ED due to a likely long wait, she declined that and plans to come back in on Wednesday to see if she can get an ultrasound scheduled at that point. She is aware how a DVT could be life-threatening if it were to travel to her lungs. She requests medication for her knee, however she can not tolerate anti- inflammatories and so an oral steroid or NSAID is not an option. We discussed a topical diclofenac, which she was interested in trying. In the meantime, she will continue to elevate her leg as much as able, and will call on Wednesday in regards to her cortisone injection to see if she can have it moved up. She knows to go to the emergency department with worrisome symptoms. Medications: New diclofenac sodium 3% 1 appl topical BID 100 grams 0RF Coding Level of Care Code Est Pt Level 4 (44801) Diagnoses Right leg pain M79.604
== END 2025-02-03 11:05 | disposition home or self-care (01) ==
LOC: HO.HMCWIC 09:13
PROVIDERS: PCP Internal Medicine; Visit Provider Physician Assistant Medical
DX: M79.604 Pain in right leg (principal)

== ENCOUNTER → 2025-02-03 09:13 | Outpatient (BNVA) | payer MEDICARE, SELFPAY | PROVIDERS: PCP Internal Medicine; Visit Provider Physician Assistant Medical | DX: M79.604 Pain in right leg (principal) | CPT/HCPCS: 99212 ==

== ENCOUNTER 2025-02-05 08:08 | Outpatient (AMB) | payer MEDICARE, SELFPAY ==
--- NOTE | 2025-02-05 08:16 | MHC.OFFWIV ---
Intake Vital Signs 02/05/25 08:20 Height 5 ft 2 in Weight 166 lb BMI 30.4 BP 118/70 Blood Pressure Location Lt brachial Position Sitting Respiration 16 Pulse 72 Pulse Source Pulse Oximeter Pulse Oximetry (%) 98 Oxygen Delivery Method Room Air Intake Visit Reasons: EP Swelling in RT leg Intake Note: Pt is here today swelling in Rt leg: Pt came in on Wednesday as well Patient Tobacco Use Status: Never used Tobacco Allergies hydralazine Allergy (Intermediate, Verified 02/05/25 08:16) Palpitations triamterene Adverse Reaction (Verified 02/05/25 08:16) Abdominal Pain HPI HPI Comments History of Present Illness Details 84 y/o Female patient who presents to the walk in clinic with c/o Right Lower leg pain and swelling for 2 months now. Reports lately the swelling and pain has been getting worse Unbearable . Describes the pain has sharp, starting at the knee radiating down to her foot. Reports pain with walking and standing for prolonged period of time. Pt was seen and evaluated here at the walk in clinic this past Wednesday (02/03) for similar concern. Per the Wednesday Note; Patient was to have Duplex LE US that Wednesday at 1330. Pt mis-understood the provider, and thought she was suppose to return today (Wednesday). Recent Duplex US LE 11/2024 Negative for DVT. Pt had MRI lower back and Xray Right Knee with positive Osteoarthritis. Pt was referred to [facility] for evaluation and treatment - Pending scheduling. Pt is currently on waiting List - reports unable to wait that long - she wants Cortisone Injections. Reports trying everything with no relief. Ordered another Duplex US Right LE for this morning - If no DVT advised Pt to try going to [facility] walk in clinic @ [facility]. [facility] Medical History Knee pain, right Diverticulitis Diverticulosis Wheezing Cough Palpitations Mammogram normal Rheumatoid aortitis Hyperlipidemia GERD (gastroesophageal reflux disease) Surgical History History of esophagogastroduodenoscopy (EGD) Hx of tonsillectomy S/P partial hysterectomy H/O colonoscopy (~01/14/23) Hx of cataract surgery Family History Father No problems noted. Mother Diabetes Social History Household Members: Children Household Members Other:: lives with daughter Housing: House Do you presently have visiting nurse or other home services: No Alcohol intake: current Alcohol intake frequency: a few times a week Patient Tobacco Use Status: Never used Tobacco e-Cigarette/Vaping Use: Never Used service: No Current occupational status: retired Cognitive needs: No Hearing needs: No Vision needs: No Review of Systems Const All systems reviewed & are unremarkable except as noted in HPI and below Physical Exam Vital Signs: Last Vital Signs Pulse 72 02/05/25 08:20 Resp 16 02/05/25 08:20 BP 118/70 02/05/25 08:20 Pulse Ox 98 02/05/25 08:20 Oxygen Delivery Method Room Air 02/05/25 08:20 BMI result Body Mass Index 30.4 Const General: no acute distress; No comfortable Nutritional Appearance: overweight Orientation/consciousness: patient oriented x3 Resp Effort & Inspection: normal respiratory effort Auscultation: clear to auscultation bilaterally Cardio Heart sounds: S1 normal heart sound present and S2 normal heart sound present Neuro General: patient oriented x3 Extrem General: Yes capillary refill normal Right lower extremity: lower leg Details: tenderness (The whole leg) and pitting edema Details: 2+; no erythema, no palpable cords, no crepitus and no unusual warmth Left lower extremity: normal to inspection and full ROM Psych Speech and movement: Normal speech and movement present Assessment & Plan Assessment & Plan (1) Right leg pain: Comment: Doppler ultrasound Ordered for Today Code(s): M79.604 - Pain in right leg Plan: - Ordered STAT Duplex US right LE to r/o DVT - Advised to go to [facility] walk in clinic if DVT negative. - [facility] has a Walk in clinic @ [facility]. - Pt referred to [facility], pending scheduling. Plan DUPLEX US RIGHT LE RESULTS IMPRESSION: No evidence of deep venous thrombosis involving the right lower extremity. Orders: Orders US venous duplex LE RT Today M79.604 - Pain in right leg Coding Level of Care Code Est Pt Level 4 (92031) Diagnoses Right leg pain M79.604 Time Spent (min) 20
[2025-02-05 08:20] VITALS: BP 118/70; PULSE 72; RESP 16; O2SAT 98; BMI 30.4
== END 2025-02-05 09:02 | disposition home or self-care (01) ==
PROVIDERS: PCP Internal Medicine; Visit Provider Nurse Practitioner Family
DX: M79.604 Pain in right leg (principal)

== ENCOUNTER → 2025-02-05 08:08 | Outpatient (BNVA) | payer MEDICARE, SELFPAY | PROVIDERS: PCP Internal Medicine; Visit Provider Nurse Practitioner Family | DX: Z13.89 Encounter for screening for other disorder (principal) | CPT/HCPCS: 99212 ==

== ENCOUNTER 2025-02-05 09:29 | Outpatient (REF) | payer MEDICARE, SELFPAY ==
--- NOTE | ~2025-02-05 | US_ITS ---
EXAMINATION: US TRIPLEX LOWER EXTREMITY, RIGHT CLINICAL INFORMATION: Right leg pain. COMPARISON: None available. TECHNIQUE: Color-flow triplex imaging with spectral analysis and compression Doppler were performed on the right lower extremity. FINDINGS: Respiratory variation, normal compression and augmented flow are noted throughout the right lower extremity. The visualized common femoral vein, superficial femoral vein, profunda femoral vein, popliteal vein and midcalf peroneal and posterior tibial venous segments show no evidence of deep venous thrombosis. There is no Soto's cyst. US/US venous duplex LE RT IMPRESSION: No evidence of deep venous thrombosis involving the right lower extremity. Electronically signed by: Ludwin Grant MD 02/05/2025 10:05 AM EDT
== END 2025-02-05 09:30 | disposition home or self-care (01) ==
LOC: HO.HMGCX 09:29
PROVIDERS: PCP Internal Medicine; Visit Provider Nurse Practitioner Family
DX: M79.604 Pain in right leg (principal)
CPT/HCPCS: 93971; 99212

== ENCOUNTER → 2025-02-05 09:40 | Outpatient (BNV) | payer MEDICARE, SELFPAY | PROVIDERS: PCP Internal Medicine; Visit Provider Radiology Diagnostic Radiology | DX: M79.604 Pain in right leg (principal) | CPT/HCPCS: 93971 ==

== ENCOUNTER 2025-02-13 08:16 | Outpatient (REF) | payer MEDICARE, SELFPAY ==
[2025-02-13 10:21] LABS: MANUAL DIFF FLAG NO
[2025-02-13 10:26] LABS: Hemoglobin 10.8 g/dl (12.0-16.0); Imm Gran Abs Auto 0.03 X10*3/uL (0.00-0.03); Imm Gran Pct Auto 0.5 % (0.0-0.4); Lymphocytes Absolute Auto 0.7 X10*3/uL (1.2-4.9); Lymphocytes Percent Auto 12.4 % (20-40); Mean Corpuscular HGB Conc 33.8 g/dl (31.0-35.0); Mean Corpuscular Hemoglobin 30.1 pg (27.0-33.0); Mean Corpuscular Volume 89.1 fL (80.0-98.0); Mean Platelet Volume 9.2 fL (9.4-12.3); Monocytes Absolute Auto 0.1 X10*3/uL (0.1-1.2); Monocytes Percent Auto 2.1 % (2-11); Platelet Count 303 X10*3/uL (160-400); Red Blood Count 3.59 X10*6/uL (4.20-5.50); Red Cell Distribution Width 11.9 % (11.0-16.0); White Blood Count 5.8 X10*3/uL (4.8-10.8)
[2025-02-13 11:01] LABS: Alanine Aminotransferase 23 U/L (0-31); Albumin Level 4.3 g/dL (3.5-5.0); Alkaline Phosphatase 72 U/L (39-117); Anion Gap 10 (12-20); Aspartate Amino Transferase 24 U/L (5-31); Bilirubin Total 0.4 mg/dL (0.0-1.0); Blood Urea Nitrogen 20 mg/dL (9-16); Calcium 9.6 mg/dL (8.4-10.2); Carbon Dioxide 26 mmol/L (22-29); Chloride 109 mmol/L (96-108); Estimated Glomerular Filt Rate > 60; Glucose Fasting 168 mg/dL (60-99); Iron 31 mcg/dL (30-160); Percent Iron Saturation 9 % (15-50); Sodium 141 mmol/L (135-145); Total Iron Binding Capacity 353 mcg/dL (228-428); Total Protein 7.2 g/dL (6.5-8.0); Unsaturated Iron Binding 322 ug/dL
== END 2025-02-13 08:17 | disposition home or self-care (01) ==
LOC: HO.HMGCLDS 08:16
PROVIDERS: PCP Internal Medicine; Visit Provider Internal Medicine
DX: Z00.00 Encounter for general adult medical examination without abnormal findings (principal); D62 Acute posthemorrhagic anemia
CPT/HCPCS: 36415; 80053; 83540; 85025

== ENCOUNTER 2025-02-20 10:30 | Outpatient (AMB) | payer MEDICARE, SELFPAY ==
[2025-02-20 10:33] VITALS: BP 124/70; PULSE 75; RESP 18; TEMP 36.9; O2SAT 96; BMI 29.8
--- NOTE | 2025-02-20 10:33 | A.OFFPC_ITS ---
Vital Signs 02/20/25 10:33 Height 5 ft 2 in Weight 163 lb BMI 29.8 BP 124/70 Blood Pressure Location Lt brachial Position Sitting Respiration 18 Pulse 75 Pulse Source Pulse Oximeter Temp 98.4 F Temp Source Oral Pulse Oximetry (%) 96 Oxygen Delivery Method Room Air Intake Visit Reasons: Reschedule 6 mo FU Intake Note: Pt is her today for 6 months follow up visit. Allergies hydralazine Allergy (Intermediate, Verified 02/20/25 10:34) Palpitations triamterene Adverse Reaction (Verified 02/20/25 10:34) Abdominal Pain Medication List - Last Reconciled 02/20/25 by Barbara Sanchez MD cholecalciferol (vitamin D3) (Vitamin D3) 25 mcg PO DAILY diclofenac sodium 3% 1 appl topical BID diltiazem HCl CD (Cardizem CD) 240 mg PO DAILY hydroxychloroquine 200 mg PO BID lidocaine 5% 1 patch topical DAILY naproxen 500 mg PO BID pantoprazole 40 mg PO DAILY@0630 rosuvastatin 20 mg PO DAILY Tobacco use date assessed: 02/20/25 Last assessed Fall Risk: 02/20/25 Dental Screening Dental Screen Date: 09/26/24 HPI Reschedule 6 mo FU HPI Details Pt presents for HTN and and hyperlipidemia. Patient had cortisone injection in the right knee with significant improvement of her chronic pain. She reports eating a lot of carbohydrates and sweets recently. [facility] Medical History Hyperglycemia Knee pain, right Diverticulitis Diverticulosis Wheezing Cough Palpitations Mammogram normal Rheumatoid aortitis Hyperlipidemia GERD (gastroesophageal reflux disease) Surgical History History of esophagogastroduodenoscopy (EGD) Hx of tonsillectomy S/P partial hysterectomy H/O colonoscopy (~01/14/23) Hx of cataract surgery Family History Father No problems noted. Mother Diabetes Social History Household Members: Children Household Members Other:: lives with daughter Housing: House Do you presently have visiting nurse or other home services: No Alcohol intake: current Alcohol intake frequency: a few times a week Patient Tobacco Use Status: Never used Tobacco e-Cigarette/Vaping Use: Never Used service: No Current occupational status: retired Cognitive needs: No Hearing needs: No Vision needs: No Questionnaire Thrive Questionnaire Date Thrive assessed: 09/26/24 I am a: Patient What is your living situation today?: I have a steady place to live Within the past 12 months, did the food you bought not last and you didn't have the money to get more?: Often true Within the past 12 months, did you worry whether your food would run out before you got money to buy more?: I choose not to answer this question Do you have trouble paying for medicines?: No Do you have trouble getting transportation to medical appointments?: No Do you have trouble paying your heating and electricity bill?: No Do you have trouble taking care of your child, family member or friend?: No Do you have trouble with day-to-day activities such as bathing, preparing meals, shopping, managing finances, etc.?: No Are you currently unemployed and looking for a job?: Yes Are you interested in more education?: No Please select the resources that you would like help with: Paying for medicine Currently or been in a relationship where the following occur: No concerns reported THRIVE Score: 1 KAYLEN-7 AMB Questionnaire KAYLEN-7 Date KAYLEN - 7 assessed: 09/26/24 Source: Developed by Drs. Luis Angel Gary, Isa Ramirez, Jamil Cooper and colleagues, with an educational jeremias from [employer]. Review of Systems Const All systems reviewed & are unremarkable except as noted in HPI and below ENT Reports no additional complaints Card Reports no additional complaints Resp Reports no additional complaints GI Reports no additional complaints Reports no additional complaints Physical exam (Primary Care) Vital Signs: Last Vital Signs Temp 98.4 F 02/20/25 10:33 Pulse 75 02/20/25 10:33 Resp 18 02/20/25 10:33 BP 124/70 02/20/25 10:33 Pulse Ox 96 02/20/25 10:33 Oxygen Delivery Method Room Air 02/20/25 10:33 BMI result Body Mass Index 29.8 Tobacco/Smoking Status: Tobacco use Status Tobacco use date assessed 02/20/25 02/20/25 10:35 Patient Tobacco Use Status Never used Tobacco 02/20/25 10:35 e-Cigarette/Vaping Use Never Used 02/20/25 10:35 Thrive Assessment: Date of Thrive Assessment Date Thrive assessed 09/26/24 02/20/25 10:35 Currently or been in a relationship where the following occur: No concerns r eported Const General: no acute distress HENMT Head: Yes normal to inspection Eyes General: appearance normal, both eyes and all related structures Neck Neck: Yes supple Resp Effort & Inspection: normal respiratory effort Auscultation: clear to auscultation bilaterally Cardio Rhythm: regular rhythm Heart sounds: S1 normal heart sound present and S2 normal heart sound present GI Inspection: Yes normal to inspection Palpation (GI): Soft to palpation Percussion: Yes normal to percussion Auscultation: normal bowel sounds Coding Level of Care Code Est Pt Level 4 (97785) Complex EM visit Add On G2211 Diagnoses Hyperlipidemia E78.5 Rheumatoid aortitis I01.1 HTN (hypertension) I10 Hyperglycemia R73.9 Iron deficiency anemia D50.9 Assessment & Plan Assessment & Plan (1) Hyperlipidemia: Code(s): E78.5 - Hyperlipidemia, unspecified Category: Medical Plan: cont statin (2) Rheumatoid aortitis: Comment: F/U Code(s): I01.1 - Acute rheumatic endocarditis Category: Medical Plan: f/u rheumatology (3) HTN (hypertension): Comment: Intolerant to hydralazine, Olmesartan and Dyzide Code(s): I10 - Essential (primary) hypertension Category: Medical Plan: cont meds (4) Hyperglycemia: Code(s): R73.9 - Hyperglycemia, unspecified Category: Medical Plan: A1C 5.9, ADA diet increase physical activity discussed with the patient follow- up in 4 months with a fasting labs before (5) Iron deficiency anemia: Code(s): D50.9 - Iron deficiency anemia, unspecified Category: Medical Plan: For borderline iron deficiency anemia patient was advised to take multivitamin with iron and will monitor CBC and iron count Orders: Orders Complete Blood Count Auto Diff 4 Months E78.5 - Hyperlipidemia, unspecified, I01.1 - Acute rheumatic endocarditis, I10 - Essential (primary) hypertension, R73.9 - Hyperglycemia, unspecified IRON PROFILE 4 Months E78.5 - Hyperlipidemia, unspecified, I01.1 - Acute rheumatic endocarditis, I10 - Essential (primary) hypertension, R73.9 - Hyperglycemia, unspecified Lipid Panel 4 Months E78.5 - Hyperlipidemia, unspecified, I01.1 - Acute rheumatic endocarditis, I10 - Essential (primary) hypertension, R73.9 - Hyperglycemia, unspecified Hemoglobin A1c 4 Months E78.5 - Hyperlipidemia, unspecified, I01.1 - Acute rheumatic endocarditis, I10 - Essential (primary) hypertension, R73.9 - Hyperglycemia, unspecified Comprehensive Street. Panel Fast 4 Months E78.5 - Hyperlipidemia, unspecified, I01.1 - Acute rheumatic endocarditis, I10 - Essential (primary) hypertension, R73.9 - Hyperglycemia, unspecified Vitamin B12 and Folate 4 Months E78.5 - Hyperlipidemia, unspecified, I01.1 - Acute rheumatic endocarditis, I10 - Essential (primary) hypertension, R73.9 - Hyperglycemia, unspecified
== END 2025-02-20 11:42 | disposition home or self-care (01) ==
LOC: HO.HMCC 10:31
PROVIDERS: PCP Internal Medicine; Visit Provider Internal Medicine
DX: E78.5 Hyperlipidemia, unspecified (principal); I01.1 Acute rheumatic endocarditis; I10 Essential (primary) hypertension; R73.9 Hyperglycemia, unspecified; D50.9 Iron deficiency anemia, unspecified; Z13.9 Encounter for screening, unspecified

== ENCOUNTER → 2025-02-20 10:30 | Outpatient (BNVA) | payer MEDICARE, SELFPAY | PROVIDERS: PCP Internal Medicine; Visit Provider Internal Medicine | DX: E78.5 Hyperlipidemia, unspecified (principal); I01.1 Acute rheumatic endocarditis; I10 Essential (primary) hypertension; R73.9 Hyperglycemia, unspecified; D50.9 Iron deficiency anemia, unspecified | CPT/HCPCS: 83036; 99212 ==

== ENCOUNTER 2025-05-23 08:09 | Outpatient (AMB) | payer MEDICARE, SELFPAY ==
[2025-05-23 08:15] VITALS: BP 150/78; PULSE 68; BMI 30.1
--- NOTE | 2025-05-23 08:15 | A.OFFVIS_ITS ---
Vital Signs 05/23/25 08:15 Height 5 ft 2 in Weight 164 lb 7.437 oz BMI 30.1 BP 150/78 H Blood Pressure Location Rt brachial Pulse 68 Pulse Source Pulse Oximeter Intake Visit Reasons: 6 month f/up Accompanied by: Self / Same As Patient Allergies hydralazine Allergy (Intermediate, Verified 05/23/25 08:19) Palpitations triamterene Adverse Reaction (Verified 05/23/25 08:19) Abdominal Pain Medication List - Last Reconciled 05/23/25 by Rashawn Clark MD cholecalciferol (vitamin D3) (Vitamin D3) 25 mcg PO DAILY diltiazem HCl CD (Cardizem CD) 240 mg PO DAILY ferrous gluconate 236 mg PO DAILY hydroxychloroquine 200 mg PO BID lidocaine 5% 1 patch topical DAILY pantoprazole 40 mg PO DAILY@0630 rosuvastatin 20 mg PO DAILY sennosides (senna) 8.6 mg PO DAILY PRN HPI Comments Details: Sofia returns for follow-up. In the past, she has been seen regarding palpitations. Then detected to have PVCs. She has been on Diltiazem, which might be for rather hypertension. She had stated that after she retired, she felt more palpitations. She feels palpitations more so on some days but not on the others. Blood pressure is on the higher side. We had started losartan in the past but she is not taking it currently and not clear why. Otherwise, for the most part she is feeling fine. Rare palpitations more so at nighttime. No other symptoms like exertional angina. She gets some left arm pain but more so while lying in certain positions or not during exertion. [facility] Medical History Hyperglycemia Knee pain, right Diverticulitis Diverticulosis Wheezing Cough Palpitations Mammogram normal Rheumatoid aortitis Hyperlipidemia GERD (gastroesophageal reflux disease) Surgical History History of esophagogastroduodenoscopy (EGD) Hx of tonsillectomy S/P partial hysterectomy H/O colonoscopy (~01/14/23) Hx of cataract surgery Family History Father No problems noted. Mother Diabetes Social History Household Members: Children Household Members Other:: lives with daughter Housing: House Do you presently have visiting nurse or other home services: No Alcohol intake: current Alcohol intake frequency: a few times a week Patient Tobacco Use Status: Never used Tobacco e-Cigarette/Vaping Use: Never Used service: No Current occupational status: retired Cognitive needs: No Hearing needs: No Vision needs: No Review of Systems Const Denies daytime sleepiness, Denies difficulty sleeping, Denies snoring, Denies stops breathing during sleep and Denies weakness Card Denies chest pain, Denies rapid heart rate, Denies irregular heart rhythm, Denies claudication, Denies leg edema, Denies lightheadedness, Reports palpitations, Denies dyspnea, Denies dyspnea on exertion, Denies orthopnea, Denies paroxysmal nocturnal dyspnea and Denies slow heart rate Resp Denies cough, Denies dyspnea, Denies dyspnea on exertion and Denies snoring GI Reports no additional complaints, Denies hematochezia, Denies change in stool character and Denies dyspepsia Musc Denies abnormal gait, Denies muscle weakness and Denies numbness Neuro Denies abnormal gait, Denies numbness and Denies weakness Endo Reports palpitations Physical Exam Vital Signs: Last Vital Signs Pulse 68 05/23/25 08:15 BP 150/78 H 05/23/25 08:15 BMI result Body Mass Index 30.1 Const General: comfortable and no acute distress Orientation/consciousness: patient oriented x3 HEENT Other: Unremarkable Head: Yes normal to inspection Neck Neck: Yes normal visual inspection Chest Chest palpation & inspection: normal inspection of the chest Resp Auscultation: clear to auscultation bilaterally Cardio Palpation: normal PMI Heart sounds: S1 normal heart sound present, S2 normal heart sound present, no gallops, no murmurs and no rubs GI Palpation (GI): Soft to palpation Back/Spine/Pelvis Other: unremarkable Skin General skin exam: no rashes or lesions noted Neuro General: patient oriented x3 Extrem General: Yes normal to inspection Psych Mental Status: mental status grossly normal Assessment & Plan Assessment & Plan (1) PVC (premature ventricular contraction): Code(s): I49.3 - Ventricular premature depolarization Category: Medical (2) Essential hypertension: Code(s): I10 - Essential (primary) hypertension Category: Medical Plan Prior cardiac studies reviewed. Echocardiogram 2021 with normal LVEF and nothing otherwise of concern. In the stress test from 2021, she was able to do up to 5 minutes on Mohan p rotocol, reached target heart rate but no angina. No EKG evidence of ischemia. Perfusion imaging was unremarkable. In the Holter 2022, underlying rhythm is sinus. Frequent PVCs with a burden of 2.2%. With regard to PVCs, no specific management. Overall burden is relatively low and hence no clear implications at this time. Mainly reassurance for now. No need to add additional medications. With regard to hypertension, we had added Losartan in the past but it is not in her list. Hence advised her to check on that. She will call us with ongoing concerns. Discussion Notes During the visit, we discussed the nature of the palpitations, which are likely due to Premature Ventricular Contractions (PVCs). I reassured the patient that these are generally not serious but advised her to monitor the symptoms and report any significant changes. We also reviewed her hypertension management, noting the confusion regarding her medication regimen, particularly the use of losartan. I recommended that she verify her current medications and consult with her primary care physician to ensure proper blood pressure management. Regarding her arm pain, likely due to osteoarthritis, I advised her to monitor the pain and report any changes, especially if it occurs during physical activity. Patient was informed and verbally consented to the use of an ambient scribe for clinic note documentation during this visit. Patient Instructions: - Monitor the frequency and intensity of palpitations and report any significant changes. - Verify current blood pressure medication and consult with your primary care physician. - Monitor arm pain and report any changes, especially if it occurs during physical activity. Coding Level of Care Code Est Pt Level 3 (35991) Diagnoses PVC (premature ventricular contraction) I49.3 Essential hypertension I10
== END 2025-05-23 09:09 | disposition home or self-care (01) ==
LOC: HO.HCS 08:10
PROVIDERS: PCP Internal Medicine; Visit Provider Internal Medicine
DX: I49.3 Ventricular premature depolarization (principal); I10 Essential (primary) hypertension
CPT/HCPCS: 99213

== ENCOUNTER → 2025-05-23 08:09 | Outpatient (BNVA) | payer MEDICARE, SELFPAY | PROVIDERS: PCP Internal Medicine; Visit Provider Internal Medicine | DX: I49.3 Ventricular premature depolarization (principal); I10 Essential (primary) hypertension | CPT/HCPCS: 99212 ==

== ENCOUNTER 2025-06-13 07:47 | Outpatient (REF) | payer MEDICARE, SELFPAY ==
[2025-06-13 08:11] LABS: MANUAL DIFF FLAG NO
[2025-06-13 08:18] LABS: Hematocrit 39.4 % (37.0-47.0); Hemoglobin 12.6 g/dl (12.0-16.0); Imm Gran Abs Auto 0.00 X10*3/uL (0.00-0.03); Imm Gran Pct Auto 0.0 % (0.0-0.4); Lymphocytes Absolute Auto 2.3 X10*3/uL (1.2-4.9); Mean Corpuscular HGB Conc 32.0 g/dl (31.0-35.0); Mean Corpuscular Hemoglobin 29.4 pg (27.0-33.0); Mean Corpuscular Volume 91.8 fL (80.0-98.0); NRBC Abs Auto 0.000 X10*3/uL (0.0-0.012); NRBC Pct Auto 0.0 /100WBC (0.0-0.2); Platelet Count 195 X10*3/uL (160-400); Red Blood Count 4.29 X10*6/uL (4.20-5.50); White Blood Count 4.3 X10*3/uL (4.8-10.8)
[2025-06-13 08:35] LABS: Total Hemoglobin (HGBA1C) 3298.5385 umol/L
[2025-06-13 09:12] LABS: Alanine Aminotransferase 13 U/L (0-31); Albumin Level 4.3 g/dL (3.5-5.0); Alkaline Phosphatase 71 U/L (39-117); Anion Gap 12 (12-20); Aspartate Amino Transferase 23 U/L (5-31); Blood Urea Nitrogen 17 mg/dL (9-16); Calcium 9.6 mg/dL (8.4-10.2); Carbon Dioxide 28 mmol/L (22-29); Chloride 108 mmol/L (96-108); Cholesterol 251 mg/dL (<200); Estimated Glomerular Filt Rate > 60; HDL Cholesterol 72 mg/dL (>40); Iron 105 mcg/dL (30-160); Percent Iron Saturation 33 % (15-50); Potassium 4.2 mmol/L (3.3-5.1); Sodium 144 mmol/L (135-145); Total Iron Binding Capacity 317 mcg/dL (228-428); Total Protein 7.1 g/dL (6.5-8.0); Triglycerides 60 mg/dL (<150); Unsaturated Iron Binding 212 ug/dL
[2025-06-13 09:27] LABS: Ferritin 33 ng/mL (10-250)
[2025-06-13 09:37] LABS: Folate 13.9 ng/mL (> or = 4.0); Vitamin B12 1063 pg/mL (200-900)
== END 2025-06-13 07:48 | disposition home or self-care (01) ==
LOC: HO.LAB 07:47
PROVIDERS: Absent Provider Internal Medicine; PCP Internal Medicine; Visit Provider Internal Medicine
DX: I10 Essential (primary) hypertension (principal); I01.1 Acute rheumatic endocarditis; E78.5 Hyperlipidemia, unspecified; R73.9 Hyperglycemia, unspecified; D50.9 Iron deficiency anemia, unspecified
CPT/HCPCS: 36415; 80053; 80061; 82607; 82728; 82746; 83036; 83540; 85025

== ENCOUNTER 2025-06-18 08:57 | Outpatient (AMB) | payer MEDICARE, SELFPAY ==
--- NOTE | 2025-06-18 08:59 | MHC.PC.OV ---
Vital Signs 06/18/25 09:00 Height 5 ft 2 in Weight 164 lb BMI 30.0 BP 116/64 Blood Pressure Location Lt brachial Position Sitting Respiration 16 Pulse 50 Pulse Source Pulse Oximeter Temp 98.2 F Temp Source Oral Pulse Oximetry (%) 97 Oxygen Delivery Method Room Air Intake Visit Reasons: 4 month follow up Intake Note: Pt is here today for 4 months follow up visit. Allergies hydralazine Allergy (Intermediate, Verified 06/18/25 09:04) Palpitations triamterene Adverse Reaction (Verified 06/18/25 09:04) Abdominal Pain Medication List - Last Reconciled 06/18/25 by Barbara Sanchez MD cholecalciferol (vitamin D3) (Vitamin D3) 25 mcg PO DAILY diltiazem HCl CD (Cardizem CD) 240 mg PO DAILY ferrous gluconate 236 mg PO DAILY hydroxychloroquine 200 mg PO BID lidocaine 5% 1 patch topical DAILY rosuvastatin 20 mg PO DAILY sennosides (senna) 8.6 mg PO DAILY PRN sertraline 25 mg PO DAILY Tobacco use date assessed: 06/18/25 Fall risk assessment: No Falls in past year Last assessed Fall Risk: 06/18/25 Dental Screening Dental Screen Date: 06/18/25 Did you have a dental visit in the last 12 months?: Yes Did you have a dental problem in the last 6 months where you did not have access to dental care?: No Was dental information given to patient?: Patient has dentist HPI 4 month follow up HPI Details Patient presents for the follow-up. She reports being under lot of stress related to her finances and family. She has been working 18 hours a week. Patient reports palpitations on and off correlating with increased stress. She denies chest pain shortness or breath PND orthopnea. Patient had negative cardiac workup for palpitations including echo and 7 day Holter in July last year. Hypertension is controlled on diltiazem patient is established with principal technical specialist. She has been taking pantoprazole for GERD but had normal EGD in December 2023. [facility] Medical History (Updated 06/18/25 @ 09:52 by Barbara Sanchez MD) Acute blood loss anemia Dysphagia HTN (hypertension) Anxiety Hyperglycemia Knee pain, right Diverticulitis Diverticulosis Wheezing Cough Palpitations (~06/18/25) Mammogram normal Rheumatoid aortitis Hyperlipidemia GERD (gastroesophageal reflux disease) Surgical History History of esophagogastroduodenoscopy (EGD) Hx of tonsillectomy S/P partial hysterectomy H/O colonoscopy (~01/14/23) Hx of cataract surgery Family History Father No problems noted. Mother Diabetes Social History Household Members: Children Household Members Other:: lives with daughter Housing: House Do you presently have visiting nurse or other home services: No Alcohol intake: current Alcohol intake frequency: a few times a week Patient Tobacco Use Status: Never used Tobacco e-Cigarette/Vaping Use: Never Used service: No Current occupational status: retired Cognitive needs: No Hearing needs: No Vision needs: No Questionnaire PHQ-9 Over the last 2 weeks, how often have you been bothered by any of the following problems? 1. Little interest or pleasure in doing things: nearly every day 2. Feeling down, depressed, or hopeless: not at all 3. Trouble falling or staying asleep, or sleeping too much: not at all 4. Feeling tired or having little energy: not at all 5. Poor appetite or overeating: not at all 6. Feeling bad about yourself - or that you are a failure or have let yourself or your family down: not at all 7. Trouble concentrating on things, such as reading the newspaper or watching television: not at all 8. Moving or speaking so slowly that other people could have noticed. Or the opposite - being so fidgety or restless that you have been moving around a lot more than usual: not at all 9. Thoughts that you would be better off or of hurting yourself in some way: not at all Total score: 3 Depression Screening Interpretation: Negative Depression Screening Done: Yes Source: Developed by Drs. Luis Angel Gary, Isa Ramirez, Jamil Cooper and colleagues, with an educational jeremias from [employer]. Thrive Questionnaire Date Thrive assessed: 09/26/24 I am a: Patient What is your living situation today?: I have a steady place to live Within the past 12 months, did the food you bought not last and you didn't have the money to get more?: Often true Within the past 12 months, did you worry whether your food would run out before you got money to buy more?: I choose not to answer this question Do you have trouble paying for medicines?: No Do you have trouble getting transportation to medical appointments?: No Do you have trouble paying your heating and electricity bill?: No Do you have trouble taking care of your child, family member or friend?: No Do you have trouble with day-to-day activities such as bathing, preparing meals, shopping, managing finances, etc.?: No Are you currently unemployed and looking for a job?: Yes Are you interested in more education?: No Please select the resources that you would like help with: Paying for medicine Currently or been in a relationship where the following occur: No concerns reported THRIVE Score: 1 KAYLEN-7 AMB Questionnaire KAYLEN-7 Date KAYLEN - 7 assessed: 09/26/24 Feeling nervous, anxious, or on edge: 0 = Not at all Not being able to stop or control worryin = Not at all Worrying too much about different things: 0 = Not at all Trouble relaxin = Not at all Being so restless that it is hard to sit still: 0 = Not at all Becoming easily annoyed or irritable: 0 = Not at all Feeling afraid as if something awful might happen: 0 = Not at all Total KAYLEN-7 score (0-4 normal; 5-9 mild; 10-14 moderate; 15-21 severe): 0 Source: Developed by Drs. Luis Angel Gary, Isa Ramirez, Jamil Cooper and colleagues, with an educational jeremias from [employer]. Review of Systems Const All systems reviewed & are unremarkable except as noted in HPI and below Card Reports no additional complaints Resp Reports no additional complaints GI Reports no additional complaints Reports no additional complaints Physical exam (Primary Care) Vital Signs: Last Vital Signs Temp 98.2 F 06/18/25 09:00 Pulse 50 06/18/25 09:00 Resp 16 06/18/25 09:00 BP 116/64 06/18/25 09:00 Pulse Ox 97 06/18/25 09:00 Oxygen Delivery Method Room Air 06/18/25 09:00 BMI result Body Mass Index 30.0 Tobacco/Smoking Status: Tobacco use Status Tobacco use date assessed 06/18/25 06/18/25 09:09 Patient Tobacco Use Status Never used Tobacco 06/18/25 09:00 e-Cigarette/Vaping Use Never Used 06/18/25 09:00 PHQ-9: PHQ-9 Score PHQ-9: Total score 3 06/18/25 09:09 Depression Screening Interpretation: Negative Thrive Assessment: Date of Thrive Assessment Date Thrive assessed 09/26/24 06/18/25 09:00 Currently or been in a relationship where the following occur: No concerns reported Const General: no acute distress HENMT Head: Yes normal to inspection Ears: hearing grossly normal bilaterally Mouth: Normal oral and palatal mucosa present Eyes General: appearance normal, both eyes and all related structures Neck Neck: Yes no lymphadenopathy and Yes supple Resp Effort & Inspection: normal respiratory effort Auscultation: clear to auscultation bilaterally Cardio Rhythm: regular rhythm Heart sounds: S1 normal heart sound present and S2 normal heart sound present GI Inspection: Yes normal to inspection Palpation (GI): Soft to palpation Percussion: Yes normal to percussion Auscultation: normal bowel sounds Coding Level of Care Code Est Pt Level 4 (23417) Diagnoses Hyperlipidemia E78.5 HTN (hypertension) I10 Anxiety F41.9 GERD (gastroesophageal reflux disease) K21.9 Assessment & Plan Assessment & Plan (1) Hyperlipidemia: Code(s): E78.5 - Hyperlipidemia, unspecified Category: Medical Plan: Patient was advised to restart crestor (2) HTN (hypertension): Comment: Intolerant to hydralazine, Olmesartan and Dyzide Code(s): I10 - Essential (primary) hypertension Category: Medical Plan: Continue diltiazem (3) Anxiety: Code(s): F41.9 - Anxiety disorder, unspecified Category: Medical Plan: Stress management discussed with the patient. 25 mg of Zoloft will be started (4) GERD (gastroesophageal reflux disease): Comment: change PPI to H2 blockers, nl EGD 12/2023 Code(s): K21.9 - Gastro-esophageal reflux disease without esophagitis Category: Medical Plan: Patient will stop pantoprazole and will try Pepcid instead as needed for GERD. Anti GERD diet discussed with the Orders: Orders Lipid Panel 3 Months E78.5 - Hyperlipidemia, unspecified, I10 - Essential (primary) hypertension Hemoglobin A1c 3 Months E78.5 - Hyperlipidemia, unspecified, I10 - Essential (primary) hypertension Comprehensive Met. Panel 3 Months I10 - Essential (primary) hypertension Medications: New sertraline 25 mg PO DAILY 90 tabs 0RF famotidine (Pepcid) 20 mg PO BEDTIME 90 tabs 3RF Refilled rosuvastatin 20 mg PO DAILY 90 tabs 3RF diltiazem HCl CD (Cardizem CD) 240 mg PO DAILY 90 caps 3RF
[2025-06-18 09:00] VITALS: BP 116/64; PULSE 50; RESP 16; TEMP 36.8; O2SAT 97
== END 2025-06-18 09:52 | disposition home or self-care (01) ==
LOC: HO.HMCC 08:58
PROVIDERS: PCP Internal Medicine; Visit Provider Internal Medicine
DX: E78.5 Hyperlipidemia, unspecified (principal); I10 Essential (primary) hypertension; F41.9 Anxiety disorder, unspecified; K21.9 Gastro-esophageal reflux disease without esophagitis

== ENCOUNTER → 2025-06-18 08:57 | Outpatient (BNVA) | payer MEDICARE, SELFPAY | PROVIDERS: PCP Internal Medicine; Visit Provider Internal Medicine | DX: R00.2 Palpitations (principal); I10 Essential (primary) hypertension; E78.5 Hyperlipidemia, unspecified; F41.9 Anxiety disorder, unspecified; K21.9 Gastro-esophageal reflux disease without esophagitis; Z63.8 Other specified problems related to primary support group | CPT/HCPCS: 96127; 99212 ==

== ENCOUNTER 2025-08-01 12:20 | Outpatient (AMB) | payer MEDICARE, SELFPAY ==
[2025-08-01 12:24] VITALS: BP 167/72; PULSE 77; BMI 29.8
--- NOTE | 2025-08-01 12:24 | MHC.OFFVIS ---
Vital Signs 08/01/25 12:24 Height 5 ft 2 in Weight 163 lb 2.273 oz BMI 29.8 BP 167/72 H Blood Pressure Location Lt brachial Position Sitting Pulse 77 Intake Visit Reasons: f/u labs / anemia Intake Note: Jo Ann presents in the office as a follow up for blood work and anemia. CC: She states that sometimes her stomach bothers her where she gets a nausea feeling. Parts Analyst Required: No Allergies hydralazine Allergy (Intermediate, Verified 08/01/25 12:28) Palpitations triamterene Adverse Reaction (Verified 08/01/25 12:28) Abdominal Pain HPI Comments Details: 83 y.o F who is following up. 05/12/24: Reports feeling well. No recurrence since then. H/H reviewed and back to baseline. Pt does not report any gastrointestinal complaints to include abd pain, N,V. 08/01/25: Here for q1y follow up. The patient's blood counts dropped in the summer but have returned to normal after taking prescribed iron supplements. The patient has a history of colon polyps but no polyps on most recent colo 2023 that was done for diverticular bleeding. Currently, the patient reports new symptoms of feeling nauseous or having an upset stomach, which occurs mostly after eating. Has been eating very heavy fried food around the holiday time. Otherwise she remains active, still drives. 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 Ambulates independently, uses stairs at home. [facility] Medical History Acute blood loss anemia Dysphagia HTN (hypertension) Anxiety Hyperglycemia Knee pain, right Diverticulitis Diverticulosis Wheezing Cough Palpitations (~06/18/25) Mammogram normal Rheumatoid aortitis Hyperlipidemia GERD (gastroesophageal reflux disease) Surgical History History of esophagogastroduodenoscopy (EGD) Hx of tonsillectomy S/P partial hysterectomy H/O colonoscopy (~01/14/23) Hx of cataract surgery Family History Father No problems noted. Mother Diabetes Social History Household Members: Children Household Members Other:: lives with daughter Housing: House Do you presently have visiting nurse or other home services: No Alcohol intake: current Alcohol intake frequency: a few times a week Patient Tobacco Use Status: Never used Tobacco e-Cigarette/Vaping Use: Never Used service: No Current occupational status: retired Cognitive needs: No Hearing needs: No Vision needs: No Review of Systems Const All systems reviewed & are unremarkable except as noted in HPI and below Physical Exam Exam Exam: No apparent distress Nonicteric Abdomen soft, nondistended Alert and oriented x3, normal gait Vital Signs: Last Vital Signs Pulse 77 08/01/25 12:24 BP 167/72 H 08/01/25 12:24 BMI result Body Mass Index 29.8 Assessment & Plan Assessment & Plan (1) Generalized postprandial abdominal pain: Code(s): R10.84 - Generalized abdominal pain Category: Medical Plan 1. Postprandial abdominal discomfort The patient reports new symptoms of nausea and feeling unwell after eating. LFTs were normal. plan: - US Abd ordered 2. Colon cancer screening The patient has a history of polyps but had a negative colonoscopy last year for bleeding. - Given the patient's age (84) is beyond the typical screening age of 75 and the recent negative results, no further colonoscopy is planned at this time. Follow up contingent on US results Orders: Orders US abdomen complete Today R10.13 - Epigastric pain Coding Level of Care Code Est Pt Level 3 (29145) Diagnoses Generalized postprandial abdominal pain R10.84
== END 2025-08-01 15:00 | disposition home or self-care (01) ==
LOC: HO.HGI 12:21
PROVIDERS: PCP Internal Medicine; Visit Provider Internal Medicine
DX: R10.84 Generalized abdominal pain (principal)
CPT/HCPCS: 99213

== ENCOUNTER → 2025-08-01 12:20 | Outpatient (BNVA) | payer MEDICARE, SELFPAY | PROVIDERS: PCP Internal Medicine; Visit Provider Internal Medicine | DX: R10.84 Generalized abdominal pain (principal) | CPT/HCPCS: 99212 ==

== ENCOUNTER 2025-08-15 08:50 | Outpatient (REF) | payer MEDICARE, SELFPAY ==
--- NOTE | ~2025-08-15 | MM_ITS ---
EXAMINATION: DXA BONE DENSITY AXIAL HISTORY: M85.89 TECHNIQUE: [email or web address] Dual energy absorptiometry (DEXA) of the lumbar spine, total left hip, and femoral neck was performed. COMPARISON: Comparison is made with the prior examination dated 08/13/2023. FINDINGS: The bone mineral density of the lumbar spine is 1.756 g/cm2, corresponding to a T-score of 4.6, and a Z-score of 5.4. This is indicative of normal bone mineral density. This represents a BMD change of 1.4% compared to the prior exam. This is not statistically significant. The bone mineral density of the left total hip is 1.118 g/cm2, corresponding to a T-score of 0.9, and a Z-score of 1.8. This is indicative of normal bone mineral density. This represents a BMD change of 23.7% compared to the prior exam. This is statistically significant. The bone mineral density of the left femoral neck is 0.950 g/cm2, corresponding to a T-score of -0.6, and a Z-score of 0.5. This is indicative of normal bone mineral density. This represents a BMD change of 20.9% compared to the prior exam. FRACTURE RISK: The FRAX index suggests a ten year probability of major osteoporotic fracture of 6.0%, and of hip fracture 1.2%. MM/XR DEXA axial skeleton IMPRESSION: Based on bone mineral density, and according to World Health Organization (WHO) criteria, the diagnosis is consistent with normal bone mineral density. Statistically, 68% of repeat scans fall within 1 SD (+/- 0.010 g/cm2 for AP spine L1-L4) and 1 SD (+/- 0.012 g/cm2 for femur total) FRAX is a trademark of the [employer], a World Health Organization (WHO) Collaborating Center. Electronically signed by: Luis Angel Woodson MD 08/15/2025 09:25 AM [facility] [place]
== END 2025-08-15 08:51 ==
LOC: HO.MAMMO 08:50
PROVIDERS: PCP Internal Medicine; Visit Provider Obstetrics & Gynecology
DX: M85.89 Other specified disorders of bone density and structure, multiple sites (principal)
CPT/HCPCS: 77080

== ENCOUNTER → 2025-08-15 09:15 | Outpatient (BNV) | payer MEDICARE, SELFPAY | PROVIDERS: PCP Internal Medicine; Visit Provider Radiology Diagnostic Radiology | DX: E28.39 Other primary ovarian failure (principal) | CPT/HCPCS: 77080 ==